=== PATIENT | male | born 1970 | race Caucasian/White ===

== ENCOUNTER 2020-11-19 11:46 | Outpatient (CLI) | payer MEDICARE, MEDICAID ==
[2020-11-19 12:00] VITALS: BP 139/85
[2020-11-19] MEDS ORDERED: EPINEPHrine INJECTION 1 MG/ML AMP IM PRN (12:15)
[2020-11-19] MEDS ORDERED: diphenhydrAMINE 50 MG/ML INJ (BENADRYL) IV PRN (12:15)
[2020-11-19] MEDS ORDERED: CASIRIVIMAB/IMDEVIMAB 1,200 MG in NS (IVPB) 250 ML IV ONE (12:30)
[2020-11-19] MEDS ORDERED: ONDANSETRON 4 MG/2 ML (SDV) Z0FRAN IV PRN (12:30)
[2020-11-19] MEDS ORDERED: ACETAMINOPHEN 500 MG TAB (TYLENOL) PO PRN (12:30)
[2020-11-19 13:53] VITALS: BP 142/74
== END 2020-11-19 14:27 | disposition other institution, planned readmission (95) ==
LOC: INFUSION 11:46
PROVIDERS: ATTEND Family Medicine
DX: Z23 Encounter for immunization (principal); U07.1 COVID-19

== ENCOUNTER 2021-06-20 19:20 | Emergency (ER) | payer MEDICARE, MEDICAID ==
[2021-06-20] MEDS ORDERED: cloNIDine 0.1 MG (CATAPRES) TAB PO STA (19:49)
--- NOTE | 2021-06-20 19:56 | ED Fall/Injury ---
General Chief Complaint: Head/Cervical Problems Stated Complaint: FALL Nursing Triage Note: PT LOST HIS BALANCE AND HIT HIS HEAD ON HIS DOOR. SMALL 1.5 CM SKIN TEAR IN THE LEFT EYEBROW. NO LOC. Source: patient, caregiver History of Present Illness Date Seen by Provider: Jun 20, 2021 Time Seen by Provider: 19:21 Initial Comments 50 yo male presenting by EMS after having a fall at [facility]. He has a history of hypertension and is running higher tonight. He had some unsteadiness when he was walking which is not unusual for him. He had complained of a headache and his blood pressure was elevated and so he was given some acetaminophen and he was trying to walk back to his room when he had fallen. He has a skin tear to his left eyebrow. He denies having nausea, vomiting, headache, change in vision, chest pain, arm pain, leg pain. He does take blood pressure medicine but it is dose for the morning. He has not taken his evening meds yet he usually takes them around 7 or 8 PM. He did not lose consciousness when he fell and hit his left eyebrow. He got up on his own. He does not take a blood thinner. He is unsure of his last tetanus Location Injury Occurred: [facility] Occurred: just prior to arrival Severity: mild Injuries/Pain Location: face (skin tear left eyebrow) Context: lost balance Loss of Consciousness: no loss of consciousness Associated Symptoms (Fall): No Abdominal Pain, No Chest Pain, No Confusion; Dizziness (feels like he is falling when he is getting up to move around), Headache (had a headache prior to getting acetaminophen); No Lightheadedness, No Muscle Spasms, No Nausea/Vomiting, No Neck Pain, No Ringing in Ears, No Seizures, No Shortness of Air, No Slurred Speech; Trouble Walking (chronic issue for hime); No Vision Changes Allergies and Home Medications Allergies Uncoded Allergies: PCN (Allergy, Mild, 11/19/20) Patient Home Medication List Home Medication List Reviewed: Yes Review of Systems Review of Systems Constitutional: see HPI; No chills, No fever Eyes: Denies Blurred Vision, Denies Photophobia, Denies Vision Changes Ears, Nose, Mouth, Throat: denies nose pain, denies nose discharge, denies epistaxis Respiratory: No cough, No short of breath Cardiovascular: No chest pain Gastrointestinal: No nausea, No vomiting Genitourinary: No dysuria Musculoskeletal: No neck pain Skin: other (skin tear left eyebrow) Psychiatric/Neurological: See HPI Past Oolofoo-Owxgyj-Szyztl Hx Patient Social History Tobacco Use?: No Use of E-Cig and/or Vaping dev: No Substance use?: No Alcohol Use?: No Pt feels they are or have been: No Past Medical History Surgery/Hospitalization HX: diabetic, Htn Physical Exam Vital Signs Vital Signs - First Documented 06/20/21 19:22 Temp 36.9 Pulse 77 Resp 16 B/P (MAP) 187/98 (127) Pulse Ox 99 O2 Delivery Room Air Capillary Refill : Less Than 3 Seconds Height, Weight, BMI Height: '" Weight: lbs. oz. 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 Wound is a superficial skin tear. Since it is right in the eyebrow there is nothing to stitch together. A Steri-Strip was applied over the skin tear to try and help approximate the wound edges. Patient tolerated procedure well without any immediate complication. Progress/Results/Core Measures Results/Orders My Orders Orders - TERRY LOPEZ MD Clonidine Tablet (Catapres Tablet) (06/20/21 19:49) Ct Head/Neck Wo (06/20/21 19:49) Dipht,Pertuss(Acell),Tet Adult (Boostrix (06/20/21 20:00) Medications Given in ED Current Medications Medications Dose Ordered Sig/Lindsey Route Start Time Stop Time Status Last Admin Dose Admin Diphtheria/ Tetanus/Acell Pertussis 0.5 ml ONCE ONCE IM 06/20/21 20:00 06/20/21 20:01 DC 06/20/21 19:55 0.5 ML Vital Signs/I&O 06/20/21 06/20/21 19:22 20:33 Temp 36.9 36.9 Pulse 77 70 Resp 16 18 B/P (MAP) 187/98 (127) 152/70 Pulse Ox 99 99 O2 Delivery Room Air Room Air Blood Pressure Mean: 127 Progress Progress Note #1: Progress Note As patient does have elevated blood pressure a extra dose of blood pressure medicine will be given. Will obtain CT scan of the head and cervical spine from his fall and complaining of being dizzy. This is likely related to his elevated blood pressure and some of this could be from the fall and pain. He does take blood pressure medications but they are only dosed in the morning from what I can see on review of his MAR. Give Clonidine 0.1 mg po for elevated blood pressure, update tetanus since unsure when he last had booster. CT scan of head and cervical spine. Progress Note #2: Progress Note CT scan of the head and cervical spine did not show any acute process and no intracranial bleeding. The blood pressure was improved with the clonidine. His blood pressure came down to 152/70 prior to discharge. Encouraged to recheck blood pressures at the [facility] and keep track of those to follow-up with Dr. Daley and the [facility] clinic to see if they need to adjust any of his medications. Diagnostic Imaging Diagonstic Imaging: CT Plain Films/CT/US/NM/MRI: c-spine, head Comments NAME: NEHEMIAH RAMIREZ MED REC#: [id number] PT STATUS: REG ER : 1970 PHYSICIAN: TERRY LOPEZ MD ADMIT DATE: 06/20/21/ER FS Draft Date of Exam:06/20/21 CT HEAD/NECK WO PROCEDURE: CT head and neck without contrast. TECHNIQUE: Contiguous axial images were obtained from the skull base through the vertex. Noncontrast axial images were then obtained of the soft tissue of the neck. Auto Exposure Controls were utilized during the CT exam to meet ALARA standards for radiation dose reduction. INDICATION: Fall. Trauma to head. Pain. COMPARISON: None. FINDINGS: CT HEAD: The ventricles and cortical sulci are diffusely prominent, compatible with age-related volume loss. There are confluent areas of abnormal, low attenuation in the periventricular white matter. This is consistent with small vessel ischemic changes; age-indeterminate. There is no prior study available for comparison. There is no midline shift or mass-effect. No acute intra-axial hemorrhage is seen. There are no abnormal areas of increased or decreased density to suggest acute hemorrhage or edema. No extra-axial masses or collections are present. The bony calvarium is intact. The visualized paranasal sinuses show near-complete opacification of the right frontal sinus and anterior right ethmoid air cells. Remaining paranasal sinuses show mild scattered mucosal thickening. The mastoid air cells are clear. CT CERVICAL SPINE: Static alignment of the cervical spine is maintained. There is no significant anterolistheses or retrolisthesis. There is no evidence of jumped facets. Vertebral body heights are maintained. There is no acute fracture. No bony fragments are seen within the spinal canal. There are mild multilevel degenerative changes. Pre and paravertebral soft tissue structures are unremarkable. Included portions of the lung apices are clear. IMPRESSION: 1. No acute intracranial abnormality. No CT evidence of mass, acute infarct or intracranial hemorrhage. 2. Small vessel ischemic changes in the periventricular and subcortical white matter; likely chronic. 3. No acute fracture ot dislocation of the cervical spine. Dictated on workstation # [id number] Dict: 06/20/212013 Trans: 06/20/212018 [facility] [id number] Interpreted by: ERIKA ORTIZ MD Electronically signed by: Reviewed: Reviewed by Me Departure Impression Primary Impression: Skin tear Additional Impressions: Essential hypertension Fall at home Qualified Codes: W19.XXXA - Unspecified fall, initial encounter; Y92.009 - Unspecified place in unspecified non-institutional (private) residence as the place of occurrence of the external cause Disposition: 01 HOME, SELF-CARE Condition: Stable Departure-Patient Inst. Decision time for Depature: 20:34 Referrals: SILVANA WHITE MD (PCP/Family) Primary Care Physician Patient Instructions: Preventing Falls ED, High Blood Pressure ED, Wound Care ED, Abrasions ED Add. Discharge Instructions: Keep wound clean with soap and water. May apply antibiotic ointment 2 times a day for next 5 days to help the wound heal. Monitor his blood pressure over the next few days and keep a log fo the pressures. Check back with Dr. Jones and [facility] clinic to see if they want to adjust any doses of his blood pressure medicines. He was given a single dose of Clonidine 0.1 mg by mouth here in the Emergency Department to help lower his elevated blood pressure. Continue with regular medicines as prescribed. CT scan of head and cervical spine do not show any fractures or bleeding. All discharge instructions reviewed with patient and/or family. Voiced understanding. TERRY LOPEZ MD Jun 20, 2021 19:56
[2021-06-20] MEDS ORDERED: TETANUS,DIPTH,PERTUSS P/F (BOOSTRIX) 0.5 ML VIAL IM ONE (20:00)
--- NOTE | 2021-06-20 20:20 | Diagnostic Imaging Report ---
PROCEDURE: CT head and neck without contrast. TECHNIQUE: Contiguous axial images were obtained from the skull base through the vertex. Noncontrast axial images were then obtained of the soft tissue of the neck. Auto Exposure Controls were utilized during the CT exam to meet ALARA standards for radiation dose reduction. INDICATION: Fall. Trauma to head. Pain. COMPARISON: None. FINDINGS: CT HEAD: The ventricles and cortical sulci are diffusely prominent, compatible with age-related volume loss. There are confluent areas of abnormal, low attenuation in the periventricular white matter. This is consistent with small vessel ischemic changes; age-indeterminate. There is no prior study available for comparison. There is no midline shift or mass-effect. No acute intra-axial hemorrhage is seen. There are no abnormal areas of increased or decreased density to suggest acute hemorrhage or edema. No extra-axial masses or collections are present. The bony calvarium is intact. The visualized paranasal sinuses show near-complete opacification of the right frontal sinus and anterior right ethmoid air cells. Remaining paranasal sinuses show mild scattered mucosal thickening. The mastoid air cells are clear. CT CERVICAL SPINE: Static alignment of the cervical spine is maintained. There is no significant anterolistheses or retrolisthesis. There is no evidence of jumped facets. Vertebral body heights are maintained. There is no acute fracture. No bony fragments are seen within the spinal canal. There are mild multilevel degenerative changes. Pre and paravertebral soft tissue structures are unremarkable. Included portions of the lung apices are clear. IMPRESSION: 1. No acute intracranial abnormality. No CT evidence of mass, acute infarct or intracranial hemorrhage. 2. Small vessel ischemic changes in the periventricular and subcortical white matter; likely chronic. 3. No acute fracture ot dislocation of the cervical spine. Dictated by: Dictated on workstation # [id number]
[2021-06-20 20:33] VITALS: BP 152/70
== END 2021-06-20 20:39 | disposition home or self-care (01) ==
LOC: EDUNIT# 19:20 → ER FS 19:21
DX: S01.112A Laceration without foreign body of left eyelid and periocular area, initial encounter (principal); I10 Essential (primary) hypertension; Z23 Encounter for immunization; W22.8XXA Striking against or struck by other objects, initial encounter; Y92.009 Unspecified place in unspecified non-institutional (private) residence as the place of occurrence of the external cause
CPT/HCPCS: 70450; 70490; 90715

== ENCOUNTER 2022-01-01 05:48 | Outpatient (CLI) | payer MEDICARE, MEDICAID ==
[~2022-01-01] VITALS: Ht 154.9 cm; Wt 63.5 kg
[2022-01-06] MEDS ORDERED: UMEC1BLS IH (15:26)
[2022-01-06] MEDS ORDERED: METO-333 PO (15:26)
[2022-01-06] MEDS ORDERED: RISP1TAB93 PO (15:26)
[2022-01-06] MEDS ORDERED: CLN.1T PO (15:26)
[2022-01-06] MEDS ORDERED: FERR325T24 PO (15:26)
[2022-01-06] MEDS ORDERED: RISP0.5T65 PO (15:26)
[2022-01-06] MEDS ORDERED: ESCI-2 PO (15:26)
[2022-01-06] MEDS ORDERED: CARB200T6 PO (15:26)
[2022-01-06] MEDS ORDERED: SUCR1TAB PO (15:26)
[2022-01-06] MEDS ORDERED: POLY10DR31 OP (15:26)
[2022-01-06] MEDS ORDERED: NYST15CR35 TP (15:26)
[2022-01-06] MEDS ORDERED: AMLO-251 PO (15:26)
[2022-01-06] MEDS ORDERED: ACET325T49 PO (15:26)
[2022-01-06] MEDS ORDERED: PANT40TA52 PO (15:26)
[2022-01-06] MEDS ORDERED: LEVE500T6 PO (15:26)
[2022-01-06] MEDS ORDERED: CLOZ25TA3 PO (15:26)
[2022-01-06] MEDS ORDERED: LOSA50TA63 PO (15:26)
[2022-01-06] MEDS ORDERED: CARI1.5C PO (15:26)
[2022-01-06] MEDS ORDERED: DOCU100C37 PO (15:26)
[2022-01-06] MEDS ORDERED: METF-399 PO (15:26)
[2022-01-06] MEDS ORDERED: MUPI15CR11 TP (15:26)
[2022-01-06] MEDS ORDERED: RILU50TA14 PO (15:26)
[2022-01-06] MEDS ORDERED: ATOR20TA66 PO (15:26)
[2022-01-06] MEDS ORDERED: RT-ALBUINH INH (15:26)
== END 2022-01-06 15:27 | disposition home or self-care (01) ==
LOC: PREOP 05:48
PROVIDERS: ATTEND Surgery
DX: Z01.818 Encounter for other preprocedural examination (principal); Z12.11 Encounter for screening for malignant neoplasm of colon; K92.2 Gastrointestinal hemorrhage, unspecified; R13.10 Dysphagia, unspecified; R11.2 Nausea with vomiting, unspecified

== ENCOUNTER 2022-01-13 09:08 | Day surgery (SDC) | payer MEDICARE, MEDICAID ==
[~2022-01-13] VITALS: Ht 155 cm; Wt 63.5 kg
[~2022-01-13 09:08] MED LIST: ACET325T49 PO; AMLO-251 PO; ATOR20TA66 PO; CARB200T6 PO; CARI1.5C PO; CLN.1T PO; CLOZ25TA3 PO; DOCU100C37 PO; ESCI-2 PO; FERR325T24 PO; LEVE500T6 PO; LOSA50TA63 PO; METF-399 PO; METO-333 PO; MUPI15CR11 TP; NYST15CR35 TP; PANT40TA52 PO; POLY10DR31 OP; RILU50TA14 PO; RISP0.5T65 PO; RISP1TAB93 PO; RT-ALBUINH INH; SUCR1TAB PO; UMEC1BLS IH
[2022-01-13] MEDS ORDERED: LACTATED RINGERS 1,000 ML IV STA (09:09)
[2022-01-13] MEDS ORDERED: HURRICAINE EXT TUBE (BENZOCAINE) XX PRN (09:15)
--- NOTE | 2022-01-13 09:26 | Progress Note-Pre Operative ---
Pre-Operative Progress Note Date of Available H&P: Dec 19, 2021 Date H&P Reviewed: Jan 13, 2022 Time H&P Reviewed: 09:23 History & Physical: H&P Reviewed, Patient Examed, No changes noted Pre-Operative Diagnosis: N/V, Dysphagia, Screening colonoscopy ACE BAKER DO Jan 13, 2022 09:26
[2022-01-13 09:50] VITALS: BP 142/90
[2022-01-13] MEDS ORDERED: PROPOFOL INJECTION 50 ML IV ONE (10:33)
[2022-01-13] MEDS ORDERED: MIDAZOLAM 2 MG/2 ML (VERSED) VIAL ONE (10:33)
--- NOTE | 2022-01-13 11:17 | Progress Note-Post Operative ---
Post-Operative Progess Note Surgeon (s)/Ruling Technician (s) Surgeon ACE BAKER DO Ruling Technician: RYAN Silverman Pre-Operative Diagnosis N/V, Dysphagia, Screening colonoscopy Post-Operative Diagnosis Gastritis Hiatal hernia Polyp int hemorrhoids Procedure & Operative Findings Date of Procedure 01/13/22 Procedure Performed/Findings EGD with bx Colonoscopy with snare PROCEDURE NOTE: After informed consent was obtained, the patient was brought to the endoscopy suite, placed in bed in left lateral decubitus position. He was administered IV sedation by the DIRECTOR LOSS PREVENTION who then monitored vitals the entire time, heart rate, blood pressure and pulse ox and the scope was inserted down the mouth through the esophagus into the stomach. On the way down, noted some mild esophagitis, took a picture, pushed into the stomach, pushed past the antrum into the duodenum. Duodenum looked good. Pulled back and did a biopsy of antrum, then retroflexed the scope, saw hiatal hernia, took a picture of this and then pulled the scope into the GE junction, took another picture of the hiatal hernia and then did a biopsy of the GE junction. Pushed the scope back into the stomach, suctioned all the air out of the stomach. At this point pulled the scope up the esophagus and out the mouth. I did not see anything in his esophagus to cause dysphagia. Switched camera, switched gloves, went down below and started the colonoscopy. Pushed all the way into about 140 cm to get all the way to cecum; saw a lot of retained fecal material. Once in the cecum, took a picture of the appendiceal orifice, noted the ileocecal valve and then slowly withdrew the scope. Insufflating to look circumferentially at the duggan starting in the cecum, up the ascending colon to the hepatic flexure, then down the transverse colon to the splenic flexure and into the descending colon. Here I found a small polyp and elected to remove it with snare polypectomy. Continued down into the sigmoid and finally into the rectum where I found another small polyp; also removed with snare. Retro- flexed in the rectal vault, saw some minimal internal hemorrhoids and took a picture of them. The patient tolerated the procedure and he recovered in the endoscopy suite. Recommended for repeat colonoscopy in 5 years Anesthesia Type IV sedation by DIRECTOR LOSS PREVENTION Estimated Blood Loss Estimated blood loss (mL): scant Specimens/Packing Specimens Removed antral bx GE jxn bx Desc colon polyp rectal polyp ACE BAKER DO Jan 13, 2022 11:17
[2022-01-13 11:18] VITALS: BP 129/74
--- NOTE | 2022-01-13 11:18 | Endoscopy Discharge Instruct ---
Endo Procedure/Findings Findings 1.: Gastritis 2.: Hiatal Hernia 3.: Polyp 4.: Internal Hemorrhoids Discharge Instructions - Activity: You might feel a little sleepy until tomorrow. This is due to the medicine you received to relax you. Until tomorrow, you should: NOT drive a car, operate machinery or power tools. NOT drink any alcoholic beverages. NOT make any important decisions or sign importortant papers. Do not return to work until tomorrow, unless otherwise instructed. Resume previous activities tomorrow. Diet: Start by taking liquids. If you tolerate liquids, advance to solid food. 1.: EGD in 3 years 2.: Colonscopy in 5 years Notify Physician - If you experience excessive bleeding, unusual abdominal pain, fever, or chest pain, contact your doctor immediately. ACE BAKER DO Jan 13, 2022 11:18
[2022-01-13 11:23] VITALS: BP 141/84
[2022-01-13 11:28] VITALS: BP 156/88
[2022-01-13 11:30] VITALS: BP 156/88
[2022-01-13 11:50] VITALS: BP 156/88
--- NOTE | 2022-01-13 12:23 | Anesthesia-General Post-Op ---
MAC Patient Condition Mental Status/LOC: Same as Preop Cardiovascular: Satisfactory Nausea/Vomiting: Absent Respiratory: Satisfactory Pain: Controlled Complications: Absent Post Op Complications Complications None Follow Up Care/Instructions Patient Instructions None needed. Anesthesiology Discharge Order Discharge Order Patient is doing well, no complaints, stable vital signs, no apparent adverse anesthesia problems. No complications reported per nursing. GUSTAVO HUBBARD CRNA Jan 13, 2022 12:23
== END 2022-01-13 11:58 | disposition home or self-care (01) ==
LOC: ENDO 09:08
PROVIDERS: ATTEND Surgery
DX: Z12.11 Encounter for screening for malignant neoplasm of colon (principal); K29.70 Gastritis, unspecified, without bleeding; K44.9 Diaphragmatic hernia without obstruction or gangrene; K62.1 Rectal polyp; K63.5 Polyp of colon; K64.8 Other hemorrhoids; K20.90 Esophagitis, unspecified without bleeding; K31.9 Disease of stomach and duodenum, unspecified; F79 Unspecified intellectual disabilities

== ENCOUNTER → 2022-01-23 | Outpatient (CLI) | payer MEDICARE, MEDICAID ==
[2022-01-23 13:39] LABS: BASOPHILS % (AUTO) 0 % (0-10); EOSINOPHILS # (AUTO) 0.1 10^3/uL (0.0-0.3); EOSINOPHILS % (AUTO) 1 % (0-10); HEMATOCRIT 21 % (40-54); LYMPHOCYTES % (AUTO) 29 % (12-44); MEAN CORPUSCULAR HEMOGLOBIN 28 pg (25-34); MEAN CORPUSCULAR HGB CONC 33 g/dL (32-36); MEAN CORPUSCULAR VOLUME 87 fL (80-99); MEAN PLATELET VOLUME 9.3 fL (9.0-12.2); MONOCYTES # (AUTO) 0.5 10^3/uL (0.0-1.0); MONOCYTES % (AUTO) 7 % (0-12); NEUTROPHILS # (AUTO) 4.4 10^3/uL (1.8-7.8); NEUTROPHILS % (AUTO) 63 % (42-75); PLATELET COUNT 211 10^3/uL (130-400)
[2022-01-23 13:58] LABS: SODIUM 131 MMOL/L (135-145)
[2022-01-23 13:59] LABS: ALANINE AMINOTRANSFERASE 16 U/L (0-55); ALBUMIN 3.6 GM/DL (3.2-4.5); ALKALINE PHOSPHATASE 105 U/L (40-136); BILIRUBIN,TOTAL < 0.2 MG/DL (0.1-1.0); BUN/CREATININE RATIO 18; CALCIUM 9.8 MG/DL (8.5-10.1); CARBON DIOXIDE 22 MMOL/L (21-32); CHLORIDE 97 MMOL/L (98-107); CREATININE SERUM 2.11 MG/DL (0.60-1.30); GFR ESTIMATED 37; GLUCOSE 90 MG/DL (70-105); POTASSIUM 4.8 MMOL/L (3.6-5.0); TOTAL PROTEIN 6.6 GM/DL (6.4-8.2)
== END ==
LOC: LAB FS 13:15
PROVIDERS: ATTEND Family Medicine
DX: I10 Essential (primary) hypertension (principal); D50.9 Iron deficiency anemia, unspecified
CPT/HCPCS: 36415; 80053; 85025

== ENCOUNTER 2022-01-24 11:32 | Emergency (ER) | payer MEDICARE, MEDICAID ==
[~2022-01-24 11:32] MED LIST changes: +CLOZ25TA PO; -CLOZ25TA3 PO
== END 2022-01-24 12:25 | disposition left against medical advice (07) ==
LOC: EDUNIT# 11:32 → ER FS 11:34
DX: D64.9 Anemia, unspecified (principal)

== ENCOUNTER 2022-03-10 09:33 | Emergency (ER) | payer MEDICARE, MEDICAID ==
--- NOTE | 2022-03-10 09:46 | ED Neurological Problem ---
General Chief Complaint: Neurological Problems Stated Complaint: RIGHT SIDE FACIAL DROOPING History of Present Illness Date Seen by Provider: Mar 10, 2022 Time Seen by Provider: 09:38 Initial Comments 51-year-old male with PMH of DM2/HLD/HTN/asthma/schizoaffective disorder/cyclothymic disorder/disruptive mood disorder/conduct disorder/fecal incontinence, is here from a long-term due to a new right-sided facial droop which was noticed when patient woke up today morning around 6 AM to 7 AM. Patient does not have any other neurological deficits, or weakness or sensory loss in his extremities. Denies headache, abdominal pain, fever, neck pain, shortness of breath, chest pain. Staff from his long-term that is accompanying the patient reports that patient has been having a cough and cold for the past few days, and that there are several people in the long-term that have been recovering from COVID. Allergies and Home Medications Allergies Uncoded Allergies: PCN (Allergy, Mild, 11/19/20) Patient Home Medication List Home Medication List Reviewed: Yes Acetaminophen (Acetaminophen) 325 Mg Tablet, 325 MG PO PRN, (Reported) Entered as Reported by: BONILLA CERVANTES on 01/06/221525 Albuterol Sulfate (Ventolin Hfa) 1 Puff Puff, 2 PUFF INH Q4H, (Reported) Entered as Reported by: BONILLA CERVANTES on 01/06/221525 Amlodipine Besylate (Amlodipine Besylate) 10 Mg Tablet, 10 MG PO DAILY, (Reported) Entered as Reported by: BONILLA CERVANTES on 01/06/221525 Atorvastatin Calcium (Atorvastatin Calcium) 20 Mg Tablet, 20 MG PO DAILY, (Reported) Entered as Reported by: BONILLA CERVANTES on 01/06/221525 Carbamazepine (Carbamazepine) 200 Mg Tablet, 200 MG PO DAILY, (Reported) Entered as Reported by: BONILLA CERVANTES on 01/06/221525 Cariprazine Hydrochloride (Vraylar) 1.5 Mg Capsule, 1.5 MG PO DAILY, (Reported) Entered as Reported by: BONILLA CERVANTES on 01/06/221525 Clonidine HCl (Clonidine HCl) 0.1 Mg Tablet, 0.1 MG PO DAILY, (Reported) Entered as Reported by: BONILLA CERVANTES on 01/06/221525 Clozapine (Clozapine) 25 Mg Tablet, 25 MG PO DAILY, (Reported) Entered as Reported by: BONILLA CERVANTES on 01/06/221525 Docusate Sodium (Docusate Sodium) 100 Mg Capsule, 100 MG PO DAILY, (Reported) Entered as Reported by: BONILLA CERVANTES on 01/06/221525 Escitalopram Oxalate (Escitalopram Oxalate) 10 Mg Tablet, 10 MG PO DAILY, (Reported) Entered as Reported by: BONILLA CERVANTES on 01/06/221525 Ferrous Sulfate (Ferosul) 325 Mg (65 Mg Iron) Tablet, 325 MG PO DAILY, (Reported) Entered as Reported by: BONILLA CERVANTES on 01/06/221525 Levetiracetam (Levetiracetam) 500 Mg Tablet, 500 MG PO DAILY, (Reported) Entered as Reported by: BONILLA CERVANTES on 01/06/221525 Losartan Potassium (Losartan Potassium) 50 Mg Tablet, 50 MG PO DAILY, (Reported) Entered as Reported by: BONILLA CERVANTES on 01/06/221525 Metformin HCl (Metformin HCl) 1,000 Mg Tablet, 1,000 MG PO DAILY, (Reported) Entered as Reported by: BONILLA CERVANTES on 01/06/221525 Metoprolol Tartrate (Metoprolol Tartrate) 25 Mg Tablet, 25 MG PO BID, (Reported) Entered as Reported by: BONILLA CERVANTES on 01/06/221525 Mupirocin Calcium (Mupirocin) 2 % Cream..g., 15 GM TP PRN, (Reported) Entered as Reported by: BONILLA CERVANTES on 01/06/221525 Nystatin (Nystatin) 100,000 Unit/Gram Cream..g., 15 GM TP PRN, (Reported) Entered as Reported by: BONILLA CERVANTES on 01/06/221525 Pantoprazole Sodium (Pantoprazole Sodium) 40 Mg Tablet.dr, 40 MG PO DAILY, (Reported) Entered as Reported by: BONILLA CERVANTES on 01/06/221525 Polymyxin B Sulf/Trimethoprim (Polymyxin B-Tmp Eye Drops) 10,000 Unit-1 Mg/Ml Drops, 10 ML OP HS, (Reported) Entered as Reported by: BONILLA CERVANTES on 01/06/221525 Riluzole (Rilutek) 50 Mg Tablet, 50 MG PO DAILY, (Reported) Entered as Reported by: BONILLA CERVANTES on 01/06/221525 Risperidone (Risperidone) 1 Mg Tablet, 1 MG PO DAILY, (Reported) Entered as Reported by: BONILLA CERVANTES on 01/06/221525 Risperidone (Risperidone) 0.5 Mg Tablet, 0.5 MG PO PRN, (Reported) Entered as Reported by: BONILLA CERVANTES on 01/06/221525 Sucralfate (Sucralfate) 1 Gram Tablet, 1 GM PO DAILY, (Reported) Entered as Reported by: BONILLA CERVANTES on 01/06/221525 Umeclidinium Brm/Vilanterol Tr (Anoro Ellipta 62.5-25 Mcg INH) 62.5 Mcg-25 Mcg/Actuation Blst.w.dev, 1 EACH IH Q12H, (Reported) Entered as Reported by: BONILLA CERVANTES on 01/06/221525 Review of Systems Review of Systems Constitutional: no symptoms reported Eyes: Other (Right eye and facial drooping) Ears, Nose, Mouth, Throat: see HPI Respiratory: no symptoms reported Cardiovascular: no symptoms reported Gastrointestinal: no symptoms reported Genitourinary: no symptoms reported Musculoskeletal: no symptoms reported Skin: no symptoms reported Psychiatric/Neurological: No Symptoms Reported Endocrine: No Symptoms Reported Hematologic/Lymphatic: No Symptoms Reported Past Wquityf-Wyxjfm-Aseurc Hx Patient Social History Tobacco Use?: No Smoking Status: Never a Smoker Smokeless Tobacco Frequency: Never a User Use of E-Cig and/or Vaping dev: No Use of E-Cig and/or Vaping Trey: Never a User Substance use?: No Alcohol Use?: No Pt feels they are or have been: No Immunizations Up To Date First/Initial COVID19 Vaccinat: YES Second COVID19 Vaccination Mike: YES Third COVID19 Vaccination Date: YES Seasonal Allergies Seasonal Allergies: No Past Medical History Surgery/Hospitalization HX: diabetic, Htn Surgeries: Yes (CATARACTS) Respiratory: Yes Cardiac: Yes Hypertension Neurological: Yes Developmental Disorder Genitourinary: No Gastrointestinal: No Endocrine: Yes Diabetes, Non-Insulin dep HEENT: Yes Cataract Cancer: No Psychosocial: Yes Integumentary: No Physical Exam Vital Signs Vital Signs - First Documented 03/10/22 09:40 Temp 36.0 Pulse 61 Resp 18 B/P (MAP) 136/84 (101) O2 Delivery Room Air Capillary Refill : Height, Weight, BMI Height: '" Weight: lbs. oz. kg; 26.43 BMI Method: General Appearance: WD/WN, no apparent distress HEENT: PERRL/EOMI, other (Right-sided facial drooping, loss of nasolabial folds on the right loss of forehead wrinkling on the right. Patient is able to close his right eye) Neck: non-tender, full range of motion, supple, normal inspection Respiratory: chest non-tender, lungs clear, normal breath sounds Cardiovascular: regular rate, rhythm Gastrointestinal: normal bowel sounds, non tender, soft Back: normal inspection Extremities: normal range of motion, non-tender, normal inspection Neurologic/Psychiatric: no motor/sensory deficits, alert, normal mood/affect, oriented x 3, facial droop (Right side with loss of nasolabial fold, loss of right-sided forehead wrinkling. Patient is able to close his right eye.) Crainal Nerves: normal hearing, normal speech, PERRL, facial asymmetry, facial droop, facial weakness Coordination/Gait: normal gait Motor/Sensory: no motor deficit, no sensory deficit, no pronator drift, negative Babinski's sign Skin: normal color Lymphatic: no adenopathy Progress/Results/Core Measures Results/Orders Lab Results Laboratory Tests Test 03/10/22 09:40 03/10/22 10:39 Range/Units White Blood Count 5.0 4.3-11.0 10^3/uL Red Blood Count 3.04 L 4.30-5.52 10^6/uL Hemoglobin 8.6 L 13.3-17.7 g/dL Hematocrit 27 L 40-54 % Mean Corpuscular Volume 87 80-99 fL Mean Corpuscular Hemoglobin 28 25-34 pg Mean Corpuscular Hemoglobin Concent 33 32-36 g/dL Red Cell Distribution Width 14.6 H 10.0-14.5 % Platelet Count 172 130-400 10^3/uL Mean Platelet Volume 9.5 9.0-12.2 fL Immature Granulocyte % (Auto) 0 % Neutrophils (%) (Auto) 60 42-75 % Lymphocytes (%) (Auto) 18 12-44 % Monocytes (%) (Auto) 21 H 0-12 % Eosinophils (%) (Auto) 1 0-10 % Basophils (%) (Auto) 0 0-10 % Neutrophils # (Auto) 3.0 1.8-7.8 10^3/uL Lymphocytes # (Auto) 0.9 L 1.0-4.0 10^3/uL Monocytes # (Auto) 1.0 0.0-1.0 10^3/uL Eosinophils # (Auto) 0.0 0.0-0.3 10^3/uL Basophils # (Auto) 0.0 0.0-0.1 10^3/uL Immature Granulocyte # (Auto) 0.0 0.0-0.1 10^3/uL Neutrophils % (Manual) 62 % Lymphocytes % (Manual) 19 % Monocytes % (Manual) 15 % Eosinophils % (Manual) 0 % Basophils % (Manual) 3 % Band Neutrophils 1 % Prothrombin Time 13.1 12.2-14.7 SEC INR Comment 0.9 0.8-1.4 Activated Partial Thromboplast Time 31 24-35 SEC Sodium Level 130 L 135-145 MMOL/L Potassium Level 4.5 3.6-5.0 MMOL/L Chloride Level 96 L 98-107 MMOL/L Carbon Dioxide Level 25 21-32 MMOL/L Anion Gap 9 5-14 MMOL/L Blood Urea Nitrogen 35 H 7-18 MG/DL Creatinine 1.87 H 0.60-1.30 MG/DL Estimat Glomerular Filtration Rate 43 BUN/Creatinine Ratio 19 Glucose Level 93 70-105 MG/DL Calcium Level 9.4 8.5-10.1 MG/DL Corrected Calcium 9.6 8.5-10.1 MG/DL Total Bilirubin 0.3 0.1-1.0 MG/DL Aspartate Amino Transf (AST/SGOT) 63 H 5-34 U/L Alanine Aminotransferase (ALT/SGPT) 61 H 0-55 U/L Alkaline Phosphatase 277 H 40-136 U/L Troponin I < 0.30 <0.30 NG/ML Total Protein 7.5 6.4-8.2 GM/DL Albumin 3.8 3.2-4.5 GM/DL My Orders Orders - ROSARIO GERBER MD Ct Head Wo-R/O Stroke (03/10/22 09:42) Cbc With Automated Diff (03/10/22 09:43) Protime With Inr (03/10/22 09:43) Partial Thromboplastin Time (03/10/22 09:43) Comprehensive Metabolic Panel (03/10/22 09:43) Troponin I Fs (03/10/22 09:43) Ua Culture If Indicated (03/10/22 09:43) Chest 1 View Ap/Pa Only (03/10/22 09:43) Ekg Tracing (03/10/22:43) Nothing By Mouth (03/10/22 Lunch) Accucheck Stat ONCE (03/10/22:43) Ed Iv/Invasive Line Start (03/10/22 09:43) Vital Signs Stroke Patient Q15M (03/10/22 09:43) Monitor-Rhythm Ecg Trace Only (03/10/22:43) Dysphagia Screening Tool [id number] (03/10/22 09:43) Drug Screen Stat (Urine) (03/10/22 09:45) Manual Differential (03/10/22 09:40) Covid 19 Inhouse Test (03/10/22 10:24) Influenza A And B By Pcr (03/10/22 10:24) Vital Signs/I&O 03/10/22 09:40 Temp 36.0 Pulse 61 Resp 18 B/P (MAP) 136/84 (101) O2 Delivery Room Air Progress Progress Note : Progress Note 1. MA'S PALSY/ STROKE RULE OUT: - CT HEAD & NECK:no acute findings - CXR: unremarkable - Troponin/ EKG: non-ischemic - Coagulation panel normal - COVID test/ Rapid flu test: Positive for COVID and Influenza A - Prednisone 60mg STAT in ER - Prednisone taper for 10 days, with first day dose given in ER. Day 1 given in ER, Day 2- Day 6: 60mg, Day 7: 40mg, Day 8: 20mg Day 9: 10mg Day 10: 5mg - Follow up with PCP: pt has appointment set up in 10 days - If symptoms do not resolve in 6 to 8 weeks, will need MRI at that time - Will start Tamiflu since it sounds like respiratory symptoms started in the last day or two, and also because he is living in a long-term -Advised Tylenol and ibuprofen as needed for fever or body aches. Advised adequate hydration. -The patient was seen in the ED, and treated appropriately to presentation at a specific point in time. Patient is informed that there is a possibility that disease and illness can evolve and change in acuity rapidly or slowly after patient is discharged from the ER. Precautionary advice given to the patient for immediate return to ER if symptoms worsen or do not resolve, and to seek emergency care sooner rather than later. Pt also advised on the importance of PCP follow up and compliance with management and follow up plan with PCP and/or specialist, as this is part of the management plan. Pt verbally expressed understanding. Departure Impression Primary Impression: Ma's palsy Additional Impressions: SARS-CoV-2 positive Influenza A Disposition: HOME, SELF-CARE Condition: Stable Departure-Patient Inst. Referrals: SILVANA WHITE MD (PCP/Family) Primary Care Physician Patient Instructions: Ma's Palsy (DC), COVID-19 Overview, Flu, Adult (DC), COVID-19 ED, Prone Position Add. Discharge Instructions: - Prednisone taper for 10 days, with first day dose given in ER. Day 1 given in ER, Day 2- Day 6: 60mg, Day 7: 40mg, Day 8: 20mg Day 9: 10mg Day 10: 5mg - Follow up with PCP: pt has appointment set up in 10 days - If symptoms do not resolve in 6 to 8 weeks, will need MRI at that time - Tamiflu for 5 days, to be taken twice a day, dispensed from ER -Advised Tylenol and ibuprofen as needed for fever or body aches. Advised adequate hydration. - Quarantine for 5 days and until fever free for 24 hours without fever medications. All discharge instructions reviewed with patient and/or family. Voiced understanding. Scripts Prednisone (Prednisone) 20 Mg Tab 40 MG PO DAILY for 1 Day, #1 TAB Take on 03/16/22 Prov: ROSARIO GERBER MD 03/10/22 Prednisone (Prednisone) 20 Mg Tab 20 MG PO DAILY for 1 Day, #1 TAB Take on 03/17/22 Prov: ROSARIO GERBER MD 03/10/22 Prednisone (Prednisone) 10 Mg Tab.ds.pk 10 MG PO DAILY for 1 Day, #1 EA Take on 03/18/22 Prov: ROSARIO GERBER MD 03/10/22 Prednisone (Prednisone) 5 Mg Tablet 5 MG PO DAILY for 1 Day, #1 TAB Take on 03/19/22 Prov: ROSARIO GERBER MD 03/10/22 Prednisone (Prednisone) 20 Mg Tab 60 MG PO DAILY for 5 Days, #5 TAB Take from 03/11/22 to 03/15/22. Prov: ROSARIO GERBER MD 03/10/22 ROSARIO GERBER MD Mar 10, 2022 09:46
[2022-03-10 09:49] LABS: BASOPHILS % (AUTO) 0 % (0-10); EOSINOPHILS % (AUTO) 1 % (0-10); HEMATOCRIT 27 % (40-54); HEMOGLOBIN 8.6 g/dL (13.3-17.7); LYMPHOCYTES # (AUTO) 0.9 10^3/uL (1.0-4.0); LYMPHOCYTES % (AUTO) 18 % (12-44); MEAN CORPUSCULAR HEMOGLOBIN 28 pg (25-34); MEAN CORPUSCULAR HGB CONC 33 g/dL (32-36); MEAN CORPUSCULAR VOLUME 87 fL (80-99); MEAN PLATELET VOLUME 9.5 fL (9.0-12.2); MONOCYTES % (AUTO) 21 % (0-12); NEUTROPHILS % (AUTO) 60 % (42-75); PLATELET COUNT 172 10^3/uL (130-400)
[2022-03-10 10:05] LABS: INR 0.9 (0.8-1.4); PROTHROMBIN TIME PATIENT 13.1 SEC (12.2-14.7)
[2022-03-10 10:17] LABS: ALANINE AMINOTRANSFERASE 61 U/L (0-55); ALKALINE PHOSPHATASE 277 U/L (40-136); BILIRUBIN,TOTAL 0.3 MG/DL (0.1-1.0); BUN/CREATININE RATIO 19; CALCIUM 9.4 MG/DL (8.5-10.1); CARBON DIOXIDE 25 MMOL/L (21-32); CHLORIDE 96 MMOL/L (98-107); CREATININE SERUM 1.87 MG/DL (0.60-1.30); GFR ESTIMATED 43; GLUCOSE 93 MG/DL (70-105); POTASSIUM 4.5 MMOL/L (3.6-5.0); SODIUM 130 MMOL/L (135-145)
[2022-03-10 10:18] LABS: ALBUMIN 3.8 GM/DL (3.2-4.5); TOTAL PROTEIN 7.5 GM/DL (6.4-8.2)
[2022-03-10 10:19] LABS: BAND NEUTROPHILS 1 %; BASOPHILS % (MANUAL) 3 %; EOSINOPHILS % (MANUAL) 0 %; LYMPHOCYTES % (MANUAL) 19 %; MONOCYTES % (MANUAL) 15 %; NEUTROPHILS % (MANUAL) 62 %
--- NOTE | 2022-03-10 10:48 | Diagnostic Imaging Report ---
INDICATION: Stroke. FINDINGS: The heart size, mediastinal configuration, and pulmonary vascularity are within normal limits. There is no pleural effusion, pneumothorax, or pneumonia. The osseous structures are unremarkable. IMPRESSION: No acute cardiopulmonary abnormality. Dictated by: Dictated on workstation # [id number]
--- NOTE | 2022-03-10 10:50 | Diagnostic Imaging Report ---
CLINICAL INDICATION: Patient with new onset facial droop. Exam: Axial CT scan of the brain without IV contrast with coronal and sagittal reformatted images. Auto Exposure Controls were utilized during the CT exam to meet ALARA standards for radiation dose reduction. Comparison: CT scan of the head and neck with contrast dated 06/20/2021. Findings: There is no evidence of acute cerebral infarct, intracranial hemorrhage, or gross mass effect. There is no dense vessel sign seen. Stable small area of low-density involving left frontal lobe. Stable calcification or mineralization involving the bilateral basal ganglia regions. The brain parenchymal volume appears appropriate for patient's age. There is normal longoria-white matter distinction. There is no significant midline shift or herniation. There is no evidence of hydrocephalus. The basal cisterns are unremarkable. The skull, extracranial soft tissue, and orbits are unremarkable. The paranasal sinuses are unremarkable. Temporal bones show no significant abnormality. Impression: Stable CT scan of the brain with no evidence of acute intracranial process. There is no dense vessel sign seen. If there is continued concern for acute cerebral infarct, then MRI of the brain may help better evaluate. Results of this report was discussed with Dr. England via the telephone on 03/10/2022 at 1041 hours Dictated by: Dictated on workstation # [id number]
[2022-03-10 11:15] LABS: BILIRUBIN,URINE NEGATIVE (NEGATIVE); CLARITY,URINE CLEAR; GLUCOSE, URINE (UA) NEGATIVE (NEGATIVE); KETONES,URINE NEGATIVE (NEGATIVE); LEUKOCYTE ESTERASE ,URINE NEGATIVE (NEGATIVE); NITRITE,URINE NEGATIVE (NEGATIVE); PROTEIN,URINE 2+ (NEGATIVE)
[2022-03-10] MEDS ORDERED: predniSONE 20 MG TAB PO ONE ×2 (11:30→11:45)
[2022-03-10] MEDS ORDERED: predniSONE 10 MG TAB PO ONE (11:30)
[2022-03-10] MEDS ORDERED: NS IV 1000 ML 1,000 ML IV SCH (11:30)
[2022-03-10] MEDS ORDERED: predniSONE 20 MG TAB ONE (11:34)
[2022-03-10 11:39] LABS: BACTERIA,URINE NEGATIVE /HPF; COLOR,URINE PALE YELLOW; SQUAMOUS EPITHELIAL CELL,UR 0-2 /HPF
[2022-03-10] MEDS ORDERED: RX-OSELTAMIVIR 75 MG (TAMIFLU) BOX OF 10 PO STA (11:40)
[2022-03-10] MEDS ORDERED: PRED5TAB PO (11:48)
[2022-03-10] MEDS ORDERED: PRED10TA22 PO (11:48)
[2022-03-10] MEDS ORDERED: PRD20T PO (11:48)
[2022-03-10 12:05] VITALS: BP 146/84
[2022-03-10 12:09] LABS: AMPHETAMINE SCREEN, URINE NEGATIVE (NEGATIVE); BARBITURATE SCREEN URINE NEGATIVE (NEGATIVE); BENZODIAZEPINES SCREEN URINE NEGATIVE (NEGATIVE); CANNABINOID SCREEN, URINE NEGATIVE (NEGATIVE); COCAINE SCREEN URINE NEGATIVE (NEGATIVE); METHADONE STAT NEGATIVE (NEGATIVE); OPIATE SCREEN URINE NEGATIVE (NEGATIVE); OXYCODONE STAT NEGATIVE (NEGATIVE); PROPOXYPHENE STAT NEGATIVE (NEGATIVE); TRICYCLIC ANTIDEPRESSANTS SCRE NEGATIVE (NEGATIVE)
== END 2022-03-10 12:05 | disposition home or self-care (01) ==
LOC: EDUNIT# 09:33 → ER FS 09:36
DX: G51.0 Bell's palsy (principal); U07.1 COVID-19; J10.1 Influenza due to other identified influenza virus with other respiratory manifestations
CPT/HCPCS: 36415; 70450; 71045; 80053; 80306; 81000; 84484; 85007; 85027; 85610; 85652; 85730; 86780; 87636; 93005; 93041

== ENCOUNTER 2022-06-19 12:04 | Inpatient (IN) | payer MEDICARE, MEDICAID ==
[~2022-06-19] VITALS: Ht 175 cm; Wt 70.0 kg
[~2022-06-19 12:04] MED LIST changes: +PRD20T PO; +PRED10TA22 PO; +PRED5TAB PO
[2022-06-19] MEDS ORDERED: NS IV 1000 ML 1,000 ML IV STA (12:22)
--- NOTE | 2022-06-19 12:30 | ED General ---
General Chief Complaint: - Reproductive Stated Complaint: DARK URINE Nursing Triage Note: Per home staff patient has developed dark colored urine today. She reports a decreased appetite since yesterday. Source of Information: Patient, Caregiver (staff member from [facility]) Exam Limitations: Other (developmental delay) History of Present Illness Date Seen by Provider: Jun 19, 2022 Time Seen by Provider: 12:07 Initial Comments 51-year-old male presenting with a staff member from [facility] with complaints that he had dark-colored urine today and did not want to eat as much yesterday. They noted that his leg swelling seems to be worse this morning. They did not try to check with his primary care provider through [facility] and brought him to the emergency department. They were concerned because he was not eating and drinking as much in the last 12 to 18 hours. He has chronic medical conditions complicating his care including type 2 diabetes, hyperlipidemia, disruptive mood disorder, moderate intellectual disabilities, conduct disorder, hypertension, asthma, Schizoaffective disorder, intermittent explosive disorder. Timing/Duration: 12-24 Hours Severity: Mild Associated Systoms: No Cough, No Diaphoresis; Loss of Appetite Allergies and Home Medications Allergies Uncoded Allergies: PCN (Allergy, Mild, 11/19/20) Patient Home Medication List Home Medication List Reviewed: Yes Acetaminophen (Acetaminophen) 325 Mg Tablet, 325 MG PO PRN, (Reported) Entered as Reported by: BONILLA CERVANTES on 01/06/221525 Albuterol Sulfate (Ventolin Hfa) 1 Puff Puff, 2 PUFF INH Q4H, (Reported) Entered as Reported by: BONILLA CERVANTES on 01/06/221525 Amlodipine Besylate (Amlodipine Besylate) 10 Mg Tablet, 10 MG PO DAILY, (Reported) Entered as Reported by: BONILLA CERVANTES on 01/06/221525 Atorvastatin Calcium (Atorvastatin Calcium) 20 Mg Tablet, 20 MG PO DAILY, (Reported) Entered as Reported by: BONILLA CERVANTES on 01/06/221525 Carbamazepine (Carbamazepine) 200 Mg Tablet, 200 MG PO DAILY, (Reported) Entered as Reported by: BONILLA CERVANTES on 01/06/221525 Cariprazine Hydrochloride (Vraylar) 1.5 Mg Capsule, 1.5 MG PO DAILY, (Reported) Entered as Reported by: BONILLA CERVANTES on 01/06/221525 Clonidine HCl (Clonidine HCl) 0.1 Mg Tablet, 0.1 MG PO DAILY, (Reported) Entered as Reported by: BONILLA CERVANTES on 01/06/221525 Clozapine (Clozapine) 25 Mg Tablet, 25 MG PO DAILY, (Reported) Entered as Reported by: BONILLA CERVANTES on 01/06/221525 Docusate Sodium (Docusate Sodium) 100 Mg Capsule, 100 MG PO DAILY, (Reported) Entered as Reported by: BONILLA CERVANTES on 01/06/221525 Escitalopram Oxalate (Escitalopram Oxalate) 10 Mg Tablet, 10 MG PO DAILY, (Reported) Entered as Reported by: BONILLA CERVANTES on 01/06/221525 Ferrous Sulfate (Ferosul) 325 Mg (65 Mg Iron) Tablet, 325 MG PO DAILY, (Reported) Entered as Reported by: BONILLA CERVANTES on 01/06/221525 Levetiracetam (Levetiracetam) 500 Mg Tablet, 500 MG PO DAILY, (Reported) Entered as Reported by: BONILLA CERVANTES on 01/06/221525 Losartan Potassium (Losartan Potassium) 50 Mg Tablet, 50 MG PO DAILY, (Reported) Entered as Reported by: BONILLA CERVANTES on 01/06/221525 Metformin HCl (Metformin HCl) 1,000 Mg Tablet, 1,000 MG PO DAILY, (Reported) Entered as Reported by: BONILLA CERVANTES on 01/06/221525 Metoprolol Tartrate (Metoprolol Tartrate) 25 Mg Tablet, 25 MG PO BID, (Reported) Entered as Reported by: BONILLA CERVANTES on 01/06/221525 Mupirocin Calcium (Mupirocin) 2 % Cream..g., 15 GM TP PRN, (Reported) Entered as Reported by: BONILLA CERVANTES on 01/06/221525 Nystatin (Nystatin) 100,000 Unit/Gram Cream..g., 15 GM TP PRN, (Reported) Entered as Reported by: BONILLA CERVANTES on 01/06/221525 Pantoprazole Sodium (Pantoprazole Sodium) 40 Mg Tablet.dr, 40 MG PO DAILY, (Reported) Entered as Reported by: BONILLA CERVANTES on 10/3/22 1526 Polymyxin B Sulf/Trimethoprim (Polymyxin B-Tmp Eye Drops) 10,000 Unit-1 Mg/Ml Drops, 10 ML OP HS, (Reported) Entered as Reported by: BONILLA CERVANTES on 01/06/221525 Prednisone (Prednisone) 20 Mg Tab, 60 MG PO DAILY Prescribed by: ROSARIO GERBER MD on 03/10/221147 Prednisone (Prednisone) 5 Mg Tablet, 5 MG PO DAILY Prescribed by: ROSARIO GERBER MD on 03/10/221147 Prednisone (Prednisone) 10 Mg Tab.ds.pk, 10 MG PO DAILY Prescribed by: ROSARIO GERBER MD on 03/10/221147 Prednisone (Prednisone) 20 Mg Tab, 20 MG PO DAILY Prescribed by: ROSARIO GERBER MD on 03/10/221147 Prednisone (Prednisone) 20 Mg Tab, 40 MG PO DAILY Prescribed by: ROSARIO GERBER MD on 03/10/221147 Riluzole (Rilutek) 50 Mg Tablet, 50 MG PO DAILY, (Reported) Entered as Reported by: BOINLLA CERVANTES on 01/06/221525 Risperidone (Risperidone) 1 Mg Tablet, 1 MG PO DAILY, (Reported) Entered as Reported by: BONILLA CERVANTES on 01/06/221525 Risperidone (Risperidone) 0.5 Mg Tablet, 0.5 MG PO PRN, (Reported) Entered as Reported by: BONILLA CERVANTES on 01/06/221525 Sucralfate (Sucralfate) 1 Gram Tablet, 1 GM PO DAILY, (Reported) Entered as Reported by: BONILLA CERVANTES on 01/06/221525 Umeclidinium Brm/Vilanterol Tr (Anoro Ellipta 62.5-25 Mcg INH) 62.5 Mcg-25 Mcg/Actuation Blst.w.dev, 1 EACH IH Q12H, (Reported) Entered as Reported by: BONILLA CERVANTES on 01/06/221525 Review of Systems Review of Systems Constitutional: No chills, No fever EENTM: no symptoms reported Respiratory: No cough Cardiovascular: edema (chronic edema that was felt to be worse this am) Gastrointestinal: loss of appetite Genitourinary: decreased output Musculoskeletal: no symptoms reported Skin: other (possible bug bites to right arm) Psychiatric/Neurological: See HPI Past [id number] Hx Patient Social History Tobacco Use?: No Use of E-Cig and/or Vaping dev: No Substance use?: No Alcohol Use?: No Immunizations Up To Date First/Initial COVID19 Vaccinat: YES Second COVID19 Vaccination Mike: YES Third COVID19 Vaccination Date: YES Seasonal Allergies Seasonal Allergies: No Past Medical History Surgery/Hospitalization HX: diabetic, Htn, Schizoaffective Disorder, Intermittent Explosive Disorder, Asthma, Hyperlipidemia, Disruptive mood disorder, Moderate intellectual disabilities, Conduct disorder Surgeries: Yes (CATARACTS) Respiratory: Yes Asthma Cardiac: Yes High Cholesterol, Hypertension Neurological: Yes Developmental Disorder Genitourinary: No Gastrointestinal: No Musculoskeletal: No Endocrine: Yes Diabetes, Non-Insulin dep HEENT: Yes Cataract Cancer: No Psychosocial: Yes Schizophrenia (Schizoaffective disorder), Violent Behavior (Intermittent explosive disorder, conduct disorder, Disruptive mood disorder) Integumentary: No Physical Exam Vital Signs Vital Signs - First Documented 06/19/22 06/19/22 12:11 13:47 Temp 32.8 Pulse 50 Resp 18 B/P (MAP) 124/77 (93) Pulse Ox 95 O2 Delivery Room Air Capillary Refill : Height, Weight, BMI Height: '" Weight: lbs. oz. kg; 26.43 BMI Method: General Appearance: No Apparent Distress, Chronically ill, Other (very limited ability to express himself) HEENT: No Moist Mucous Membranes (slightly dry mucous membranes) Neck: Full Range of Motion, Normal Inspection, Non Tender, Supple Respiratory: Chest Non Tender, Lungs Clear, Normal Breath Sounds, No Accessory Muscle Use, No Respiratory Distress Cardiovascular: Regular Rate, Rhythm, Normal Peripheral Pulses Gastrointestinal: Normal Bowel Sounds, No Pulsatile Mass, Soft, Tenderness (seems to wince with palpation over epigastric area) Rectal: Deferred Extremity: Normal Capillary Refill, Pedal Edema (trace to 1+ BLE pitting edema) Neurologic/Psychiatric: Alert Skin: Warm/Dry, Erythema (erythematous papules to right upper extremity and forearm) Focused Exam Lactate Level 06/19/22 12:22: Lactic Acid Level 0.65 Lactic Acid Level Laboratory Tests Test 06/19/22 12:22 Lactic Acid Level 0.65 MMOL/L (0.50-2.00) Progress/Results/Core Measures Suspected Sepsis SIRS Temperature: Pulse: 50 Respiratory Rate: Laboratory Tests 06/19/22 12:22: White Blood Count 11.6H Blood Pressure / Mean: 06/19/22 12:22: Lactic Acid Level 0.65 Laboratory Tests 06/19/22 12:22: Creatinine 2.11H, Platelet Count 97L, Total Bilirubin 0.3 Results/Orders Lab Results Laboratory Tests Test 06/19/22 12:22 06/19/22 14:24 Range/Units White Blood Count 11.6 H 4.3-11.0 10^3/uL Red Blood Count 2.89 L 4.30-5.52 10^6/uL Hemoglobin 8.2 L 13.3-17.7 g/dL Hematocrit 25 L 40-54 % Mean Corpuscular Volume 88 80-99 fL Mean Corpuscular Hemoglobin 28 25-34 pg Mean Corpuscular Hemoglobin Concent 32 32-36 g/dL Red Cell Distribution Width 15.3 H 10.0-14.5 % Platelet Count 97 L 130-400 10^3/uL Mean Platelet Volume 10.3 9.0-12.2 fL Immature Granulocyte % (Auto) 0 % Neutrophils (%) (Auto) 88 H 42-75 % Lymphocytes (%) (Auto) 7 L 12-44 % Monocytes (%) (Auto) 5 0-12 % Eosinophils (%) (Auto) 1 0-10 % Basophils (%) (Auto) 0 0-10 % Neutrophils # (Auto) 10.2 H 1.8-7.8 10^3/uL Lymphocytes # (Auto) 0.8 L 1.0-4.0 10^3/uL Monocytes # (Auto) 0.5 0.0-1.0 10^3/uL Eosinophils # (Auto) 0.1 0.0-0.3 10^3/uL Basophils # (Auto) 0.0 0.0-0.1 10^3/uL Immature Granulocyte # (Auto) 0.0 0.0-0.1 10^3/uL Percent Immature Platelet Fraction 4.9 0.0-7.6 % Sodium Level 146 H 135-145 MMOL/L Potassium Level 4.8 3.6-5.0 MMOL/L Chloride Level 111 H 98-107 MMOL/L Carbon Dioxide Level 25 21-32 MMOL/L Anion Gap 10 5-14 MMOL/L Blood Urea Nitrogen 51 H 7-18 MG/DL Creatinine 2.11 H 0.60-1.30 MG/DL Estimat Glomerular Filtration Rate 37 BUN/Creatinine Ratio 24 Glucose Level 66 L 70-105 MG/DL Lactic Acid Level 0.65 0.50-2.00 MMOL/L Calcium Level 9.1 8.5-10.1 MG/DL Corrected Calcium 9.9 8.5-10.1 MG/DL Total Bilirubin 0.3 0.1-1.0 MG/DL Aspartate Amino Transf (AST/SGOT) 49 H 5-34 U/L Alanine Aminotransferase (ALT/SGPT) 45 0-55 U/L Alkaline Phosphatase 224 H 40-136 U/L Pro-B-Type Natriuretic Peptide 2177.0 H <125.0 PG/ML Total Protein 7.6 6.4-8.2 GM/DL Albumin 3.0 L 3.2-4.5 GM/DL Lipase 387 H 8-78 U/L Urine Color YELLOW Urine Clarity CLEAR Urine pH 6.5 5-9 Urine Specific [place] 1.020 1.016-1.022 Urine Protein 3+ H NEGATIVE Urine Glucose (UA) TRACE H NEGATIVE Urine Ketones NEGATIVE NEGATIVE Urine Nitrite NEGATIVE NEGATIVE Urine Bilirubin NEGATIVE NEGATIVE Urine Urobilinogen 1.0 < = 1.0 MG/DL Urine Leukocyte Esterase NEGATIVE NEGATIVE Urine RBC (Auto) TRACE-I H NEGATIVE Urine RBC RARE /HPF Urine WBC 0-2 /HPF Urine Squamous Epithelial Cells RARE /HPF Urine Crystals NONE /LPF Urine Bacteria TRACE /HPF Urine Casts NONE /LPF Urine Mucus NEGATIVE /LPF Urine Culture Indicated NO My Orders Orders - TERRY LOPEZ MD Ua Culture If Indicated (06/19/22 12:08) Comprehensive Metabolic Panel (06/19/22 12:20) Lipase (06/19/22 12:20) Ed Iv/Invasive Line Start (06/19/22 12:20) Cbc With Automated Diff (06/19/22 12:20) Ct Abdomen/Pelvis Wo (06/19/22 12:20) Probnp Fs (06/19/22 12:20) Ns Iv 1000 Ml (Sodium Chloride 0.9%) (06/19/22 12:22) Bladder Scan (06/19/22 12:22) Code/Resuscitation (06/19/22 13:29) Straight Cath For Spec.-Adult (06/19/22 14:07) Blood Culture (06/19/22 14:07) Lactic Acid Analyzer (06/19/22 14:07) Ed Admission (Communication) (06/19/22 14:10) Vital Signs/I&O 06/19/22 06/19/22 12:11 13:47 Temp 32.8 Pulse 50 Resp 18 18 B/P (MAP) 124/77 (93) 126/86 Pulse Ox 95 95 O2 Delivery Room Air Capillary Refill : Progress Note #1: Progress Note Potential diagnosis of dehydration, heart failure, UTI, Pyelonephritis, bowel obstruction, gastritis. Establish peripheral IV access and send blood for complete blood count, comprehensive metabolic profile, lipase. Obtain a urinalysis to evaluate his hydration status. Order a bladder scan to see if he had signs of retention. CT scan of the abdomen and pelvis without IV contrast to evaluate for possible bowel obstruction, colitis, diverticulitis, abdominal mass. Administer normal saline 1 L IV fluid bolus for hydration. Progress Note #2: Progress Note Complete blood count shows that his white blood cells are upper limit of normal at 11.6. His hemoglobin is 8.2 which is consistent with his chronic anemia. Previous hemoglobin was 8.6. He has chronic renal insufficiency with BUN of 51 and a creatinine of 2.11. His proBNP is elevated to 2177. There is no prior for comparison. His lipase was elevated to 387. His total bilirubin was normal at 0.3 he had mild elevation of his AST to 46 and alkaline phosphatase to 224. His CT scan of the abdomen and pelvis showed bilateral pleural effusions but did not see signs of cholecystitis or calcified gallstone to be contributing to the pancreatitis. The pancreatitis may be causing the effusions as he did not have them when he had a chest x-ray in March. This could be a reason that he was not eating and drinking normally. Will discuss with Dr. Frey the on-call hospitalist for [facility] about possible admission for hydration and treatment for the pancreatitis. Progress Note #3: Time: 13:25 Progress Note D/w Dr. Licea the slurry control operator helper hospitalist for [facility] today. Advised of patient presenting from long term with complaints of not eating and drinking and had dark urine today. He has severe developmental delay complicating his care. He has elevated Lipase to 378 with bilateral pleural effusions and proBNP elevated to 2177 with no prior test for comparison. He did not have findings for a gallstone or cholecystitis on CT scan of abdomen/pelvis done without contrast due to chronic renal insufficiency with Cr baseline 1.8 to 2.1. Will admit for his pancreatitis and gentle hydration. Progress Note #4: Time: 14:05 Progress Note Patient's temperature was registering between 91 to 92 Fahrenheit. I called and updated Dr. Licea about his temperature. She requested we add on blood cultures and lactic acid to look for sepsis and infection. Since he has not urinated on his own with prompting from staff will obtain a straight cath urine specimen to be able to evaluate his urine for possible source of infection. She will upgrade him to ICU level since he has hypothermia and pancreatitis and has difficulty with communicating due to his developmental delay. 1438 UA came back with specific gravity of 1.020 for some mild concentration. he had trace amount of blood from cath specimen but negative nitrites, leukocyte esterase, WBC and bacteria. His lactic acid was not elevated at 0.65. This would go against him having severe sepsis. Diagnostic Imaging Diagonstic Imaging: CT Plain Films/CT/US/NM/MRI: abdomen, pelvis Comments NAME: NEHEMIAH RAMIREZ [facility] REC#: [id number] PT STATUS: REG ER : 1970 PHYSICIAN: TERRY LOPEZ MD ADMIT DATE: 06/19/22/ER FS Draft Date of Exam:06/19/22 CT ABDOMEN/PELVIS WO PROCEDURE: CT abdomen and pelvis without contrast. TECHNIQUE: Multiple contiguous axial images were obtained through the abdomen and pelvis without the use of intravenous contrast. Auto Exposure Controls were utilized during the CT exam to meet ALARA standards for radiation dose reduction. INDICATION: Decreased appetite and dark urine. No prior studies are available for comparison. FINDINGS: There are bilateral pleural effusions, greatest on the left, with significant consolidation in the left base. There appears to be some mild pericardial effusion present as well. The liver and gallbladder are unremarkable. The pancreas and spleen are unremarkable. No adrenal mass is detected. Kidneys are unremarkable. No calculi or hydronephrosis is detected. Bowel loops are nonobstructed. Appendix is unremarkable. There is no ascites. Bladder is unremarkable. There is a right inguinal hernia containing multiple small bowel loops. No definite evidence of strangulation or obstruction is seen. IMPRESSION: 1. Bilateral pleural effusions and small pericardial effusion with left basilar consolidation. 2. Right inguinal hernia containing small bowel loops. No definite strangulation or bowel obstruction is identified. Dictated on workstation # [id number] Dict: 06/19/22 1304 Trans: 06/19/22 1309 [id number] Interpreted by: POPEYE GOVEA MD Electronically signed by: Reviewed: Reviewed by Me (I reviewed the radiologist report at 1311) Departure Communication (Admissions) Time/Spoke to Admitting Phy: 13:25 D/w Dr. Licea the slurry control operator helper hospitalist for [facility] today. Advised of patient presenting from long term with complaints of not eating and drinking and had dark urine today. He has severe developmental delay complicating his care. He has elevated Lipase to 378 with bilateral pleural effusions and proBNP elevated to 2177 with no prior test for comparison. He did not have findings for a gallstone or cholecystitis on CT scan of abdomen/pelvis done without contrast due to chronic renal insufficiency with Cr baseline 1.8 to 2.1. Will admit for his pancreatitis and gentle hydration. Impression Primary Impression: Pancreatitis Qualified Codes: K85.90 - Acute pancreatitis without necrosis or infection, unspecified Additional Impression: Pleural effusion Disposition: 30 STILL A PATIENT Condition: Stable Admissions Decision to Admit Reason: Admit from ER (General) Decision to Admit/Date: Jun 19, 2022 Time/Decision to Admit Time: 13:25 Departure-Patient Inst. Referrals: SILVANA WHITE MD (PCP) Primary Care Physician TERRY LOPEZ MD Jun 19, 2022 12:30
[2022-06-19 12:36] LABS: BASOPHILS % (AUTO) 0 % (0-10); EOSINOPHILS # (AUTO) 0.1 10^3/uL (0.0-0.3); EOSINOPHILS % (AUTO) 1 % (0-10); HEMATOCRIT 25 % (40-54); HEMOGLOBIN 8.2 g/dL (13.3-17.7); LYMPHOCYTES # (AUTO) 0.8 10^3/uL (1.0-4.0); LYMPHOCYTES % (AUTO) 7 % (12-44); MEAN CORPUSCULAR HEMOGLOBIN 28 pg (25-34); MEAN CORPUSCULAR HGB CONC 32 g/dL (32-36); MEAN CORPUSCULAR VOLUME 88 fL (80-99); MEAN PLATELET VOLUME 10.3 fL (9.0-12.2); MONOCYTES # (AUTO) 0.5 10^3/uL (0.0-1.0); MONOCYTES % (AUTO) 5 % (0-12); NEUTROPHILS # (AUTO) 10.2 10^3/uL (1.8-7.8); NEUTROPHILS % (AUTO) 88 % (42-75); PLATELET COUNT 97 10^3/uL (130-400); WHITE BLOOD COUNT 11.6 10^3/uL (4.3-11.0)
[2022-06-19 12:58] LABS: BILIRUBIN,TOTAL 0.3 MG/DL (0.1-1.0); CALCIUM 9.1 MG/DL (8.5-10.1); CREATININE SERUM 2.11 MG/DL (0.60-1.30); POTASSIUM 4.8 MMOL/L (3.6-5.0); TOTAL PROTEIN 7.6 GM/DL (6.4-8.2)
--- NOTE | 2022-06-19 13:09 | Diagnostic Imaging Report ---
PROCEDURE: CT abdomen and pelvis without contrast. TECHNIQUE: Multiple contiguous axial images were obtained through the abdomen and pelvis without the use of intravenous contrast. Auto Exposure Controls were utilized during the CT exam to meet ALARA standards for radiation dose reduction. INDICATION: Decreased appetite and dark urine. No prior studies are available for comparison. FINDINGS: There are bilateral pleural effusions, greatest on the left, with significant consolidation in the left base. There appears to be some mild pericardial effusion present as well. The liver and gallbladder are unremarkable. The pancreas and spleen are unremarkable. No adrenal mass is detected. Kidneys are unremarkable. No calculi or hydronephrosis is detected. Bowel loops are nonobstructed. Appendix is unremarkable. There is no ascites. Bladder is unremarkable. There is a right inguinal hernia containing multiple small bowel loops. No definite evidence of strangulation or obstruction is seen. IMPRESSION: 1. Bilateral pleural effusions and small pericardial effusion with left basilar consolidation. 2. Right inguinal hernia containing small bowel loops. No definite strangulation or bowel obstruction is identified. Dictated by: Dictated on workstation # [id number]
[2022-06-19 14:29] LABS: BILIRUBIN,URINE NEGATIVE (NEGATIVE); CLARITY,URINE CLEAR; COLOR,URINE YELLOW; GLUCOSE, URINE (UA) TRACE (NEGATIVE); KETONES,URINE NEGATIVE (NEGATIVE); LEUKOCYTE ESTERASE ,URINE NEGATIVE (NEGATIVE); NITRITE,URINE NEGATIVE (NEGATIVE); PH,URINE 6.5 (5-9); PROTEIN,URINE 3+ (NEGATIVE)
[2022-06-19 14:36] LABS: BACTERIA,URINE TRACE /HPF; RBC,URINE RARE /HPF; SQUAMOUS EPITHELIAL CELL,UR RARE /HPF; WBC,URINE 0-2 /HPF
[2022-06-19] MEDS ORDERED: ACETAMINOPHEN 325 MG TABLET PO PRN (16:45)
[2022-06-19] MEDS ORDERED: diphenhydrAMINE 25 MG TAB (BENADRYL) PO PRN (16:45)
[2022-06-19] MEDS ORDERED: ANTACID SUSP 30 ML UDC (MYLANTA) PO PRN (16:45)
[2022-06-19] MEDS ORDERED: HYDROmorphone 2 MG/ML VIAL (DILAUDID) IV PRN (16:45)
[2022-06-19] MEDS ORDERED: ONDANSETRON 4 MG/2 ML (SDV) Z0FRAN IV PRN (16:45)
[2022-06-19] MEDS ORDERED: NS IV 500 ML 500 ML IV PRN (16:45)
[2022-06-19] MEDS ORDERED: polyethylene glycoL POWDER 17 GM (MIRALAX) PACK PO PRN (16:45)
[2022-06-19] MEDS ORDERED: ONDANSETRON 4 MG (ZOFRAN) ORAL DISSOLVE TAB PO PRN (16:45)
[2022-06-19] MEDS ORDERED: NOREPINEPHRINE 8 MG/250 ML 250 ML IV SCH (16:45)
[2022-06-19] MEDS ORDERED: diphenhydrAMINE 50 MG/ML INJ (BENADRYL) IVP PRN (16:45)
[2022-06-19] MEDS ORDERED: BISACODYL 10 MG SUPP (DULCOLAX) PR PRN (16:45)
[2022-06-19 17:16] VITALS: BP 143/96
[2022-06-19] MEDS ORDERED: RT-ALBUTEROL HFA 8.5 GM INHALER IH PRN (17:30)
[2022-06-19] MEDS ORDERED: PIPERACILLIN SODIUM/TAZOBACTAM 4.5 GM in NS (IVPB) 100 ML IV NR (17:30)
--- NOTE | 2022-06-19 17:40 | Tele-ICU Consult ---
History of Present Illness History of Present Illness Date Seen by Provider: Jun 19, 2022 Time Seen by Provider: 17:40 Date of Admission History of Present Illness (Tele-ICU Physician , consultation as per request of PCP Service provided via interactive audio and video telecommunMessage Bus E-CARE system to a patient admitted to ICU bed in [facility]. Available chart/ vitals / labs / Images reviewed H&P is from ER notes Patient's information available about PMH, Shx, Fhx allergy reviewed inEMR. ROS as per chart and RN report Now in ICU, hemodynamically stable Video assessment done using teleICU camera, rest of exam as per RN Discussed with RN. PMH -type 2 diabetes, hyperlipidemia, disruptive mood disorder, moderate intellectual disabilities, conduct disorder, hypertension, asthma, Schizoaffective disorder, intermittent explosive disorder. Hospital course: 06/19 - from facility to ER with hypothermisa and lethargy A/P Pancreatitis lipase was elevated to 387, CT abd/p : no gallstone or cholecystitis, no pancr lesions - follow lytes , gentle hydration , NPO CLAUDETTE/CKD - - follow UP with gentle IVRP Hypothermia - cx done , follow on ABX - ordered cortiso and TSH - warm fluids Pleral effusion on CT , bilat , with elev proBNP , bilat JENNIE - VO ? - might need ECHO Thrombocytopenia - new , ? sepsis - monitor DM - follow acuchecks and ISS Chronic anemia - stable Asthma reported - noo br spam as per RN eval , resume home meds , if any Severe developmental delay, disruptive mood disorder, moderate intellectual disabilities, conduct disorder, Schizoaffective disorder, intermittent explosive disorder - to resume meds when can swallow Lines : periph , (Central Line Necessity Reviewed) Lopez: OG: Nutrition: Analgesia: Anxiety/ delirium VTE Prophylaxis: scd Stress Ulcer Prophylaxis: ppi Plans in collaboration with bedside consultants and IM MDs. Discussed with RN to reach out if any questions or concerns A total of 32 minutes of critical care time was devoted to this patient today, required to treat and/or prevent further deterioration of critical care condition ( as above ) . I am remotely monitoring this patient from another state. I am unable to do the bedside exam, and history/physical and pertinent information is taken from other notes in the computer and bedside staff. . Allergies and Home Medications Allergies Uncoded Allergies: PCN (Allergy, Mild, 11/19/20) Home Medications Acetaminophen 325 Mg Tablet, 325 MG PO PRN, (Reported) Albuterol Sulfate 1 Puff Puff, 2 PUFF INH Q4H, (Reported) 1 PUFF = 90 MCG Amlodipine Besylate 10 Mg Tablet, 10 MG PO DAILY, (Reported) Atorvastatin Calcium 20 Mg Tablet, 20 MG PO DAILY, (Reported) Carbamazepine 200 Mg Tablet, 200 MG PO DAILY, (Reported) Cariprazine Hydrochloride 1.5 Mg Capsule, 1.5 MG PO DAILY, (Reported) Clonidine HCl 0.1 Mg Tablet, 0.1 MG PO DAILY, (Reported) Clozapine 25 Mg Tablet, 25 MG PO DAILY, (Reported) Docusate Sodium 100 Mg Capsule, 100 MG PO DAILY, (Reported) Escitalopram Oxalate 10 Mg Tablet, 10 MG PO DAILY, (Reported) Ferrous Sulfate 325 Mg (65 Mg Iron) Tablet, 325 MG PO DAILY, (Reported) Levetiracetam 500 Mg Tablet, 500 MG PO DAILY, (Reported) Losartan Potassium 50 Mg Tablet, 50 MG PO DAILY, (Reported) Metformin HCl 1,000 Mg Tablet, 1,000 MG PO DAILY, (Reported) Metoprolol Tartrate 25 Mg Tablet, 25 MG PO BID, (Reported) Mupirocin Calcium 2 % Cream..g., 15 GM TP PRN, (Reported) Nystatin 100,000 Unit/Gram Cream..g., 15 GM TP PRN, (Reported) Pantoprazole Sodium 40 Mg Tablet.dr, 40 MG PO DAILY, (Reported) Polymyxin B Sulf/Trimethoprim 10,000 Unit-1 Mg/Ml Drops, 10 ML OP HS, (Reported) Prednisone 20 Mg Tab, 60 MG PO DAILY Take from 03/11/22 to 03/15/22. Prescribed by: ROSARIO GERBER MD on 03/10/22 114 Prednisone 5 Mg Tablet, 5 MG PO DAILY Take on 03/19/22 Prescribed by: ROSARIO GERBER MD on 03/10/22 114 Prednisone 10 Mg Tab.ds.pk, 10 MG PO DAILY Take on 03/18/22 Prescribed by: ROSARIO GERBER MD on 03/10/221147 Prednisone 20 Mg Tab, 20 MG PO DAILY Take on 03/17/22 Prescribed by: ROSARIO GERBER MD on 03/10/22 1148 Prednisone 20 Mg Tab, 40 MG PO DAILY Take on 03/16/22 Prescribed by: ROSARIO GERBER MD on 03/10/22 1148 Riluzole 50 Mg Tablet, 50 MG PO DAILY, (Reported) Risperidone 1 Mg Tablet, 1 MG PO DAILY, (Reported) Risperidone 0.5 Mg Tablet, 0.5 MG PO PRN, (Reported) Sucralfate 1 Gram Tablet, 1 GM PO DAILY, (Reported) Umeclidinium Brm/Vilanterol Tr 62.5 Mcg-25 Mcg/Actuation Blst.w.dev, 1 EACH IH Q12H, (Reported) Past Medical/Social/Family Hx Patient Social History Tobacco Use?: No Use of E-Cig and/or Vaping dev: No Substance use?: No Alcohol Use?: No Immunizations Up To Date Influenza Vaccine Up-to-Date: No; Not Current First/Initial COVID19 Vaccinat: YES Second COVID19 Vaccination Mike: YES Current Status Communicates: Unable To Communicate Primary Language: [place] Preferred Spoken Language: [place] Review of Systems Constitutional: other Focused Exam Lactate Level 06/19/22 12:22: Lactic Acid Level 0.65 Height, Weight, BMI Height: '" Weight: lbs. oz. kg; BMI Method: Exam Exam Patient acknowledged, consented, and participated in this virtual visit which was conducted using real time audio/video Vital Signs Date Time Temp Pulse Resp B/P (MAP) Pulse Ox O2 Delivery O2 Flow Rate FiO2 06/19/22 16:30 28.8 48 12 143/96 (112) 91 Room Air 06/19/22 13:47 32.8 18 126/86 95 06/19/22 12:11 50 18 124/77 (93) 95 Room Air Height & Weight Height: '" Weight: lbs. oz. kg; BMI Method: General Appearance: No Apparent Distress, Chronically ill, Other (very limited ability to express himself) HEENT: No Moist Mucous Membranes (slightly dry mucous membranes) Neck: Full Range of Motion, Normal Inspection, Non Tender, Supple Respiratory: Chest Non Tender, Lungs Clear, Normal Breath Sounds, No Accessory Muscle Use, No Respiratory Distress Cardiovascular: Regular Rate, Rhythm, Normal Peripheral Pulses Extremity: Normal Capillary Refill, Pedal Edema (trace to 1+ BLE pitting edema) Neurologic/Psychiatric: Alert Skin: Warm/Dry, Erythema (erythematous papules to right upper extremity and forearm) Results Lab Laboratory Tests 06/19/22 12:22 Assessment/Plan Assessment/Plan 1 EVON PERKINS MD Jun 19, 2022 17:40
--- NOTE | 2022-06-19 17:45 | Consultation - Surgery ---
LIZBETH MILLAN 06/19/22 1745: History of Present Illness History of Present Illness Patient Consulted On(diane/time) 06/19/22 17:42 Date Seen by Provider: Jun 19, 2022 Time Seen by Provider: 05:00 History of Present Illness Wong is a 51 year male resident of [facility] with a history significant for intellectual disability, Type II DM, HTN, chronic renal insufficiency hyperlipidemia, asthma, disruptive mood disorder, schizoaffective disorder and intermittent explosive disorder. Per other notes, he was brought to to the [place] ER by [facility] staff this afternoon due to concerns of dark colored urine since this morning, decreased appetite since yesterday, and leg swelling. He was found to have an elevated lipase (387) as well as bilateral pleural effusions on CT and was admitted to the [facility] ICU for management of acute pancreatitis. Today's assessment was limited by the patient's discomfort and developmental delay. He shakes his head yes when asked about abdominal pain and shakes his head no when asked about shortness of breath or chest pain. Allergies and Home Medications Allergies Uncoded Allergies: PCN (Allergy, Mild, 11/19/20) Patient Home Medication List Amlodipine Besylate (Amlodipine Besylate) 10 Mg Tablet, 10 MG PO DAILY, (Reported) Entered as Reported by: BONILLA CERVANTES on 01/06/221525 Last Action: Held Atorvastatin Calcium (Atorvastatin Calcium) 20 Mg Tablet, 20 MG PO DAILY, (Reported) Entered as Reported by: BONILLA CERVANTES on 01/06/221525 Last Action: Continued Cariprazine Hydrochloride (Vraylar) 3 Mg Capsule, 3 MG PO DAILY, (Reported) Entered as Reported by: TERRELL LEE on 06/20/22854 Last Action: Converted Cholecalciferol (Vitamin D3) (Vitamin D3) 50 Mcg (2000 Unit) Tablet, 100 MCG PO DAILY, (Reported) Entered as Reported by: TERRELL LEE on 06/20/22854 Last Action: Converted Clonidine HCl (Clonidine HCl) 0.1 Mg Tablet, 0.1 MG PO TID, (Reported) Entered as Reported by: BONILLA CERVANTES on 01/06/221525 Last Action: Held Divalproex Sodium (Divalproex Sodium) 250 Mg Tablet.dr, 250 MG PO BID, (Reported) Entered as Reported by: TERRELL LEE on 06/20/22854 Last Action: Continued Escitalopram Oxalate (Escitalopram Oxalate) 10 Mg Tablet, 10 MG PO DAILY, (Reported) Entered as Reported by: BONILLA CERVANTES on 01/06/221525 Last Action: Converted Ferrous Sulfate (Ferosul) 325 Mg (65 Mg Iron) Tablet, 325 MG PO BID, (Reported) Entered as Reported by: BONILLA CERVANTES on 01/06/221525 Last Action: Continued Folic Acid (Folic Acid) 1 Mg Tablet, 1 MG PO DAILY, (Reported) Entered as Reported by: TERRELL LEE on 06/20/22854 Last Action: Continued Metoprolol Tartrate (Metoprolol Tartrate) 25 Mg Tablet, 25 MG PO BID, (Reported) Entered as Reported by: BONILLA CERVANTES on 01/06/221525 Last Action: Continued Miconazole Nitrate (Lotrimin AF) 2 % Aero.powd, 1 APPLIC TP BID, (Reported) Entered as Reported by: TERRELL LEE on 06/20/22854 Last Action: Converted Pantoprazole Sodium (Pantoprazole Sodium) 40 Mg Tablet.dr, 40 MG PO DAILY, (Reported) Entered as Reported by: BONILLA CERVANTES on 01/06/221525 Last Action: Continued Sodium Zirconium Cyclosilicate (Lokelma) 10 Gram Powd.pack, 10 GM PO DAILY, (Reported) Entered as Reported by: TERRELL LEE on 06/20/22854 Last Action: Converted Umeclidinium Brm/Vilanterol Tr (Anoro Ellipta 62.5-25 Mcg INH) 62.5 Mcg-25 Mcg/Actuation Blst.w.dev, 1 EACH IH DAILY, (Reported) Entered as Reported by: BONILLA CERVANTES on 01/06/221525 Last Action: Converted Discontinued Medications Cariprazine Hydrochloride (Vraylar) 1.5 Mg Capsule, 1.5 MG PO DAILY, (Reported) Discontinued Reason: Prescription changed Entered as Reported by: BONILLA CERVANTES on 01/06/221525 Past Owvgofr-Uaakhk-Ygwmly Hx Patient Social History 2nd Hand Smoke Exposure: No Recent Hopitalizations: No Alcohol Use?: No Seasonal Allergies Seasonal Allergies: No Surgeries History of Surgeries: Yes (CATARACTS) Respiratory History of Respiratory Disorde: Yes Respiratory Disorders: Asthma Cardiovascular History of Cardiac Disorders: Yes Cardiac Disorders: High Cholesterol, Hypertension Neurological History of Neurological Disord: Yes Neurological Disorders: Developmental Disorder Genitourinary History of Genitourinary Disor: No Gastrointestinal History of Gastrointestinal Di: No Musculoskeletal History of Musculoskeletal Dis: No Endocrine History of Endocrine Disorders: Yes Endocrine Disorders: Diabetes, Non-Insulin dep HEENT History of HEENT Disorders: Yes HEENT Disorders: Cataract Cancer History of Cancer: No Psychosocial History of Psychiatric Problem: Yes Behavioral Health Disorders: Schizophrenia (Schizoaffective disorder), Violent Behavior (Intermittent explosive disorder, conduct disorder, Disruptive mood disorder) Integumentary History of Skin or Integumenta: No Review of Systems-General ROS-Unable to Obtain: Unable to obtain full review of systems Respiratory: No short of breath Cardiovascular: No chest pain Gastrointestinal: abdominal pain Physical Exam-General Problems Physical Exam Vital Signs Vital Signs - First Documented 06/19/22 06/19/22 12:11 13:47 Temp 32.8 Pulse 50 Resp 18 B/P (MAP) 124/77 (93) Pulse Ox 95 O2 Delivery Room Air Capillary Refill : General Appearance: mild distress HEENT: other (conjunctival erythema bilaterally (R > L) ) Neck: non-tender, supple Respiratory: no respiratory distress, no accessory muscle use, decreased breath sounds (left lung base) Cardiovascular: no murmur, bradycardia, other (regular rhythm) Gastrointestinal: normal bowel sounds, soft; No distended; tenderness (on light palpation of epigastric region) Extremities: no calf tenderness, pedal edema (bilateral, 1+ pitting) Skin: cool, damp, pallor Lymphatic: no adenopathy (cervical) Data Review Labs Laboratory Tests 06/19/22 12:22: White Blood Count 11.6H, Red Blood Count 2.89L, Hemoglobin 8.2L, Hematocrit 25L, Mean Corpuscular Volume 88, Mean Corpuscular Hemoglobin 28, Mean Corpuscular Hemoglobin Concent 32, Red Cell Distribution Width 15.3H, Platelet Count 97L, Mean Platelet Volume 10.3, Immature Granulocyte % (Auto) 0, Neutrophils (%) (Auto) 88H, Lymphocytes (%) (Auto) 7L, Monocytes (%) (Auto) 5, Eosinophils (%) (Auto) 1, Basophils (%) (Auto) 0, Neutrophils # (Auto) 10.2H, Lymphocytes # (Auto) 0.8L, Monocytes # (Auto) 0.5, Eosinophils # (Auto) 0.1, Basophils # (Auto) 0.0, Immature Granulocyte # (Auto) 0.0, Percent Immature Platelet Fr action 4.9, Sodium Level 146H, Potassium Level 4.8, Chloride Level 111H, Carbon Dioxide Level 25, Anion Gap 10, Blood Urea Nitrogen 51H, Creatinine 2.11H, Estimat Glomerular Filtration Rate 37, BUN/Creatinine Ratio 24, Glucose Level 66L, Lactic Acid Level 0.65, Calcium Level 9.1, Corrected Calcium 9.9, Total Bilirubin 0.3, Aspartate Amino Transf (AST/SGOT) 49H, Alanine Aminotransferase (ALT/SGPT) 45, Alkaline Phosphatase 224H, Pro-B-Type Natriuretic Peptide 2177.0H , Total Protein 7.6, Albumin 3.0L, Lipase 387H 06/19/22 14:24: Urine Color YELLOW, Urine Clarity CLEAR, Urine pH 6.5, Urine Specific [place] 1.020, Urine Protein 3+H, Urine Glucose (UA) TRACEH, Urine Ketones NEGATIVE, Urine Nitrite NEGATIVE, Urine Bilirubin NEGATIVE, Urine Urobilinogen 1.0, Urine Leukocyte Esterase NEGATIVE, Urine RBC (Auto) TRACE-IH, Urine RBC RARE, Urine WBC 0-2, Urine Squamous Epithelial Cells RARE, Urine Crystals NONE, Urine Bacteria TRACE, Urine Casts NONE, Urine Mucus NEGATIVE, Urine Culture Indicated NO Assessment/Plan Assessment/Plan Admission Diagonsis Pancreatitis Assessment/Plan Hypothermia - 32.4 C Acute pancreatitis - lipase 387, CT abd/p today: no gallstones, cholecystitis or pancreatic lesions Bilateral pleural effusions - CT abd/p today: L > R with significant consolidation in the left base Elevated BNP - 2177 Acute on chronic renal insufficiency - Cr 2.11, reported baseline of 1.81 Chronic anemia - Hb 8.2 consistent with reported baseline Right inguinal hernia Type II DM HTN Intellectual disability Schizoaffective Disorder Conduct disorder / Intermittent Explosive Disorder / DMD Continue IV fluids Continue Adolfo Hugger surgical blanket and warm fluids ACE BAKER DO 06/19/228: History of Present Illness History of Present Illness Time Seen by Provider: 16:22 History of Present Illness HPI per ED: 51-year-old male presenting with a staff member from [facility] with complaints that he had dark-colored urine today and did not want to eat as much yesterday. They noted that his leg swelling seems to be worse this morning. They did not try to check with his primary care provider through [facility] and brought him to the emergency department. They were concerned because he was not eating and drinking as much in the last 12 to 18 hours. He has chronic medical conditions complicating his care including type 2 diabetes, hyperlipidemia, disruptive mood disorder, moderate intellectual disabilities, conduct disorder, hypertension, asthma, Schizoaffective disorder, intermittent explosive disorder. Timing/Duration: 12-24 Hours Severity: Mild Associated Systoms: No Cough, No Diaphoresis; Loss of Appetite When I saw the pt he was in ICU and did not appear to be in any distress. I had spoken with Dr. Licea who was concerned about him. Allergies and Home Medications Allergies Uncoded Allergies: PCN (Allergy, Mild, 11/19/20) Patient Home Medication List Home Medication List Reviewed: Yes Amlodipine Besylate (Amlodipine Besylate) 10 Mg Tablet, 10 MG PO DAILY, (Reported) Entered as Reported by: BONILLA CERVANTES on 01/06/221525 Last Action: Held Atorvastatin Calcium (Atorvastatin Calcium) 20 Mg Tablet, 20 MG PO DAILY, (Reported) Entered as Reported by: BONILLA CERVANTES on 01/06/221525 Last Action: Continued Cariprazine Hydrochloride (Vraylar) 3 Mg Capsule, 3 MG PO DAILY, (Reported) Entered as Reported by: TERRELL LEE on 06/20/22854 Last Action: Converted Cholecalciferol (Vitamin D3) (Vitamin D3) 50 Mcg (2000 Unit) Tablet, 100 MCG PO DAILY, (Reported) Entered as Reported by: TERRELL LEE on 06/20/22854 Last Action: Converted Clonidine HCl (Clonidine HCl) 0.1 Mg Tablet, 0.1 MG PO TID, (Reported) Entered as Reported by: BONILLA CERVANTES on 01/06/221525 Last Action: Held Divalproex Sodium (Divalproex Sodium) 250 Mg Tablet.dr, 250 MG PO BID, (Rep orted) Entered as Reported by: TERRELL LEE on 06/20/22854 Last Action: Continued Escitalopram Oxalate (Escitalopram Oxalate) 10 Mg Tablet, 10 MG PO DAILY, (Reported) Entered as Reported by: BONILLA CERVANTES on 01/06/221525 Last Action: Converted Ferrous Sulfate (Ferosul) 325 Mg (65 Mg Iron) Tablet, 325 MG PO BID, (Reported) Entered as Reported by: BONILLA CERVANTES on 01/06/221525 Last Action: Continued Folic Acid (Folic Acid) 1 Mg Tablet, 1 MG PO DAILY, (Reported) Entered as Reported by: TERRELL LEE on 06/20/22854 Last Action: Continued Metoprolol Tartrate (Metoprolol Tartrate) 25 Mg Tablet, 25 MG PO BID, (Reported) Entered as Reported by: BONILLA CERVANTES on 01/06/221525 Last Action: Continued Miconazole Nitrate (Lotrimin AF) 2 % Aero.powd, 1 APPLIC TP BID, (Reported) Entered as Reported by: TERRELL LEE on 06/20/22854 Last Action: Converted Pantoprazole Sodium (Pantoprazole Sodium) 40 Mg Tablet.dr, 40 MG PO DAILY, (Reported) Entered as Reported by: BONILAL CERVANTES on 01/06/221525 Last Action: Continued Sodium Zirconium Cyclosilicate (Lokelma) 10 Gram Powd.pack, 10 GM PO DAILY, (Reported) Entered as Reported by: TERRELL LEE on 06/20/22854 Last Action: Converted Umeclidinium Brm/Vilanterol Tr (Anoro Ellipta 62.5-25 Mcg INH) 62.5 Mcg-25 Mcg/Actuation Blst.w.dev, 1 EACH IH DAILY, (Reported) Entered as Reported by: BONILLA CERVANTES on 01/06/221525 Last Action: Converted Discontinued Medications Cariprazine Hydrochloride (Vraylar) 1.5 Mg Capsule, 1.5 MG PO DAILY, (Reported) Discontinued Reason: Prescription changed Entered as Reported by: BONILLA CERVANTES on 01/06/221525 Past Yfrzdir-Xjaaps-Civvni Hx Patient Social History Smoking Status: Never a Smoker Alcohol Use?: No Surgeries History of Surgeries: Yes Respiratory History of Respiratory Disorde: Yes Respiratory Disorders: Asthma Cardiovascular History of Cardiac Disorders: Yes Cardiac Disorders: High Cholesterol, Hypertension Neurological History of Neurological Disord: Yes Neurological Disorders: Developmental Disorder Genitourinary History of Genitourinary Disor: Yes Genitourinary Disorders: UTI-Chronic Gastrointestinal History of Gastrointestinal Di: Yes Gastrointestinal Disorders: Gastroesophageal Reflux Musculoskeletal History of Musculoskeletal Dis: Yes Musculoskeletal Disorders: Spasms, Contracture Endocrine History of Endocrine Disorders: Yes Endocrine Disorders: Diabetes, Insulin dep HEENT History of HEENT Disorders: Yes HEENT Disorders: Eye Injury Cancer History of Cancer: No Psychosocial History of Psychiatric Problem: Yes Behavioral Health Disorders: Anxiety, Schizophrenia, Depression Family Medical History Significant Family History: No Pertinent Family Hx Physical Exam-General Problems Physical Exam General Appearance: mild distress, thin HEENT: No scleral icterus (R), No scleral icterus (L); other (conjunctival erythema bilaterally (R > L) ) Neck: non-tender, supple Respiratory: no respiratory distress, no accessory muscle use, decreased breath sounds (left lung base) Cardiovascular: bradycardia, other (regular rhythm) Gastrointestinal: normal bowel sounds, soft; No distended; tenderness (on light palpation of epigastric region) Extremities: no calf tenderness, pedal edema (bilateral, 1+ pitting) Skin: cool, damp, pallor Lymphatic: no adenopathy (cervical) Data Review Radiology Date of Exam:06/19/22 CT ABDOMEN/PELVIS WO PROCEDURE: CT abdomen and pelvis without contrast. TECHNIQUE: Multiple contiguous axial images were obtained through the abdomen and pelvis without the use of intravenous contrast. Auto Exposure Controls were utilized during the CT exam to meet ALARA standards for radiation dose reduction. INDICATION: Decreased appetite and dark urine. No prior studies are available for comparison. FINDINGS: There are bilateral pleural effusions, greatest on the left, with significant consolidation in the left base. There appears to be some mild pericardial effusion present as well. The liver and gallbladder are unremarkable. The pancreas and spleen are unremarkable. No adrenal mass is detected. Kidneys are unremarkable. No calculi or hydronephrosis is detected. Bowel loops are nonobstructed. Appendix is unremarkable. There is no ascites. Bladder is unremarkable. There is a right inguinal hernia containing multiple small bowel loops. No definite evidence of strangulation or obstruction is seen. IMPRESSION: 1. Bilateral pleural effusions and small pericardial effusion with left basilar consolidation. 2. Right inguinal hernia containing small bowel loops. No definite strangulation or bowel obstruction is identified. Dictated by: Dictated on workstation # [id number] Dict: 06/19/22 1304 Trans: 06/19/22 1559 [id number] Interpreted by: POPEYE GOVEA MD Electronically signed by: POPEYE GOVEA MD 06/19/22 4413 Assessment/Plan Assessment/Plan Assessment/Plan Hypothermia - 32.4 C Acute pancreatitis - lipase 387, CT abd/p today: no gallstones, cholecystitis or pancreatic lesions Bilateral pleural effusions - CT abd/p today: L > R with significant consolidation in the left base Elevated BNP - 2177 Acute on chronic renal insufficiency - Cr 2.11, reported baseline of 1.81 Chronic anemia - Hb 8.2 consistent with reported baseline Right inguinal hernia Type II DM HTN Intellectual disability Schizoaffective Disorder Conduct disorder / Intermittent Explosive Disorder / DMD Continue IV fluids Continue Adolfo Hugger surgical blanket and warm fluids I looked at the CT myself and discussed case with Dr Licea. I am not very concerned about pancreatitis, didn't really have bad inflammation around pancreas. I am more concerned about his lungs and will follow along. Supervisory-Addendum Brief Verification & Attestation Participated in pt care: history, MDM, physical Personally performed: exam, history, MDM, supervision of care Care discussed with: Medical Student Procedures: n/a Verification and Attestation of Medical Student E/M Service A medical student performed and documented this service. I then reviewed and verified all information documented by the medical student and made modifications to such information, when appropriate. I personally performed a physical exam, medical decision making and then discussed any differences between the notes and made revisions as necessary to create one note. Ace Baker , 06/20/22 , 13:05 LIZBETH MILLAN Jun 19, 2022 17:45 ACE BAKER DO Jun 19, 2022 22:38
[2022-06-19] MEDS ORDERED: DEXTROSE 50% 50 ML (IMS) SYR ONE ×2 (17:50→21:19)
[2022-06-19] MEDS: D5 1/2 NS 1000 ML IV SOLUTION 1,000 ML IV SCH (18:08)
[2022-06-19] MEDS: NS IV 1000 ML 1,000 ML IV SCH (18:08)
[2022-06-19] MEDS: ENOXAPARIN 40 MG/0.4 ML (LOVENOX) SYR SC SCH (18:08)
--- NOTE | 2022-06-19 18:14 | History & Physical ---
History of Present Illness HPI/Chief Complaint CC: Acute pancreatitis with hypothermia HPI: This is a 51yoWM developmentally delayed male resident of [facility] who h as a h/o mental illness and inability to communicate who presents from [facility] ER with acute pancreatitis and hypothermia requiring admit to ICU due to inability to communicate and suspected sepsis. IV abx maintained.Currently he is on a bear hugger to resolve hypothermia. Source: RN/MD, old records Exam Limitations: physical impairment Date Seen 06/19/22 Time Seen by a Provider: 18:00 Attending Physician Portillo Marin MD PCP Admitting Physician: Laila Licea DO Attending Physician: Laila Licea DO Referring Physician Date of Admission Jun 19, 2022 at 16:20 Home Medications & Allergies Home Medications Reviewed patient Home Medication Reconciliation performed by pharmacy medication reconciliations radar technician and/or nursing. Patients Allergies have been reviewed. Allergies Allergies Uncoded Allergies PCN ( Allergy, Mild, 11/19/20) Past Ouhnglu-Joegkf-Gprqwx Hx Past Med/Social Hx: Reviewed Nursing Past Med/Soc Hx, Reviewed and Corrections made Patient Social History Marrital Status: single Employed/Student: unemployed Alcohol Use: Denies Use Smoking Status: Never a Smoker 2nd Hand Smoke Exposure: No Recent Foreign Travel: No Contact w/other who traveled: No Recent Hopitalizations: No Seasonal Allergies Seasonal Allergies: No Past Medical History Cardiac: High Cholesterol, Hypertension Neurological: Developmental Disorder Endocrine: Diabetes, Non-Insulin dep HEENT: Cataract Psychosocial: Schizophrenia (Schizoaffective disorder), Violent Behavior (Intermittent explosive disorder, conduct disorder, Disruptive mood disorder) Review of Systems ROS-Unable to Obtain: ams Constitutional: see HPI Physical Exam Physical Exam Vital Signs Vital Signs - First Documented 06/19/22 06/19/22 06/19/22 12:11 13:47 18:22 Temp 32.8 Pulse 50 Resp 18 B/P (MAP) 124/77 (93) Pulse Ox 95 O2 Delivery Room Air O2 Flow Rate 2.00 Capillary Refill : Height, Weight, BMI Height: '" Weight: lbs. oz. kg; BMI Method: General Appearance: No Apparent Distress, Chronically ill, Other (very limited ability to express himself) HEENT: No Moist Mucous Membranes (slightly dry mucous membranes) Neck: Full Range of Motion, Normal Inspection, Non Tender, Supple Respiratory: Chest Non Tender, Lungs Clear, Normal Breath Sounds, No Accessory Muscle Use, No Respiratory Distress Cardiovascular: Regular Rate, Rhythm, Normal Peripheral Pulses Gastrointestinal: Normal Bowel Sounds, No Pulsatile Mass, Soft, Tenderness (seems to wince with palpation over epigastric area) Rectal: Deferred Extremity: Normal Capillary Refill, Pedal Edema (trace to 1+ BLE pitting edema) Neurologic/Psychiatric: Alert Skin: Warm/Dry, Erythema (erythematous papules to right upper extremity and forearm) Results Results/Procedures Labs Laboratory Tests 06/19/22 12:22 06/19/22 19:03 06/20/22 03:44 Patient resulted labs reviewed. Assessment/Plan Admission Diagnosis Assessment: Sepsis Hypothermia Acute pancreatitis Developmental delay Mental illness Plan: IV abx Bear [facility] Monitor closely Admission Status: Inpatient Order (span 2 midnights) Reason for Inpatient Admission: sepsis LAILA LICEA DO Jun 19, 2022 18:14
[2022-06-19] MEDS ORDERED: DEXTROSE 50% 50 ML (IMS) SYR IV ONE ×2 (18:15→21:30)
[2022-06-19 19:19] LABS: POTASSIUM 4.4 MMOL/L (3.6-5.0)
[2022-06-19 19:20] LABS: CALCIUM 8.1 MG/DL (8.5-10.1)
[2022-06-19 19:27] LABS: MAGNESIUM 2.4 MG/DL (1.6-2.4)
[2022-06-19] MEDS: DOCUSATE SODIUM 100 MG (COLACE) CAP PO SCH (20:53)
[2022-06-19] MEDS: inSUlin ASPART (NovoLOG) 1 UNIT/0.01 ML (CHARGE PER UNIT) SC SCH (20:59)
[2022-06-19] MEDS: RT-ALBUTEROL HFA 8.5 GM INHALER IH SCH (21:46)
[2022-06-19] MEDS: PIPERACILLIN SODIUM/TAZOBACTAM 4.5 GM in NS (IVPB) 100 ML IV SCH (23:22)
[2022-06-20] MEDS: D5 1/2 NS 1000 ML IV SOLUTION 1,000 ML IV SCH ×2 (01:01→07:38)
[2022-06-20 03:54] LABS: BASOPHILS % (AUTO) 0 % (0-10); EOSINOPHILS % (AUTO) 0 % (0-10); MEAN CORPUSCULAR HEMOGLOBIN 28 pg (25-34)
[2022-06-20 03:55] LABS: HEMATOCRIT 22 % (40-54); LYMPHOCYTES # (AUTO) 0.8 10^3/uL (1.0-4.0); LYMPHOCYTES % (AUTO) 7 % (12-44); MEAN CORPUSCULAR HGB CONC 31 g/dL (32-36); MEAN CORPUSCULAR VOLUME 91 fL (80-99); MEAN PLATELET VOLUME 10.9 fL (9.0-12.2); MONOCYTES # (AUTO) 0.8 10^3/uL (0.0-1.0); MONOCYTES % (AUTO) 6 % (0-12); NEUTROPHILS # (AUTO) 10.2 10^3/uL (1.8-7.8); NEUTROPHILS % (AUTO) 86 % (42-75); PLATELET COUNT 63 10^3/uL (130-400); WHITE BLOOD COUNT 11.9 10^3/uL (4.3-11.0)
[2022-06-20 04:08] LABS: ALBUMIN 2.3 GM/DL (3.2-4.5); POTASSIUM 4.7 MMOL/L (3.6-5.0)
[2022-06-20 04:12] LABS: BILIRUBIN,TOTAL 0.4 MG/DL (0.1-1.0)
[2022-06-20 04:14] LABS: CREATININE SERUM 2.25 MG/DL (0.60-1.30); PHOSPHORUS 5.5 MG/DL (2.3-4.7)
[2022-06-20 04:17] LABS: MAGNESIUM 2.4 MG/DL (1.6-2.4)
[2022-06-20] MEDS: inSUlin ASPART (NovoLOG) 1 UNIT/0.01 ML (CHARGE PER UNIT) SC SCH ×4 (04:21→21:09)
[2022-06-20 04:34] LABS: HEMOGLOBIN 6.9 g/dL (13.3-17.7)
[2022-06-20] MEDS ORDERED: NS IV 500 ML 500 ML IV SCH ×2 (05:00)
[2022-06-20] MEDS: NS IV 1000 ML 1,000 ML IV SCH (05:26)
--- NOTE | 2022-06-20 05:51 | Progress Note ---
Subjective Date Seen by a Provider: Jun 20, 2022 Time Seen by a Provider: 10:00 Subjective/Events-last exam No major events Received 1 unit of blood CXR reviewed by Dr Jacobs and USG obtained Patient appears improved Review of Systems General: Fatigue, Malaise Focused Exam Lactate Level 06/19/22 12:22: Lactic Acid Level 0.65 Objective Exam Last Set of Vital Signs Vital Signs Date Time Temp Pulse Resp B/P (MAP) Pulse Ox O2 Delivery O2 Flow Rate FiO2 06/20/22 05:22 Nasal Cannula 3.00 06/20/22 03:10 36.4 06/20/22 03:10 100 06/20/22 03:00 63 19 Capillary Refill : Less Than 3 Seconds I&O Intake and Output 06/20/22 00:00 Intake Total 1000 ml Output Total 200 ml Balance 800 ml Intake Oral 0 ml IV Total 1000 ml Output Urine Total 200 ml # Urine Diapers 1 Daily Weight Change Unsure General: Alert, Oriented X3, Cooperative, No Acute Distress Lungs: Clear to Auscultation, Normal Air Movement Heart: Regular Rate, Normal S1, Normal S2, No Murmurs Psych/Mental Status: Mental Status NL, Mood NL Results Lab Laboratory Tests 06/19/22 12:22: White Blood Count 11.6H, Red Blood Count 2.89L, Hemoglobin 8.2L, Hematocrit 25L, Mean Corpuscular Volume 88, Mean Corpuscular Hemoglobin 28, Mean Corpuscular Hemoglobin Concent 32, Red Cell Distribution Width 15.3H, Platelet Count 97L, Mean Platelet Volume 10.3, Immature Granulocyte % (Auto) 0, Neutrophils (%) (Auto) 88H, Lymphocytes (%) (Auto) 7L, Monocytes (%) (Auto) 5, Eosinophils (%) (Auto) 1, Basophils (%) (Auto) 0, Neutrophils # (Auto) 10.2H, Lymphocytes # (Auto) 0.8L, Monocytes # (Auto) 0.5, Eosinophils # (Auto) 0.1, Basophils # (Auto) 0.0, Immature Granulocyte # (Auto) 0.0, Percent Immature Platelet Fraction 4.9, Sodium Level 146H, Potassium Level 4.8, Chloride Level 111H, Carbon Dioxide Level 25, Anion Gap 10, Blood Urea Nitrogen 51H, Creatinine 2.11H , Estimat Glomerular Filtration Rate 37, BUN/Creatinine Ratio 24, Glucose Level 66L, Lactic Acid Level 0.65, Calcium Level 9.1, Corrected Calcium 9.9, Total Bilirubin 0.3, Aspartate Amino Transf (AST/SGOT) 49H, Alanine Aminotransferase (ALT/SGPT) 45, Alkaline Phosphatase 224H, Pro-B-Type Natriuretic Peptide 2177.0H , Total Protein 7.6, Albumin 3.0L, Lipase 387H 06/19/22 14:24: Urine Color YELLOW, Urine Clarity CLEAR, Urine pH 6.5, Urine Specific [place] 1.020, Urine Protein 3+H, Urine Glucose (UA) TRACEH, Urine Ketones NEGATIVE, Urine Nitrite NEGATIVE, Urine Bilirubin NEGATIVE, Urine Urobilinogen 1.0, Urine Leukocyte Esterase NEGATIVE, Urine RBC (Auto) TRACE-IH, Urine RBC RARE, Urine WBC 0-2, Urine Squamous Epithelial Cells RARE, Urine Crystals NONE, Urine Bacteria TRACE, Urine Casts NONE, Urine Mucus NEGATIVE, Urine Culture Indicated NO 06/19/22 17:48: Glucometer 61L 06/19/22 19:03: Sodium Level 146H, Potassium Level 4.4, Chloride Level 115H, Carbon Dioxide Level 21, Anion Gap 10, Blood Urea Nitrogen 48H, Creatinine 2.00H, Estimat Glom erular Filtration Rate 40, BUN/Creatinine Ratio 24, Glucose Level 112H, Calcium Level 8.1L, Magnesium Level 2.4, Thyroid Stimulating Hormone (TSH) 2.11 06/19/22 19:58: Glucometer 92 06/19/22 20:59: Glucometer 66L 06/19/22 22:39: Glucometer 78 06/19/22 23:25: Glucometer 91 06/20/22 03:09: Glucometer 70 06/20/22 03:44: White Blood Count 11.9H, Red Blood Count 2.45L, Hemoglobin 6.9*L, Hematocrit 22L , Mean Corpuscular Volume 91, Mean Corpuscular Hemoglobin 28, Mean Corpuscular Hemoglobin Concent 31L, Red Cell Distribution Width 15.4H, Platelet Count 63L, Mean Platelet Volume 10.9, Immature Granulocyte % (Auto) 0, Neutrophils (%) (Auto) 86H, Lymphocytes (%) (Auto) 7L, Monocytes (%) (Auto) 6, Eosinophils (%) (Auto) 0, Basophils (%) (Auto) 0, Neutrophils # (Auto) 10.2H, Lymphocytes # (Auto) 0.8L, Monocytes # (Auto) 0.8, Eosinophils # (Auto) 0.0, Basophils # (Auto) 0.0, Immature Granulocyte # (Auto) 0.1, Percent Immature Platelet Fraction 4.4, Sodium Level 147H, Potassium Level 4.7, Chloride Level 115H, Carbon Dioxide Level 19L, Anion Gap 13, Blood Urea Nitrogen 47H, Creatinine 2. 25H, Estimat Glomerular Filtration Rate 34, BUN/Creatinine Ratio 21, Glucose Level 69L, Calcium Level 8.0L, Corrected Calcium 9.4, Phosphorus Level 5.5H, Magnesium Level 2.4, Total Bilirubin 0.4, Aspartate Amino Transf (AST/SGOT) 34, Alanine Aminotransferase (ALT/SGPT) 37, Alkaline Phosphatase 152H, Total Protein 6.0L, Albumin 2.3L, Lipase 163H 06/20/22 05:28: Glucometer 89 Assessment/Plan Assessment/Plan Assess & Plan/Chief Complaint Assessment: Sepsis Hypothermia Left pleural effusion Acute pancreatitis Developmental delay Mental illness Plan: IV abx Move to 4th Monitor closely DESIRAE NAVARRO DO Jun 20, 2022 05:51
[2022-06-20] MEDS ORDERED: POTASSIUM CL 10MEQ/50ML IVPB 50 ML IV SCH (06:00)
[2022-06-20] MEDS ORDERED: MAGNESIUM 1 GM/100 ML IVPB 100 ML IV SCH (06:00)
[2022-06-20] MEDS ORDERED: KCL 20 MEQ TAB (K-DUR) PO SCH (06:00)
[2022-06-20] MEDS: DOCUSATE SODIUM 100 MG (COLACE) CAP PO SCH ×2 (07:39→20:53)
[2022-06-20] MEDS: PIPERACILLIN SODIUM/TAZOBACTAM 4.5 GM in NS (IVPB) 100 ML IV SCH ×3 (07:39→23:39)
[2022-06-20] MEDS ORDERED: DEXTROSE 50% 50 ML (IMS) SYR ONE (08:13)
[2022-06-20] MEDS: PANTOPRAZOLE 40 MG (PROTONIX) VIAL IV SCH (08:19)
[2022-06-20] MEDS ORDERED: DEXTROSE 50% 50 ML (IMS) SYR IV ONE (08:30)
--- NOTE | 2022-06-20 08:47 | Progress Note - Surgery ---
LIZBETH MILLAN 06/20/22 0847: Subjective Date Seen by a Provider: Jun 20, 2022 Time Seen by a Provider: 07:20 Subjective/Events-last exam Patient on supplemental oxygen by nasal canula since 6:00 pm yesterday; he is stable on 3.00 L at this time. It is unclear if this a new oxygen dependence. Assessment was limited by the patient's developmental delay. He shakes his head no when asked about abdominal pain, shortness of breath, or chest pain. Focused Exam Lactate Level 06/19/22 12:22: Lactic Acid Level 0.65 Objective Exam Vital Signs Date Time Temp Pulse Resp B/P (MAP) Pulse Ox O2 Delivery O2 Flow Rate FiO2 06/20/22 08:04 35.6 06/20/22 08:00 65 20 129/88 (105) Nasal Cannula 3.00 06/20/22 07:41 95 Room Air 06/20/22 07:00 58 38 106/79 (96) 95 Nasal Cannula 3.00 06/20/22 07:00 56 06/20/22 06:00 64 22 121/87 (98) 96 Nasal Cannula 3.00 06/20/22 05:22 Nasal Cannula 3.00 06/20/22 05:00 68 20 114/71 (85) 95 Nasal Cannula 4.00 06/20/22 04:00 61 20 105/72 (83) 95 Nasal Cannula 4.00 06/20/22 03:50 Nasal Cannula 4.00 06/20/22 03:10 36.4 Room Air 06/20/22 03:10 100 Room Air 06/20/22 03:00 63 19 108/71 (83) 99 Room Air 06/20/22 02:00 36.4 64 18 102/66 (78) 98 Room Air 06/20/22 01:56 Room Air 06/20/22 01:00 64 25 106/74 (85) 98 Nasal Cannula 2.00 06/20/22 01:00 64 06/19/22 23:25 36.5 68 21 98/77 (84) 98 Nasal Cannula 2.00 06/19/22 23:20 98 Nasal Cannula 2.00 06/19/22 23:00 60 12 106/68 (81) 100 Nasal Cannula 2.00 06/19/22 22:41 36.1 06/19/22 22:00 61 33 102/76 (85) 99 Nasal Cannula 2.00 06/19/22 21:56 100 Nasal Cannula 2.00 06/19/22 21:00 62 28 84/70 (75) 99 Nasal Cannula 2.00 06/19/22 20:33 36.5 06/19/22 20:00 62 29 92/63 (73) 97 Nasal Cannula 2.00 06/19/22 20:00 96 Nasal Cannula 2.00 06/19/22 19:58 35.9 06/19/22 19:00 Nasal Cannula 2.00 06/19/22 19:00 58 29 100/60 (73) 97 Nasal Cannula 2.00 06/19/22 19:00 60 06/19/22 18:36 33.3 06/19/22 18:22 Nasal Cannula 2.00 06/19/22 18:00 40 107/65 (79) 88 Room Air 06/19/22 17:16 28.8 48 91 06/19/22 17:15 31.5 06/19/22 17:00 115/87 (96) 92 Room Air 06/19/22 16:50 91 Room Air 06/19/22 16:30 28.8 48 12 143/96 (112) 91 Room Air 06/19/22 16:00 124/99 (107) 92 Room Air 06/19/22 13:47 32.8 18 126/86 95 06/19/22 12:11 50 18 124/77 (93) 95 Room Air I & O 06/20/22 07:00 Intake Total 2100 ml Output Total 675 ml Balance 1425 ml Capillary Refill : Less Than 3 Seconds General Appearance: No Apparent Distress, Chronically ill, Other (very limited ability to express himself) HEENT: Pharynx Normal, Other (conjunctival erthema ) Neck: Non Tender, Supple Respiratory: Chest Non Tender, Lungs Clear, No Accessory Muscle Use, No Respiratory Distress, Decreased Breath Sounds (throughout lower lobee) Cardiovascular: Regular Rate, Rhythm, Normal Peripheral Pulses Gastrointestinal: normal bowel sounds, non tender, soft; No guarding Extremity: Pedal Edema (trace to 1+ BLE pitting edema) Neurologic/Psychiatric: Alert Skin: Warm/Dry, Pallor Lymphatic: No Adenopathy (cervical ) Results Lab Laboratory Tests 06/19/22 12:22: White Blood Count 11.6H, Red Blood Count 2.89L, Hemoglobin 8.2L, Hematocrit 25L, Mean Corpuscular Volume 88, Mean Corpuscular Hemoglobin 28, Mean Corpuscular Hemoglobin Concent 32, Red Cell Distribution Width 15.3H, Platelet Count 97L, Mean Platelet Volume 10.3, Immature Granulocyte % (Auto) 0, Neutrophils (%) (Auto) 88H, Lymphocytes (%) (Auto) 7L, Monocytes (%) (Auto) 5, Eosinophils (%) (Auto) 1, Basophils (%) (Auto) 0, Neutrophils # (Auto) 10.2H, Lymphocytes # (Auto) 0.8L, Monocytes # (Auto) 0.5, Eosinophils # (Auto) 0.1, Basophils # (Auto) 0.0, Immature Granulocyte # (Auto) 0.0, Percent Immature Platelet Fraction 4.9, Sodium Level 146H, Potassium Level 4.8, Chloride Level 111H, C arbon Dioxide Level 25, Anion Gap 10, Blood Urea Nitrogen 51H, Creatinine 2.11H, Estimat Glomerular Filtration Rate 37, BUN/Creatinine Ratio 24, Glucose Level 66L, Lactic Acid Level 0.65, Calcium Level 9.1, Corrected Calcium 9.9, Total Bilirubin 0.3, Aspartate Amino Transf (AST/SGOT) 49H, Alanine Aminotransferase (ALT/SGPT) 45, Alkaline Phosphatase 224H, Pro-B-Type Natriuretic Peptide 2177.0H , Total Protein 7.6, Albumin 3.0L, Lipase 387H 06/19/22 14:24: Urine Color YELLOW, Urine Clarity CLEAR, Urine pH 6.5, Urine Specific [place] 1.020, Urine Protein 3+H, Urine Glucose (UA) TRACEH, Urine Ketones NEGATIVE, Urine Nitrite NEGATIVE, Urine Bilirubin NEGATIVE, Urine Urobilinogen 1.0, Urine Leukocyte Esterase NEGATIVE, Urine RBC (Auto) TRACE-IH, Urine RBC RARE, Urine WBC 0-2, Urine Squamous Epithelial Cells RARE, Urine Crystals NONE, Urine Bacteria TRACE, Urine Casts NONE, Urine Mucus NEGATIVE, Urine Culture Indicated NO 06/19/22 17:48: Glucometer 61L 06/19/22 19:03: Sodium Level 146H, Potassium Level 4.4, Chloride Level 115H, Carbon Dioxide Level 21, Anion Gap 10, Blood Urea Nitrogen 48H, Creatinine 2.00H, Estimat Glomerular Filtration Rate 40, BUN/Creatinine Ratio 24, Glucose Level 112H, Calcium Level 8.1L, Magnesium Level 2.4, Thyroid Stimulating Hormone (TSH) 2.11 06/19/22 19:58: Glucometer 92 06/19/22 20:59: Glucometer 66L 06/19/22 22:39: Glucometer 78 06/19/22 23:25: Glucometer 91 06/20/22 03:09: Glucometer 70 06/20/22 03:44: White Blood Count 11.9H, Red Blood Count 2.45L, Hemoglobin 6.9*L, Hematocrit 22L , Mean Corpuscular Volume 91, Mean Corpuscular Hemoglobin 28, Mean Corpuscular Hemoglobin Concent 31L, Red Cell Distribution Width 15.4H, Platelet Count 63L, Mean Platelet Volume 10.9, Immature Granulocyte % (Auto) 0, Neutrophils (%) (Auto) 86H, Lymphocytes (%) (Auto) 7L, Monocytes (%) (Auto) 6, Eosinophils (%) (Auto) 0, Basophils (%) (Auto) 0, Neutrophils # (Auto) 10.2H, Lymphocytes # (Auto) 0.8L, Monocytes # (Auto) 0.8, Eosinophils # (Auto) 0.0, Basophils # (Auto) 0.0, Immature Granulocyte # (Auto) 0.1, Percent Immature Platelet Fraction 4.4, Sodium Level 147H, Potassium Level 4.7, Chloride Level 115H, Carbon Dioxide Level 19L, Anion Gap 13, Blood Urea Nitrogen 47H, Creatinine 2.25H, Estimat Glomerular Filtration Rate 34, BUN/Creatinine Ratio 21, Glucose Level 69L, Calcium Level 8.0L, Corrected Calcium 9.4, Phosphorus Level 5.5H, Magnesium Level 2.4, Total Bilirubin 0.4, Aspartate Amino Transf (AST/SGOT) 34, Alanine Aminotransferase (ALT/SGPT) 37, Alkaline Phosphatase 152H, Total Protein 6.0L, Albumin 2.3L, Lipase 163H 06/20/22 05:28: Glucometer 89 06/20/22 08:10: Glucometer 56*L Assessment/Plan Assessment/Plan Assessment/Plan Hypothermia - improvement to 35.6 from 32.5 yesterday Acute pancreatitis - improvement to 163 from 387 yesterday Left chest opacity - progressive, likely atelectasis in the setting of moderate- large pleural effusion Acute on chronic renal insufficiency - Cr 2.25 from 2.11 yesterday, reported baseline of 1.81 Chronic anemia - Hb 6.9 this AM, 1 unit of LRBC transfused Elevated pro-BNP - 2177 on 06/19; ECHO done at bedside today Right inguinal hernia Type II DM HTN Intellectual disability Schizoaffective Disorder Conduct disorder / Intermittent Explosive Disorder / DMD Continue IV fluids Continue Adolfo Hugger surgical blanket and warm fluids Obtain ultrasound to better characterize severity of pleural effusion ACE JACOBS DO 06/20/22 1309: Subjective Time Seen by a Provider: 09:09 Subjective/Events-last exam Pt seen and examined, they had just shot a CXR and left lung looked completely zoey out. Pt not really verbal and not sure he is answering questions correctly. Review of Systems unable to obtain Objective Exam General Appearance: No Apparent Distress, Other (very limited ability to express himself) HEENT: Pharynx Normal, Other (conjunctival erthema ) Respiratory: Chest Non Tender, No Accessory Muscle Use, No Respiratory Distress, Decreased Breath Sounds (throughout lower lobes, but left is the worst with very, very faint breath sounds) Cardiovascular: Regular Rate, Rhythm, Normal Peripheral Pulses Gastrointestinal: non tender, soft; No guarding Extremity: Pedal Edema (trace to 1+ BLE pitting edema) Assessment/Plan Assessment/Plan Assessment/Plan Hypothermia - improvement to 35.6 from 32.5 yesterday Acute pancreatitis - improvement to 163 from 387 yesterday Left chest opacity - progressive, likely atelectasis in the setting of moderate- large pleural effusion Acute on chronic renal insufficiency - Cr 2.25 from 2.11 yesterday, reported baseline of 1.81 Chronic anemia - Hb 6.9 this AM, 1 unit of LRBC transfused Elevated pro-BNP - 2177 on 06/19; ECHO done at bedside today Right inguinal hernia Type II DM HTN Intellectual disability Schizoaffective Disorder Conduct disorder / Intermittent Explosive Disorder / DMD Continue IV fluids Continue Adolfo Hugger surgical blanket and warm fluids Obtain ultrasound to better characterize severity of pleural effusion I ordered an US of left chest and discussed case with Dr. Licea. He is not in respiratory distress so at this time no indication of need for thoracentesis. Will get US and reassess. Supervisory-Addendum Brief Verification & Attestation Participated in pt care: history, MDM, physical Personally performed: exam, history, MDM, supervision of care Care discussed with: Medical Student Procedures: n/a Verification and Attestation of Medical Student E/M Service A medical student performed and documented this service. I then reviewed and verified all information documented by the medical student and made modifications to such information, when appropriate. I personally performed a physical exam, medical decision making and then discussed any differences b etween the notes and made revisions as necessary to create one note. Ace Jacobs , 06/20/22 , 13:09 LIZBETH MILLAN Jun 20, 2022 08:47 ACE JACOBS DO Jun 20, 2022 13:09
[2022-06-20] MEDS ORDERED: FOLI1TAB33 PO (08:55)
[2022-06-20] MEDS ORDERED: CARI3CAP PO (08:55)
[2022-06-20] MEDS ORDERED: MICO133A2 TP (08:55)
[2022-06-20] MEDS ORDERED: SODI10PO PO (08:55)
[2022-06-20] MEDS ORDERED: DIVA-74 PO (08:55)
[2022-06-20] MEDS ORDERED: CHOL200059 PO (08:55)
[2022-06-20] MEDS ORDERED: NS IV 500 ML 500 ML ONE (08:59)
--- NOTE | 2022-06-20 09:04 | Tele-ICU Progress Note ---
Subjective Date Seen by a Provider: Jun 20, 2022 Subjective/Events-last exam Available chart/ vitals / labs / Images reviewed H&P is from ER notes Patient's information available about PMH, Shx, Fhx allergy reviewed inEMR. ROS as per chart and RN report Now in ICU, hemodynamically stable Video assessment done using teleICU camera, rest of exam as per RN Discussed with RN. 51 yo M in ICU for pancreatitis, also DM, HLD, has been getting IV Zosyn Several episodes of hypoglycemia including today, given IV D50W, Getting D5W in IV @ 150, getting one unit of PRBC Lipase down from 387 to 163 Sepsis Event Evaluation Height, Weight, BMI Height: '" Weight: lbs. oz. kg; 22.92 BMI Method: Focused Exam Lactate Level 06/19/22 12:22: Lactic Acid Level 0.65 Exam Exam Patient acknowledged, consented, and participated in this virtual visit which was conducted using real time audio/video Vital Signs Date Time Temp Pulse Resp B/P (MAP) Pulse Ox O2 Delivery O2 Flow Rate FiO2 06/20/22 08:04 35.6 06/20/22 08:00 65 20 129/88 (105) Nasal Cannula 3.00 06/20/22 07:41 95 Room Air 06/20/22 07:00 58 38 106/79 (96) 95 Nasal Cannula 3.00 06/20/22 07:00 56 06/20/22 06:00 64 22 121/87 (98) 96 Nasal Cannula 3.00 06/20/22 05:22 Nasal Cannula 3.00 06/20/22 05:00 68 20 114/71 (85) 95 Nasal Cannula 4.00 06/20/22 04:00 61 20 105/72 (83) 95 Nasal Cannula 4.00 06/20/22 03:50 Nasal Cannula 4.00 06/20/22 03:10 36.4 Room Air 06/20/22 03:10 100 Room Air 06/20/22 03:00 63 19 108/71 (83) 99 Room Air 06/20/22 02:00 36.4 64 18 102/66 (78) 98 Room Air 06/20/22 01:56 Room Air 06/20/22 01:00 64 25 106/74 (85) 98 Nasal Cannula 2.00 06/20/22 01:00 64 06/19/22 23:25 36.5 68 21 98/77 (84) 98 Nasal Cannula 2.00 06/19/22 23:20 98 Nasal Cannula 2.00 06/19/22 23:00 60 12 106/68 (81) 100 Nasal Cannula 2.00 06/19/22 22:41 36.1 06/19/22 22:00 61 33 102/76 (85) 99 Nasal Cannula 2.00 06/19/22 21:56 100 Nasal Cannula 2.00 06/19/22 21:00 62 28 84/70 (75) 99 Nasal Cannula 2.00 06/19/22 20:33 36.5 06/19/22 20:00 62 29 92/63 (73) 97 Nasal Cannula 2.00 06/19/22 20:00 96 Nasal Cannula 2.00 06/19/22 19:58 35.9 06/19/22 19:00 Nasal Cannula 2.00 06/19/22 19:00 58 29 100/60 (73) 97 Nasal Cannula 2.00 06/19/22 19:00 60 06/19/22 18:36 33.3 06/19/22 18:22 Nasal Cannula 2.00 06/19/22 18:00 40 107/65 (79) 88 Room Air 06/19/22 17:16 28.8 48 91 06/19/22 17:15 31.5 06/19/22 17:00 115/87 (96) 92 Room Air 06/19/22 16:50 91 Room Air 06/19/22 16:30 28.8 48 12 143/96 (112) 91 Room Air 06/19/22 16:00 124/99 (107) 92 Room Air 06/19/22 13:47 32.8 18 126/86 95 06/19/22 12:11 50 18 124/77 (93) 95 Room Air l I & O 06/20/22 07:00 Intake Total 2100 ml Output Total 675 ml Balance 1425 ml Height & Weight Height: '" Weight: lbs. oz. kg; 22.92 BMI Method: General Appearance: No Apparent Distress, Chronically ill, Other (very limited ability to express himself) HEENT: Pharynx Normal, Other (conjunctival erthema ) Neck: Non Tender, Supple Respiratory: Chest Non Tender, Lungs Clear, No Accessory Muscle Use, No Respiratory Distress, Decreased Breath Sounds (in lower lobe of left base ), Rhonci Cardiovascular: Regular Rate, Rhythm, No Edema, Normal Peripheral Pulses, Bradycardia (HR goes as low as 55) Capillary Refill: Less Than 3 Seconds Gastrointestinal: normal bowel sounds, non tender, soft Extremity: Pedal Edema (trace to 1+ BLE pitting edema) Neurologic/Psychiatric: Alert Skin: Warm/Dry, Pallor Lymphatic: No Adenopathy (cervical ) Results Lab Laboratory Tests 06/19/22 12:22 06/19/22 19:03 06/20/22 03:44 Assessment/Plan Assessment/Plan Pancreatitis resolving, CT shows bilateral pleural effusions, will get CXR today Critical Care: Critically Ill Patient Time spent with patient (mins): 25 NUPUR SCHUMACHER MD Jun 20, 2022 09:04
[2022-06-20 09:15] VITALS: BP 120/95
[2022-06-20 09:31] VITALS: BP 115/75
--- NOTE | 2022-06-20 09:59 | Diagnostic Imaging Report ---
Indication: Pleural fluid. Its correlated with abdominal pelvic CT of one-day prior and compared with chest x-ray 03/10/2022. FINDINGS: There is a central complete opacification and white out of the left hemithorax with minute amount of aeration to a portion of the apical aspect left upper lobe otherwise airless. While there was known left-sided pleural fluid present with complete whiteout and the absence of cardiomediastinal shift there is likely a combination of pleural fluid and left lung atelectasis. This reflects a substantial progression from the recent CT where the majority of the visualized left lung was aerated on the figure model radiograph. Right lung congestion edema versus infiltrate and a small pleural effusion unchanged. IMPRESSION: Progressive left chest opacity now with near complete white out of the left hemithorax. This likely reflects interval left lung atelectasis in the setting of a moderate to large left pleural effusion with no resultant shift or mass effect. Smaller right pleural effusion and right lung infiltrate unchanged. Dictated by: Dictated on workstation # [id number]
[2022-06-20] MEDS: RT-ALBUTEROL HFA 8.5 GM INHALER IH SCH ×3 (11:15→19:27)
[2022-06-20 11:20] VITALS: BP 108/80
--- NOTE | 2022-06-20 13:23 | Progress Note ---
Standard Progress Note Progress Notes/Assess & Plan Date Seen by a Provider: Jun 20, 2022 Time Seen by a Provider: 13:23 Progress/Assessment & Plan Just had 4th episode of hypolycemia, will change IV to D10W @ 100 mL/h Final Diagnosis D10W NUPUR SCHUMACHER MD Jun 20, 2022 13:23
[2022-06-20] MEDS: DEXTROSE 10% IV SOLUTION 250 ML IV ONE ×2 (13:30→14:25)
--- NOTE | 2022-06-20 15:10 | Diagnostic Imaging Report ---
INDICATION: Pleural effusion. FINDINGS: Sonographic interrogation of the right and left posterior chest was performed to evaluate for pleural fluid. There does appear to be a moderate-sized left pleural effusion. No significant right-sided effusion is seen. IMPRESSION: Moderate left effusion. Dictated by: Dictated on workstation # [id number]
[2022-06-20 16:00] VITALS: BP 144/88
[2022-06-20] MEDS: ENOXAPARIN 40 MG/0.4 ML (LOVENOX) SYR SC SCH (18:01)
[2022-06-20] MEDS: FERROUS SULF 325 MG (IRON) TAB PO SCH (18:24)
[2022-06-20 19:20] VITALS: BP 146/67
[2022-06-20] MEDS: UMECLIDINIUM BROMIDE (INCRUSE ELLIPTA) 7'S IH SCH (19:27)
[2022-06-20] MEDS: meTOprolol TARTRATE 25 MG (LOPRESSOR) TABLET PO SCH (20:52)
[2022-06-20] MEDS: DIVALPROEX 250 MG DELAYED RELEASE (DEPAKOTE) TAB PO SCH (20:52)
[2022-06-20] MEDS: MELATONIN 3 MG TABLET PO PRN (20:53)
[2022-06-20] MEDS: MICONAZOLE NITRATE 2% CRM 30 GM TP SCH (20:54)
[2022-06-20] MEDS ORDERED: MICONAZOLE NITRATE TP SCH (21:00)
[2022-06-20 23:28] VITALS: BP_SYST 124; BP_SYST 97; BP_DIAS 56; BP_DIAS 64
[2022-06-21 03:28] VITALS: BP 115/64
[2022-06-21] MEDS: inSUlin ASPART (NovoLOG) 1 UNIT/0.01 ML (CHARGE PER UNIT) SC SCH ×4 (05:58→20:43)
[2022-06-21 06:49] LABS: ALBUMIN 2.3 GM/DL (3.2-4.5); BILIRUBIN,TOTAL 0.5 MG/DL (0.1-1.0); CALCIUM 8.4 MG/DL (8.5-10.1); CREATININE SERUM 2.3 MG/DL (0.60-1.30); POTASSIUM 4.5 MMOL/L (3.6-5.0); TOTAL PROTEIN 6.2 GM/DL (6.4-8.2)
[2022-06-21 06:54] LABS: BASOPHILS % (AUTO) 0 % (0-10); EOSINOPHILS % (AUTO) 0 % (0-10); HEMATOCRIT 24 % (40-54); HEMOGLOBIN 7.9 g/dL (13.3-17.7); LYMPHOCYTES # (AUTO) 1.1 10^3/uL (1.0-4.0); LYMPHOCYTES % (AUTO) 12 % (12-44); MEAN CORPUSCULAR HEMOGLOBIN 29 pg (25-34); MEAN CORPUSCULAR HGB CONC 32 g/dL (32-36); MEAN CORPUSCULAR VOLUME 89 fL (80-99); MEAN PLATELET VOLUME 10.8 fL (9.0-12.2); MONOCYTES # (AUTO) 0.6 10^3/uL (0.0-1.0); MONOCYTES % (AUTO) 7 % (0-12); NEUTROPHILS # (AUTO) 7.2 10^3/uL (1.8-7.8); NEUTROPHILS % (AUTO) 80 % (42-75)
[2022-06-21 07:12] LABS: PLATELET COUNT 44 10^3/uL (130-400); SMEAR SCAN COMMENT YES
[2022-06-21 07:25] VITALS: BP 132/77
[2022-06-21] MEDS: RT-ALBUTEROL HFA 8.5 GM INHALER IH SCH ×3 (07:29→21:12)
[2022-06-21] MEDS ORDERED: PANTOPRAZOLE 40 MG (PROTONIX) TAB PO SCH (09:00)
[2022-06-21] MEDS ORDERED: NON-FORMULARY MEDICATION 1 EA EA (Cariprazine Hydrochloride (Vraylar) 3 MG) PO SCH (09:00)
[2022-06-21] MEDS ORDERED: SODIUM ZIRCONIUM CYCLOSILICATE 10 GM PO SCH (09:00)
[2022-06-21] MEDS ORDERED: NON-FORMULARY MEDICATION 1 EA EA (Umeclidinium Brm/Vilanterol Tr (Anoro Ellipta 62.5-25 Mc IH SCH (09:00)
[2022-06-21] MEDS ORDERED: NON-FORMULARY MEDICATION 1 EA EA (Cholecalciferol (Vitamin D3) (Vitamin D3) 100 MCG) PO SCH (09:00)
[2022-06-21] MEDS ORDERED: NON-FORMULARY MEDICATION 1 EA EA (Escitalopram Oxalate 10 MG) PO SCH (09:00)
[2022-06-21 09:18] LABS: FIBRIN DEGRADATION PRODUCTS 2.44 UG/ML (0.00-0.49); INR 1.2 (0.8-1.4); PROTHROMBIN TIME PATIENT 15.3 SEC (12.2-14.7)
[2022-06-21] MEDS: PIPERACILLIN SODIUM/TAZOBACTAM 4.5 GM in NS (IVPB) 100 ML IV SCH ×2 (09:28→15:37)
[2022-06-21] MEDS: meTOprolol TARTRATE 25 MG (LOPRESSOR) TABLET PO SCH ×2 (09:29→19:46)
[2022-06-21] MEDS: PANTOPRAZOLE 40 MG (PROTONIX) VIAL IV SCH (09:29)
[2022-06-21] MEDS: DIVALPROEX 250 MG DELAYED RELEASE (DEPAKOTE) TAB PO SCH ×2 (09:29→19:47)
[2022-06-21] MEDS: DOCUSATE SODIUM 100 MG (COLACE) CAP PO SCH ×2 (09:29→19:47)
[2022-06-21] MEDS: FOLIC ACID 1 MG TAB PO SCH (09:29)
[2022-06-21] MEDS: VITAMIN D3 25 MCG (1,000 UNITS) TABLET PO SCH (09:30)
[2022-06-21] MEDS: FERROUS SULF 325 MG (IRON) TAB PO SCH ×2 (09:30→18:07)
[2022-06-21] MEDS: MICONAZOLE NITRATE 2% CRM 30 GM TP SCH ×2 (09:31→19:47)
[2022-06-21 11:22] VITALS: BP 137/80
[2022-06-21] MEDS ORDERED: BISACODYL 10 MG SUPP (DULCOLAX) PR ONE (11:45)
--- NOTE | 2022-06-21 12:41 | Progress Note ---
Subjective Date Seen by a Provider: Jun 21, 2022 Time Seen by a Provider: 11:20 Subjective/Events-last exam Patient seen with Dr. Antonio. Patient denies any nausea, vomiting, or abdominal pain. Tolerating clear liquid diet. Denies any issues breathing. Focused Exam Lactate Level 06/19/22 12:22: Lactic Acid Level 0.65 Objective Exam Vital Signs Date Time Temp Pulse Resp B/P (MAP) Pulse Ox O2 Delivery O2 Flow Rate FiO2 06/21/22 11:22 35.5 56 18 137/80 (99) 94 Nasal Cannula 2.00 06/21/22 10:56 94 Nasal Cannula 2.00 06/21/22 08:00 Nasal Cannula 2.00 06/21/22 07:30 95 Nasal Cannula 2.00 06/21/22 07:25 35.7 61 20 132/77 (95) 96 High Flow N/C 5.00 06/21/22 03:28 35.9 62 16 115/64 (81) 90 Room Air 06/20/22 23:28 35.8 58 16 124/64 (84) 94 High Flow N/C 5.00 06/20/22 20:30 Nasal Cannula 2.00 06/20/22 19:30 95 Nasal Cannula 2.00 06/20/22 19:20 35.6 99 18 146/67 (93) 95 Nasal Cannula 2.00 06/20/22 16:00 35.7 62 20 144/88 (106) 93 Nasal Cannula 2.00 06/20/22 16:00 Room Air I & O 06/21/22 07:00 Intake Total 1170 ml Output Total 1075 ml Balance 95 ml Capillary Refill : Less Than 3 Seconds General Appearance: No Apparent Distress, WD/WN Neck: Normal Inspection, Supple Respiratory: No Accessory Muscle Use, No Respiratory Distress, Other (Decreased breath sounds lower bilateral) Gastrointestinal: normal bowel sounds, non tender, soft Neurologic/Psychiatric: Alert, Normal Mood/Affect Skin: Normal Color, Warm/Dry Results Lab Laboratory Tests 06/20/22 17:20: Glucometer 53*L 06/20/22 18:45: Glucometer 130H 06/20/22 20:30: Glucometer 86 06/20/22 22:15: Glucometer 84 06/21/22 03:52: Glucometer 59*L 06/21/22 05:10: Glucometer 89 06/21/22 06:12: White Blood Count 9.0, Red Blood Count 2.73L, Hemoglobin 7.9L, Hematocrit 24L, Mean Corpuscular Volume 89, Mean Corpuscular Hemoglobin 29, Mean Corpuscular Hemoglobin Concent 32, Red Cell Distribution Width 16.0H, Platelet Count 44L, Mean Platelet Volume 10.8, Immature Granulocyte % (Auto) 1, Neutrophils (%) (Auto) 80H, Lymphocytes (%) (Auto) 12, Monocytes (%) (Auto) 7, Eosinophils (%) (Auto) 0, Basophils (%) (Auto) 0, Neutrophils # (Auto) 7.2, Lymphocytes # (Auto) 1.1, Monocytes # (Auto) 0.6, Eosinophils # (Auto) 0.0, Basophils # (Auto) 0.0, Immature Granulocyte # (Auto) 0.1, Percent Immature Platelet Fraction 5.0, Prothrombin Time 15.3H, INR Comment 1.2, Activated Partial Thromboplast Time 49H , Fibrinogen 676H, D-Dimer 2.44H, Sodium Level 145, Potassium Level 4.5, Chloride Level 114H, Carbon Dioxide Level 20L, Anion Gap 11, Blood Urea Nitrogen 45H, Creatinine 2.30H, Estimat Glomerular Filtration Rate 34, BUN/Creatinine Ratio 20, Glucose Level 64L, Calcium Level 8.4L, Corrected Calcium 9.8, Total Bilirubin 0.5, Aspartate Amino Transf (AST/SGOT) 41H, Alanine Aminotransferase (ALT/SGPT) 38, Alkaline Phosphatase 172H, Total Protein 6.2L, Albumin 2.3L, Smear Scan YES 06/21/22 11:21: Glucometer 69L 06/21/22 12:31: Glucometer 90 Microbiology 06/19/22 MRSA Screen - Final, Complete MRSA not isolated 06/19/22 Blood Culture - Preliminary, Resulted No growth Assessment/Plan Assessment/Plan Assess & Plan/Chief Complaint A 51 year old male with acute pancreatitis, hypothermia, left pleural effusion, intellectual disability, schizoaffective disorder, Type II DM, HTN, Chronic anemia, chronic renal insufficiency Hypothermia - improving Acute pancreatitis Left chest opacity - moderate left pleural effusion of US, however patient asymptomatic Acute on chronic renal insufficiency Chronic anemia - Hb 7.9 this AM Elevated pro-BNP Right inguinal hernia Type II DM HTN Intellectual disability Schizoaffective Disorder Conduct disorder / Intermittent Explosive Disorder / DMD Continue IV fluids Continue Adolfo Moreno surgical blanket and warm fluids Continue MAT protocol and x MANUEL LEPE PELTS SKINNER Jun 21, 2022 12:41
[2022-06-21] MEDS: D5W 1000 ML IV SOLUTION 1,000 ML IV SCH (15:37)
[2022-06-21 16:00] VITALS: BP 137/86
--- NOTE | 2022-06-21 16:42 | Progress Note - Hospitalist ---
Subjective HPI/CC On Admission Date Seen by Provider: Jun 21, 2022 Time Seen by Provider: 11:05 CC: Acute pancreatitis with hypothermia HPI: This is a 51yoWM developmentally delayed male resident of [facility] who has a h/o mental illness and inability to communicate who presents from [facility] with acute pancreatitis and hypothermia requiring admit to ICU due to inability to communicate and suspected sepsis. IV abx maintained.Currently he is on a bear hugger to resolve hypothermia. Subjective/Events-last exam He is laying in bed. He denies pain. He denies shortness of breath. He has no complaints. Focused Exam Lactate Level 06/19/22 12:22: Lactic Acid Level 0.65 Objective Exam Vital Signs Vital Signs Date Time Temp Pulse Resp B/P (MAP) Pulse Ox O2 Delivery O2 Flow Rate FiO2 06/21/22 16:00 36.5 57 20 137/86 (103) 96 High Flow N/C 2.00 Capillary Refill : Less Than 3 Seconds General Appearance: No Apparent Distress, WD/WN Respiratory: Lungs Clear, No Respiratory Distress Cardiovascular: Regular Rate, Rhythm, No Murmur Gastrointestinal: Normal Bowel Sounds, Non Tender, Soft Extremity: Normal Inspection, No Pedal Edema Neurologic/Psychiatric: Alert, No Motor/Sensory Deficits Skin: Normal Color, Warm/Dry Results/Procedures Lab Laboratory Tests 06/21/22 06:12 Patient resulted labs reviewed. Assessment/Plan Assessment and Plan Assess & Plan/Chief Complaint Pancreatitis Hypoglycemia Anemia Thrombocytopenia CKD 3b Pleural effusion Developmental delay Continue Zosyn Add D5W due to hypoglycemia Monitor CBC closely Surgery following Effusion asymptomatic, no intervention needed at this time Sepsis, resolved Hypothermia, resolved Hypernatremia, resolved Diagnosis/Problems Diagnosis/Problems (1) Pancreatitis Status: Acute Qualifiers: Chronicity: acute Pancreatitis type: unspecified pancreatitis type Acute pancreatitis complication: no infection or necrosis Qualified Codes: K85.90 - Acute pancreatitis without necrosis or infection, unspecified (2) Pleural effusion Status: Acute (3) Thrombocytopenia Status: Acute (4) Anemia Status: Acute (5) Developmental delay Status: Chronic (6) Stage 3b chronic kidney disease Status: Chronic (7) Hypothermia Status: Resolved Resolution Date/Time: 06/21/22 @ 16:46 (8) Sepsis Status: Resolved Resolution Date/Time: 06/21/22 @ 16:46 YADIRA ANGELO MD Jun 21, 2022 16:42
[2022-06-21 19:26] VITALS: BP 130/81
[2022-06-21] MEDS: MELATONIN 3 MG TABLET PO PRN (19:44)
[2022-06-21 23:11] VITALS: BP 127/82
[2022-06-22] VITALS (7 sets, daily range): BP systolic 121–151; BP diastolic 68–89
[2022-06-22] MEDS: D5W 1000 ML IV SOLUTION 1,000 ML IV SCH ×2 (00:34→09:44)
[2022-06-22] MEDS: PIPERACILLIN SODIUM/TAZOBACTAM 4.5 GM in NS (IVPB) 100 ML IV SCH ×3 (00:34→17:07)
[2022-06-22] MEDS: inSUlin ASPART (NovoLOG) 1 UNIT/0.01 ML (CHARGE PER UNIT) SC SCH ×4 (05:38→20:20)
[2022-06-22 06:04] LABS: BASOPHILS % (AUTO) 0 % (0-10); HEMATOCRIT 24 % (40-54); MEAN CORPUSCULAR VOLUME 89 fL (80-99)
[2022-06-22 06:07] LABS: EOSINOPHILS # (AUTO) 0.1 10^3/uL (0.0-0.3); EOSINOPHILS % (AUTO) 1 % (0-10); HEMOGLOBIN 7.7 g/dL (13.3-17.7); LYMPHOCYTES % (AUTO) 13 % (12-44); MEAN CORPUSCULAR HEMOGLOBIN 29 pg (25-34); MEAN CORPUSCULAR HGB CONC 32 g/dL (32-36); MEAN PLATELET VOLUME 11.9 fL (9.0-12.2); MONOCYTES # (AUTO) 0.5 10^3/uL (0.0-1.0); MONOCYTES % (AUTO) 6 % (0-12); NEUTROPHILS # (AUTO) 6.1 10^3/uL (1.8-7.8); NEUTROPHILS % (AUTO) 79 % (42-75); PLATELET COUNT 43 10^3/uL (130-400); WHITE BLOOD COUNT 7.7 10^3/uL (4.3-11.0)
[2022-06-22 06:31] LABS: ALBUMIN 2.2 GM/DL (3.2-4.5); BILIRUBIN,TOTAL 0.5 MG/DL (0.1-1.0); CALCIUM 8.5 MG/DL (8.5-10.1); CREATININE SERUM 2.09 MG/DL (0.60-1.30); POTASSIUM 4.3 MMOL/L (3.6-5.0); TOTAL PROTEIN 6.1 GM/DL (6.4-8.2)
[2022-06-22] MEDS: RT-ALBUTEROL HFA 8.5 GM INHALER IH SCH ×4 (07:05→20:37)
[2022-06-22] MEDS: UMECLIDINIUM BROMIDE (INCRUSE ELLIPTA) 7'S IH SCH ×2 (07:08→20:37)
--- NOTE | 2022-06-22 09:25 | Progress Note ---
Subjective Date Seen by a Provider: Jun 22, 2022 Time Seen by a Provider: 09:05 Subjective/Events-last exam Patient seen with Dr. Antonio. Patient denies any nausea, vomiting, or abdominal pain. Tolerated clear liquid breakfast this morning. Denied feeling hungry when asked. Focused Exam Lactate Level 06/19/22 12:22: Lactic Acid Level 0.65 Objective Exam Vital Signs Date Time Temp Pulse Resp B/P (MAP) Pulse Ox O2 Delivery O2 Flow Rate FiO2 06/22/22 07:15 36.0 51 20 139/81 (100) 94 Nasal Cannula 2.00 06/22/22 03:12 35.2 52 16 133/82 (99) 90 Room Air 06/21/22 23:11 35.3 85 16 127/82 (97) 92 High Flow N/C 3.00 06/21/22 21:12 92 Room Air 2.00 06/21/22 20:27 91 Room Air 06/21/22 19:26 36.6 60 18 130/81 (97) 95 High Flow N/C 3.00 06/21/22 16:00 36.5 57 20 137/86 (103) 96 High Flow N/C 2.00 06/21/22 15:28 94 Nasal Cannula 2.00 06/21/22 11:22 35.5 56 18 137/80 (99) 94 Nasal Cannula 2.00 06/21/22 10:56 94 Nasal Cannula 2.00 I & O 06/22/22 07:00 Intake Total 2230 ml Output Total 1400 ml Balance 830 ml Capillary Refill : Less Than 3 Seconds General Appearance: No Apparent Distress, WD/WN Neck: Normal Inspection, Supple Respiratory: No Accessory Muscle Use, No Respiratory Distress Gastrointestinal: normal bowel sounds, non tender, soft Neurologic/Psychiatric: Alert, Normal Mood/Affect Skin: Normal Color, Warm/Dry Results Lab Laboratory Tests 06/21/22 11:21: Glucometer 69L 06/21/22 12:31: Glucometer 90 06/21/22 15:54: Glucometer 61L 06/21/22 16:38: Glucometer 101 06/21/22 20:16: Glucometer 103 06/22/22 05:21: Glucometer 107 06/22/22 05:30: White Blood Count 7.7, Red Blood Count 2.68L, Hemoglobin 7.7L, Hematocrit 24L, Mean Corpuscular Volume 89, Mean Corpuscular Hemoglobin 29, Mean Corpuscular Hemoglobin Concent 32, Red Cell Distribution Width 15.8H, Platelet Count 43L, Mean Platelet Volume 11.9, Immature Granulocyte % (Auto) 1, Neutrophils (%) (Auto) 79H, Lymphocytes (%) (Auto) 13, Monocytes (%) (Auto) 6, Eosinophils (%) (Auto) 1, Basophils (%) (Auto) 0, Neutrophils # (Auto) 6.1, Lymphocytes # (Auto) 1.0, Monocytes # (Auto) 0.5, Eosinophils # (Auto) 0.1, Basophils # (Auto) 0.0, Immature Granulocyte # (Auto) 0.0, Percent Immature Platelet Fraction 6.0, Sodium Level 141, Potassium Level 4.3, Chloride Level 112H, Carbon Dioxide Level 21, Anion Gap 8, Blood Urea Nitrogen 37H, Creatinine 2.09H, Estimat Glomerular Filtration Rate 38, BUN/Creatinine Ratio 18, Glucose Level 115H, Calcium Level 8.5, Corrected Calcium 9.9, Total Bilirubin 0.5, Aspartate Amino Transf (AST/SGOT) 36H, Alanine Aminotransferase (ALT/SGPT) 35, Alkaline Phosphatase 156H, Total Protein 6.1L, Albumin 2.2L Microbiology 06/19/22 MRSA Screen - Final, Complete MRSA not isolated 06/19/22 Blood Culture - Preliminary, Resulted No growth Assessment/Plan Assessment/Plan Assess & Plan/Chief Complaint A 51 year old male with acute pancreatitis, hypothermia, left pleural effusion, intellectual disability, schizoaffective disorder, Type II DM, HTN, Chronic ane yonatan, chronic renal insufficiency Hypothermia - improving Acute pancreatitis Left chest opacity - moderate left pleural effusion of US, however patient asymptomatic Acute on chronic renal insufficiency Chronic anemia - Hb 7.7 this AM Elevated pro-BNP Right inguinal hernia Type II DM HTN Intellectual disability Schizoaffective Disorder Conduct disorder / Intermittent Explosive Disorder / DMD Continue IV fluids Continue Adolfo Hugger surgical blanket and warm fluids Continue MAT protocol and abx May advance diet as tolerated MANUEL LEPE APRN Jun 22, 2022 09:25
[2022-06-22] MEDS: PANTOPRAZOLE 40 MG (PROTONIX) VIAL IV SCH (09:34)
[2022-06-22] MEDS: VITAMIN D3 25 MCG (1,000 UNITS) TABLET PO SCH (09:35)
[2022-06-22] MEDS: DIVALPROEX 250 MG DELAYED RELEASE (DEPAKOTE) TAB PO SCH ×2 (09:35→19:57)
[2022-06-22] MEDS: FERROUS SULF 325 MG (IRON) TAB PO SCH ×2 (09:36→17:07)
[2022-06-22] MEDS: FOLIC ACID 1 MG TAB PO SCH (09:40)
[2022-06-22] MEDS: meTOprolol TARTRATE 25 MG (LOPRESSOR) TABLET PO SCH ×2 (09:44→20:19)
[2022-06-22] MEDS: DOCUSATE SODIUM 100 MG (COLACE) CAP PO SCH ×2 (09:44→20:19)
[2022-06-22] MEDS: MICONAZOLE NITRATE 2% CRM 30 GM TP SCH ×2 (09:44→20:20)
--- NOTE | 2022-06-22 15:37 | Progress Note - Hospitalist ---
Subjective HPI/CC On Admission Date Seen by Provider: Jun 22, 2022 Time Seen by Provider: 09:40 CC: Acute pancreatitis with hypothermia HPI: This is a 51yoWM developmentally delayed male resident of [facility] who has a h/o mental illness and inability to communicate who presents from [facility] with acute pancreatitis and hypothermia requiring admit to ICU due to inability to communicate and suspected sepsis. IV abx maintained.Currently he is on a bear hugger to resolve hypothermia. Subjective/Events-last exam He is doing well. He denies pain. He denies shortness of breath. He denies abdominal pain. He has been eating and drinking. Objective Exam Vital Signs Vital Signs Date Time Temp Pulse Resp B/P (MAP) Pulse Ox O2 Delivery O2 Flow Rate FiO2 06/22/22 14:45 92 Room Air 2.00 06/22/22 11:52 36.2 86 18 136/78 (97) Capillary Refill : Less Than 3 Seconds General Appearance: No Apparent Distress, WD/WN Respiratory: Lungs Clear, No Respiratory Distress Cardiovascular: Regular Rate, Rhythm, No Murmur Gastrointestinal: Normal Bowel Sounds, Non Tender, Soft Extremity: Normal Inspection, No Pedal Edema Neurologic/Psychiatric: Alert, Normal Mood/Affect Skin: Normal Color, Warm/Dry Results/Procedures Lab Laboratory Tests 06/22/22 05:30 Patient resulted labs reviewed. Assessment/Plan Assessment and Plan Assess & Plan/Chief Complaint Pancreatitis Anemia Thrombocytopenia CKD 3b Pleural effusion Developmental delay Continue Zosyn Stop D5W Monitor CBC closely Surgery following Effusion asymptomatic, no intervention needed at this time Sepsis, resolved Hypothermia, resolved Hypoglycemia, resolved CLAUDETTE, resolved Hypernatremia, resolved Diagnosis/Problems Diagnosis/Problems (1) Pancreatitis Status: Acute Qualifiers: Chronicity: acute Pancreatitis type: unspecified pancreatitis type Acute pancreatitis complication: no infection or necrosis Qualified Codes: K85.90 - Acute pancreatitis without necrosis or infection, unspecified (2) Pleural effusion Status: Acute (3) Thrombocytopenia Status: Acute (4) Anemia Status: Acute (5) Developmental delay Status: Chronic (6) Stage 3b chronic kidney disease Status: Chronic (7) Hypothermia Status: Resolved Resolution Date/Time: 06/21/22 @ 16:46 (8) Sepsis Status: Resolved Resolution Date/Time: 06/21/22 @ 16:46 YADIRA ANGELO MD Jun 22, 2022 15:37
[2022-06-22] MEDS: MELATONIN 3 MG TABLET PO PRN (19:57)
[2022-06-23] MEDS: PIPERACILLIN SODIUM/TAZOBACTAM 4.5 GM in NS (IVPB) 100 ML IV SCH ×2 (00:22→08:35)
[2022-06-23 03:41] VITALS: BP 157/84
[2022-06-23] MEDS: inSUlin ASPART (NovoLOG) 1 UNIT/0.01 ML (CHARGE PER UNIT) SC SCH ×2 (05:53→11:39)
[2022-06-23 05:57] LABS: EOSINOPHILS # (AUTO) 0.1 10^3/uL (0.0-0.3); EOSINOPHILS % (AUTO) 1 % (0-10); HEMATOCRIT 23 % (40-54); HEMOGLOBIN 7.3 g/dL (13.3-17.7); MEAN CORPUSCULAR HEMOGLOBIN 28 pg (25-34); MEAN CORPUSCULAR HGB CONC 32 g/dL (32-36); MEAN CORPUSCULAR VOLUME 89 fL (80-99)
[2022-06-23 05:58] LABS: BASOPHILS % (AUTO) 0 % (0-10); LYMPHOCYTES # (AUTO) 1.3 10^3/uL (1.0-4.0); LYMPHOCYTES % (AUTO) 12 % (12-44); MEAN PLATELET VOLUME 11.3 fL (9.0-12.2); MONOCYTES # (AUTO) 0.5 10^3/uL (0.0-1.0); MONOCYTES % (AUTO) 5 % (0-12); NEUTROPHILS # (AUTO) 8.5 10^3/uL (1.8-7.8); NEUTROPHILS % (AUTO) 81 % (42-75); PLATELET COUNT 56 10^3/uL (130-400); WHITE BLOOD COUNT 10.6 10^3/uL (4.3-11.0)
[2022-06-23 06:31] LABS: ALBUMIN 2.3 GM/DL (3.2-4.5); BILIRUBIN,TOTAL 0.5 MG/DL (0.1-1.0); CALCIUM 8.8 MG/DL (8.5-10.1); CREATININE SERUM 1.89 MG/DL (0.60-1.30); POTASSIUM 4.2 MMOL/L (3.6-5.0); TOTAL PROTEIN 6.9 GM/DL (6.4-8.2)
--- NOTE | 2022-06-23 06:57 | Progress Note - Surgery ---
PENNIE WILBURN 06/23/22 0657: Subjective Date Seen by a Provider: Jun 23, 2022 Time Seen by a Provider: 06:50 Subjective/Events-last exam Wong Chauhan was seen at bedside this morning. The interview is complicated due to his underlying intellectual disability. He responds to my questions with yes or no answers only. He denies any abdominal pain, chest pain, shortness of breath, or fever/chills. He does appear to be cold with frequent shivering. Temp has been in the 35s over the weekend. RN reports patient pulled out peters and had some blood following that incident. Now is voiding urine without visible blood. Another episode of hypoglycemia early this morning, corrected with ensure and glucose. D5W was previously stopped by medicine over the weekend. U/S on 06/20 showed moderate L sided pleural effusion, patient is asymptomatic so thoracentesis not needed at this point. Review of Systems General: Chills; No Night Sweats HEENT: No Head Aches, No Sore Throat Pulmonary: No Dyspnea, No Cough Cardiovascular: No: Chest Pain, Palpitations Gastrointestinal: Diarrhea; No: Abdominal Pain Genitourinary: No Dysuria, No Hematuria (hematuria after patient removed catheter, now resolved) Musculoskeletal: No: back pain, leg pain Neurological: Other (intellectual disability) Objective Exam Vital Signs Date Time Temp Pulse Resp B/P (MAP) Pulse Ox O2 Delivery O2 Flow Rate FiO2 06/23/22 03:41 35.1 68 16 157/84 (108) 92 Room Air 06/22/22 23:31 35.3 63 16 151/89 (109) 94 Room Air 06/22/22 20:40 90 Room Air 2.00 06/22/22 20:21 92 Room Air 06/22/22 20:20 47 121/68 (85) 06/22/22 19:22 35.6 69 18 128/77 (94) 95 High Flow N/C 3.00 06/22/22 15:59 35.8 70 18 135/78 (97) 94 High Flow N/C 3.00 06/22/22 14:45 92 Room Air 2.00 06/22/22 11:52 36.2 86 18 136/78 (97) 92 Vapotherm 35.00 06/22/22 10:32 92 Room Air 2.00 06/22/22 08:00 91 Room Air 06/22/22 07:15 36.0 51 20 139/81 (100) 94 Nasal Cannula 2.00 I & O 06/23/22 07:00 Intake Total 2520 ml Output Total 2050 ml Balance 470 ml Capillary Refill : Less Than 3 Seconds General Appearance: No Apparent Distress, WD/WN, Other (shivers during interview) HEENT: Moist Mucous Membranes, Other (conjunctival erythema worse on R) Neck: Normal Inspection, Supple Respiratory: Chest Non Tender, No Accessory Muscle Use, Decreased Breath Sounds (L base) Cardiovascular: Regular Rate, Rhythm, No Murmur, Normal Peripheral Pulses Gastrointestinal: non tender, soft Extremity: Normal Inspection, No Pedal Edema Neurologic/Psychiatric: Alert, Normal Mood/Affect Skin: Normal Color, Warm/Dry Lymphatic: No Adenopathy Results Lab Laboratory Tests 06/22/22 10:59: Glucometer 173H 06/22/22 15:35: Glucometer 146H 06/22/22 20:02: Glucometer 123H 06/23/22 05:15: White Blood Count 10.6, Red Blood Count 2.59L, Hemoglobin 7.3L, Hematocrit 23L, Mean Corpuscular Volume 89, Mean Corpuscular Hemoglobin 28, Mean Corpuscular Hemoglobin Concent 32, Red Cell Distribution Width 15.1H, Platelet Count 56L, Mean Platelet Volume 11.3, Immature Granulocyte % (Auto) 1, Neutrophils (%) (Auto) 81H, Lymphocytes (%) (Auto) 12, Monocytes (%) (Auto) 5, Eosinophils (%) (Auto) 1, Basophils (%) (Auto) 0, Neutrophils # (Auto) 8.5H, Lymphocytes # (Auto) 1.3, Monocytes # (Auto) 0.5, Eosinophils # (Auto) 0.1, Basophils # (Auto) 0.0, Immature Granulocyte # (Auto) 0.1, Percent Immature Platelet Fraction 7.8H, Sodium Level 140, Potassium Level 4.2, Chloride Level 110H, Carbon Dioxide Level 19L, Anion Gap 11, Blood Urea Nitrogen 30H, Creatinine 1.89H, Estimat Glomerular Filtration Rate 42, BUN/Creatinine Ratio 16, Glucose Level 54*L, Calcium Level 8.8, Corrected Calcium 10.2H, Total Bilirubin 0.5, Aspartate Amino Transf (AST/SGOT) 37H, Alanine Aminotransferase (ALT/SGPT) 35, Alkaline Phosphatase 157H, Total Protein 6.9, Albumin 2.3L 06/23/22 05:40: Glucometer 50*L 06/23/22 05:57: Glucometer 64L 06/23/22 06:12: Glucometer 98 Microbiology 06/19/22 MRSA Screen - Final, Complete MRSA not isolated 06/19/22 Blood Culture - Preliminary, Resulted No growth Assessment/Plan Assessment/Plan Assessment/Plan Pancreatitis Moderate L pleural effusion Anemia Thrombocytopenia Elevated BUN and creatinine Intellectual disability T2DM R inguinal hernia on CT Lipase 387 on admission down to 163 on 06/20 L pleural effusion identified on U/S 06/20, patient was asymptomatic, O2 requirements have steadily decreased, now on room air satting appropriately Received 1 unit of LRRBCs on 06/20 with appropriate rise in Hgb. Now back down to 7.3 this AM, transfuse if less than 7. Platelets remain low at 56. Continue to monitor CKD, creatinine has decreased over the weekend Hypoglycemia at 50 this morning, corrected with ensure. Continue to monitor. May need D5W again if hypoglycemia persists. Hernia is not causing symptoms, continue to monitor at this time Coag studies demonstrate elevated PT, PTT, fibrinogen, and D Dimer. The elevated fibrinogen is consistent w acute phase rxn. This is usually decreased, not elevated, in severe DIC. Cannot rule out. Epistaxis noted over the weekend, no other signs of bleeding. Continue to monitor. Lovenox held by medical team due to epistaxis, resume when appropriate. O2 sats appropriate on room air, thoracentesis not needed at this time. If becomes symptomatic consider repeat U/S of chest to evaluate effusion and need for thoracentesis. OLEKSANDR WATTS DO 06/23/22 2020: Subjective Subjective/Events-last exam Patient tolerating diet. Not having any abdominal pain. Urinating as above. No difficulty breathing. Denies n/v fever sweats chills shortness of breath or chest pain. Objective Exam General Appearance: No Apparent Distress, WD/WN HEENT: Moist Mucous Membranes, Other (conjunctival erythema worse on R) Neck: Normal Inspection, Supple Respiratory: Chest Non Tender, No Accessory Muscle Use, No Respiratory Distress Cardiovascular: Regular Rate, Rhythm, No JVD Gastrointestinal: non tender, soft Extremity: Normal Inspection, No Pedal Edema Neurologic/Psychiatric: Alert, Normal Mood/Affect Skin: Normal Color, Warm/Dry Lymphatic: No Adenopathy Assessment/Plan Assessment/Plan Assessment/Plan Pancreatitis Moderate L pleural effusion Anemia Thrombocytopenia Elevated BUN and creatinine Intellectual disability T2DM R inguinal hernia on CT Not symptomatic on effusion if shortness of breath consider draining. tolerating diet, not having abdominal pain, pancreatitis improving. no surgical intervention. Do not see where patient had had cholecystectomy, would recomend near future evaluating gallbladder for gallstones, as possible cause of pancreatitis. Supervisory-Addendum Brief Verification & Attestation Participated in pt care: history, MDM, physical Personally performed: exam, history, MDM, supervision of care Care discussed with: Medical Student Procedures: n/a Results interpretation: Verified all documentation Verification and Attestation of Medical Student E/M Service A medical student performed and documented this service in my presence. I reviewed and verified all information documented by the medical student and made modifications to such information, when appropriate. I personally performed the physical exam and medical decision making. Oleksandr Watts Jun 23, 2022,20:27 PENNIE WILBURN Jun 23, 2022 06:57 OLEKSANDR WATTS DO Jun 23, 2022 20:20
[2022-06-23 07:16] VITALS: BP 125/80
[2022-06-23] MEDS: RT-ALBUTEROL HFA 8.5 GM INHALER IH SCH ×3 (07:35→15:05)
[2022-06-23] MEDS: DOCUSATE SODIUM 100 MG (COLACE) CAP PO SCH (07:44)
[2022-06-23] MEDS: VITAMIN D3 25 MCG (1,000 UNITS) TABLET PO SCH (08:35)
[2022-06-23] MEDS: FOLIC ACID 1 MG TAB PO SCH (08:35)
[2022-06-23] MEDS: DIVALPROEX 250 MG DELAYED RELEASE (DEPAKOTE) TAB PO SCH (08:35)
[2022-06-23] MEDS: FERROUS SULF 325 MG (IRON) TAB PO SCH (08:35)
[2022-06-23] MEDS: PANTOPRAZOLE 40 MG (PROTONIX) VIAL IV SCH (08:35)
[2022-06-23] MEDS: MICONAZOLE NITRATE 2% CRM 30 GM TP SCH (08:37)
[2022-06-23] MEDS: meTOprolol TARTRATE 25 MG (LOPRESSOR) TABLET PO SCH (08:37)
[2022-06-23] MEDS ORDERED: AMLO5TAB4 PO (10:55)
--- NOTE | 2022-06-23 10:55 | Discharge Summary ---
Diagnosis/Chief Complaint Date of Admission Jun 19, 2022 at 16:20 Date of Discharge Discharge Date: Jun 23, 2022 Discharge Diagnosis Assessment: Sepsis from PNA Hypothermia Left pleural effusion Acute pancreatitis Developmental delay Mental illness Discharge Summary Discharge Physical Examination Allergies: Uncoded Allergies: PCN (Allergy, Mild, 11/19/20) Vitals & I&Os Vital Signs Date Time Temp Pulse Resp B/P (MAP) Pulse Ox O2 Delivery O2 Flow Rate FiO2 06/23/22 16:17 36.7 60 18 134/85 95 Room Air 2.00 General Appearance: Alert, Cooperative Respiratory: Clear to Auscultation Cardiovascular: Regular Rate Hospital Course Was the Problem List Reviewed?: Yes Lengthy course after he was admitted for pancreatitis and pleural effusion with hypothermia requiring ICU admit and bear viniciuser. IV abd maintained and overall he had slow recovery but conservative management maintained and he improved enough and was able to eat and drink and was deemed stable for DC Labs (last 24 hrs) Laboratory Tests 06/19/22 12:22: White Blood Count 11.6H, Red Blood Count 2.89L, Hemoglobin 8.2L, Hematocrit 25L, Mean Corpuscular Volume 88, Mean Corpuscular Hemoglobin 28, Mean Corpuscular Hemoglobin Concent 32, Red Cell Distribution Width 15.3H, Platelet Count 97L, Mean Platelet Volume 10.3, Immature Granulocyte % (Auto) 0, Neutrophils (%) (Auto) 88H, Lymphocytes (%) (Auto) 7L, Monocytes (%) (Auto) 5, Eosinophils (%) (Auto) 1, Basophils (%) (Auto) 0, Neutrophils # (Auto) 10.2H, Lymphocytes # (Auto) 0.8L, Monocytes # (Auto) 0.5, Eosinophils # (Auto) 0.1, Basophils # (Auto) 0.0, Immature Granulocyte # (Auto) 0.0, Percent Immature Platelet Fraction 4.9, Sodium Level 146H, Potassium Level 4.8, Chloride Level 111H, Carbon Dioxide Level 25, Anion Gap 10, Blood Urea Nitrogen 51H, Creatinine 2.11H , Estimat Glomerular Filtration Rate 37, BUN/Creatinine Ratio 24, Glucose Level 66L, Lactic Acid Level 0.65, Calcium Level 9.1, Corrected Calcium 9.9, Total Bilirubin 0.3, Aspartate Amino Transf (AST/SGOT) 49H, Alanine Aminotransferase (ALT/SGPT) 45, Alkaline Phosphatase 224H, Pro-B-Type Natriuretic Peptide 2177.0H , Total Protein 7.6, Albumin 3.0L, Lipase 387H 06/19/22 14:24: Urine Color YELLOW, Urine Clarity CLEAR, Urine pH 6.5, Urine Specific [place] 1.020, Urine Protein 3+H, Urine Glucose (UA) TRACEH, Urine Ketones NEGATIVE, Urine Nitrite NEGATIVE, Urine Bilirubin NEGATIVE, Urine Urobilinogen 1.0, Urine Leukocyte Esterase NEGATIVE, Urine RBC (Auto) TRACE-IH, Urine RBC RARE, Urine WBC 0-2, Urine Squamous Epithelial Cells RARE, Urine Crystals NONE, Urine Bacteria TRACE, Urine Casts NONE, Urine Mucus NEGATIVE, Urine Culture Indicated NO 06/19/22 17:48: Glucometer 61L 06/19/22 19:03: Sodium Level 146H, Potassium Level 4.4, Chloride Level 115H, Carbon Dioxide Level 21, Anion Gap 10, Blood Urea Nitrogen 48H, Creatinine 2.00H, Estimat Glomerular Filtration Rate 40, BUN/Creatinine Ratio 24, Glucose Level 112H, Calcium Level 8.1L, Ionized Calcium (Measured) 1.11L, Ionized Calcium pH 7.42, Ionized Calcium (Corrected) 1.12L, Magnesium Level 2.4, Thyroid Stimulating Hormone (TSH) 2.11, Total Cortisol 13.4 06/19/22 19:58: Glucometer 92 06/19/22 20:59: Glucometer 66L 06/19/22 22:39: Glucometer 78 06/19/22 23:25: Glucometer 91 06/20/22 03:09: Glucometer 70 06/20/22 03:44: White Blood Count 11.9H, Red Blood Count 2.45L, Hemoglobin 6.9*L, Hematocrit 22L , Mean Corpuscular Volume 91, Mean Corpuscular Hemoglobin 28, Mean Corpuscular Hemoglobin Concent 31L, Red Cell Distribution Width 15.4H, Platelet Count 63L, Mean Platelet Volume 10.9, Immature Granulocyte % (Auto) 0, Neutrophils (%) (Auto) 86H, Lymphocytes (%) (Auto) 7L, Monocytes (%) (Auto) 6, Eosinophils (%) (Auto) 0, Basophils (%) (Auto) 0, Neutrophils # (Auto) 10.2H, Lymphocytes # (Auto) 0.8L, Monocytes # (Auto) 0.8, Eosinophils # (Auto) 0.0, Basophils # (Auto) 0.0, Immature Granulocyte # (Auto) 0.1, Percent Immature Platelet Fraction 4.4, Sodium Level 147H, Potassium Level 4.7, Chloride Level 115H, Carbon Dioxide Level 19L, Anion Gap 13, Blood Urea Nitrogen 47H, Creatinine 2.25H, Estimat Glomerular Filtration Rate 34, BUN/Creatinine Ratio 21, Glucose Level 69L, Calcium Level 8.0L, Corrected Calcium 9.4, Phosphorus Level 5.5H, Magnesium Level 2.4, Total Bilirubin 0.4, Aspartate Amino Transf (AST/SGOT) 34, Alanine Aminotransferase (ALT/SGPT) 37, Alkaline Phosphatase 152H, Total Protein 6.0L, Albumin 2.3L, Lipase 163H 06/20/22 05:28: Glucometer 89 06/20/22 08:10: Glucometer 56*L 06/20/22 12:03: Glucometer 62L 06/20/22 17:20: Glucometer 53*L 06/20/22 18:45: Glucometer 130H 06/20/22 20:30: Glucometer 86 06/20/22 22:15: Glucometer 84 06/21/22 03:52: Glucometer 59*L 06/21/22 05:10: Glucometer 89 06/21/22 06:12: White Blood Count 9.0, Red Blood Count 2.73L, Hemoglobin 7.9L, Hematocrit 24L, Mean Corpuscular Volume 89, Mean Corpuscular Hemoglobin 29, Mean Corpuscular Hemoglobin Concent 32, Red Cell Distribution Width 16.0H, Platelet Count 44L, Mean Platelet Volume 10.8, Immature Granulocyte % (Auto) 1, Neutrophils (%) (Auto) 80H, Lymphocytes (%) (Auto) 12, Monocytes (%) (Auto) 7, Eosinophils (%) (Auto) 0, Basophils (%) (Auto) 0, Neutrophils # (Auto) 7.2, Lymphocytes # (Auto) 1.1, Monocytes # (Auto) 0.6, Eosinophils # (Auto) 0.0, Basophils # (Auto) 0.0, Immature Granulocyte # (Auto) 0.1, Percent Immature Platelet Fraction 5.0, Prothrombin Time 15.3H, INR Comment 1.2, Activated Partial Thromboplast Time 49H , Fibrinogen 676H, D-Dimer 2.44H, Sodium Level 145, Potassium Level 4.5, Chloride Level 114H, Carbon Dioxide Level 20L, Anion Gap 11, Blood Urea Nitrogen 45H, Creatinine 2.30H, Estimat Glomerular Filtration Rate 34, BUN/Creatinine Ratio 20, Glucose Level 64L, Calcium Level 8.4L, Corrected Calcium 9.8, Total Bilirubin 0.5, Aspartate Amino Transf (AST/SGOT) 41H, Alanine Aminotransferase (ALT/SGPT) 38, Alkaline Phosphatase 172H, Total Protein 6.2L, Albumin 2.3L, Smear Scan YES 06/21/22 11:21: Glucometer 69L 06/21/22 12:31: Glucometer 90 06/21/22 15:54: Glucometer 61L 06/21/22 16:38: Glucometer 101 06/21/22 20:16: Glucometer 103 06/22/22 05:21: Glucometer 107 06/22/22 05:30: White Blood Count 7.7, Red Blood Count 2.68L, Hemoglobin 7.7L, Hematocrit 24L, Mean Corpuscular Volume 89, Mean Corpuscular Hemoglobin 29, Mean Corpuscular Hemoglobin Concent 32, Red Cell Distribution Width 15.8H, Platelet Count 43L, Mean Platelet Volume 11.9, Immature Granulocyte % (Auto) 1, Neutrophils (%) (Auto) 79H, Lymphocytes (%) (Auto) 13, Monocytes (%) (Auto) 6, Eosinophils (%) (Auto) 1, Basophils (%) (Auto) 0, Neutrophils # (Auto) 6.1, Lymphocytes # (Auto) 1.0, Monocytes # (Auto) 0.5, Eosinophils # (Auto) 0.1, Basophils # (Auto) 0.0, Immature Granulocyte # (Auto) 0.0, Percent Immature Platelet Fraction 6.0, Sodium Level 141, Potassium Level 4.3, Chloride Level 112H, Carbon Dioxide Level 21, Anion Gap 8, Blood Urea Nitrogen 37H, Creatinine 2.09H, Estimat Glomerular Filtration Rate 38, BUN/Creatinine Ratio 18, Glucose Level 115H, Calcium Level 8.5, Corrected Calcium 9.9, Total Bilirubin 0.5, Aspartate Amino Transf (AST/SGOT) 36H, Alanine Aminotransferase (ALT/SGPT) 35, Alkaline Phosphatase 156H, Total Protein 6.1L, Albumin 2.2L 06/22/22 10:59: Glucometer 173H 06/22/22 15:35: Glucometer 146H 06/22/22 20:02: Glucometer 123H 06/23/22 05:15: White Blood Count 10.6, Red Blood Count 2.59L, Hemoglobin 7.3L, Hematocrit 23L, Mean Corpuscular Volume 89, Mean Corpuscular Hemoglobin 28, Mean Corpuscular Hemoglobin Concent 32, Red Cell Distribution Width 15.1H, Platelet Count 56L, Mean Platelet Volume 11.3, Immature Granulocyte % (Auto) 1, Neutrophils (%) (Auto) 81H, Lymphocytes (%) (Auto) 12, Monocytes (%) (Auto) 5, Eosinophils (%) (Auto) 1, Basophils (%) (Auto) 0, Neutrophils # (Auto) 8.5H, Lymphocytes # (Auto) 1.3, Monocytes # (Auto) 0.5, Eosinophils # (Auto) 0.1, Basophils # (Auto) 0.0, Immature Granulocyte # (Auto) 0.1, Percent Immature Platelet Fraction 7.8H, Sodium Level 140, Potassium Level 4.2, Chloride Level 110H, Carbon Dioxide Level 19L, Anion Gap 11, Blood Urea Nitrogen 30H, Creatinine 1.89H, Estimat Glomerular Filtration Rate 42, BUN/Creatinine Ratio 16, Glucose Level 54*L, Calcium Level 8.8, Corrected Calcium 10.2H, Total Bilirubin 0.5, Aspartate Amino Transf (AST/SGOT) 37H, Alanine Aminotransferase (ALT/SGPT) 35, Alkaline Phosphatase 157H, Total Protein 6.9, Albumin 2.3L 06/23/22 05:40: Glucometer 50*L 06/23/22 05:57: Glucometer 64L 06/23/22 06:12: Glucometer 98 06/23/22 11:29: Glucometer 106 06/23/22 15:18: Glucometer 76 Microbiology 06/19/22 MRSA Screen - Final, Complete MRSA not isolated 06/19/22 Blood Culture - Preliminary, Resulted No growth Pending Labs Microbiology Date/Time Source Procedure Growth Status 06/19/22 17:13 Nasal MRSA Screen - Final MRSA not isolated Complete 06/19/22 13:00 Peripheral Rt Ac Blood Culture - Preliminary No growth Resulted 06/19/22 12:22 Peripheral Not Otherwise Specified Blood Culture - Preliminary No growth Resulted Laboratory Tests 06/19/22 12:22: White Blood Count 11.6, Red Blood Count 2.89, Hemoglobin 8.2, Hematocrit 25, Mean Corpuscular Volume 88, Mean Corpuscular Hemoglobin 28, Mean Corpuscular Hemoglobin Concent 32, Red Cell Distribution Width 15.3, Platelet Count 97, Mean Platelet Volume 10.3, Immature Granulocyte % (Auto) 0, Neutrophils (%) (Auto) 88, Lymphocytes (%) (Auto) 7, Monocytes (%) (Auto) 5, Eosinophils (%) (Auto) 1, Basophils (%) (Auto) 0, Neutrophils # (Auto) 10.2, Lymphocytes # (Auto) 0.8, Monocytes # (Auto) 0.5, Eosinophils # (Auto) 0.1, Basophils # (Auto) 0.0, Immature Granulocyte # (Auto) 0.0, Percent Immature Platelet Fraction 4.9, Sodium Level 146, Potassium Level 4.8, Chloride Level 111, Carbon Dioxide Level 25, Anion Gap 10, Blood Urea Nitrogen 51, Creatinine 2.11, Estimat Glomerular Filtration Rate 37, BUN/Creatinine Ratio 24, Glucose Level 66, Lactic Acid Level 0.65, Calcium Level 9.1, Corrected Calcium 9.9, Total Bilirubin 0.3, Aspartate Amino Transf (AST/SGOT) 49, Alanine Aminotransferase (ALT/SGPT) 45, Alkaline Phosphatase 224, Pro-B-Type Natriuretic Peptide 2177.0, Total Protein 7.6, Albumin 3.0, Lipase 387 06/19/22 14:24: Urine Color YELLOW, Urine Clarity CLEAR, Urine pH 6.5, Urine Specific [place] 1.020, Urine Protein 3+, Urine Glucose (UA) TRACE, Urine Ketones NEGATIVE, Urine Nitrite NEGATIVE, Urine Bilirubin NEGATIVE, Urine Urobilinogen 1.0, Urine Leukocyte Esterase NEGATIVE, Urine RBC (Auto) TRACE-I, Urine RBC RARE, Urine WBC 0-2, Urine Squamous Epithelial Cells RARE, Urine Crystals NONE, Urine Bacteria TRACE, Urine Casts NONE, Urine Mucus NEGATIVE, Urine Culture Indicated NO 06/19/22 17:48: Glucometer 61 06/19/22 19:03: Sodium Level 146, Potassium Level 4.4, Chloride Level 115, Carbon Dioxide Level 21, Anion Gap 10, Blood Urea Nitrogen 48, Creatinine 2.00, Estimat Glomerular Filtration Rate 40, BUN/Creatinine Ratio 24, Glucose Level 112, Calcium Level 8.1, Ionized Calcium (Measured) 1.11, Ionized Calcium pH 7.42, Ionized Calcium (Corrected) 1.12, Magnesium Level 2.4, Thyroid Stimulating Hormone (TSH) 2.11, Total Cortisol 13.4 06/19/22 19:58: Glucometer 92 06/19/22 20:59: Glucometer 66 06/19/22 22:39: Glucometer 78 06/19/22 23:25: Glucometer 91 06/20/22 03:09: Glucometer 70 06/20/22 03:44: White Blood Count 11.9, Red Blood Count 2.45, Hemoglobin 6.9, Hematocrit 22, Mean Corpuscular Volume 91, Mean Corpuscular Hemoglobin 28, Mean Corpuscular Hemoglobin Concent 31, Red Cell Distribution Width 15.4, Platelet Count 63, Mean Platelet Volume 10.9, Immature Granulocyte % (Auto) 0, Neutrophils (%) (Auto) 86, Lymphocytes (%) (Auto) 7, Monocytes (%) (Auto) 6, Eosinophils (%) (Auto) 0, Basophils (%) (Auto) 0, Neutrophils # (Auto) 10.2, Lymphocytes # (Auto) 0.8, Monocytes # (Auto) 0.8, Eosinophils # (Auto) 0.0, Basophils # (Auto) 0.0, Immature Granulocyte # (Auto) 0.1, Percent Immature Platelet Fraction 4.4, Sodium Level 147, Potassium Level 4.7, Chloride Level 115, Carbon Dioxide Level 19, Anion Gap 13, Blood Urea Nitrogen 47, Creatinine 2.25, Estimat Glomerular Filtration Rate 34, BUN/Creatinine Ratio 21, Glucose Level 69, Calcium Level 8.0, Corrected Calcium 9.4, Phosphorus Level 5.5, Magnesium Level 2.4, Total Bilirubin 0.4, Aspartate Amino Transf (AST/SGOT) 34, Alanine Aminotransferase (ALT/SGPT) 37, Alkaline Phosphatase 152, Total Protein 6.0, Albumin 2.3, Lipase 163 06/20/22 05:28: Glucometer 89 06/20/22 08:10: Glucometer 56 06/20/22 12:03: Glucometer 62 06/20/22 17:20: Glucometer 53 06/20/22 18:45: Glucometer 130 06/20/22 20:30: Glucometer 86 06/20/22 22:15: Glucometer 84 06/21/22 03:52: Glucometer 59 06/21/22 05:10: Glucometer 89 06/21/22 06:12: White Blood Count 9.0, Red Blood Count 2.73, Hemoglobin 7.9, Hematocrit 24, Mean Corpuscular Volume 89, Mean Corpuscular Hemoglobin 29, Mean Corpuscular Hemoglobin Concent 32, Red Cell Distribution Width 16.0, Platelet Count 44, Mean Platelet Volume 10.8, Immature Granulocyte % (Auto) 1, Neutrophils (%) (Auto) 80, Lymphocytes (%) (Auto) 12, Monocytes (%) (Auto) 7, Eosinophils (%) (Auto) 0, Basophils (%) (Auto) 0, Neutrophils # (Auto) 7.2, Lymphocytes # (Auto) 1.1, Monocytes # (Auto) 0.6, Eosinophils # (Auto) 0.0, Basophils # (Auto) 0.0, Immature Granulocyte # (Auto) 0.1, Percent Immature Platelet Fraction 5.0, Prothrombin Time 15.3, INR Comment 1.2, Activated Partial Thromboplast Time 49, Fibrinogen 676, D-Dimer 2.44, Sodium Level 145, Potassium Level 4.5, Chloride Level 114, Carbon Dioxide Level 20, Anion Gap 11, Blood Urea Nitrogen 45, Creatinine 2.30, Estimat Glomerular Filtration Rate 34, BUN/Creatinine Ratio 20, Glucose Level 64, Calcium Level 8.4, Corrected Calcium 9.8, Total Bilirubin 0.5, Aspartate Amino Transf (AST/SGOT) 41, Alanine Aminotransferase (ALT/SGPT) 38, Alkaline Phosphatase 172, Total Protein 6.2, Albumin 2.3, Smear Scan YES 06/21/22 11:21: Glucometer 69 06/21/22 12:31: Glucometer 90 06/21/22 15:54: Glucometer 61 06/21/22 16:38: Glucometer 101 06/21/22 20:16: Glucometer 103 06/22/22 05:21: Glucometer 107 06/22/22 05:30: White Blood Count 7.7, Red Blood Count 2.68, Hemoglobin 7.7, Hematocrit 24, Mean Corpuscular Volume 89, Mean Corpuscular Hemoglobin 29, Mean Corpuscular Hemoglobin Concent 32, Red Cell Distribution Width 15.8, Platelet Count 43, Mean Platelet Volume 11.9, Immature Granulocyte % (Auto) 1, Neutrophils (%) (Auto) 79, Lymphocytes (%) (Auto) 13, Monocytes (%) (Auto) 6, Eosinophils (%) (Auto) 1, Basophils (%) (Auto) 0, Neutrophils # (Auto) 6.1, Lymphocytes # (Auto) 1.0, Monocytes # (Auto) 0.5, Eosinophils # (Auto) 0.1, Basophils # (Auto) 0.0, Immature Granulocyte # (Auto) 0.0, Percent Immature Platelet Fraction 6.0, S odium Level 141, Potassium Level 4.3, Chloride Level 112, Carbon Dioxide Level 21, Anion Gap 8, Blood Urea Nitrogen 37, Creatinine 2.09, Estimat Glomerular Filtration Rate 38, BUN/Creatinine Ratio 18, Glucose Level 115, Calcium Level 8.5, Corrected Calcium 9.9, Total Bilirubin 0.5, Aspartate Amino Transf (AST/SGOT) 36, Alanine Aminotransferase (ALT/SGPT) 35, Alkaline Phosphatase 156, Total Protein 6.1, Albumin 2.2 06/22/22 10:59: Glucometer 173 06/22/22 15:35: Glucometer 146 06/22/22 20:02: Glucometer 123 06/23/22 05:15: White Blood Count 10.6, Red Blood Count 2.59, Hemoglobin 7.3, Hematocrit 23, Mean Corpuscular Volume 89, Mean Corpuscular Hemoglobin 28, Mean Corpuscular Hemoglobin Concent 32, Red Cell Distribution Width 15.1, Platelet Count 56, Mean Platelet Volume 11.3, Immature Granulocyte % (Auto) 1, Neutrophils (%) (Auto) 81, Lymphocytes (%) (Auto) 12, Monocytes (%) (Auto) 5, Eosinophils (%) (Auto) 1, Basophils (%) (Auto) 0, Neutrophils # (Auto) 8.5, Lymphocytes # (Auto) 1.3, Monocytes # (Auto) 0.5, Eosinophils # (Auto) 0.1, Basophils # (Auto) 0.0, Immature Granulocyte # (Auto) 0.1, Percent Immature Platelet Fraction 7.8, Sodium Level 140, Potassium Level 4.2, Chloride Level 110, Carbon Dioxide Level 19, Anion Gap 11, Blood Urea Nitrogen 30, Creatinine 1.89, Estimat Glomerular Filtration Rate 42, BUN/Creatinine Ratio 16, Glucose Level 54, Calcium Level 8.8, Corrected Calcium 10.2, Total Bilirubin 0.5, Aspartate Amino Transf ( AST/SGOT) 37, Alanine Aminotransferase (ALT/SGPT) 35, Alkaline Phosphatase 157, Total Protein 6.9, Albumin 2.3 06/23/22 05:40: Glucometer 50 06/23/22 05:57: Glucometer 64 06/23/22 06:12: Glucometer 98 06/23/22 11:29: Glucometer 106 06/23/22 15:18: Glucometer 76 Discharge Home Medications: Active Scripts Active Norvasc (Amlodipine Besylate) 5 Mg Tablet 5 Mg PO DAILY Reported Vitamin D3 (Cholecalciferol (Vitamin D3)) 50 Mcg (2000 Unit) Tablet 100 Mcg PO DAILY TAKES 2 (50MCG) TABS Lotrimin AF (Miconazole Nitrate) 2 % Aero.powd 1 Applic TP BID Folic Acid 1 Mg Tablet 1 Mg PO DAILY Divalproex Sodium 250 Mg Tablet.dr 250 Mg PO BID Vraylar (Cariprazine Hydrochloride) 3 Mg Capsule 3 Mg PO DAILY Pantoprazole Sodium 40 Mg Tablet.dr 40 Mg PO DAILY Metoprolol Tartrate 25 Mg Tablet 25 Mg PO BID Ferosul (Ferrous Sulfate) 325 Mg (65 Mg Iron) Tablet 325 Mg PO BID Escitalopram Oxalate 10 Mg Tablet 10 Mg PO DAILY Clonidine HCl 0.1 Mg Tablet 0.1 Mg PO TID Atorvastatin Calcium 20 Mg Tablet 20 Mg PO DAILY Anoro Ellipta 62.5-25 Mcg INH (Umeclidinium Brm/Vilanterol Tr) 62.5 Mcg-25 Mcg/Actuation Blst.w.dev 1 Each IH DAILY Instructions to patient/family Please see electronic discharge instructions given to patient. DESIRAE NAVARRO DO Jun 23, 2022 10:55
[2022-06-23 11:33] VITALS: BP 137/66
--- NOTE | 2022-06-23 14:30 | Physical Therapy Evaluation ---
PT Evaluation-General Medical Diagnosis Admission Date Jun 19, 2022 at 16:20 Medical Diagnosis: acute pancreatitis and hypothermia Onset Date: Jun 19, 2022 Therapy Diagnosis Therapy Diagnosis: Gait deficit Precautions Precautions/Isolations: Fall Prevention, Standard Precautions Weight Bear Status Right Lower Extremity: Right Full Weight Bearing Left Lower Extremity: Left Full Weight Bearing Referral Physician: Dr. Licea Reason for Referral: Evaluation/Treatment Medical History Reviewed History: Yes Social History Home: Custodial Entry Into Home: Level Entry Prior Prior Level of Function SCALE: Activities may be completed with or without assistive devices. 8-Hkjzcdbhka-osndeev completes the activity by him/herself with no assistance from a helper. 5-Set-up or Clean-up Assistance-helper sets up or cleans up; patient completes activity. [place] assists only prior to or following the activity. 4-Supervision or Touching Assistance-helper provides verbal cues and/or touching/steadying and/or contact guard assistance as patient completes activity. Assistance may be provided throughout the activity or intermittently. 3-Partial/Moderate Assistance-helper does LESS THAN HALF the effort. [place] lifts, holds or supports trunk or limbs, but provides less than half the effort. 2-Substantial/Maximal Assistance-helper does MORE THAN HALF the effort. [place] lifts or holds trunk or limbs and provides more than half the effort. 1-Oieawyzgd-evrmbc does ALL the effort. Patient does none of the effort to complete the activity. Or, the assistance of 2 or more helpers is required for the patient to complete the activity. If activity was not attempted, code reason: 7-Patient Refused. 9-Not Applicable-not attempted and the patient did not perform the activity before the current illness, exacerbation or injury. 10-Not Attempted due to Environmental Limitations-(lack of equipment, weather restraints, etc.). 88-Not Attempted due to Medical Conditions or Safety Concerns. Bed Mobility: 6 Transfers (B,C,W/C): 6 Gait: 6 Indoor Mobility (Ambulation): Independent PT Evaluation-Current Subjective Patient lying supine in bed upon PT arrival, patient agreeable to treatment. Patient reports no pain at this time. Answers mostly in "Yes/no" replies, however does report he's "ready to go." Objective Patient Orientation: Person ROM/Strength ROM Lower Extremities WFLs bilateral LEs, however right hip exhibits very noticeable crepitus with flexion. Strength Lower Extremities Patient unable to follow commands for MMT. Via observation, patient appears to demonstrate 3+/5 or greater in all planes BLEs. Sensory Vision: Functional Hearing: Functional Transfers Roll Left to Right (QC): 4 Sit to Lying (QC): 4 Lying to Sitting/Side of Bed(Q: 4 Sit to Stand (QC): 3 Chair/Ahe-fn-Ukcen Xfer(QC): 3 Gait Does the Patient Walk?: Yes Mode of Locomotion: Walk Anticipated Mode of Locomotion: Walk Walk 10 feet (QC): 2 Walk 50 ft with 2 Turns(QC): 2 Distance: 50 feet Gait Assistive Device: None Balance Sitting Static: Fair Sitting Dynamic: Fair Standing Static: Poor Standing Dynamic: Poor Assessment/Needs Patient demonstrates fair overall bed mobility. Requires mod/max A for transfers. Patient ambulates 50 feet with no AD, he refuses FWW, with mod/max A and frequent verbal cues for safety, progression, balance and not to reach for various objects. Patient demonstrates severe, audible crepitus in right LE/hip with weight bearing on right LE. Patient very unsafe with gait and may benefit from FWW, however refused. Patient in bed post treatment with all needs met, nurse and PCT notified, call light in reach, and attempted to set the bed alarm however patient does not appear to weigh enough and each time bed alarm was set, it immediately went off. Patient was not moving at all when the alarm went off. Rehab Potential: Guarded PT Pump Runner Goals Pump Runner Goals PT Pump Runner Goals Time Frame: Jul 04, 2022 Roll Left & Right (QC): 6 Sit to Lying (QC): 6 Lying-Sitting on Side/Bed(QC): 6 Sit to Stand (QC): 5 Chair/Ves-py-Hsmaa Xfer(QC): 5 Walk 10 feet (QC): 4 Walk 50ft with 2 Turns (QC): 4 Walk 150 ft (QC): 4 PT Plan Problem List Problem List: Activity Tolerance, Functional Strength, Safety, Balance, Gait, Transfer, Bed Mobility, ROM Treatment/Plan Treatment Plan: Continue Plan of Care Treatment Plan: Bed Mobility, Education, Functional Activity Epifanio, Functional Strength, Group Therapy, Gait, Safety, Therapeutic Exercise, Transfers, Other Treatment Duration: Jul 04, 2022 Frequency: 6 times per week Estimated Hrs Per Day: .25 hour per day Patient and/or Family Agrees t: Yes Safety Risks/Education Patient Education: Gait Training, Transfer Techniques Teaching Recipient: Patient Teaching Methods: Demonstration, Discussion Response to Teaching: Reinforcement Needed Time Time In: 1418 Time Out: 1433 DATE: Jun 23, 2022 Total Billed Treatment Time: 15 Total Billed Treatment Visit, ANDRAE RICKS PT Jun 23, 2022 14:30
[2022-06-23 15:19] VITALS: BP 134/85
[2022-06-23 16:17] VITALS: BP 134/85
--- NOTE | 2022-06-24 08:33 | Physician Query Clarification ---
Physician Query-General Query to Physician: The medical record reflects the following clinical evidence: Clinical Indicators: Was initially on RA for several hours then 02 sat decreased to 88% placed on O2 and sats decreased to 89% on 3 L (P/F=178), Nursing documentation of "unable to lie flat" on admission, RR 18 on admission several hours later RR did increase to 29-33 for several hours increased as high as 38, Was intermittently on 02 for 4 days, then weaned off just prior to discharge Risk Factor(s): Pancreatitis with Sepsis, no Hx of Respiratory DX or home 02 use Treatment: Supplemental 02 up to 5L, Albuterol, Respiratory monitoring Acute respiratory failure, with Hypoxia, present on day of admission Other explanation of clinical findings Unable to determine (no explanation for clinical findings) Please clarify and document your clinical opinion in the progress notes and discharge summary including the definitive and/or presumptive diagnosis, (suspected or probable), related to the above clinical findings. Please include clinical findings supporting your diagnosis. Huma Zaidi, MSN, RN Clinical Director Of Hotel [phone] [email or web address] PHYSICIAN RESPONSE: Based on the clinical findings in the record, please respond to the query above on this document as an addendum. Physician Response: Physician Response Acute respiratory failure, with Hypoxia, present on day of admission If you have questions please contact: Relationship Counselor: Ext: Thank you for your time and cooperation. Clinical Director Of Hotel/Relationship Counselor This is a permanent part of the medical record HUMA ZAIDI Jun 24, 2022 08:33 DESIRAE NAVARRO DO Jun 24, 2022 11:36
== END 2022-06-23 16:05 | disposition home or self-care (01) | DRG 871 ==
LOC: EDUNIT# 12:04 → ER FS 12:06 → ICU 16:20 → 4TH 06-20 15:11
PROVIDERS: ADMIT Internal Medicine; ATTEND Internal Medicine
DX: A41.9 Sepsis, unspecified organism (principal); J18.9 Pneumonia, unspecified organism; J96.01 Acute respiratory failure with hypoxia; K85.90 Acute pancreatitis without necrosis or infection, unspecified; J90 Pleural effusion, not elsewhere classified; N17.9 Acute kidney failure, unspecified; E87.0 Hyperosmolality and hypernatremia; F34.81 Disruptive mood dysregulation disorder; T68.XXXA Hypothermia, initial encounter; E11.649 Type 2 diabetes mellitus with hypoglycemia without coma; E11.22 Type 2 diabetes mellitus with diabetic chronic kidney disease; I12.9 Hypertensive chronic kidney disease with stage 1 through stage 4 chronic kidney disease, or unspecified chronic kidney disease; N18.32 Chronic kidney disease, stage 3b; Z79.84 Long term (current) use of oral hypoglycemic drugs; D69.6 Thrombocytopenia, unspecified; E78.00 Pure hypercholesterolemia, unspecified; F71 Moderate intellectual disabilities; F91.9 Conduct disorder, unspecified; J45.909 Unspecified asthma, uncomplicated; F25.9 Schizoaffective disorder, unspecified; F63.81 Intermittent explosive disorder; D64.9 Anemia, unspecified; K40.90 Unilateral inguinal hernia, without obstruction or gangrene, not specified as recurrent; Z79.52 Long term (current) use of systemic steroids; Z79.899 Other long term (current) drug therapy; Z88.0 Allergy status to penicillin
CPT/HCPCS: 36415; 51701; 71045; 74176; 76604; 80048; 80053; 81000; 82330; 82533; 82947; 83605; 83690; 83735; 83880; 84100; 84443; 85025; 85379; 85384; 85610; 85730; 86850; 86900; 86901; 86920; 87040; 87081; 93306; 94640

== ENCOUNTER 2022-06-25 12:11 | Emergency (ER) | payer MEDICARE, MEDICAID ==
[~2022-06-25] VITALS: Ht 160 cm; Wt 65.0 kg
[2022-06-25 12:11] VITALS: BP 114/73
[~2022-06-25 12:11] MED LIST changes: +AMLO5TAB4 PO; +CARI3CAP PO; +CHOL200059 PO; +DIVA-74 PO; +FOLI1TAB33 PO; +MICO133A2 TP; +SODI10PO PO
[2022-06-25] MEDS ORDERED: PANTOPRAZOLE 40 MG (PROTONIX) VIAL IV STA (12:17)
--- NOTE | 2022-06-25 12:27 | ED General ---
General Chief Complaint: Low oxygen saturation Source of Information: Patient, Caregiver (staff member from [facility]), EMS Exam Limitations: Other (Developmental Delay) History of Present Illness Date Seen by Provider: Jun 25, 2022 Time Seen by Provider: 12:11 Initial Comments 51-year-old male presenting from [facility] with complaints of low oxygen saturations. EMS transported him to the emergency department for evaluation. He was admitted last week for anemia and pancreatitis and did receive 1 unit of blood as a transfusion. From review of the medical records with the hospitalist Dr. Navarro and Dr. Heredia as well as echocardiogram read by Dr. Drake from cardiology he was having slightly reduced systolic function and had an estimated ejection fraction of around 50 to 55%. He had pleural effusions that were on imaging but were improving as he was in the hospital. He had an acute kidney injury that was also improving while he was in the hospital. He continues to have a slow heart rate but oxygen saturation was 94 to 96% for EMS and has been 91 to 95% here in the emergency department. He also complained of a burning sensation in epigastric area but does have a history of GERD. He has been eating and drinking okay according to staff from [facility]. They were concerned about his low temperature which is a chronic issue but with his anemia he likely will have some relative hypothermia until his Hemoglobin improves. Modifying Factors: worse with Movement (activity seems to make him more short of breath and fatigued) Associated Systoms: No Chest Pain, No Diaphoresis, No Headaches, No Nausea/Vomiting, No Seizure; Shortness of Air (with exertion); No Syncope; Weakness (general) Allergies and Home Medications Allergies Uncoded Allergies: PCN (Allergy, Mild, 11/19/20) Patient Home Medication List Home Medication List Reviewed: Yes Amlodipine Besylate (Norvasc) 5 Mg Tablet, 5 MG PO DAILY Prescribed by: DESIRAE NAVARRO on 06/23/22 1055 Atorvastatin Calcium (Atorvastatin Calcium) 20 Mg Tablet, 20 MG PO DAILY, (Reported) Entered as Reported by: BONILLA CERVANTES on 01/06/22 1526 Cariprazine Hydrochloride (Vraylar) 3 Mg Capsule, 3 MG PO DAILY, (Reported) Entered as Reported by: TERRELL LEE on 06/20/22 0855 Cholecalciferol (Vitamin D3) (Vitamin D3) 50 Mcg (2000 Unit) Tablet, 100 MCG PO DAILY, (Reported) Entered as Reported by: TERRELL LEE on 06/20/22 08 Clonidine HCl (Clonidine HCl) 0.1 Mg Tablet, 0.1 MG PO TID, (Reported) Entered as Reported by: BONILLA CERVANTES on 01/06/221525 Divalproex Sodium (Divalproex Sodium) 250 Mg Tablet.dr, 250 MG PO BID, (Reported) Entered as Reported by: TERRELL LEE on 06/20/22 08 Escitalopram Oxalate (Escitalopram Oxalate) 10 Mg Tablet, 10 MG PO DAILY, (Reported) Entered as Reported by: BONILLA CERVANTES on 01/06/221525 Ferrous Sulfate (Ferosul) 325 Mg (65 Mg Iron) Tablet, 325 MG PO BID, (Reported) Entered as Reported by: BONILLA CERVANTES on 01/06/221525 Folic Acid (Folic Acid) 1 Mg Tablet, 1 MG PO DAILY, (Reported) Entered as Reported by: TERRELL LEE on 06/20/22854 Metoprolol Tartrate (Metoprolol Tartrate) 25 Mg Tablet, 25 MG PO BID, (Reported) Entered as Reported by: BONILLA CERVANTES on 01/06/221525 Miconazole Nitrate (Lotrimin AF) 2 % Aero.powd, 1 APPLIC TP BID, (Reported) Entered as Reported by: TERRELL LEE on 06/20/22854 Pantoprazole Sodium (Pantoprazole Sodium) 40 Mg Tablet.dr, 40 MG PO DAILY, (Reported) Entered as Reported by: BONILLA CERVANTES on 01/06/221525 Pantoprazole Sodium (Pantoprazole Sodium) 40 Mg Tablet.dr, 40 MG PO DAILY Prescribed by: TERRY LOPEZ on 06/25/22 1317 Umeclidinium Brm/Vilanterol Tr (Anoro Ellipta 62.5-25 Mcg INH) 62.5 Mcg-25 Mcg/Actuation Blst.w.dev, 1 EACH IH DAILY, (Reported) Entered as Reported by: BONILLA CERVANTES on 01/06/221525 Discontinued Medications Amlodipine Besylate (Amlodipine Besylate) 10 Mg Tablet, 10 MG PO DAILY, (Reported) Entered as Reported by: BONILLA CERVANTES on 01/06/221525 Cariprazine Hydrochloride (Vraylar) 1.5 Mg Capsule, 1.5 MG PO DAILY, (Reported) Discontinued Reason: Prescription changed Entered as Reported by: BONILLA CERVANTES on 01/06/221525 Review of Systems Review of Systems Constitutional: chills (chronic relative hypothermia) EENTM: no symptoms reported Respiratory: see HPI, short of breath (with exertion) Cardiovascular: No chest pain Gastrointestinal: abdominal pain (burning epigastric pain); No nausea, No vomiting Genitourinary: No dysuria Musculoskeletal: no symptoms reported Skin: No rash Past Xeufxou-Zdhdnw-Qbyneu Hx Patient Social History Tobacco Use?: No Immunizations Up To Date First/Initial COVID19 Vaccinat: YES Second COVID19 Vaccination Mike: YES Third COVID19 Vaccination Date: YES Seasonal Allergies Seasonal Allergies: No Past Medical History Surgery/Hospitalization HX: diabetic, Htn, Schizoaffective Disorder, Intermittent Explosive Disorder, Asthma, Hyperlipidemia, Disruptive mood disorder, Moderate intellectual disabilities, Conduct disorder Surgeries: Yes Respiratory: Yes Asthma Cardiac: Yes High Cholesterol, Hypertension Neurological: Yes Developmental Disorder Genitourinary: Yes UTI-Chronic Gastrointestinal: Yes Gastroesophageal Reflux Musculoskeletal: Yes Spasms, Contracture Endocrine: Yes Diabetes, Insulin dep HEENT: Yes Eye Injury Cancer: No Psychosocial: Yes Anxiety, Schizophrenia, Depression Integumentary: No Family Medical History No Pertinent Family Hx Physical Exam Vital Signs Vital Signs - First Documented 06/25/22 12:11 Temp 32.0 Pulse 47 Resp 12 B/P (MAP) 114/73 (87) Pulse Ox 93 O2 Delivery Room Air Capillary Refill : Height, Weight, BMI Height: '" Weight: lbs. oz. kg; 22.85 BMI Method: General Appearance: No Apparent Distress, Chronically ill HEENT: Pharynx Normal, Moist Mucous Membranes Neck: Non Tender, Supple Respiratory: Chest Non Tender, Lungs Clear, No Accessory Muscle Use, No Respiratory Distress, Decreased Breath Sounds; No Rales, No Stridor Cardiovascular: Normal Peripheral Pulses, Bradycardia Gastrointestinal: Normal Bowel Sounds, No Pulsatile Mass, Non Tender, Soft Rectal: Deferred Extremity: Normal Capillary Refill Neurologic/Psychiatric: Alert Skin: Warm/Dry Progress/Results/Core Measures Suspected Sepsis SIRS Temperature: Pulse: Respiratory Rate: Laboratory Tests 06/25/22 12:10: White Blood Count 6.5 Blood Pressure / Mean: Laboratory Tests 06/25/22 12:10: Creatinine 1.91H, Platelet Count 50L, Total Bilirubin 0.2 Results/Orders Lab Results Laboratory Tests Test 06/25/22 12:10 Range/Units White Blood Count 6.5 4.3-11.0 10^3/uL Red Blood Count 2.77 L 4.30-5.52 10^6/uL Hemoglobin 7.8 L 13.3-17.7 g/dL Hematocrit 24 L 40-54 % Mean Corpuscular Volume 87 80-99 fL Mean Corpuscular Hemoglobin 28 25-34 pg Mean Corpuscular Hemoglobin Concent 33 32-36 g/dL Red Cell Distribution Width 15.3 H 10.0-14.5 % Platelet Count 50 L 130-400 10^3/uL Mean Platelet Volume 11.5 9.0-12.2 fL Immature Granulocyte % (Auto) 0 % Neutrophils (%) (Auto) 78 H 42-75 % Lymphocytes (%) (Auto) 13 12-44 % Monocytes (%) (Auto) 6 0-12 % Eosinophils (%) (Auto) 3 0-10 % Basophils (%) (Auto) 0 0-10 % Neutrophils # (Auto) 5.1 1.8-7.8 X 10^3 Lymphocytes # (Auto) 0.8 L 1.0-4.0 X 10^3 Monocytes # (Auto) 0.4 0.0-1.0 X 10^3 Eosinophils # (Auto) 0.2 0.0-0.3 10^3/uL Basophils # (Auto) 0.0 0.0-0.1 10^3/uL Immature Granulocyte # (Auto) 0.0 0.0-0.1 10^3/uL Percent Immature Platelet Fraction 7.4 0.0-7.6 % Sodium Level 141 135-145 MMOL/L Potassium Level 4.7 3.6-5.0 MMOL/L Chloride Level 109 H 98-107 MMOL/L Carbon Dioxide Level 24 21-32 MMOL/L Anion Gap 8 5-14 MMOL/L Blood Urea Nitrogen 31 H 7-18 MG/DL Creatinine 1.91 H 0.60-1.30 MG/DL Estimat Glomerular Filtration Rate 42 BUN/Creatinine Ratio 16 Glucose Level 82 70-105 MG/DL Calcium Level 8.6 8.5-10.1 MG/DL Corrected Calcium 10.1 8.5-10.1 MG/DL Total Bilirubin 0.2 0.1-1.0 MG/DL Aspartate Amino Transf (AST/SGOT) 28 5-34 U/L Alanine Aminotransferase (ALT/SGPT) 24 0-55 U/L Alkaline Phosphatase 166 H 40-136 U/L C-Reactive Protein 6.85 H <0.50 MG/DL Total Protein 6.0 L 6.4-8.2 GM/DL Albumin 2.1 L 3.2-4.5 GM/DL My Orders Orders - TERRY LOPEZ MD Cbc With Automated Diff (06/25/22 12:17) Comprehensive Metabolic Panel (06/25/22 12:17) Chest 1 View Ap/Pa Only (06/25/22 12:17) Ekg Tracing (06/25/22 12:17) O2 (06/25/22 12:17) Ed Iv/Invasive Line Start (06/25/22 12:17) Monitor-Rhythm Ecg Trace Only (06/25/22 12:17) Crp Fs (06/25/22 12:17) Pantoprazole Injection (Protonix Injecti (06/25/22 12:17) Vital Signs/I&O 06/25/22 06/25/22 12:11 14:03 Temp 32.0 Pulse 47 Resp 12 B/P (MAP) 114/73 (87) Pulse Ox 93 93 O2 Delivery Room Air Room Air Capillary Refill : Progress Note #1: Progress Note Potential diagnosis of worsening anemia, worsening heart failure with effusion, pneumonia, electrolyte imbalance, poor circulation. Obtain electrocardiogram to evaluate his rate and rhythm. Placed on cardiac telemetry monitoring initially he is showing sinus bradycardia with heart rate in the 40s. His oxygen saturation here in the emergency department is 91 to 95% on room air. Draw labs from the peripheral IV that EMS started to look at his complete blood count, comprehensive metabolic profile. Chest x-ray to look at what his lungs were doing with the pleural effusions that were present last week. Will order a dose of pantoprazole 40 mg IV for the burning sensation in his epigastric area. Progress Note #2: Progress Note 1257 on my review and interpretation of his 1 view chest x-ray he has improving pleural effusion and pulmonary vascular congestion from imaging last week. He has improved hemoglobin with his hemoglobin up to 7.8 from the 7.3 when he was discharged on June 23. He has the chronic thrombocytopenia with platelets stable at 50. His renal insufficiency has continued to improve and he has a BUN of 31 with a creatinine of 1.9 which was improved from recent admission. He does have an increased CRP at 6.5 which may be related back to the stress as well as anemia and recent admission to the hospital. He had improvement in the burning sensation with treatment here in the ED. Progress Note #3: Time: 13:07 Progress Note I reviewed the radiologist report on the chest x-ray at 1307. He had continued pulmonary vascular congestion and pleural effusion but appears to be improved from last week. His heart rate continues to show bradycardia on cardiac telemetry with heart rate in the 30s to 40s. Counseled patient and staff member for [facility] to have the patient follow-up with cardiology as well as he may need to see surgery for his anemia and shortness of breath. They may want to start medications or do interventions to help with his bradycardia as well as his anemia and signs of heart failure. Since his oxygen level has been staying stable here and he was not showing any worsening of his anemia I feel like he is stable to be discharged back to [facility] with instructions to follow-up with cardiology as well as primary care and may need additional testing or treatments as an outpatient. Continue on the pantoprazole 40 mg a day. It does look like he has had previous prescriptions for this but I sent another prescription just in case he did not have 1 for this month. ECG Initial ECG Impression Date: Jun 25, 2022 Initial ECG Impression Time: 12:49 Initial ECG Rate: 43 Initial ECG Rhythm: S.Abel Initial ECG Comparisson: Unchanged (03/10/2022) Comment On my personal interpretation and review of his electrocardiogram shows sinus bradycardia with a heart rate of 43 bpm. His MN interval is 184 ms. He has no acute ST elevation. There are some artifact on the tracing. QT interval 499 ms with a QTc interval 445 ms. Overall this appears similar to prior tracing from March 10, 2022 without acute significant changes. Diagnostic Imaging Diagonstic Imaging: Xray Plain Films/CT/US/NM/MRI: chest Comments [facility] [place], [place] NAME: NEHEMIAH RAMIREZ MED REC#: [id number] PT STATUS: REG ER : 1970 PHYSICIAN: TERRY LOPEZ MD ADMIT DATE: 06/25/22/ER FS Draft Date of Exam:06/25/22 CHEST 1 VIEW AP/PA ONLY INDICATION: Hypoxemia Portable chest 12:49 PM There is cardiomegaly with pulmonary vascular congestion, alveolar edema and bilateral pleural effusions. IMPRESSION: Congestive heart failure with pulmonary edema and pleural effusions. Dictated on workstation # [id number] Dict: 06/25/22 1301 Trans: 06/25/22 1303 [facility] [id number] Interpreted by: RUBIA BRADY MD Electronically signed by: Reviewed: Reviewed by Me (I reviewed radiology report of chest x-ray at 1307) Departure Impression Primary Impression: Chronic anemia Additional Impression: Pleural effusion due to CHF (congestive heart failure) Disposition: HOME, SELF-CARE Condition: Stable Departure-Patient Inst. Decision time for Depature: 13:11 Referrals: SILVANA WHITE MD (PCP/Family) Primary Care Physician OLIMPIA RAMOS MD Patient Instructions: Anemia, Possibly From Low Iron, Adult ED, Heart Failure ED Add. Discharge Instructions: His hemoglobin was 7.8 today. This is up from discharge on June 23. His chest x-ray was showing improving pleural effusion and pulmonary vascular congestion from heart failure. Follow-up with primary care and cardiology about his fluid buildup in the lungs and low heart rate with anemia. Continue taking an acid automotive internet sales consultant medicine to help with the burning sensation in his stomach. Scripts Pantoprazole Sodium (Pantoprazole Sodium) 40 Mg Tablet. 40 MG PO DAILY for GERD for 30 Days, #30 TAB 0 Refills Prov: TERRY LOPEZ MD 06/25/22 TERRY LOPEZ MD Jun 25, 2022 12:27
[2022-06-25 12:30] LABS: HEMATOCRIT 24 % (40-54); HEMOGLOBIN 7.8 g/dL (13.3-17.7); MEAN CORPUSCULAR HEMOGLOBIN 28 pg (25-34); MEAN CORPUSCULAR HGB CONC 33 g/dL (32-36); MEAN CORPUSCULAR VOLUME 87 fL (80-99); MEAN PLATELET VOLUME 11.5 fL (9.0-12.2); PLATELET COUNT 50 10^3/uL (130-400); WHITE BLOOD COUNT 6.5 10^3/uL (4.3-11.0)
[2022-06-25 12:31] LABS: BASOPHILS % (AUTO) 0 % (0-10); EOSINOPHILS # (AUTO) 0.2 10^3/uL (0.0-0.3); EOSINOPHILS % (AUTO) 3 % (0-10); LYMPHOCYTES # (AUTO) 0.8 X 10^3 (1.0-4.0); LYMPHOCYTES % (AUTO) 13 % (12-44); MONOCYTES # (AUTO) 0.4 X 10^3 (0.0-1.0); MONOCYTES % (AUTO) 6 % (0-12); NEUTROPHILS # (AUTO) 5.1 X 10^3 (1.8-7.8); NEUTROPHILS % (AUTO) 78 % (42-75)
[2022-06-25 12:49] LABS: BILIRUBIN,TOTAL 0.2 MG/DL (0.1-1.0); CALCIUM 8.6 MG/DL (8.5-10.1); CREATININE SERUM 1.91 MG/DL (0.60-1.30); POTASSIUM 4.7 MMOL/L (3.6-5.0)
[2022-06-25 12:50] LABS: ALBUMIN 2.1 GM/DL (3.2-4.5)
--- NOTE | 2022-06-25 13:03 | Diagnostic Imaging Report ---
INDICATION: Hypoxemia Portable chest 12:49 PM There is cardiomegaly with pulmonary vascular congestion, alveolar edema and bilateral pleural effusions. IMPRESSION: Congestive heart failure with pulmonary edema and pleural effusions. Dictated by: Dictated on workstation # [id number]
[2022-06-25] MEDS ORDERED: PANT40TA52 PO (13:17)
== END 2022-06-25 13:49 | disposition home or self-care (01) ==
LOC: EDUNIT# 12:11 → ER FS 12:12
DX: D64.9 Anemia, unspecified (principal); I26.99 Other pulmonary embolism without acute cor pulmonale; K21.9 Gastro-esophageal reflux disease without esophagitis; I11.0 Hypertensive heart disease with heart failure; I50.9 Heart failure, unspecified; N17.9 Acute kidney failure, unspecified
CPT/HCPCS: 36415; 71045; 80053; 85025; 86141; 93005; 93041

== ENCOUNTER 2022-06-28 12:28 | Inpatient (IN) | payer MEDICARE, MEDICAID ==
[~2022-06-28] VITALS: Ht 157.4 cm; Wt 64.9 kg
--- NOTE | 2022-06-28 12:48 | ED General ---
General Chief Complaint: General Problems/Pain Stated Complaint: HIGH BP LOW O2, LOW TEMP, COLD, FLUID ON LUNGS History of Present Illness Date Seen by Provider: Jun 28, 2022 Time Seen by Provider: 12:37 Initial Comments 51 yr M with PMH of intellectual disability/DM2/CHF/pancreatitis/ Liver dysfunction, is brought in by EMS with complaints of altered mental status and lung congestion with possibility of fluid in the lungs. EMS reports that patient's blood sugar was 48 when they were on scene. He was given 200 mL of 10% dextrose by EMS and blood sugar over came up to 184. [facility] staff reports that patient has not been eating or drinking for the past couple of days because he has not been feeling well. Today they were concerned because patient appears confused and not able to do his daily activities. Patient is usually self- sufficient and can do things for himself and walk around and communicate. Patient appears lethargic and tired. Allergies and Home Medications Allergies Uncoded Allergies: PCN (Allergy, Mild, 11/19/20) Patient Home Medication List Home Medication List Reviewed: Yes Amlodipine Besylate (Norvasc) 5 Mg Tablet, 5 MG PO DAILY Prescribed by: DESIRAE NAVARRO on 06/23/22 1055 Atorvastatin Calcium (Atorvastatin Calcium) 20 Mg Tablet, 20 MG PO DAILY, (Reported) Entered as Reported by: BONILLA CERVANTES on 01/06/22 1526 Cariprazine Hydrochloride (Vraylar) 3 Mg Capsule, 3 MG PO DAILY, (Reported) Entered as Reported by: TERRELL LEE on 06/20/22 0855 Cholecalciferol (Vitamin D3) (Vitamin D3) 50 Mcg (2000 Unit) Tablet, 100 MCG PO DAILY, (Reported) Entered as Reported by: TERRELL LEE on 06/20/22 0855 Clonidine HCl (Clonidine HCl) 0.1 Mg Tablet, 0.1 MG PO TID, (Reported) Entered as Reported by: BONILLA CERVANTES on 01/06/22 152 Divalproex Sodium (Divalproex Sodium) 250 Mg Tablet.dr, 250 MG PO BID, (Reported) Entered as Reported by: TERRELL LEE on 06/20/22 0855 Escitalopram Oxalate (Escitalopram Oxalate) 10 Mg Tablet, 10 MG PO DAILY, (Reported) Entered as Reported by: BONILLA CERVANTES on 10/3/22 1526 Ferrous Sulfate (Ferosul) 325 Mg (65 Mg Iron) Tablet, 325 MG PO BID, (Reported) Entered as Reported by: BONILLA CERVANTES on 01/06/221525 Folic Acid (Folic Acid) 1 Mg Tablet, 1 MG PO DAILY, (Reported) Entered as Reported by: TERRELL LEE on 06/20/22 0855 Metoprolol Tartrate (Metoprolol Tartrate) 25 Mg Tablet, 25 MG PO BID, (Reported) Entered as Reported by: BONILLA CERVANTES on 01/06/221525 Miconazole Nitrate (Lotrimin AF) 2 % Aero.powd, 1 APPLIC TP BID, (Reported) Entered as Reported by: TERRELL LEE on 06/20/22 0855 Pantoprazole Sodium (Pantoprazole Sodium) 40 Mg Tablet.dr, 40 MG PO DAILY, (Reported) Entered as Reported by: BONILLA CERVANTES on 01/06/221525 Pantoprazole Sodium (Pantoprazole Sodium) 40 Mg Tablet.dr, 40 MG PO DAILY Prescribed by: TERRY LOPEZ on 06/25/22 1317 Umeclidinium Brm/Vilanterol Tr (Anoro Ellipta 62.5-25 Mcg INH) 62.5 Mcg-25 Mcg/Actuation Blst.w.dev, 1 EACH IH DAILY, (Reported) Entered as Reported by: BONILLA CERVANTES on 01/06/221525 Discontinued Medications Amlodipine Besylate (Amlodipine Besylate) 10 Mg Tablet, 10 MG PO DAILY, (Reported) Entered as Reported by: BONILLA CERVANTES on 01/06/221525 Review of Systems Review of Systems Constitutional: see HPI, malaise EENTM: nose congestion Respiratory: phlegm, wheezing Cardiovascular: no symptoms reported Gastrointestinal: loss of appetite Genitourinary: no symptoms reported Musculoskeletal: no symptoms reported Skin: no symptoms reported Psychiatric/Neurological: Other Hematologic/Lymphatic: No Symptoms Reported Immunological/Allergic: no symptoms reported Past Fbnqixk-Epopra-Deleth Hx Immunizations Up To Date First/Initial COVID19 Vaccinat: YES Second COVID19 Vaccination Mike: YES Third COVID19 Vaccination Date: YES Seasonal Allergies Seasonal Allergies: No Past Medical History Surgery/Hospitalization HX: diabetic, Htn, Schizoaffective Disorder, Intermittent Explosive Disorder, Asthma, Hyperlipidemia, Disruptive mood disorder, Moderate intellectual disabilities, Conduct disorder Surgeries: Yes Respiratory: Yes Asthma Cardiac: Yes High Cholesterol, Hypertension Neurological: Yes Developmental Disorder Genitourinary: Yes UTI-Chronic Gastrointestinal: Yes Gastroesophageal Reflux Musculoskeletal: Yes Spasms, Contracture Endocrine: Yes Diabetes, Insulin dep HEENT: Yes Eye Injury Cancer: No Psychosocial: Yes Anxiety, Schizophrenia, Depression Integumentary: No Family Medical History No Pertinent Family Hx Physical Exam Vital Signs Vital Signs - First Documented 06/28/22 06/28/22 12:30 14:15 Temp 36.2 Pulse 53 Resp 16 B/P (MAP) 130/96 (107) Pulse Ox 99 O2 Delivery Room Air O2 Flow Rate 2.00 FiO2 94 Capillary Refill : Height, Weight, BMI Height: '" Weight: lbs. oz. kg; 25.00 BMI Method: General Appearance: Other HEENT: PERRL/EOMI (Mental status), Other (Dry mucous membranes) Neck: Full Range of Motion, Normal Inspection Respiratory: Chest Non Tender, No Accessory Muscle Use, No Respiratory Distress, Rales, Rhonci Cardiovascular: Regular Rate, Rhythm, Other (Bilateral pedal edema ) Gastrointestinal: Normal Bowel Sounds, No Organomegaly, Non Tender, Soft Back: Normal Inspection, No CVA Tenderness, No Vertebral Tenderness Extremity: Normal Range of Motion Neurologic/Psychiatric: Alert, No Motor/Sensory Deficits (No apparent deficits), plant assigner II-XII Norm as Tested, Other (Difficult to tell patient's baseline, but he is unable to answer questions except and make sounds. Patient is alert.) Skin: Pallor Focused Exam Lactate Level 06/28/22 13:20: Lactic Acid Level 0.96 Lactic Acid Level Laboratory Tests Test 06/28/22 13:20 Lactic Acid Level 0.96 MMOL/L (0.50-2.00) Progress/Results/Core Measures Suspected Sepsis SIRS Temperature: Pulse: Respiratory Rate: Laboratory Tests 06/28/22 12:36: White Blood Count 4.7 Blood Pressure / Mean: 06/28/22 13:20: Lactic Acid Level 0.96 Laboratory Tests 06/28/22 12:36: Creatinine 2.16H, INR Comment 1.1, Platelet Count 29*L, Total Bilirubin 0.2 Results/Orders Lab Results Laboratory Tests Test 06/28/22 12:36 06/28/22 13:12 06/28/22 13:20 Range/Units White Blood Count 4.7 4.3-11.0 10^3/uL Red Blood Count 2.50 L 4.30-5.52 10^6/uL Hemoglobin 7.1 L 13.3-17.7 g/dL Hematocrit 22 L 40-54 % Mean Corpuscular Volume 89 80-99 fL Mean Corpuscular Hemoglobin 28 25-34 pg Mean Corpuscular Hemoglobin Concent 32 32-36 g/dL Red Cell Distribution Width 15.5 H 10.0-14.5 % Platelet Count 29 *L 130-400 10^3/uL Mean Platelet Volume 10.7 9.0-12.2 fL Immature Granulocyte % (Auto) 0 % Neutrophils (%) (Auto) 86 H 42-75 % Lymphocytes (%) (Auto) 9 L 12-44 % Monocytes (%) (Auto) 3 0-12 % Eosinophils (%) (Auto) 1 0-10 % Basophils (%) (Auto) 0 0-10 % Neutrophils # (Auto) 4.1 1.8-7.8 X 10^3 Lymphocytes # (Auto) 0.4 L 1.0-4.0 X 10^3 Monocytes # (Auto) 0.2 0.0-1.0 X 10^3 Eosinophils # (Auto) 0.1 0.0-0.3 10^3/uL Basophils # (Auto) 0.0 0.0-0.1 10^3/uL Immature Granulocyte # (Auto) 0.0 0.0-0.1 10^3/uL Prothrombin Time 15.0 H 12.2-14.7 SEC INR Comment 1.1 0.8-1.4 Activated Partial Thromboplast Time 54 H 24-35 SEC D-Dimer 1.75 H 0.00-0.49 UG/ML Sodium Level 143 135-145 MMOL/L Potassium Level 4.6 3.6-5.0 MMOL/L Chloride Level 112 H 98-107 MMOL/L Carbon Dioxide Level 25 21-32 MMOL/L Anion Gap 6 5-14 MMOL/L Blood Urea Nitrogen 36 H 7-18 MG/DL Creatinine 2.16 H 0.60-1.30 MG/DL Estimat Glomerular Filtration Rate 36 BUN/Creatinine Ratio 17 Glucose Level 143 H 70-105 MG/DL Calcium Level 8.2 L 8.5-10.1 MG/DL Corrected Calcium 9.7 8.5-10.1 MG/DL Magnesium Level 2.4 1.6-2.4 MG/DL Total Bilirubin 0.2 0.1-1.0 MG/DL Aspartate Amino Transf (AST/SGOT) 44 H 5-34 U/L Alanine Aminotransferase (ALT/SGPT) 30 0-55 U/L Alkaline Phosphatase 155 H 40-136 U/L Troponin I < 0.30 <0.30 NG/ML Pro-B-Type Natriuretic Peptide 1606.0 H <125.0 PG/ML Total Protein 6.0 L 6.4-8.2 GM/DL Albumin 2.1 L 3.2-4.5 GM/DL Urine Color YELLOW Urine Clarity CLEAR Urine pH 6.0 5-9 Urine Specific [place] 1.025 H 1.016-1.022 Urine Protein 3+ H NEGATIVE Urine Glucose (UA) NEGATIVE NEGATIVE Urine Ketones NEGATIVE NEGATIVE Urine Nitrite NEGATIVE NEGATIVE Urine Bilirubin NEGATIVE NEGATIVE Urine Urobilinogen 0.2 < = 1.0 MG/DL Urine Leukocyte Esterase NEGATIVE NEGATIVE Urine RBC (Auto) 2+ H NEGATIVE Urine RBC 10-25 H /HPF Urine WBC NONE /HPF Urine Crystals NONE /LPF Urine Bacteria LARGE H /HPF Urine Casts NONE /LPF Urine Mucus NEGATIVE /LPF Urine Culture Indicated YES Lactic Acid Level 0.96 0.50-2.00 MMOL/L Influenza Type A (RT-PCR) Not Detected Not Detecte Influenza Type B (RT-PCR) Not Detected Not Detecte SARS-CoV-2 RNA (RT-PCR) Not Detected Not Detecte Group A Streptococcus Screen NEGATIVE NEGATIVE My Orders Orders - ROSARIO GERBER MD Chest 1 View Ap/Pa Only (06/28/22 12:48) Cbc With Automated Diff (06/28/22 12:48) Comprehensive Metabolic Panel (06/28/22 12:48) Fibrin Degradation Products (06/28/22 12:48) Lactic Acid Analyzer (06/28/22 12:48) Magnesium (06/28/22 12:48) Protime With Inr (06/28/22 12:48) Partial Thromboplastin Time (06/28/22 12:48) Rapid Strep A Screen (06/28/22 12:48) Ua Culture If Indicated (06/28/22 12:48) Blood Culture (06/28/22 12:48) Sputum Culture (06/28/22 12:48) Probnp Fs (06/28/22 12:48) Troponin I Fs (06/28/22 12:48) Irrigation And Suction (06/28/22 12:48) Suction Airway (06/28/22 12:48) Influenza A And B By Pcr (06/28/22 12:50) Covid 19 Inhouse Test (06/28/22 12:50) Catheter(Urinary) Insert & Ass 03,15 (06/28/22 12:51) Lidocaine 2% (Urojet) (Xylocaine Urojet) (06/28/22 13:00) Ct Head Wo (06/28/22 12:51) Albuterol/Ipra Inhalation Soln (Duoneb I (06/28/22 13:30) Svn Small Volume Nebulizer (06/28/22 13:18) Albuterol/Ipra Inhalation Soln (Duoneb I (06/28/22 13:21) Urine Culture (06/28/22 13:12) Methylprednisolone Sod Succ (Solu-Medrol (06/28/22 14:33) Albuterol/Ipra Inhalation Soln (Duoneb I (06/28/22 14:45) Svn Small Volume Nebulizer (06/28/22 14:33) Cefepime Injection (Maxipime Injection) (06/28/22 14:45) Bumetanide Injection (Bumex Injection) (06/28/22 14:45) Arterial Blood Gas (06/28/22 14:47) Ed Admission (Communication) (06/28/22 14:59) Bumetanide Injection (Bumex Injection) (06/28/22 15:31) Medications Given in ED Current Medications Medications Dose Ordered Sig/Lindsey Route Start Time Stop Time Status Last Admin Dose Admin Albuterol/ Ipratropium 3 ml ONCE ONCE INH 06/28/22 13:30 06/28/22 13:31 DC 06/28/22 13:22 3 ML Albuterol/ Ipratropium 3 ml ONCE ONCE INH 06/28/22 14:45 06/28/22 14:46 DC 06/28/22 14:53 3 ML Bumetanide 2.5 mg STK-MED ONCE .ROUTE 06/28/22 15:31 06/28/22 15:34 DC 06/28/22 15:37 0.5 MG Cefepime HCl 1000 mg/Sodium Chloride 50 ml @ 100 mls/hr ONCE ONCE IV 06/28/22 14:45 06/28/22 15:14 DC 06/28/22 14:55 100 MLS/HR Lidocaine HCl 10 ml ONCE ONCE TOP 06/28/22 13:00 06/28/22 13:01 DC 06/28/22 13:01 10 ML Vital Signs/I&O 06/28/22 06/28/22 06/28/22 12:30 12:54 14:15 Temp 36.2 36.2 Pulse 53 53 Resp 16 16 B/P (MAP) 130/96 (107) 130/96 Pulse Ox 99 99 O2 Delivery Room Air Room Air Nasal Cannula O2 Flow Rate 2.00 FiO2 94 Capillary Refill : Progress Note : Progress Note 1. AMS/ ACUTE ANEMIA WITH Hb DROP/ THROMBOCYTOPENIA: - CT HEAD: no acute findings - CBC: WBC is normal, but increased neutrophils. Hb is 7.1. As per staff, pt's Hb was 7.8 yesterday. Platelets are low, 29. - UA: No signs of infection - Pt has a history of anemia with transfusions, but cause is unknown, and will need an anemia work-up - Patient will be needing a blood transfusion and will need transfer to [place] 2. HYPOGLYCEMIA: - Blood sugar at home was 46 on EMS arrival, and went up to 184 after 200ml of 10% dextrose 3. HYPOXEMIA/ CONGESTIVE HEART FAILURE EXACERBATION/ LEFT LOWER LOBE CONSOLIDATION/ Urinary retention: - CXR : There is left basilar consolidation and pleural fluid. Congestive changes do show slight improvement since exam three days earlier. There continues to be some central congestion. - BNP: 1,606 - Pt's albumin is low, so will start at Bumetanide 0.5mg iv instead of Lasix, and monitor BP before increasing dose. - Duo Neb x 2 - Solumedrol 125mg iv STAT - Cefepime iv STAT, since source is indefinite - Suction and irrigation -Discussed with hospitalist, Dr. Navarro, and will admit to ICU. We will do an ABG 4. ELEVATED D-DIMER: - D-dimer is 1.75 - Pt will need VQ scan since he has poor kidney function with a s. creatinine 5. DEHYDRATION/ CLAUDETTE: - s. creatinine is 2.16 -IV fluids were not started since there is a concern for fluid overload at this time Diagnostic Imaging Diagonstic Imaging: Xray, CT Plain Films/CT/US/NM/MRI: chest, head Comments [facility] [place] [place] NAME: NEHEMIAH RAMIREZ [facility] REC#: [id number] PT STATUS: REG ER : 1970 PHYSICIAN: ROSARIO GERBER MD ADMIT DATE: 06/28/22/ER FS Signed Date of Exam:06/28/22 CHEST 1 VIEW AP/PA ONLY INDICATION: Shaking and hypoglycemia as well as bradycardia. TIME OF EXAM: 1:46 p.m. COMPARISON: Correlation is made with prior chest from 06/25/2022. FINDINGS: Heart is enlarged. There is left basilar consolidation and pleural fluid. Congestive changes do show slight improvement since exam three days earlier. There continues to be some central congestion. No pneumothorax is seen. IMPRESSION: There has been some mild improvement in congestive changes when compared with examination three days earlier. Dictated by: Dictated on workstation # [id number] Dict: 06/28/22 1409 Trans: 06/28/22 1524 [id number] Interpreted by: POPEYE GOVEA MD Electronically signed by: POPEYE GOVEA MD 06/28/22 1524 [facility] [place] [place] NAME: NEHEMIAH RAMIREZ [facility] REC#: [id number] PT STATUS: REG ER : 1970 PHYSICIAN: ROSARIO GERBER MD ADMIT DATE: 06/28/22/ER FS Signed Date of Exam:06/28/22 CT HEAD WO PROCEDURE: CT head without contrast. TECHNIQUE: Multiple contiguous axial images were obtained through the brain without the use of intravenous contrast. Auto Exposure Controls were utilized during the CT exam to meet ALARA standards for radiation dose reduction. INDICATION: Bradycardia and shaking. Comparison is made with prior head CT from 03/10/2022. FINDINGS: Ventricles and sulci appear stable. No sulcal effacement or midline shift is identified. No acute intra-axial or extra-axial hemorrhage is detected. Cisterns are patent. Visualized paranasal sinuses are clear. IMPRESSION: No acute intracranial process is detected. Dictated by: Dictated on workstation # [id number] Dict: 06/28/22 1408 Trans: 06/28/22 1525 [id number] Interpreted by: POPEYE GOVEA MD Electronically signed by: POPEYE GOVEA MD 06/28/22 1525 Departure Communication (Admissions) Time/Spoke to Admitting Phy: 14:45 Discussed with hospitalist will admit to ICU Impression Primary Impression: AMS (altered mental status) Additional Impressions: Hypoglycemia CHF exacerbation Elevated d-dimer Consolidation of left lower lobe of lung Disposition: 30 STILL A PATIENT Condition: Stable Admissions Decision to Admit Reason: Admit from ER (General) Decision to Admit/Date: Jun 28, 2022 Time/Decision to Admit Time: 14:30 Transfer Method of Transfer: EMS Departure-Patient Inst. Referrals: SILVANA WHITE MD (PCP/Family) Primary Care Physician ROSARIO GERBER MD Jun 28, 2022 12:48
[2022-06-28 12:53] LABS: HEMATOCRIT 22 % (40-54); HEMOGLOBIN 7.1 g/dL (13.3-17.7); MEAN CORPUSCULAR HEMOGLOBIN 28 pg (25-34); MEAN CORPUSCULAR HGB CONC 32 g/dL (32-36); MEAN CORPUSCULAR VOLUME 89 fL (80-99); WHITE BLOOD COUNT 4.7 10^3/uL (4.3-11.0)
[2022-06-28 12:54] LABS: BASOPHILS % (AUTO) 0 % (0-10); EOSINOPHILS # (AUTO) 0.1 10^3/uL (0.0-0.3); EOSINOPHILS % (AUTO) 1 % (0-10); LYMPHOCYTES # (AUTO) 0.4 X 10^3 (1.0-4.0); LYMPHOCYTES % (AUTO) 9 % (12-44); MEAN PLATELET VOLUME 10.7 fL (9.0-12.2); MONOCYTES # (AUTO) 0.2 X 10^3 (0.0-1.0); MONOCYTES % (AUTO) 3 % (0-12); NEUTROPHILS # (AUTO) 4.1 X 10^3 (1.8-7.8); NEUTROPHILS % (AUTO) 86 % (42-75); PLATELET COUNT 29 10^3/uL (130-400)
[2022-06-28 12:56] LABS: INR 1.1 (0.8-1.4)
[2022-06-28] MEDS ORDERED: LIDOCAINE UROJET 2% GEL 10 ML PKG TOP ONE (13:00)
[2022-06-28 13:03] LABS: CARBON DIOXIDE 25 MMOL/L (21-32); CHLORIDE 112 MMOL/L (98-107); FIBRIN DEGRADATION PRODUCTS 1.75 UG/ML (0.00-0.49); POTASSIUM 4.6 MMOL/L (3.6-5.0); SODIUM 143 MMOL/L (135-145)
[2022-06-28 13:04] LABS: ALANINE AMINOTRANSFERASE 30 U/L (0-55); ALBUMIN 2.1 GM/DL (3.2-4.5); ALKALINE PHOSPHATASE 155 U/L (40-136); BILIRUBIN,TOTAL 0.2 MG/DL (0.1-1.0); BUN/CREATININE RATIO 17; CALCIUM 8.2 MG/DL (8.5-10.1); CREATININE SERUM 2.16 MG/DL (0.60-1.30); GFR ESTIMATED 36; GLUCOSE 143 MG/DL (70-105); MAGNESIUM 2.4 MG/DL (1.6-2.4)
[2022-06-28] MEDS ORDERED: RT-ALBUTEROL/IPRATROPIUM 3 ML (DUONEB) VIAL ONE (13:21)
[2022-06-28 13:29] LABS: BILIRUBIN,URINE NEGATIVE (NEGATIVE); CLARITY,URINE CLEAR; COLOR,URINE YELLOW; GLUCOSE, URINE (UA) NEGATIVE (NEGATIVE); KETONES,URINE NEGATIVE (NEGATIVE); LEUKOCYTE ESTERASE ,URINE NEGATIVE (NEGATIVE); NITRITE,URINE NEGATIVE (NEGATIVE); PROTEIN,URINE 3+ (NEGATIVE)
[2022-06-28] MEDS ORDERED: RT-ALBUTEROL/IPRATROPIUM 3 ML (DUONEB) VIAL INH ONE ×2 (13:30→14:45)
[2022-06-28 13:33] LABS: BACTERIA,URINE LARGE /HPF
--- NOTE | 2022-06-28 14:14 | Diagnostic Imaging Report ---
PROCEDURE: CT head without contrast. TECHNIQUE: Multiple contiguous axial images were obtained through the brain without the use of intravenous contrast. Auto Exposure Controls were utilized during the CT exam to meet ALARA standards for radiation dose reduction. INDICATION: Bradycardia and shaking. Comparison is made with prior head CT from 03/10/2022. FINDINGS: Ventricles and sulci appear stable. No sulcal effacement or midline shift is identified. No acute intra-axial or extra-axial hemorrhage is detected. Cisterns are patent. Visualized paranasal sinuses are clear. IMPRESSION: No acute intracranial process is detected. Dictated by: Dictated on workstation # [id number]
--- NOTE | 2022-06-28 14:15 | Diagnostic Imaging Report ---
INDICATION: Shaking and hypoglycemia as well as bradycardia. TIME OF EXAM: 1:46 p.m. COMPARISON: Correlation is made with prior chest from 06/25/2022. FINDINGS: Heart is enlarged. There is left basilar consolidation and pleural fluid. Congestive changes do show slight improvement since exam three days earlier. There continues to be some central congestion. No pneumothorax is seen. IMPRESSION: There has been some mild improvement in congestive changes when compared with examination three days earlier. Dictated by: Dictated on workstation # [id number]
[2022-06-28] MEDS ORDERED: methylPREDNISolone 125 MG (Solu-MEDROL) VIAL IV STA (14:33)
[2022-06-28] MEDS ORDERED: BUMETANIDE 1 MG/4 ML (BUMEX) VIAL IV ONE (14:45)
[2022-06-28] MEDS ORDERED: CEFEPIME INJECTION 1,000 MG in NS (IVPB) 50 ML IV ONE (14:45)
[2022-06-28] MEDS ORDERED: BUMETANIDE 2.5 MG/10 ML (BUMEX) VIAL ONE (15:31)
[2022-06-28] MEDS ORDERED: ANTACID SUSP 30 ML UDC (MYLANTA) PO PRN (19:00)
[2022-06-28] MEDS ORDERED: DexMEDEtomidine 250 ML DRIP 250 ML IV SCH (19:00)
[2022-06-28] MEDS: NOREPINEPHRINE 8 MG/250 ML 250 ML IV SCH (19:00)
[2022-06-28] MEDS ORDERED: MELATONIN 3 MG TABLET PO PRN (19:00)
[2022-06-28] MEDS ORDERED: ACETAMINOPHEN 325 MG TABLET PO PRN (19:00)
[2022-06-28] MEDS ORDERED: diphenhydrAMINE 50 MG/ML INJ (BENADRYL) IVP PRN (19:00)
[2022-06-28] MEDS ORDERED: BISACODYL 10 MG SUPP (DULCOLAX) PR PRN (19:00)
[2022-06-28] MEDS ORDERED: NS IV 1000 ML 1,000 ML IV SCH (19:00)
[2022-06-28] MEDS ORDERED: polyethylene glycoL POWDER 17 GM (MIRALAX) PACK PO PRN (19:00)
[2022-06-28] MEDS ORDERED: diphenhydrAMINE 25 MG TAB (BENADRYL) PO PRN (19:00)
[2022-06-28] MEDS ORDERED: ONDANSETRON 4 MG/2 ML (SDV) Z0FRAN IV PRN (19:00)
[2022-06-28] MEDS ORDERED: NS IV 500 ML 500 ML IV PRN (19:00)
[2022-06-28] MEDS ORDERED: HYDROmorphone 2 MG/ML VIAL (DILAUDID) IV PRN (19:00)
[2022-06-28] MEDS ORDERED: ONDANSETRON 4 MG (ZOFRAN) ORAL DISSOLVE TAB PO PRN (19:00)
[2022-06-28 19:24] LABS: ABSOLUTE RETIC # 38 10e9/uL (24-90); BASOPHILS % (AUTO) 0 % (0-10); EOSINOPHILS % (AUTO) 1 % (0-10); HEMATOCRIT 23 % (40-54); HEMOGLOBIN 7.4 g/dL (13.3-17.7); LYMPHOCYTES # (AUTO) 0.2 10^3/uL (1.0-4.0); LYMPHOCYTES % (AUTO) 6 % (12-44); MEAN CORPUSCULAR HEMOGLOBIN 29 pg (25-34); MEAN CORPUSCULAR HGB CONC 32 g/dL (32-36); MEAN CORPUSCULAR VOLUME 89 fL (80-99); MONOCYTES # (AUTO) 0.1 10^3/uL (0.0-1.0); MONOCYTES % (AUTO) 2 % (0-12); NEUTROPHILS % (AUTO) 90 % (42-75); RETICULOCYTE % 1.49 % (0.50-2.40); WHITE BLOOD COUNT 3.4 10^3/uL (4.3-11.0)
[2022-06-28 19:27] LABS: PLATELET COUNT 31 10^3/uL (130-400)
[2022-06-28 19:40] VITALS: BP 130/96
--- NOTE | 2022-06-28 19:43 | Tele-ICU Consult ---
Progress Note 51 yo male readmitted after recent discharge 06/26/22. Pt noted with altered mentation at nursing facility, also lung congestion. Blood sugar 48 when EMS arrived. Pt evaluated in ED, was given Vanco, Cefepime. Per bedside nurse, cultures including blood cultures sent at [facility]. Focused Exam Sepsis Stage: Sepsis Possible Source: Pulmonary Lactate Level 06/28/22 13:20: Lactic Acid Level 0.96 Height, Weight, BMI Height: '" Weight: lbs. oz. kg; 30.00 BMI Method: Respiratory: Respiratory Distress Skin: pallor Within 3hrs of presentation: Admin ABX, Blood cultures prior to ABX's, Lactate level Allergies and Home Medications Allergies Uncoded Allergies: PCN (Allergy, Mild, 11/19/20) Home Medications Amlodipine Besylate 5 Mg Tablet, 5 MG PO DAILY Prescribed by: DESIRAE NAVARRO on 06/23/22 1055 Atorvastatin Calcium 20 Mg Tablet, 20 MG PO DAILY, (Reported) Cariprazine Hydrochloride 3 Mg Capsule, 3 MG PO DAILY, (Reported) Cholecalciferol (Vitamin D3) 50 Mcg (2000 Unit) Tablet, 100 MCG PO DAILY, (Reported) TAKES 2 (50MCG) TABS Clonidine HCl 0.1 Mg Tablet, 0.1 MG PO TID, (Reported) Divalproex Sodium 250 Mg Tablet.dr, 250 MG PO BID, (Reported) Escitalopram Oxalate 10 Mg Tablet, 10 MG PO DAILY, (Reported) Ferrous Sulfate 325 Mg (65 Mg Iron) Tablet, 325 MG PO BID, (Reported) Folic Acid 1 Mg Tablet, 1 MG PO DAILY, (Reported) Metoprolol Tartrate 25 Mg Tablet, 25 MG PO BID, (Reported) Miconazole Nitrate 2 % Aero.powd, 1 APPLIC TP BID, (Reported) Pantoprazole Sodium 40 Mg Tablet.dr, 40 MG PO DAILY, (Reported) Pantoprazole Sodium 40 Mg Tablet.dr, 40 MG PO DAILY Prescribed by: TERRY LOPEZ on 06/25/22 1317 Umeclidinium Brm/Vilanterol Tr 62.5 Mcg-25 Mcg/Actuation Blst.w.dev, 1 EACH IH DAILY, (Reported) Allergies and Home Medications Patient Home Medication List Home Medication List Reviewed: No Assessment/Plan Assessment and Plan Assess & Plan/Chief Complaint 51 yo male admitted with altered mentation. Possible sepsis, given IV vanco, started on Cefepime, lactate normal Hypoglycemia improved. CKD, pt started on IVF hydration Low platelets, a bit less than before Elevated D-dimer, check venous duplex Prophy SCDs Critical Care Critically Ill Patient Data Review Labs Laboratory Tests 06/28/22 12:36: White Blood Count 4.7, Red Blood Count 2.50L, Hemoglobin 7.1L, Hematocrit 22L, Mean Corpuscular Volume 89, Mean Corpuscular Hemoglobin 28, Mean Corpuscular Hemoglobin Concent 32, Red Cell Distribution Width 15.5H, Platelet Count 29*L, Mean Platelet Volume 10.7, Immature Granulocyte % (Auto) 0, Neutrophils (%) (Auto) 86H, Lymphocytes (%) (Auto) 9L, Monocytes (%) (Auto) 3, Eosinophils (%) (Auto) 1, Basophils (%) (Auto) 0, Neutrophils # (Auto) 4.1, Lymphocytes # (Auto) 0.4L, Monocytes # (Auto) 0.2, Eosinophils # (Auto) 0.1, Basophils # (Auto) 0.0, Immature Granulocyte # (Auto) 0.0, Prothrombin Time 15.0H, INR Comment 1.1, Activated Partial Thromboplast Time 54H, D-Dimer 1.75H, Sodium Level 143, Potassium Level 4.6, Chloride Level 112H, Carbon Dioxide Level 25, Anion Gap 6, Blood Urea Nitrogen 36H, Creatinine 2.16H, Estimat Glomerular Filtration Rate 36, BUN/Creatinine Ratio 17, Glucose Level 143H, Calcium Level 8.2L, Corrected Calcium 9.7, Magnesium Level 2.4, Total Bilirubin 0.2, Aspartate Amino Transf (AST/SGOT) 44H, Alanine Aminotransferase (ALT/SGPT) 30, Alkaline Phosphatase 155H, Troponin I < 0.30, Pro-B-Type Natriuretic Peptide 1606.0H, Total Protein 6.0L, Albumin 2.1L 06/28/22 13:12: Urine Color YELLOW, Urine Clarity CLEAR, Urine pH 6.0, Urine Specific [place] 1.025H, Urine Protein 3+H, Urine Glucose (UA) NEGATIVE, Urine Ketones NEGATIVE, Urine Nitrite NEGATIVE, Urine Bilirubin NEGATIVE, Urine Urobilinogen 0.2, Urine Leukocyte Esterase NEGATIVE, Urine RBC (Auto) 2+H, Urine RBC 10-25H, Urine WBC NONE, Urine Crystals NONE, Urine Bacteria LARGEH, Urine Casts NONE, Urine Mucus NEGATIVE, Urine Culture Indicated YES 06/28/22 13:20: Lactic Acid Level 0.96, Influenza Type A (RT-PCR) Not Detected, Influenza Type B (RT-PCR) Not Detected, SARS-CoV-2 RNA (RT-PCR) Not Detected, Group A Streptococcus Screen NEGATIVE 06/28/22 19:17: White Blood Count 3.4L, Red Blood Count 2.57L, Hemoglobin 7.4L, Hematocrit 23L, Mean Corpuscular Volume 89, Mean Corpuscular Hemoglobin 29, Mean Corpuscular Hemoglobin Concent 32, Red Cell Distribution Width 15.5H, Platelet Count 31*L, Mean Platelet Volume 11.0, Immature Granulocyte % (Auto) 1, Neutrophils (%) (Auto) 90H, Lymphocytes (%) (Auto) 6L, Monocytes (%) (Auto) 2, Eosinophils (%) (Auto) 1, Basophils (%) (Auto) 0, Neutrophils # (Auto) 3.0, Lymphocytes # (Auto) 0.2L, Monocytes # (Auto) 0.1, Eosinophils # (Auto) 0.0, Basophils # (Auto) 0.0, Immature Granulocyte # (Auto) 0.0, Percent Immature Platelet Fraction 9.4H, Absolute Reticulocyte Count 38, Percent Reticulocyte Count 1.49 Exam Vital Signs Vital Signs 06/28/22 06/28/22 12:54 14:15 Temp 36.2 Pulse 53 Resp 16 B/P (MAP) 130/96 Pulse Ox 99 O2 Delivery Nasal Cannula O2 Flow Rate 2.00 FiO2 94 Capillary Refill : Less Than 3 Seconds Labs Laboratory Tests Test 06/28/22 12:36 06/28/22 13:12 06/28/22 13:20 06/28/22 19:17 Range/Units White Blood Count 4.7 3.4 L 4.3-11.0 10^3/uL Red Blood Count 2.50 L 2.57 L 4.30-5.52 10^6/uL Hemoglobin 7.1 L 7.4 L 13.3-17.7 g/dL Hematocrit 22 L 23 L 40-54 % Mean Corpuscular Volume 89 89 80-99 fL Mean Corpuscular Hemoglobin 28 29 25-34 pg Mean Corpuscular Hemoglobin Concent 32 32 32-36 g/dL Red Cell Distribution Width 15.5 H 15.5 H 10.0-14.5 % Platelet Count 29 *L 31 *L 130-400 10^3/uL Mean Platelet Volume 10.7 11.0 9.0-12.2 fL Immature Granulocyte % (Auto) 0 1 % Neutrophils (%) (Auto) 86 H 90 H 42-75 % Lymphocytes (%) (Auto) 9 L 6 L 12-44 % Monocytes (%) (Auto) 3 2 0-12 % Eosinophils (%) (Auto) 1 1 0-10 % Basophils (%) (Auto) 0 0 0-10 % Neutrophils # (Auto) 4.1 3.0 1.8-7.8 10^3/uL Lymphocytes # (Auto) 0.4 L 0.2 L 1.0-4.0 10^3/uL Monocytes # (Auto) 0.2 0.1 0.0-1.0 10^3/uL Eosinophils # (Auto) 0.1 0.0 0.0-0.3 10^3/uL Basophils # (Auto) 0.0 0.0 0.0-0.1 10^3/uL Immature Granulocyte # (Auto) 0.0 0.0 0.0-0.1 10^3/uL Prothrombin Time 15.0 H 12.2-14.7 SEC INR Comment 1.1 0.8-1.4 Activated Partial Thromboplast Time 54 H 24-35 SEC D-Dimer 1.75 H 0.00-0.49 UG/ML Sodium Level 143 135-145 MMOL/L Potassium Level 4.6 3.6-5.0 MMOL/L Chloride Level 112 H 98-107 MMOL/L Carbon Dioxide Level 25 21-32 MMOL/L Anion Gap 6 5-14 MMOL/L Blood Urea Nitrogen 36 H 7-18 MG/DL Creatinine 2.16 H 0.60-1.30 MG/DL Estimat Glomerular Filtration Rate 36 BUN/Creatinine Ratio 17 Glucose Level 143 H 70-105 MG/DL Calcium Level 8.2 L 8.5-10.1 MG/DL Corrected Calcium 9.7 8.5-10.1 MG/DL Magnesium Level 2.4 1.6-2.4 MG/DL Total Bilirubin 0.2 0.1-1.0 MG/DL Aspartate Amino Transf (AST/SGOT) 44 H 5-34 U/L Alanine Aminotransferase (ALT/SGPT) 30 0-55 U/L Alkaline Phosphatase 155 H 40-136 U/L Troponin I < 0.30 <0.30 NG/ML Pro-B-Type Natriuretic Peptide 1606.0 H <125.0 PG/ML Total Protein 6.0 L 6.4-8.2 GM/DL Albumin 2.1 L 3.2-4.5 GM/DL Urine Color YELLOW Urine Clarity CLEAR Urine pH 6.0 5-9 Urine Specific [place] 1.025 H 1.016-1.022 Urine Protein 3+ H NEGATIVE Urine Glucose (UA) NEGATIVE NEGATIVE Urine Ketones NEGATIVE NEGATIVE Urine Nitrite NEGATIVE NEGATIVE Urine Bilirubin NEGATIVE NEGATIVE Urine Urobilinogen 0.2 < = 1.0 MG/DL Urine Leukocyte Esterase NEGATIVE NEGATIVE Urine RBC (Auto) 2+ H NEGATIVE Urine RBC 10-25 H /HPF Urine WBC NONE /HPF Urine Crystals NONE /LPF Urine Bacteria LARGE H /HPF Urine Casts NONE /LPF Urine Mucus NEGATIVE /LPF Urine Culture Indicated YES Lactic Acid Level 0.96 0.50-2.00 MMOL/L Influenza Type A (RT-PCR) Not Detected Not Detecte Influenza Type B (RT-PCR) Not Detected Not Detecte SARS-CoV-2 RNA (RT-PCR) Not Detected Not Detecte Group A Streptococcus Screen NEGATIVE NEGATIVE Percent Immature Platelet Fraction 9.4 H 0.0-7.6 % Absolute Reticulocyte Count 38 24-90 10e9/uL Percent Reticulocyte Count 1.49 0.50-2.40 % General Appearance: Mild Distress HEENT: EOMI Focused Exam Lactate Level 06/28/22 13:20: Lactic Acid Level 0.96 Labs Laboratory Tests 06/28/22 12:36 06/28/22 19:17 Meds/Labs/Orders Lab results: Laboratory Tests Test 06/28/22 12:36 06/28/22 13:12 06/28/22 13:20 06/28/22 19:17 Range/Units White Blood Count 4.7 3.4 L 4.3-11.0 10^3/uL Red Blood Count 2.50 L 2.57 L 4.30-5.52 10^6/uL Hemoglobin 7.1 L 7.4 L 13.3-17.7 g/dL Hematocrit 22 L 23 L 40-54 % Mean Corpuscular Volume 89 89 80-99 fL Mean Corpuscular Hemoglobin 28 29 25-34 pg Mean Corpuscular Hemoglobin Concent 32 32 32-36 g/dL Red Cell Distribution Width 15.5 H 15.5 H 10.0-14.5 % Platelet Count 29 *L 31 *L 130-400 10^3/uL Mean Platelet Volume 10.7 11.0 9.0-12.2 fL Immature Granulocyte % (Auto) 0 1 % Neutrophils (%) (Auto) 86 H 90 H 42-75 % Lymphocytes (%) (Auto) 9 L 6 L 12-44 % Monocytes (%) (Auto) 3 2 0-12 % Eosinophils (%) (Auto) 1 1 0-10 % Basophils (%) (Auto) 0 0 0-10 % Neutrophils # (Auto) 4.1 3.0 1.8-7.8 10^3/uL Lymphocytes # (Auto) 0.4 L 0.2 L 1.0-4.0 10^3/uL Monocytes # (Auto) 0.2 0.1 0.0-1.0 10^3/uL Eosinophils # (Auto) 0.1 0.0 0.0-0.3 10^3/uL Basophils # (Auto) 0.0 0.0 0.0-0.1 10^3/uL Immature Granulocyte # (Auto) 0.0 0.0 0.0-0.1 10^3/uL Prothrombin Time 15.0 H 12.2-14.7 SEC INR Comment 1.1 0.8-1.4 Activated Partial Thromboplast Time 54 H 24-35 SEC D-Dimer 1.75 H 0.00-0.49 UG/ML Sodium Level 143 135-145 MMOL/L Potassium Level 4.6 3.6-5.0 MMOL/L Chloride Level 112 H 98-107 MMOL/L Carbon Dioxide Level 25 21-32 MMOL/L Anion Gap 6 5-14 MMOL/L Blood Urea Nitrogen 36 H 7-18 MG/DL Creatinine 2.16 H 0.60-1.30 MG/DL Estimat Glomerular Filtration Rate 36 BUN/Creatinine Ratio 17 Glucose Level 143 H 70-105 MG/DL Calcium Level 8.2 L 8.5-10.1 MG/DL Corrected Calcium 9.7 8.5-10.1 MG/DL Magnesium Level 2.4 1.6-2.4 MG/DL Total Bilirubin 0.2 0.1-1.0 MG/DL Aspartate Amino Transf (AST/SGOT) 44 H 5-34 U/L Alanine Aminotransferase (ALT/SGPT) 30 0-55 U/L Alkaline Phosphatase 155 H 40-136 U/L Troponin I < 0.30 <0.30 NG/ML Pro-B-Type Natriuretic Peptide 1606.0 H <125.0 PG/ML Total Protein 6.0 L 6.4-8.2 GM/DL Albumin 2.1 L 3.2-4.5 GM/DL Urine Color YELLOW Urine Clarity CLEAR Urine pH 6.0 5-9 Urine Specific [place] 1.025 H 1.016-1.022 Urine Protein 3+ H NEGATIVE Urine Glucose (UA) NEGATIVE NEGATIVE Urine Ketones NEGATIVE NEGATIVE Urine Nitrite NEGATIVE NEGATIVE Urine Bilirubin NEGATIVE NEGATIVE Urine Urobilinogen 0.2 < = 1.0 MG/DL Urine Leukocyte Esterase NEGATIVE NEGATIVE Urine RBC (Auto) 2+ H NEGATIVE Urine RBC 10-25 H /HPF Urine WBC NONE /HPF Urine Crystals NONE /LPF Urine Bacteria LARGE H /HPF Urine Casts NONE /LPF Urine Mucus NEGATIVE /LPF Urine Culture Indicated YES Lactic Acid Level 0.96 0.50-2.00 MMOL/L Influenza Type A (RT-PCR) Not Detected Not Detecte Influenza Type B (RT-PCR) Not Detected Not Detecte SARS-CoV-2 RNA (RT-PCR) Not Detected Not Detecte Group A Streptococcus Screen NEGATIVE NEGATIVE Percent Immature Platelet Fraction 9.4 H 0.0-7.6 % Absolute Reticulocyte Count 38 24-90 10e9/uL Percent Reticulocyte Count 1.49 0.50-2.40 % Results Labs Labs Laboratory Tests 06/28/22 12:36: White Blood Count 4.7, Red Blood Count 2.50L, Hemoglobin 7.1L, Hematocrit 22L, Mean Corpuscular Volume 89, Mean Corpuscular Hemoglobin 28, Mean Corpuscular Hemoglobin Concent 32, Red Cell Distribution Width 15.5H, Platelet Count 29*L, Mean Platelet Volume 10.7, Immature Granulocyte % (Auto) 0, Neutrophils (%) (Auto) 86H, Lymphocytes (%) (Auto) 9L, Monocytes (%) (Auto) 3, Eosinophils (%) (Auto) 1, Basophils (%) (Auto) 0, Neutrophils # (Auto) 4.1, Lymphocytes # (Auto) 0.4L, Monocytes # (Auto) 0.2, Eosinophils # (Auto) 0.1, Basophils # (Auto) 0.0, Immature Granulocyte # (Auto) 0.0, Prothrombin Time 15.0H, INR Comment 1.1, Activated Partial Thromboplast Time 54H, D-Dimer 1.75H, Sodium Level 143, Potassium Level 4.6, Chloride Level 112H, Carbon Dioxide Level 25, Anion Gap 6, Blood Urea Nitrogen 36H, Creatinine 2.16H, Estimat Glomerular Filtration Rate 36, BUN/Creatinine Ratio 17, Glucose Level 143H, Calcium Level 8.2L, Corrected Calcium 9.7, Magnesium Level 2.4, Total Bilirubin 0.2, Aspartate Amino Transf (AST/SGOT) 44H, Alanine Aminotransferase (ALT/SGPT) 30, Alkaline Phosphatase 155H, Troponin I < 0.30, Pro-B-Type Natriuretic Peptide 1606.0H, Total Protein 6.0L, Albumin 2.1L 06/28/22 13:12: Urine Color YELLOW, Urine Clarity CLEAR, Urine pH 6.0, Urine Specific [place] 1.025H, Urine Protein 3+H, Urine Glucose (UA) NEGATIVE, Urine Ketones NEGATIVE, Urine Nitrite NEGATIVE, Urine Bilirubin NEGATIVE, Urine Urobilinogen 0.2, Urine Leukocyte Esterase NEGATIVE, Urine RBC (Auto) 2+H, Urine RBC 10-25H, Urine WBC NONE, Urine Crystals NONE, Urine Bacteria LARGEH, Urine Casts NONE, Urine Mucus NEGATIVE, Urine Culture Indicated YES 06/28/22 13:20: Lactic Acid Level 0.96, Influenza Type A (RT-PCR) Not Detected, Influenza Type B (RT-PCR) Not Detected, SARS-CoV-2 RNA (RT-PCR) Not Detected, Group A Streptococcus Screen NEGATIVE 06/28/22 19:17: White Blood Count 3.4L, Red Blood Count 2.57L, Hemoglobin 7.4L, Hematocrit 23L, Mean Corpuscular Volume 89, Mean Corpuscular Hemoglobin 29, Mean Corpuscular Hemoglobin Concent 32, Red Cell Distribution Width 15.5H, Platelet Count 31*L, Mean Platelet Volume 11.0, Immature Granulocyte % (Auto) 1, Neutrophils (%) (Auto) 90H, Lymphocytes (%) (Auto) 6L, Monocytes (%) (Auto) 2, Eosinophils (%) (Auto) 1, Basophils (%) (Auto) 0, Neutrophils # (Auto) 3.0, Lymphocytes # (Auto) 0.2L, Monocytes # (Auto) 0.1, Eosinophils # (Auto) 0.0, Basophils # (Auto) 0.0, Immature Granulocyte # (Auto) 0.0, Percent Immature Platelet Fraction 9.4H, Absolute Reticulocyte Count 38, Percent Reticulocyte Count 1.49 Vital Signs Vitals Signs Source: Temporal, Heart Rate: 53, Respiratory Rate: 16, BP: 130/96, Pulse Oximetry: 99, Weight: 75.0 Vitals - Labs Vital Signs - I&O Vital Signs Date Time Temp Pulse Resp B/P (MAP) Pulse Ox O2 Delivery O2 Flow Rate FiO2 06/28/22 14:15 Nasal Cannula 2.00 94 06/28/22 12:54 36.2 53 16 130/96 99 Room Air 06/28/22 12:30 36.2 53 16 130/96 (107) 99 Room Air Labs Laboratory Tests 06/28/22 12:36: White Blood Count 4.7, Red Blood Count 2.50L, Hemoglobin 7.1L, Hematocrit 22L, Mean Corpuscular Volume 89, Mean Corpuscular Hemoglobin 28, Mean Corpuscular H emoglobin Concent 32, Red Cell Distribution Width 15.5H, Platelet Count 29*L, Mean Platelet Volume 10.7, Immature Granulocyte % (Auto) 0, Neutrophils (%) (Auto) 86H, Lymphocytes (%) (Auto) 9L, Monocytes (%) (Auto) 3, Eosinophils (%) (Auto) 1, Basophils (%) (Auto) 0, Neutrophils # (Auto) 4.1, Lymphocytes # (Auto) 0.4L, Monocytes # (Auto) 0.2, Eosinophils # (Auto) 0.1, Basophils # (Auto) 0.0, Immature Granulocyte # (Auto) 0.0, Prothrombin Time 15.0H, INR Comment 1.1, Activated Partial Thromboplast Time 54H, D-Dimer 1.75H, Sodium Level 143, Potassium Level 4.6, Chloride Level 112H, Carbon Dioxide Level 25, Anion Gap 6, Blood Urea Nitrogen 36H, Creatinine 2.16H, Estimat Glomerular Filtration Rate 36, BUN/Creatinine Ratio 17, Glucose Level 143H, Calcium Level 8.2L, Corrected Calcium 9.7, Magnesium Level 2.4, Total Bilirubin 0.2, Aspartate Amino Transf (AST/SGOT) 44H, Alanine Aminotransferase (ALT/SGPT) 30, Alkaline Phosphatase 155H, Troponin I < 0.30, Pro-B-Type Natriuretic Peptide 1606.0H, Total Protein 6.0L, Albumin 2.1L 06/28/22 13:12: Urine Color YELLOW, Urine Clarity CLEAR, Urine pH 6.0, Urine Specific [place] 1.025H, Urine Protein 3+H, Urine Glucose (UA) NEGATIVE, Urine Ketones NEGATIVE, Urine Nitrite NEGATIVE, Urine Bilirubin NEGATIVE, Urine Urobilinogen 0.2, Urine Leukocyte Esterase NEGATIVE, Urine RBC (Auto) 2+H, Urine RBC 10-25H, Urine WBC NONE, Urine Crystals NONE, Urine Bacteria LARGEH, Urine Casts NONE, Urine Mucus NEGATIVE, Urine Culture Indicated YES 06/28/22 13:20: Lactic Acid Level 0.96, Influenza Type A (RT-PCR) Not Detected, Influenza Type B (RT-PCR) Not Detected, SARS-CoV-2 RNA (RT-PCR) Not Detected, Group A Streptococcus Screen NEGATIVE 06/28/22 19:17: White Blood Count 3.4L, Red Blood Count 2.57L, Hemoglobin 7.4L, Hematocrit 23L, Mean Corpuscular Volume 89, Mean Corpuscular Hemoglobin 29, Mean Corpuscular Hemoglobin Concent 32, Red Cell Distribution Width 15.5H, Platelet Count 31*L, Mean Platelet Volume 11.0, Immature Granulocyte % (Auto) 1, Neutrophils (%) (Auto) 90H, Lymphocytes (%) (Auto) 6L, Monocytes (%) (Auto) 2, Eosinophils (%) (Auto) 1, Basophils (%) (Auto) 0, Neutrophils # (Auto) 3.0, Lymphocytes # (Auto) 0.2L, Monocytes # (Auto) 0.1, Eosinophils # (Auto) 0.0, Basophils # (Auto) 0.0, Immature Granulocyte # (Auto) 0.0, Percent Immature Platelet Fraction 9.4H, Absolute Reticulocyte Count 38, Percent Reticulocyte Count 1.49 DRAKE CALLES MD Jun 28, 2022 19:43
[2022-06-28 19:49] LABS: ANISOCYTOSIS SLIGHT; BAND NEUTROPHILS 2 %; BASOPHILS % (MANUAL) 0 %; EOSINOPHILS % (MANUAL) 0 %; LYMPHOCYTES % (MANUAL) 12 %; MONOCYTES % (MANUAL) 3 %; NEUTROPHILS % (MANUAL) 83 %; NUCLEATED RED BLOOD CELLS 2; POLYCHROMASIA SLIGHT
[2022-06-28] MEDS ORDERED: RT-ALBUTEROL/IPRATROPIUM 3 ML (DUONEB) VIAL INH PRN (20:00)
[2022-06-28] MEDS ORDERED: CEFEPIME INJECTION 2,000 MG in NS (IVPB) 50 ML IV SCH (21:00)
[2022-06-28] MEDS: DOCUSATE SODIUM 100 MG (COLACE) CAP PO SCH (21:07)
[2022-06-28] MEDS: CEFEPIME 1,000 MG/NS 50 ML IVPB IV SCH ×2 (23:34)
[2022-06-29 03:52] LABS: ABG BASE EXCESS -0.8 MMOL/L (-2.5-2.5); ABG OXYGEN SATURATION 97 % (94-100); ABG PCO2 49 MMHG (35-45); ABG PO2 81 MMHG (79-93)
[2022-06-29 03:53] LABS: ALLENS TEST YES-POS; INSPIRED O2 2L; PATIENT TEMP 36.8; VENTILATOR NO
[2022-06-29 03:54] LABS: ABG PH 7.32 (7.37-7.43)
[2022-06-29 04:14] LABS: MONOCYTES % (AUTO) 1 % (0-12)
[2022-06-29 04:15] LABS: BASOPHILS % (AUTO) 0 % (0-10); EOSINOPHILS % (AUTO) 0 % (0-10); HEMATOCRIT 21 % (40-54); LYMPHOCYTES # (AUTO) 0.2 10^3/uL (1.0-4.0); LYMPHOCYTES % (AUTO) 4 % (12-44); MEAN CORPUSCULAR HEMOGLOBIN 28 pg (25-34); MEAN CORPUSCULAR HGB CONC 32 g/dL (32-36); MEAN CORPUSCULAR VOLUME 89 fL (80-99); MEAN PLATELET VOLUME 12.5 fL (9.0-12.2); NEUTROPHILS # (AUTO) 5.7 10^3/uL (1.8-7.8); NEUTROPHILS % (AUTO) 95 % (42-75)
[2022-06-29 04:17] LABS: HEMOGLOBIN 6.6 g/dL (13.3-17.7); PLATELET COUNT 35 10^3/uL (130-400)
[2022-06-29 04:23] LABS: ALBUMIN 2.2 GM/DL (3.2-4.5); POTASSIUM 5.8 MMOL/L (3.6-5.0)
[2022-06-29 04:25] LABS: TOTAL PROTEIN 5.9 GM/DL (6.4-8.2)
[2022-06-29 04:27] LABS: BILIRUBIN,TOTAL 0.3 MG/DL (0.1-1.0)
[2022-06-29 04:28] LABS: PHOSPHORUS 6.3 MG/DL (2.3-4.7)
[2022-06-29 04:29] LABS: CREATININE SERUM 2.37 MG/DL (0.60-1.30)
[2022-06-29 04:32] LABS: MAGNESIUM 2.1 MG/DL (1.6-2.4)
[2022-06-29] MEDS ORDERED: DEXTROSE 50% 50 ML (IMS) SYR ONE (04:45)
[2022-06-29] MEDS ORDERED: DEXTROSE 50% 50 ML (IMS) SYR IV ONE ×2 (05:00→18:15)
[2022-06-29] MEDS ORDERED: LIDOCAINE UROJET 2% GEL 10 ML PKG TOP ONE (05:00)
[2022-06-29] MEDS: POTASSIUM CL 10MEQ/50ML IVPB 50 ML IV SCH (05:02)
[2022-06-29] MEDS: MAGNESIUM 1 GM/100 ML IVPB 100 ML IV SCH (05:02)
[2022-06-29] MEDS: KCL 20 MEQ TAB (K-DUR) PO SCH (05:02)
[2022-06-29] MEDS ORDERED: VANCOMYCIN INJECTION 1,500 MG in NS IV 500 ML 500 ML IV ONE (05:30)
--- NOTE | 2022-06-29 05:40 | History & Physical-Hospitalist ---
History of Present Illness HPI/Chief Complaint CC: Multi-system organ failure in intellectually challenged patient HPI: This is a 51yoWM intellectually delayed patient of Dr Marin who presented to the [facility] ER with lethargy and w/u ensued revealing CHF and CLAUDETTE on CKD along with possible PNA. Patient has had multiple hospital stays recently most recent was DC Thursday after pancreatitis. He has a recent h/o anemia requiring transfusions last admit and back in 01/2022 when I admitted him from PCP office for hgb 6.7 with negative EGD and Colonoscopy by Dr Jacobs 01/2022. He has a h/o seizure d/o and behavior problems and lives in shelter. Patient appears more and more declined since last seen. I spoke to EICU and he recommended surgery consult for pancreatitis recurrent in type and ordered CT abd and pelvis and hematology. I spoke to Dr Pettit and he will see the patient and Dr Aldridge evaluated the patient and had no new recommendations. Poor prognosis assessed and he is rapidly declining. Source: RN/, old records Date Seen 06/29/22 Time Seen by a Provider: 08:30 Attending Physician Portillo Marin MD PCP Admitting Physician: Laila Navarro DO Attending Physician: Laila Navarro DO Referring Physician Date of Admission Jun 28, 2022 at 18:50 Home Medications & Allergies Home Medications Reviewed patient Home Medication Reconciliation performed by pharmacy medication reconciliations costume technician and/or nursing. Patients Allergies have been reviewed. Allergies Allergies Uncoded Allergies PCN ( Allergy, Mild, 11/19/20) Past Iatlnag-Jltydu-Oshjct Hx Patient Social History Marrital Status: single Employed/Student: unemployed Tobacco Use?: No Smoking Status: Unknown if Ever Smoked Smokeless Tobacco Frequency: Unknown if Ever Used Use of E-Cig and/or Vaping dev: Unable to obtain Substance use?: Unable to obtain Alcohol Use?: Unable to obtain Pt feels they are or have been: Unable to obtain Immunizations Up To Date First/Initial COVID19 Vaccinat: YES Second COVID19 Vaccination Mike: YES Seasonal Allergies Seasonal Allergies: No Current Status Advance Directives: Unable to obtain Communicates: Unable To Communicate Primary Language: Cameroonian Preferred Spoken Language: Cameroonian Is interpretation needed?: No Past Medical History Asthma High Cholesterol, Hypertension Developmental Disorder, Seizure Disorder UTI-Chronic Gastroesophageal Reflux Spasms, Contracture Diabetes, Insulin dep Eye Injury Anxiety, Schizophrenia, Depression Family Medical History No Pertinent Family Hx Review of Systems Constitutional: see HPI Physical Exam Physical Exam Vital Signs Vital Signs - First Documented 06/28/22 06/28/22 12:30 14:15 Temp 36.2 Pulse 53 Resp 16 B/P (MAP) 130/96 (107) Pulse Ox 99 O2 Delivery Room Air O2 Flow Rate 2.00 FiO2 94 Capillary Refill : Less Than 3 Seconds Height, Weight, BMI Height: '" Weight: lbs. oz. kg; 26.92 BMI Method: General Appearance: Anxious, Chronically ill, Other (thin, pale) Respiratory: Lungs Clear, Normal Breath Sounds, Decreased Breath Sounds Cardiovascular: Regular Rate, Rhythm Neurologic/Psychiatric: Alert, Disoriented Results Results/Procedures Labs Laboratory Tests 06/28/22 12:36 06/28/22 19:17 06/29/22 04:05 06/29/22 11:56 Patient resulted labs reviewed. Assessment/Plan Admission Diagnosis Assessment: Sepsis from PNA Anemia requiring repeated transfusions since 01/2022 Thrombocytopenia will consult Hematology tomorrow when back on duty [employer] CLAUDETTE on CKD Hypothermia Left pleural effusion Acute on recurrent pancreatitis-consulting Dr Pettit Developmental delay Mental illness Seizure d/o DM Plan: ICU Prognosis guarded IV abx Dopamine Cards Surgery Hematology Admission Status: Inpatient Order (span 2 midnights) Reason for Inpatient Admission: sepsis Clinical Quality Measures DVT/VTE Risk/Contraindication: Contraindications-Pharm: Other *list below* Other: low plts LAILA NAVARRO DO Jun 29, 2022 05:40
[2022-06-29] MEDS: CEFEPIME 1,000 MG/NS 50 ML IVPB IV SCH ×4 (06:31→18:10)
[2022-06-29] MEDS ORDERED: NS IV 1000 ML 1,000 ML IV SCH (07:19)
[2022-06-29] MEDS ORDERED: SODIUM POLYSTYRENE POWDER 15 GM BOTTLE PO NR (07:45)
[2022-06-29] MEDS ORDERED: SODIUM BICARB 8.4% 50 MEQ/50 ML (ABBOTT) SYR IV NR ×2 (07:45→13:30)
[2022-06-29] MEDS ORDERED: CALC GLUC 1 GM/100 ML IVPB 100 ML IV ONE ×2 (07:45→13:30)
[2022-06-29] MEDS ORDERED: DEXTROSE 50% 50 ML (IMS) SYR IV NR (07:45)
[2022-06-29 08:05] LABS: AMYLASE 158 U/L (25-125)
--- NOTE | 2022-06-29 08:07 | Diagnostic Imaging Report ---
PROCEDURE: US Venous Lower Ext Jin. TECHNIQUE: Multiple real-time grayscale images were obtained over the lower extremities in various projections, bilaterally. Additional duplex Doppler and color Doppler images were also obtained. INDICATION: Altered mental status. Elevated d-dimer. COMPARISON: Non available. FINDINGS: The bilateral common femoral, femoral and popliteal veins are patent by color doppler imaging and without DVT. Visualized proximal aspects of the greater saphenous, deep femoral, posterior tibial and peroneal veins are also patent. All of the evaluated deep venous structures demonstrate normal compressibility and waveform augmentation where applicable. IMPRESSION: No deep venous thrombosis in either of the lower extremities. Dictated by: Dictated on workstation # [id number]
[2022-06-29 08:13] LABS: LIPASE 276 U/L (8-78)
[2022-06-29] MEDS: DOPamine DRIP 250 ML IV SCH (08:21)
[2022-06-29] MEDS: PANTOPRAZOLE 40 MG (PROTONIX) VIAL IV SCH (08:22)
[2022-06-29] MEDS: DOCUSATE SODIUM 100 MG (COLACE) CAP PO SCH ×2 (08:23→21:30)
--- NOTE | 2022-06-29 10:47 | Consultation-Cardiology ---
HPI-Cardiology Cardiology Consultation Date of Consultation 06/29/22 Date of Admission Time Seen by Provider: 10:43 Indication: Severe sepsis HPI Patient is unable to provide any history due to mental challenge History was obtained by reviewing his record. Patient was readmitted after hospitalization recently. He was having increasing congestion, he was noted to have pancytopenia, metabolic acidosis and hypoglycemia. He was started on antibiotics. On my evaluation was laying down in bed, does not appear short of breath, no ability to provide any problem or complaint Home Medications & Allergies Allergies: Uncoded Allergies: PCN (Allergy, Mild, 11/19/20) Home Medication List Reviewed: Yes SUG-[id number]-Bocrlb Hx Patient Social History Marital Status: single Employed/Student: unemployed Smoking Status: Unknown if Ever Smoked 2nd Hand Smoke Exposure: No Recent Hopitalizations: No Have you traveled recently?: No Alcohol Use?: Unable to obtain Past Medical History Discussed below Family Medical History Significant Family History: No Pertinent Family Hx Review of Systems-General Review of Systems Constitutional: see HPI, malaise, other (Unable to provide review of system) EENTM: nose congestion Respiratory: phlegm, wheezing Cardiovascular: no symptoms reported Gastrointestinal: loss of appetite Genitourinary: no symptoms reported Musculoskeletal: no symptoms reported Skin: no symptoms reported Psychiatric/Neurological: Other Reviewed Test Results Reviewed Test Results Lab Laboratory Tests Test 06/28/22 12:36 06/28/22 13:12 06/28/22 13:20 06/28/22 19:17 Range/Units White Blood Count 4.7 3.4 L 4.3-11.0 10^3/uL Red Blood Count 2.50 L 2.57 L 4.30-5.52 10^6/uL Hemoglobin 7.1 L 7.4 L 13.3-17.7 g/dL Hematocrit 22 L 23 L 40-54 % Mean Corpuscular Volume 89 89 80-99 fL Mean Corpuscular Hemoglobin 28 29 25-34 pg Mean Corpuscular Hemoglobin Concent 32 32 32-36 g/dL Red Cell Distribution Width 15.5 H 15.5 H 10.0-14.5 % Platelet Count 29 *L 31 *L 130-400 10^3/uL Mean Platelet Volume 10.7 11.0 9.0-12.2 fL Immature Granulocyte % (Auto) 0 1 % Neutrophils (%) (Auto) 86 H 90 H 42-75 % Lymphocytes (%) (Auto) 9 L 6 L 12-44 % Monocytes (%) (Auto) 3 2 0-12 % Eosinophils (%) (Auto) 1 1 0-10 % Basophils (%) (Auto) 0 0 0-10 % Neutrophils # (Auto) 4.1 3.0 1.8-7.8 10^3/uL Lymphocytes # (Auto) 0.4 L 0.2 L 1.0-4.0 10^3/uL Monocytes # (Auto) 0.2 0.1 0.0-1.0 10^3/uL Eosinophils # (Auto) 0.1 0.0 0.0-0.3 10^3/uL Basophils # (Auto) 0.0 0.0 0.0-0.1 10^3/uL Immature Granulocyte # (Auto) 0.0 0.0 0.0-0.1 10^3/uL Prothrombin Time 15.0 H 12.2-14.7 SEC INR Comment 1.1 0.8-1.4 Activated Partial Thromboplast Time 54 H 24-35 SEC D-Dimer 1.75 H 0.00-0.49 UG/ML Sodium Level 143 135-145 MMOL/L Potassium Level 4.6 3.6-5.0 MMOL/L Chloride Level 112 H 98-107 MMOL/L Carbon Dioxide Level 25 21-32 MMOL/L Anion Gap 6 5-14 MMOL/L Blood Urea Nitrogen 36 H 7-18 MG/DL Creatinine 2.16 H 0.60-1.30 MG/DL Estimat Glomerular Filtration Rate 36 BUN/Creatinine Ratio 17 Glucose Level 143 H 70-105 MG/DL Calcium Level 8.2 L 8.5-10.1 MG/DL Corrected Calcium 9.7 8.5-10.1 MG/DL Magnesium Level 2.4 1.6-2.4 MG/DL Total Bilirubin 0.2 0.1-1.0 MG/DL Aspartate Amino Transf (AST/SGOT) 44 H 5-34 U/L Alanine Aminotransferase (ALT/SGPT) 30 0-55 U/L Alkaline Phosphatase 155 H 40-136 U/L Troponin I < 0.30 <0.30 NG/ML Pro-B-Type Natriuretic Peptide 1606.0 H <125.0 PG/ML Total Protein 6.0 L 6.4-8.2 GM/DL Albumin 2.1 L 3.2-4.5 GM/DL Urine Color YELLOW Urine Clarity CLEAR Urine pH 6.0 5-9 Urine Specific [place] 1.025 H 1.016-1.022 Urine Protein 3+ H NEGATIVE Urine Glucose (UA) NEGATIVE NEGATIVE Urine Ketones NEGATIVE NEGATIVE Urine Nitrite NEGATIVE NEGATIVE Urine Bilirubin NEGATIVE NEGATIVE Urine Urobilinogen 0.2 < = 1.0 MG/DL Urine Leukocyte Esterase NEGATIVE NEGATIVE Urine RBC (Auto) 2+ H NEGATIVE Urine RBC 10-25 H /HPF Urine WBC NONE /HPF Urine Crystals NONE /LPF Urine Bacteria LARGE H /HPF Urine Casts NONE /LPF Urine Mucus NEGATIVE /LPF Urine Culture Indicated YES Lactic Acid Level 0.96 0.50-2.00 MMOL/L Influenza Type A (RT-PCR) Not Detected Not Detecte Influenza Type B (RT-PCR) Not Detected Not Detecte SARS-CoV-2 RNA (RT-PCR) Not Detected Not Detecte Group A Streptococcus Screen NEGATIVE NEGATIVE Neutrophils % (Manual) 83 % Lymphocytes % (Manual) 12 % Monocytes % (Manual) 3 % Eosinophils % (Manual) 0 % Basophils % (Manual) 0 % Band Neutrophils 2 % Nucleated Red Blood Cells 2 Percent Immature Platelet Fraction 9.4 H 0.0-7.6 % Polychromasia SLIGHT Basophilic Stippling SLIGHT Anisocytosis SLIGHT Macrocytosis SLIGHT Absolute Reticulocyte Count 38 24-90 10e9/uL Percent Reticulocyte Count 1.49 0.50-2.40 % Test 06/29/22 03:40 06/29/22 04:05 06/29/22 05:08 Range/Units Blood Gas Puncture Site LEFT RAD Blood Gas Patient Temperature 36.8 Arterial Blood pH 7.32 *L 7.37-7.43 Arterial Blood Partial Pressure CO2 49 H 35-45 MMHG Arterial Blood Partial Pressure O2 81 79-93 MMHG Arterial Blood HCO3 25 23-27 MMOL/L Arterial Blood Total CO2 26.0 21.0-31.0 MMOL/L Arterial Blood Oxygen Saturation 97 94-100 % Arterial Blood Base Excess -0.8 -2.5-2.5 MMOL/L Nura Test YES-POS Blood Gas Ventilator Setting NO Blood Gas Inspired Oxygen 2L White Blood Count 6.0 4.3-11.0 10^3/uL Red Blood Count 2.35 L 4.30-5.52 10^6/uL Hemoglobin 6.6 *L 13.3-17.7 g/dL Hematocrit 21 L 40-54 % Mean Corpuscular Volume 89 80-99 fL Mean Corpuscular Hemoglobin 28 25-34 pg Mean Corpuscular Hemoglobin Concent 32 32-36 g/dL Red Cell Distribution Width 15.4 H 10.0-14.5 % Platelet Count 35 *L 130-400 10^3/uL Mean Platelet Volume 12.5 H 9.0-12.2 fL Immature Granulocyte % (Auto) 1 % Neutrophils (%) (Auto) 95 H 42-75 % Lymphocytes (%) (Auto) 4 L 12-44 % Monocytes (%) (Auto) 1 0-12 % Eosinophils (%) (Auto) 0 0-10 % Basophils (%) (Auto) 0 0-10 % Neutrophils # (Auto) 5.7 1.8-7.8 10^3/uL Lymphocytes # (Auto) 0.2 L 1.0-4.0 10^3/uL Monocytes # (Auto) 0.0 0.0-1.0 10^3/uL Eosinophils # (Auto) 0.0 0.0-0.3 10^3/uL Basophils # (Auto) 0.0 0.0-0.1 10^3/uL Immature Granulocyte # (Auto) 0.0 0.0-0.1 10^3/uL Percent Immature Platelet Fraction 8.2 H 0.0-7.6 % Sodium Level 147 H 135-145 MMOL/L Potassium Level 5.8 H 3.6-5.0 MMOL/L Chloride Level 116 H 98-107 MMOL/L Carbon Dioxide Level 19 L 21-32 MMOL/L Anion Gap 12 5-14 MMOL/L Blood Urea Nitrogen 39 H 7-18 MG/DL Creatinine 2.37 H 0.60-1.30 MG/DL Estimat Glomerular Filtration Rate 32 BUN/Creatinine Ratio 16 Glucose Level 57 *L 70-105 MG/DL Calcium Level 8.0 L 8.5-10.1 MG/DL Corrected Calcium 9.4 8.5-10.1 MG/DL Phosphorus Level 6.3 H 2.3-4.7 MG/DL Magnesium Level 2.1 1.6-2.4 MG/DL Total Bilirubin 0.3 0.1-1.0 MG/DL Aspartate Amino Transf (AST/SGOT) 45 H 5-34 U/L Alanine Aminotransferase (ALT/SGPT) 35 0-55 U/L Alkaline Phosphatase 142 H 40-136 U/L Total Protein 5.9 L 6.4-8.2 GM/DL Albumin 2.2 L 3.2-4.5 GM/DL Amylase Level 158 H 25-125 U/L Lipase 276 H 8-78 U/L Glucometer 149 H 70-110 MG/DL Physical Exam Physical Exam Vital Signs Vital Signs - First Documented 06/28/22 06/28/22 12:30 14:15 Temp 36.2 Pulse 53 Resp 16 B/P (MAP) 130/96 (107) Pulse Ox 99 O2 Delivery Room Air O2 Flow Rate 2.00 FiO2 94 Capillary Refill : Less Than 3 Seconds Height, Weight, BMI Height: '" Weight: lbs. oz. 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 Patient is alert.) Skin: Pallor A/P-Cardiology Admission Diagnosis Pancreatitis Sepsis Pancytopenia Acute renal failure Assessment/Plan Recurrent pancreatitis, elevation in amylase and lipase Managed by medical team Sepsis, pancytopenia. Worsening H&H, platelet count. Receiving IV hydration and antibiotics. Consider hematology consultation Hypotension, secondary to sepsis. Receiving antibiotic and IV fluid Acute on chronic renal failure, worsening renal function, receiving IV fluid Metabolic acidosis, secondary to sepsis. 2D echo was done in June 2022 with normal LV function, ejection fraction 50 to 55%, mild aortic valve stenosis Mental retardation. Clinical Quality Measures DVT/VTE Risk/Contraindication: Contraindications-Pharm: Other *list below* Other: low plts OLIMPIA RAMOS MD Jun 29, 2022 10:47
[2022-06-29] MEDS ORDERED: inSUlin (REGULAR) HUMAN 1 UNIT/0.01 ML (CHARGE PER UNIT) IV SCH (11:00)
--- NOTE | 2022-06-29 11:51 | Tele-ICU Progress Note ---
Subjective Date Seen by a Provider: Jun 29, 2022 Time Seen by a Provider: 08:50 Subjective/Events-last exam (Tele-ICU Physician , Progress Note ) Service provided via interactive audio and video telecommunications E-CARE system to a patient admitted to ICU bed in [facility]. Patient is seen today due to persistent need of ICU care Available chart/ vitals / labs / Images reviewed Video assessment done using teleICU camera, rest of exam as per RN He is a 51 yr. old CM with history of schizoeffective disorder, intellectulayy challenged ,covid-19 infection in 03/27, recent hospitalisation with acute pancreatitis and chr. anemia now was brought from [facility] home with decreased mental status and chest congestion. EMS found him to have BS of 48 and given d10W with which his BS increased to 184. sepsis suspected and started on IV antibiotics. This am his hb further droped to 6.5gm and plts to 29k. last admission his hb around 7.5 and plts around 50k. no clinical evidence of bleeing noted. Also CXR suggestive of chf with elevate bnp. also his amylase and lipase are elevated. ongoing pancreatitis suspected. his potassium also increased along with elevated bun, and creatinine. His bp borderline.ordered 1 unit of prbc's and iv nahco3,calcium gluconate, d50w and iv reg. h. insulin iv along po kayxalate with followup cbc and bmp. I have ordered iv dopamine to improve bp and renal perfusion and will consider iv lasix. PE per RN Impression 1. Decreased mental status most likely from sepsis, hypoglycemia and poor oral intake 2.Acute and chr. diastolic and systolic CHF with dayana. pleural effusions. 3. Elevate amylase and lipase due to ongoing pancreatitis. 4.hyperkalemia due to acute renal failure. 5. acute and chr. ranal failure due to sepsis, chf and acute pancreatitis. 6.Acute and chronic throbocytopenia and anemia, etiology not clear but could due to sepsis and acute pancreatitis. 7.History of Covid-19 pneumonia Recommendations. 1. Transfuse 1 unit of prbc's and repeat cbc, and bmp. 2. start dopamine to improve bp and renal perfusion and then start lasix 3. IV antibiotics per primary care. 4.NPO except meds 5. Thrombocytopenia workup 6. Suggest Hematology and Surgical consultations. 7. US of gall bladder 8. CT of abdomen and pelvis with out contrast. 9. no anticoagulants for dvt prophylaxis for now as hb and plt's are low. will put on scd's 10. iv protonix for ulcer prophylaxis. Coordination of care with primary MD and bedside consultatnts. I am remotely monitoring this patient from Tele icu station in [place]. I am unable to do the bedside exam, and history/physical and pertinent information is taken from other notes in the computer and bedside staff. Certain portions of this document may have been dictated utilizing voice recognition technology such as [employer]. Inherent to this technology, typographical and grammatical errors may exist. As much as I am diligent to identify and correct to these mistakes, some errors may remain in the document. Critical care time devoted to this patient today is approximately 45 minutes. Sepsis Event Evaluation Height, Weight, BMI Height: '" Weight: lbs. oz. kg; 26.92 BMI Method: Focused Exam Lactate Level 06/28/22 13:20: Lactic Acid Level 0.96 Exam Exam Patient acknowledged, consented, and participated in this virtual visit which was conducted using real time audio/video Vital Signs Date Time Temp Pulse Resp B/P (MAP) Pulse Ox O2 Delivery O2 Flow Rate FiO2 06/29/22 11:00 36.2 78 15 98/63 (86) 90 Nasal Cannula 2.00 06/29/22 10:00 36 76 98/70 (81) 93 Nasal Cannula 2.00 06/29/22 09:00 35.7 76 21 96/69 (84) 92 Nasal Cannula 2.00 06/29/22 08:21 73 105/96 06/29/22 08:00 35.3 73 105/96 (102) 95 Nasal Cannula 2.00 06/29/22 07:38 36.2 06/29/22 07:00 35.2 73 88/69 (75) 97 Nasal Cannula 2.00 06/29/22 07:00 75 06/29/22 06:00 36.0 77 91/52 (65) 95 Nasal Cannula 2.00 06/29/22 05:00 36.3 79 27 100/56 (71) 95 Nasal Cannula 2.00 06/29/22 04:00 94 Nasal Cannula 2.00 06/29/22 04:00 36.6 80 95/77 (83) 94 Nasal Cannula 2.00 06/29/22 03:00 36.8 81 15 96 Nasal Cannula 2.00 06/29/22 02:00 36.7 81 22 90/66 (74) 93 Nasal Cannula 2.00 06/29/22 01:00 80 06/29/22 01:00 Nasal Cannula 2.00 06/29/22 01:00 35.9 79 29 96/68 (77) 93 Nasal Cannula 2.00 06/29/22 00:00 93 OxyMask 2.00 06/29/22 00:00 34.8 75 18 88/74 (79) 93 OxyMask 2.00 06/28/22 23:00 33.3 53 23 105/74 (84) 95 OxyMask 2.00 06/28/22 22:00 32.5 51 13 81/54 (63) 93 OxyMask 2.00 06/28/22 21:19 32.1 OxyMask 2.00 06/28/22 20:45 31.6 73 13 86/63 (71) 95 Nasal Cannula 2.00 06/28/22 20:15 31.4 53 16 112/76 (88) 93 Nasal Cannula 2.00 06/28/22 19:45 31.2 55 22 116/79 (91) 92 Nasal Cannula 2.00 06/28/22 19:40 36.2 53 99 21 06/28/22 19:30 31.0 54 29 119/84 (96) 97 Nasal Cannula 2.00 06/28/22 19:15 52 13 116/83 (94) 98 Nasal Cannula 2.00 06/28/22 19:13 53 06/28/22 19:00 53 13 123/78 (93) 99 Nasal Cannula 2.00 06/28/22 18:50 95 Nasal Cannula 2.00 06/28/22 14:15 Nasal Cannula 2.00 94 06/28/22 12:54 36.2 53 16 130/96 99 Room Air 06/28/22 12:30 36.2 53 16 130/96 (107) 99 Room Air I & O 06/29/22 07:00 Intake Total 50 ml Output Total 325 ml Balance -275 ml Height & Weight Height: '" Weight: lbs. oz. 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 Patient is alert.) Skin: Pallor Other comments PE PER RN Results Lab Laboratory Tests 06/28/22 12:36 06/28/22 19:17 06/29/22 04:05 Assessment/Plan Assessment/Plan ABOVE Critical Care: Critically Ill Patient Time spent with patient (mins): 45 ESTHER MERCADO MD Jun 29, 2022 11:51
[2022-06-29 12:15] LABS: MEAN PLATELET VOLUME 11.8 fL (9.0-12.2); WHITE BLOOD COUNT 12.2 10^3/uL (4.3-11.0)
[2022-06-29 12:18] LABS: HEMOGLOBIN 6.7 g/dL (13.3-17.7)
[2022-06-29 12:21] LABS: CALCIUM 8.1 MG/DL (8.5-10.1)
[2022-06-29 12:25] LABS: CREATININE SERUM 2.61 MG/DL (0.60-1.30)
[2022-06-29 12:28] LABS: POTASSIUM 5.7 MMOL/L (3.6-5.0)
[2022-06-29] MEDS: NOREPINEPHRINE 8 MG/250 ML 250 ML IV SCH (12:33)
[2022-06-29] MEDS ORDERED: NS IV 500 ML 500 ML IV SCH ×2 (12:45)
[2022-06-29] MEDS ORDERED: FUROSEMIDE 40 MG/4 ML INJ (LASIX) IVP NR (13:00)
[2022-06-29] MEDS ORDERED: PHYTONADIONE (ADULT) INJECTION 10 MG in NS (IVPB) 50 ML IV NR (13:00)
[2022-06-29] MEDS ORDERED: inSUlin (REGULAR) HUMAN 1 UNIT/0.01 ML (CHARGE PER UNIT) IV NR (13:30)
--- NOTE | 2022-06-29 14:14 | Diagnostic Imaging Report ---
CT ABDOMEN/PELVIS WO TECHNIQUE: Unenhanced CT imaging of the abdomen and pelvis was performed. 2-D reformats are created and submitted for interpretation. Automatic exposure controls were utilized to optimize patient dose. INDICATION: Pancreatitis COMPARISON: 06/19/2022 FINDINGS: Lower chest: Unchanged small to moderate bilateral pleural effusions. Peribronchial thickening in the right lower lobe has worsened but could be accentuated due to respiratory motion artifact. Peritoneum: No free intraperitoneal air or fluid. Liver and biliary system: Unenhanced liver is normal. The gallbladder is normal. No biliary duct dilation. Spleen and Pancreas: Spleen is normal. Unenhanced pancreas is grossly normal. Adrenals: Normal. tract: No renal or ureteral calculi. No obstructive uropathy. Urinary bladder is partially distended with air from the indwelling Lopez catheter. No wall thickening. GI tract: Stomach is decompressed. No bowel obstruction. There is a loop of small bowel in a right lower quadrant indirect inguinal hernia. No pericolonic inflammatory changes. Normal appendix. Vasculature and Lymph nodes: Normal caliber aorta. No abdominal or pelvic lymphadenopathy. Musculoskeletal: Severe osteoarthritis of the right hip. IMPRESSION: 1. No CT changes of acute pancreatitis. No peripancreatic fluid collection. 2. Unchanged small to moderate bilateral pleural effusions. 3. Indirect right inguinal hernia contains a loop of small bowel. There is no bowel obstruction or features of strangulation. Dictated by: Dictated on workstation # [id number]
[2022-06-29 14:30] VITALS: BP 110/65
[2022-06-29 14:45] VITALS: BP 104/78
[2022-06-29 14:47] VITALS: BP 104/78
[2022-06-29 15:02] VITALS: BP 92/74
[2022-06-29] MEDS: DEXTROSE 50% 50 ML (IMS) SYR IV NR ×2 (15:04→16:10)
--- NOTE | 2022-06-29 15:33 | Consultation - Surgery ---
PENNIE WILBURN 06/29/22 1533: History of Present Illness History of Present Illness Patient Consulted On(diane/time) 06/29/22 15:30 Date Seen by Provider: Jun 29, 2022 Time Seen by Provider: 15:31 Reason for Visit: Severe sepsis History of Present Illness Wong Ramirez is a 51M with past medical history of intellectual disability, T2DM, pancreatitis, HTN, HLD, GERD, and asthma who arrived to the ED on 06/28 after being found to have altered mental status and low blood sugar. He was recently admitted for issues including pancreatitis, anemia, and hypothermia. In the ED he was found to have low temps, low Hgb, low platelets, elevated creatinine, and an elevated D dimer. Head CT was negative for acute intracranial process. CT did not reveal acute pancreatitis changes. Venous doppler was negative. He was seen at bedside in the ICU. He has limited ability to communicate due to his baseline mental condition. He is able to answer yes and no to my questions. He denies abdominal pain and chest pain. RN reports no hematemesis or bloody stools. Temperature has improved to 36. One unit of RBCs being transfused. Allergies and Home Medications Allergies Uncoded Allergies: PCN (Allergy, Mild, 11/19/20) Patient Home Medication List Home Medication List Reviewed: Yes Amlodipine Besylate (Norvasc) 5 Mg Tablet, 5 MG PO DAILY Prescribed by: DESIRAE NAVARRO on 06/23/22 1055 Atorvastatin Calcium (Atorvastatin Calcium) 20 Mg Tablet, 20 MG PO DAILY, (Reported) Entered as Reported by: BONILLA CERVANTES on 01/06/22 1526 Cariprazine Hydrochloride (Vraylar) 3 Mg Capsule, 3 MG PO DAILY, (Reported) Entered as Reported by: TERRELL LEE on 06/20/22 0855 Cholecalciferol (Vitamin D3) (Vitamin D3) 50 Mcg (2000 Unit) Tablet, 100 MCG PO DAILY, (Reported) Entered as Reported by: TERRELL LEE on 06/20/22 0855 Clonidine HCl (Clonidine HCl) 0.1 Mg Tablet, 0.1 MG PO TID, (Reported) Entered as Reported by: BONILLA CERVANTES on 01/06/22 1526 Divalproex Sodium (Divalproex Sodium) 250 Mg Tablet.dr, 250 MG PO BID, (Reported) Entered as Reported by: TERRELL LEE on 06/20/22 0855 Escitalopram Oxalate (Escitalopram Oxalate) 10 Mg Tablet, 10 MG PO DAILY, (Reported) Entered as Reported by: BONILLA CERVANTES on 01/06/221525 Ferrous Sulfate (Ferosul) 325 Mg (65 Mg Iron) Tablet, 325 MG PO BID, (Reported) Entered as Reported by: BONILLA CERVANTES on 01/06/221525 Folic Acid (Folic Acid) 1 Mg Tablet, 1 MG PO DAILY, (Reported) Entered as Reported by: TERRELL LEE on 06/20/22 08 Metoprolol Tartrate (Metoprolol Tartrate) 25 Mg Tablet, 25 MG PO BID, (Reported) Entered as Reported by: BONILLA CERVANTES on 01/06/221525 Miconazole Nitrate (Lotrimin AF) 2 % Aero.powd, 1 APPLIC TP BID, (Reported) Entered as Reported by: TERRELL LEE on 06/20/22 08 Pantoprazole Sodium (Pantoprazole Sodium) 40 Mg Tablet.dr, 40 MG PO DAILY, (Reported) Entered as Reported by: BONILLA CERVANTES on 01/06/221525 Pantoprazole Sodium (Pantoprazole Sodium) 40 Mg Tablet.dr, 40 MG PO DAILY Prescribed by: TERRY LOPEZ on 06/25/22 1317 Umeclidinium Brm/Vilanterol Tr (Anoro Ellipta 62.5-25 Mcg INH) 62.5 Mcg-25 Mcg/Actuation Blst.w.dev, 1 EACH IH DAILY, (Reported) Entered as Reported by: BONILLA CERVANTES on 01/06/221525 Discontinued Medications Amlodipine Besylate (Amlodipine Besylate) 10 Mg Tablet, 10 MG PO DAILY, (Reported) Entered as Reported by: BONILLA CERVANTES on 01/06/221525 Past Mlpzhym-Bhhkkb-Xakxpi Hx Patient Social History Smoking Status: Unknown if Ever Smoked 2nd Hand Smoke Exposure: No Recent Hopitalizations: No Alcohol Use?: Unable to obtain Have you traveled recently?: No Seasonal Allergies Seasonal Allergies: No Surgeries History of Surgeries: Yes Surgeries: Eye Surgery (cataract) Respiratory History of Respiratory Disorde: Yes Respiratory Disorders: Asthma Cardiovascular History of Cardiac Disorders: Yes Cardiac Disorders: High Cholesterol, Hypertension Neurological History of Neurological Disord: Yes Neurological Disorders: Developmental Disorder, Seizure Disorder Genitourinary History of Genitourinary Disor: Yes Genitourinary Disorders: UTI-Chronic Gastrointestinal History of Gastrointestinal Di: Yes Gastrointestinal Disorders: Gastroesophageal Reflux, Pancreatitis Musculoskeletal History of Musculoskeletal Dis: Yes Musculoskeletal Disorders: Spasms, Contracture Endocrine History of Endocrine Disorders: Yes Endocrine Disorders: Diabetes, Insulin dep HEENT History of HEENT Disorders: Yes HEENT Disorders: Cataract Cancer History of Cancer: No Psychosocial History of Psychiatric Problem: Yes Behavioral Health Disorders: Anxiety, Schizophrenia, Depression Integumentary History of Skin or Integumenta: No Family Medical History Significant Family History: Other Conditions/Hx (unable to obtain family history) Review of Systems-General ROS-Unable to Obtain: Limited ROS due to patient baseline condition Respiratory: short of breath Cardiovascular: No chest pain Gastrointestinal: No abdominal pain, No hematemesis Psychiatric/Neurological: Pre-Existing Deficit Physical Exam-General Problems Physical Exam Vital Signs Vital Signs - First Documented 06/28/22 06/28/22 12:30 14:15 Temp 36.2 Pulse 53 Resp 16 B/P (MAP) 130/96 (107) Pulse Ox 99 O2 Delivery Room Air O2 Flow Rate 2.00 FiO2 94 Capillary Refill : Less Than 3 Seconds General Appearance: mild distress HEENT: PERRL/EOMI; No scleral icterus (R), No scleral icterus (L) Neck: full range of motion, supple Respiratory: chest non-tender, no respiratory distress, other (coarse sounds bilaterally, slightly worse on R. Respiratory secretions present on exam) Cardiovascular: normal peripheral pulses, regular rate, rhythm Gastrointestinal: non tender, soft; No distended Rectal: deferred Extremities: no pedal edema, normal capillary refill Neurologic/Psychiatric: alert, other (preexisting defecits. Limited ability to communicate) Skin: warm/dry, pallor Lymphatic: no adenopathy Data Review Labs Laboratory Tests 06/28/22 19:17: White Blood Count 3.4L, Red Blood Count 2.57L, Hemoglobin 7.4L, Hematocrit 23L, Mean Corpuscular Volume 89, Mean Corpuscular Hemoglobin 29, Mean Corpuscular Hemoglobin Concent 32, Red Cell Distribution Width 15.5H, Platelet Count 31*L, Mean Platelet Volume 11.0, Immature Granulocyte % (Auto) 1, Neutrophils (%) (Auto) 90H, Lymphocytes (%) (Auto) 6L, Monocytes (%) (Auto) 2, Eosinophils (%) (Auto) 1, Basophils (%) (Auto) 0, Neutrophils # (Auto) 3.0, Lymphocytes # (Auto) 0.2L, Monocytes # (Auto) 0.1, Eosinophils # (Auto) 0.0, Basophils # (Auto) 0.0, Immature Granulocyte # (Auto) 0.0, Neutrophils % (Manual) 83, Lymphocytes % (Manual) 12, Monocytes % (Manual) 3, Eosinophils % (Manual) 0, Basophils % (Manual) 0, Band Neutrophils 2, Nucleated Red Blood Cells 2, Percent Immature Platelet Fraction 9.4H, Polychromasia SLIGHT, Basophilic Stippling SLIGHT, Anisocytosis SLIGHT, Macrocytosis SLIGHT, Absolute Reticulocyte Count 38, Percent Reticulocyte Count 1.49 06/29/22 03:40: Blood Gas Puncture Site LEFT RAD, Blood Gas Patient Temperature 36.8, Arterial Blood pH 7.32*L, Arterial Blood Partial Pressure CO2 49H, Arterial Blood Partial Pressure O2 81, Arterial Blood HCO3 25, Arterial Blood Total CO2 26.0, Arterial Blood Oxygen Saturation 97, Arterial Blood Base Excess -0.8, Nura Test YES-POS, Blood Gas Ventilator Setting NO, Blood Gas Inspired Oxygen 2L 06/29/22 04:05: White Blood Count 6.0, Red Blood Count 2.35L, Hemoglobin 6.6*L, Hematocrit 21L, Mean Corpuscular Volume 89, Mean Corpuscular Hemoglobin 28, Mean Corpuscular Hemoglobin Concent 32, Red Cell Distribution Width 15.4H, Platelet Count 35*L, Mean Platelet Volume 12.5H, Immature Granulocyte % (Auto) 1, Neutrophils (%) (Auto) 95H, Lymphocytes (%) (Auto) 4L, Monocytes (%) (Auto) 1, Eosinophils (%) (Auto) 0, Basophils (%) (Auto) 0, Neutrophils # (Auto) 5.7, Lymphocytes # (Auto) 0.2L, Monocytes # (Auto) 0.0, Eosinophils # (Auto) 0.0, Basophils # (Auto) 0.0, Immature Granulocyte # (Auto) 0.0, Percent Immature Platelet Fraction 8.2H, Sodium Level 147H, Potassium Level 5.8H, Chloride Level 116H, Carbon Dioxide Level 19L, Anion Gap 12, Blood Urea Nitrogen 39H, Creatinine 2.37H, Estimat Glomerular Filtration Rate 32, BUN/Creatinine Ratio 16, Glucose Level 57*L, Calcium Level 8.0L, Corrected Calcium 9.4, Phosphorus Level 6.3H, Magnesium Level 2.1, Total Bilirubin 0.3, Aspartate Amino Transf (AST/SGOT) 45H, Alanine Aminotransferase (ALT/SGPT) 35, Alkaline Phosphatase 142H, Total Protein 5.9L, Albumin 2.2L, Amylase Level 158H, Lipase 276H 06/29/22 05:08: Glucometer 149H 06/29/22 11:56: White Blood Count 12.2H, Red Blood Count 2.38L, Hemoglobin 6.7*L, Hematocrit 21L , Mean Corpuscular Volume 88, Mean Corpuscular Hemoglobin 28, Mean Corpuscular Hemoglobin Concent 32, Red Cell Distribution Width 15.4H, Platelet Count 33*L, Mean Platelet Volume 11.8, Percent Immature Platelet Fraction 8.3H, Sodium Level 148H, Potassium Level 5.7H, Chloride Level 116H, Carbon Dioxide Level 20L, Anion Gap 12, Blood Urea Nitrogen 43H, Creatinine 2.61H, Estimat Glomerular Filtration Rate 29, BUN/Creatinine Ratio 16, Glucose Level 78, Calcium Level 8.1L 06/29/22 12:19: Glucometer 73 06/29/22 14:06: Glucometer 67L Microbiology 06/28/22 Throat Culture - Preliminary, Resulted No Beta Strep isolated 06/28/22 Blood Culture - Preliminary, Resulted No growth 06/28/22 Urine Culture - Preliminary, Resulted NO GROWTH Radiology [facility] [place], [place] NAME: WONG RAMIREZ [facility] REC#: [id number] PT STATUS: ADM IN : 1970 PHYSICIAN: ESTHER MERCADO MD ADMIT DATE: 06/28/22/ICU Signed Date of Exam:06/29/22 CT ABDOMEN/PELVIS WO CT ABDOMEN/PELVIS WO TECHNIQUE: Unenhanced CT imaging of the abdomen and pelvis was performed. 2-D reformats are created and submitted for interpretation. Automatic exposure controls were utilized to optimize patient dose. INDICATION: Pancreatitis COMPARISON: 06/19/2022 FINDINGS: Lower chest: Unchanged small to moderate bilateral pleural effusions. Peribronchial thickening in the right lower lobe has worsened but could be accentuated due to respiratory motion artifact. Peritoneum: No free intraperitoneal air or fluid. Liver and biliary system: Unenhanced liver is normal. The gallbladder is normal. No biliary duct dilation. Spleen and Pancreas: Spleen is normal. Unenhanced pancreas is grossly normal. Adrenals: Normal. tract: No renal or ureteral calculi. No obstructive uropathy. Urinary bladder is partially distended with air from the indwelling Peters catheter. No wall thickening. GI tract: Stomach is decompressed. No bowel obstruction. There is a loop of small bowel in a right lower quadrant indirect inguinal hernia. No pericolonic inflammatory changes. Normal appendix. Vasculature and Lymph nodes: Normal caliber aorta. No abdominal or pelvic lymphadenopathy. Musculoskeletal: Severe osteoarthritis of the right hip. IMPRESSION: 1. No CT changes of acute pancreatitis. No peripancreatic fluid collection. 2. Unchanged small to moderate bilateral pleural effusions. 3. Indirect right inguinal hernia contains a loop of small bowel. There is no bowel obstruction or features of strangulation. Dictated by: Dictated on workstation # [id number] Dict: 06/29/22 1359 Trans: 06/29/[address] [facility] [id number] Interpreted by: PENG PATRICIA MD Electronically signed by: PENG PATRICIA MD 06/29/22 7456 Assessment/Plan Assessment/Plan Assessment/Plan Elevated lipase consistent with chronic pancreatitis Anemia Thrombocytopenia Pleural effusion Hypothermia Hyperkalemia Elevated creatinine, CKD Gallbladder u/s ordered for tomorrow to rule out gallstone pancreatitis Amylase and lipase elevated, continue IVF and pain control Dopamine ordered by EICU to increase BP and renal perfusion tranfusing 1 unit of LRRBCs, continue to monitor Hgb, monitor for signs of bleeding Heme consult for thrombocytopenia, no signs of active bleeding at this time Adolfo hugger in place, temperatures improved Potassium abnormalities managed by medicine, 5.8, given calcium gluconate, bicarb, and insulin IVF, monitor creatinine and electrolytes, peters in place monitor output SCDs for DCT prophylaxis IV protonix for ulcer prophylaxis Clinical Quality Measures DVT/VTE Risk/Contraindication: Contraindications-Pharm: Other *list below* Other: low plts ROSALIO WATTS DO 06/29/222026: History of Present Illness History of Present Illness History of Present Illness Consult requested by Dr. Navarro for recurrent pancreatitis. Found to have altered mental status compared to his normal. He was found to have low temperature as well. Was recently discharged for pancreatitis. Patient no t able to answer questions very well. He is currently getting blood due to anemia and is on Protonix. Patient does not seem to have any abdominal pain and shes his head no when asked. No care givers at bedside. Ct scan reviewed with no acute pancreatitis chnages, right inguinal hernia. Allergies and Home Medications Allergies Uncoded Allergies: PCN (Allergy, Mild, 11/19/20) Patient Home Medication List Home Medication List Reviewed: Yes Amlodipine Besylate (Norvasc) 5 Mg Tablet, 5 MG PO DAILY Prescribed by: DESIRAE NAVARRO on 06/23/22 1055 Atorvastatin Calcium (Atorvastatin Calcium) 20 Mg Tablet, 20 MG PO DAILY, (Reported) Entered as Reported by: BONILLA CERVANTES on 01/06/22 1526 Cariprazine Hydrochloride (Vraylar) 3 Mg Capsule, 3 MG PO DAILY, (Reported) Entered as Reported by: TERRELL LEE on 06/20/22 0855 Cholecalciferol (Vitamin D3) (Vitamin D3) 50 Mcg (2000 Unit) Tablet, 100 MCG PO DAILY, (Reported) Entered as Reported by: TERRELL LEE on 06/20/22 0855 Clonidine HCl (Clonidine HCl) 0.1 Mg Tablet, 0.1 MG PO TID, (Reported) Entered as Reported by: BONILLA CERVANTES on 01/06/22 1526 Divalproex Sodium (Divalproex Sodium) 250 Mg Tablet.dr, 250 MG PO BID, (Reported) Entered as Reported by: TERRELL LEE on 06/20/22 0855 Escitalopram Oxalate (Escitalopram Oxalate) 10 Mg Tablet, 10 MG PO DAILY, (Reported) Entered as Reported by: BONILLA CERVANTES on 01/06/22 1526 Ferrous Sulfate (Ferosul) 325 Mg (65 Mg Iron) Tablet, 325 MG PO BID, (Reported) Entered as Reported by: BONILLA CERVANTES on 01/06/22 1526 Folic Acid (Folic Acid) 1 Mg Tablet, 1 MG PO DAILY, (Reported) Entered as Reported by: TERRELL LEE on 06/20/22 0855 Metoprolol Tartrate (Metoprolol Tartrate) 25 Mg Tablet, 25 MG PO BID, (Reported) Entered as Reported by: BONILLA CERVANTES on 01/06/221525 Miconazole Nitrate (Lotrimin AF) 2 % Aero.powd, 1 APPLIC TP BID, (Reported) Entered as Reported by: TERRELL LEE on 06/20/22 0855 Pantoprazole Sodium (Pantoprazole Sodium) 40 Mg Tablet.dr, 40 MG PO DAILY, (Reported) Entered as Reported by: BONILLA CERVANTES on 01/06/22 152 Pantoprazole Sodium (Pantoprazole Sodium) 40 Mg Tablet.dr, 40 MG PO DAILY Prescribed by: TERRY LOPEZ on 06/25/22 1317 Umeclidinium Brm/Vilanterol Tr (Anoro Ellipta 62.5-25 Mcg INH) 62.5 Mcg-25 Mcg/Actuation Blst.w.dev, 1 EACH IH DAILY, (Reported) Entered as Reported by: BONILLA CERVANTES on 01/06/221525 Discontinued Medications Amlodipine Besylate (Amlodipine Besylate) 10 Mg Tablet, 10 MG PO DAILY, (Reported) Entered as Reported by: BONILLA CERVANTES on 01/06/221525 Past Ulzoefy-Meeesx-Djiqmc Hx Reviewed Nursing Assessment Reviewed/Agree w Nursing PMH: Yes Family Medical History Significant Family History: No Pertinent Family Hx Review of Systems-General ROS-Unable to Obtain: limitied due to patient ability Physical Exam-General Problems Physical Exam General Appearance: WD/WN, mild distress (moving around slighltly in bed) HEENT: PERRL/EOMI, normal ENT inspection Neck: non-tender, supple Respiratory: chest non-tender, no respiratory distress, other (coarse sounds bilaterally, slightly worse on R. Respiratory secretions present on exam) Cardiovascular: regular rate, rhythm Gastrointestinal: non tender, soft; No distended Rectal: deferred Back: normal inspection, no CVA tenderness Extremities: non-tender, no pedal edema Neurologic/Psychiatric: alert, other (preexisting defecits. Limited ability to communicate) Skin: warm/dry, pallor Lymphatic: no adenopathy Assessment/Plan Assessment/Plan Assessment/Plan Elevated lipase consistent with chronic pancreatitis Anemia Thrombocytopenia Pleural effusion Hypothermia Hyperkalemia Elevated creatinine, CKD Gallbladder u/s ordered for tomorrow to rule out gallstone pancreatitis Amylase and lipase elevated, continue IVF and pain control Dopamine ordered by EICU to increase BP and renal perfusion tranfusing 1 unit of LRRBCs, continue to monitor Hgb, monitor for signs of bleeding Heme consult for thrombocytopenia, no signs of active bleeding at this time Adolfo hugger in place, temperatures improved Potassium abnormalities managed by medicine, 5.8, given calcium gluconate, bicarb, and insulin IVF, monitor creatinine and electrolytes, peters in place monitor output SCDs for DCT prophylaxis IV protonix for ulcer prophylaxis Supervisory-Addendum Brief Verification & Attestation Participated in pt care: history, MDM, physical Personally performed: exam, history, MDM, supervision of care Care discussed with: Medical Student Procedures: n/a Results interpretation: Verified all documentation Verification and Attestation of Medical Student E/M Service A medical student performed and documented this service in my presence. I reviewed and verified all information documented by the medical student and made modifications to such information, when appropriate. I personally performed the physical exam and medical decision making. Rosalio Watts, Jun 29, 2022,20:29 PENNIE WILBURN Jun 29, 2022 15:33 ROSALIO WATTS DO Jun 29, 2022 20:27
[2022-06-29 15:59] VITALS: BP 109/56
[2022-06-29 18:01] LABS: HEMOGLOBIN 7.5 g/dL (13.3-17.7); MEAN PLATELET VOLUME 12.2 fL (9.0-12.2); WHITE BLOOD COUNT 14.9 10^3/uL (4.3-11.0)
[2022-06-29 18:08] LABS: POTASSIUM 5.5 MMOL/L (3.6-5.0)
[2022-06-29 18:09] LABS: CALCIUM 8.4 MG/DL (8.5-10.1)
[2022-06-29 18:14] LABS: CREATININE SERUM 2.8 MG/DL (0.60-1.30)
[2022-06-29] MEDS ORDERED: HYDROCORTISONE 100 MG/2 ML (Solu-CORTEF) VIAL ONE (18:16)
[2022-06-29] MEDS: HYDROCORTISONE 100 MG/2 ML (Solu-CORTEF) VIAL IV SCH ×2 (18:17→22:57)
[2022-06-29] MEDS ORDERED: DEXTROSE 10% IV SOLUTION 1,000 ML IV ONE (18:48)
[2022-06-29] MEDS: DEXTROSE 10% IV SOLUTION 1,000 ML IV SCH (18:56)
[2022-06-30 04:15] LABS: BASOPHILS % (AUTO) 0 % (0-10); EOSINOPHILS % (AUTO) 0 % (0-10); HEMOGLOBIN 8.1 g/dL (13.3-17.7)
[2022-06-30 04:17] LABS: HEMATOCRIT 24 % (40-54); LYMPHOCYTES # (AUTO) 0.5 10^3/uL (1.0-4.0); LYMPHOCYTES % (AUTO) 3 % (12-44); MEAN CORPUSCULAR HEMOGLOBIN 29 pg (25-34); MEAN CORPUSCULAR HGB CONC 34 g/dL (32-36); MEAN CORPUSCULAR VOLUME 87 fL (80-99); MEAN PLATELET VOLUME 11.3 fL (9.0-12.2); MONOCYTES # (AUTO) 0.3 10^3/uL (0.0-1.0); MONOCYTES % (AUTO) 2 % (0-12); NEUTROPHILS % (AUTO) 93 % (42-75); PLATELET COUNT 48 10^3/uL (130-400); WHITE BLOOD COUNT 14.1 10^3/uL (4.3-11.0)
[2022-06-30 04:27] LABS: ALBUMIN 2.5 GM/DL (3.2-4.5); POTASSIUM 5.4 MMOL/L (3.6-5.0)
[2022-06-30 04:28] LABS: CALCIUM 8.5 MG/DL (8.5-10.1)
[2022-06-30 04:30] LABS: TOTAL PROTEIN 6.3 GM/DL (6.4-8.2)
[2022-06-30 04:31] LABS: BILIRUBIN,TOTAL 0.5 MG/DL (0.1-1.0); INR 1.2 (0.8-1.4); PROTHROMBIN TIME PATIENT 15.3 SEC (12.2-14.7)
[2022-06-30 04:33] LABS: CREATININE SERUM 3.18 MG/DL (0.60-1.30); PHOSPHORUS 5.6 MG/DL (2.3-4.7)
[2022-06-30] MEDS: NOREPINEPHRINE 8 MG/250 ML 250 ML IV SCH ×2 (04:35→22:14)
[2022-06-30 04:36] LABS: MAGNESIUM 2.2 MG/DL (1.6-2.4)
[2022-06-30] MEDS: KCL 20 MEQ TAB (K-DUR) PO SCH (04:36)
[2022-06-30] MEDS: POTASSIUM CL 10MEQ/50ML IVPB 50 ML IV SCH (04:36)
[2022-06-30 04:57] LABS: ABG BASE EXCESS 1.2 MMOL/L (-2.5-2.5); ABG OXYGEN SATURATION 93 % (94-100); ABG PCO2 43 MMHG (35-45); ABG PH 7.39 (7.37-7.43); ABG PO2 62 MMHG (79-93)
[2022-06-30 04:58] LABS: ALLENS TEST YES-POS; INSPIRED O2 2L; PATIENT TEMP 36.6; VENTILATOR NO
[2022-06-30] MEDS: MAGNESIUM 1 GM/100 ML IVPB 100 ML IV SCH (05:04)
--- NOTE | 2022-06-30 05:24 | Progress Note - Hospitalist ---
Subjective HPI/CC On Admission Date Seen by Provider: Jun 30, 2022 Time Seen by Provider: 09:00 CC: Multi-system organ failure in intellectually challenged patient HPI: This is a 51yoWM intellectually delayed patient of Dr Marin who presented to the [facility] ER with lethargy and w/u ensued revealing CHF and CLAUDETTE on CKD along with possible PNA. Patient has had multiple hospital stays recently most recent was DC Thursday after pancreatitis. He has a recent h/o anemia requiring transfusions last admit and back in 01/2022 when I admitted him from PCP office for hgb 6.7 with negative EGD and Colonoscopy by Dr Jacobs 01/2022. He has a h/o seizure d/o and behavior problems and lives in correction. Patient appears more and more declined since last seen. I spoke to EICU and he recommended surgery consult for pancreatitis recurrent in type and ordered CT abd and pelvis and hematology. I spoke to Dr Pettit and he will see the patient and Dr Aldridge evaluated the patient and had no new recommendations. Poor prognosis assessed and he is rapidly declining. Focused Exam Lactate Level 06/28/22 13:20: Lactic Acid Level 0.96 Objective Exam Vital Signs Vital Signs Date Time Temp Pulse Resp B/P (MAP) Pulse Ox O2 Delivery O2 Flow Rate FiO2 06/30/22 09:00 84 20 135/96 (109) 96 Nasal Cannula 2.00 06/30/22 07:30 36.2 06/28/22 19:40 21 Capillary Refill : Less Than 3 Seconds Results/Procedures Lab Laboratory Tests 06/29/22 11:56 06/29/22 17:53 06/30/22 03:54 Patient resulted labs reviewed. Assessment/Plan Critical Care Critically Ill Patient Clinical Quality Measures DVT/VTE Risk/Contraindication: Contraindications-Pharm: Other *list below* Other: low plts DESIRAE NAVARRO DO Jun 30, 2022 05:24
[2022-06-30] MEDS ORDERED: VANCOMYCIN 1 GM/NS 250 ML IVPB IV SCH ×2 (05:30)
[2022-06-30] MEDS: CEFEPIME 1,000 MG/NS 50 ML IVPB IV SCH ×4 (05:54→17:07)
[2022-06-30] MEDS: HYDROCORTISONE 100 MG/2 ML (Solu-CORTEF) VIAL IV SCH ×3 (05:54→21:18)
--- NOTE | 2022-06-30 07:46 | Diagnostic Imaging Report ---
INDICATION: Altered mental status. Comparison is made with prior exam of 06/28/2022. FINDINGS: There is essentially complete opacification left hemithorax presumably with a pleural fluid. There is moderately severe congestive failure. There is no pleural effusion or pneumothorax on the right. IMPRESSION: There is now complete opacification left hemithorax again pleural effusion. Moderately severe congestive failure. Dictated by: Dictated on workstation # [id number]
[2022-06-30] MEDS: DOCUSATE SODIUM 100 MG (COLACE) CAP PO SCH ×2 (08:10→21:25)
--- NOTE | 2022-06-30 08:12 | Cardiology Progress Note ---
Subjective Date Seen by Provider: Jun 30, 2022 Time Seen by Provider: 08:08 Subjective/Events-last exam Patient is laying down in bed, unable to provide any history. Review of Systems General: Other (Unable to provide review of system) Focused Exam Lactate Level 06/28/22 13:20: Lactic Acid Level 0.96 Objective-Cardiology Exam Last Set of Vital Signs Vital Signs 06/28/22 06/30/22 06/30/22 06/30/22 19:40 05:30 06:00 06:03 Temp 36.1 Pulse 48 Resp 10 B/P (MAP) 128/64 (85) Pulse Ox 95 O2 Delivery Nasal Cannula O2 Flow Rate 2.00 FiO2 21 I&O Intake and Output 06/29/22 23:59 Intake Total 200 ml Output Total 950 ml Balance -750 ml Intake Oral 0 ml IV Total 200 ml Output Urine Total 950 ml General: Alert, Mild Distress HEENT: Atraumatic, EOMI Neck: Supple Lungs: Clear to Auscultation, Normal Air Movement Heart: Regular Rate, Normal S1, Normal S2 Abdomen: Normal Bowel Sounds Extremities: No Edema Skin: No Significant Lesion Neuro: Sensation Intact Results Lab Laboratory Tests 06/29/22 11:56 06/29/22 17:53 06/30/22 03:54 A/P-Cardiology Admission Diagnosis Pancreatitis Sepsis Pancytopenia Acute renal failure Assessment/Plan Recurrent pancreatitis, chronic pancreatitis, elevation in amylase and lipase Managed by medical team Sepsis, pancytopenia. Worsening H&H, platelet count. Receiving IV hydration and antibiotics. Consider hematology consultation Hypotension, secondary to sepsis. Receiving antibiotic and IV fluid Acute on chronic renal failure, worsening renal function, receiving IV fluid Metabolic acidosis, secondary to sepsis. 2D echo was done in June 2022 with normal LV function, ejection fraction 50 to 55%, mild aortic valve stenosis Mental retardation. OLIMPIA RAMOS MD Jun 30, 2022 08:11
[2022-06-30] MEDS: PANTOPRAZOLE 40 MG (PROTONIX) VIAL IV SCH (08:14)
[2022-06-30] MEDS: DOPamine DRIP 250 ML IV SCH (08:14)
--- NOTE | 2022-06-30 08:59 | Tele-ICU Progress Note ---
Subjective Date Seen by a Provider: Jun 30, 2022 Time Seen by a Provider: 08:54 Subjective/Events-last exam (Tele-ICU Physician , Progress Note ) Service provided via interactive audio and video telecommunications E-CARE system to a patient admitted to ICU bed in [facility]. Patient is seen today due to persistent need of ICU care Available chart/ vitals / labs / Images reviewed Video assessment done using teleICU camera, rest of exam as per RN 51 yo M admitted for AMS, lives in SNF, recent COVID inf. has had problems with hypoglycemia, Hb 6.5, given PRBC, today Hb 8.1, Plt was 29, now 48, no active bleeding Potassium up to 5.4 which was treated Cr up to 3.18 and rising suspected to have pancreaitis today amylase 147, lipase 240, not c/o abd pain, no nausea or vomiting I reviewed CXR today, massive left pleural effusion, Will arrange for tap Growing enterococcus from 2/2 BC, on Daptomycin, Cefepime, also IV hydrocortisone, On dopamine @ 6, no central line, current BP 135/96, will try to lower On 2 lpm NC Sepsis Event Evaluation Height, Weight, BMI Height: '" Weight: lbs. oz. kg; 26.51 BMI Method: Focused Exam Lactate Level 06/28/22 13:20: Lactic Acid Level 0.96 Exam Exam Patient acknowledged, consented, and participated in this virtual visit which was conducted using real time audio/video Vital Signs Date Time Temp Pulse Resp B/P (MAP) Pulse Ox O2 Delivery O2 Flow Rate FiO2 06/30/22 08:14 48 125/83 06/30/22 08:09 90 Nasal Cannula 2.00 06/30/22 07:30 36.2 06/30/22 06:03 48 128/64 (85) 95 Nasal Cannula 2.00 06/30/22 06:00 36.1 06/30/22 05:30 64 10 165/47 (71) 96 Nasal Cannula 2.00 06/30/22 05:00 68 127/109 (113) 95 Nasal Cannula 2.00 06/30/22 04:45 79 137/46 (79) 92 Nasal Cannula 2.00 06/30/22 04:33 93 Nasal Cannula 2.00 06/30/22 04:03 60 19 115/66 (82) 98 Nasal Cannula 2.00 06/30/22 04:00 36.6 06/30/22 03:00 75 18 95/71 (79) 91 Nasal Cannula 2.00 06/30/22 02:20 71 21 123/86 (103) 89 Nasal Cannula 2.00 06/30/22 01:44 37.1 06/30/22 01:30 77 24 131/64 (91) Nasal Cannula 2.00 06/30/22 01:15 75 21 98/69 (75) Nasal Cannula 2.00 06/30/22 01:00 74 06/30/22 00:15 37 79 20 90/64 (78) 87 Nasal Cannula 2.00 06/29/22 23:59 92 Nasal Cannula 2.00 06/29/22 23:00 37.1 78 30 111/75 (87) 91 Nasal Cannula 2.00 06/29/22 22:00 37.3 85 24 128/69 (88) Nasal Cannula 2.00 06/29/22 21:00 83 18 123/66 (102) 91 Nasal Cannula 2.00 06/29/22 20:00 89 19 113/78 (89) 90 Nasal Cannula 2.00 06/29/22 20:00 92 Nasal Cannula 2.00 06/29/22 19:00 80 06/29/22 19:00 80 26 118/77 (90) 92 Nasal Cannula 2.00 06/29/22 18:56 78 106/65 06/29/22 18:00 35.3 74 17 102/83 (90) 90 Nasal Cannula 2.00 06/29/22 17:00 35.3 76 102/58 (84) 90 Nasal Cannula 2.00 06/29/22 16:00 36 79 14 109/56 (84) 93 Nasal Cannula 2.00 06/29/22 16:00 90 Nasal Cannula 2.00 06/29/22 15:59 35.9 80 20 109/56 Nasal Cannula 06/29/22 15:35 35.8 06/29/22 15:02 36.4 74 16 92/74 93 Nasal Cannula 3.00 06/29/22 15:00 36.3 74 20 92/74 (82) 94 Nasal Cannula 2.00 06/29/22 14:47 36.4 76 18 104/78 94 Nasal Cannula 2.00 06/29/22 14:45 36.4 78 18 104/78 92 Nasal Cannula 2.00 06/29/22 14:42 93 Nasal Cannula 2.00 06/29/22 14:30 36.5 77 16 110/65 92 Nasal Cannula 2.00 06/29/22 14:00 36.5 85 26 104/58 (73) 94 Nasal Cannula 2.00 06/29/22 13:00 36.5 77 26 96/70 (79) Nasal Cannula 2.00 06/29/22 12:43 78 06/29/22 12:33 77 94/59 06/29/22 12:25 36.0 06/29/22 12:00 96 Nasal Cannula 2.00 06/29/22 12:00 36.4 77 26 94/59 (74) 91 Nasal Cannula 2.00 06/29/22 11:00 36.2 78 15 98/63 (86) 90 Nasal Cannula 2.00 06/29/22 10:00 36 76 98/70 (81) 93 Nasal Cannula 2.00 06/29/22 09:00 35.7 76 21 96/69 (84) 92 Nasal Cannula 2.00 I & O 06/30/22 07:00 Intake Total 450 ml Output Total 1025 ml Balance -575 ml Height & Weight Height: '" Weight: lbs. oz. kg; 26.51 BMI Method: General Appearance: Anxious, Chronically ill, Other (thin, pale) HEENT: PERRL/EOMI (Mental status), Other (Dry mucous membranes) Neck: Full Range of Motion, Normal Inspection Respiratory: Lungs Clear, Normal Breath Sounds, Decreased Breath Sounds, Other (very decreased BS on left) Cardiovascular: Regular Rate, Rhythm Capillary Refill: Less Than 3 Seconds Gastrointestinal: normal bowel sounds, non tender, soft; No distended Extremity: Normal Range of Motion, No Pedal Edema Neurologic/Psychiatric: Alert, Disoriented Skin: Pallor Results Lab Laboratory Tests 06/28/22 12:36 06/28/22 19:17 06/29/22 04:05 06/29/22 11:56 06/29/22 17:53 06/30/22 03:54 Assessment/Plan Assessment/Plan with large left pleural effusion, will need tap, will call gen surg Rising Cr and hypokalemia will probably need HD, will talk to Dr Frey Will try to taper dopamine, if not will need central line, Critical Care: Critically Ill Patient Time spent with patient (mins): 30 NUPUR SCHUMACHER MD Jun 30, 2022 08:59
[2022-06-30] MEDS ORDERED: DAPTOmycin 500 MG/NS 50 ML IVPB IV SCH ×2 (09:00)
[2022-06-30] MEDS ORDERED: ALBU18HF2 INH (10:16)
[2022-06-30] MEDS ORDERED: AMLO-250 PO (10:16)
[2022-06-30] MEDS ORDERED: OLOP5DRO26 OU (10:16)
[2022-06-30] MEDS ORDERED: FLUT1DIS26 INH (10:16)
[2022-06-30] MEDS ORDERED: ACET325C7 PO (10:16)
--- NOTE | 2022-06-30 11:00 | Progress Note - Hospitalist ---
SOLIMAN,EVELIA 06/30/22 1100: Subjective HPI/CC On Admission Date Seen by Provider: Jun 30, 2022 Time Seen by Provider: 08:45 CC: Multi-system organ failure in intellectually challenged patient HPI: This is a 51yoWM intellectually delayed patient of Dr Marin who presented to the [facility] ER with lethargy and w/u ensued revealing CHF and CLAUDETTE on CKD along with possible PNA. Patient has had multiple hospital stays recently most recent was DC Thursday after pancreatitis. He has a recent h/o anemia requiring t ransfusions last admit and back in 01/2022 when I admitted him from PCP office for hgb 6.7 with negative EGD and Colonoscopy by Dr Jacobs 01/2022. He has a h/o seizure d/o and behavior problems and lives in custodial. Patient appears more and more declined since last seen. I spoke to EICU and he recommended surgery consult for pancreatitis recurrent in type and ordered CT abd and pelvis and hematology. I spoke to Dr Pettit and he will see the patient and Dr Aldridge evaluated the patient and had no new recommendations. Poor prognosis assessed and he is rapidly declining. Subjective/Events-last exam Pt. was in bed when seen this morning and able to answer simple questions. Prior to being seen this morning, it was reported to me that he was experienced increased agitation and had pulled out his IV's this morning and has been pulling at his catheter and nasal cannula as well. Clinically, his condition continues to worsen as well with an increase in creatinine to 3.18 today from 2.89 yesterday. He continues to be hyperkalemic at 5.4 and have leukocytosis of 14.1, although minimally improved from 14.9 yesterday. His Hgb has improved to 8.1 today after receiving 1 unit pRBC. Pt denies headache, CP, Palpitations, SOB, cough, abd pain, N/V/D, or pain. Review of Systems HEENT: No Head Aches Pulmonary: No Dyspnea, No Cough Cardiovascular: No: Chest Pain, Palpitations Gastrointestinal: No: Nausea, Vomiting, Abdominal Pain Neurological: No: Weakness, Numbness Focused Exam Lactate Level 06/28/22 13:20: Lactic Acid Level 0.96 Objective Exam Vital Signs Vital Signs Date Time Temp Pulse Resp B/P (MAP) Pulse Ox O2 Delivery O2 Flow Rate FiO2 06/30/22 11:05 Nasal Cannula 2.00 06/30/22 10:00 88 39 129/84 (99) 86 06/30/22 07:30 36.2 06/28/22 19:40 21 Capillary Refill : Less Than 3 Seconds General Appearance: Anxious, Other (Patient appears slightly worked up. frequently touching at lines in place although not pulling at them while I was in the room with him.) Respiratory: No Accessory Muscle Use, No Respiratory Distress, Rhonci (diffusely) Cardiovascular: Regular Rate, Rhythm, No Murmur, Normal Peripheral Pulses Gastrointestinal: Normal Bowel Sounds, Non Tender, Soft Extremity: Normal Capillary Refill, Non Tender, No Calf Tenderness, No Pedal Edema Neurologic/Psychiatric: Other (Hx intellectual delays with increased agitation from his reported previous baseline) Skin: Normal Color, Warm/Dry Lymphatic: No Adenopathy Results/Procedures Lab Laboratory Tests 06/29/22 11:56 06/29/22 17:53 06/30/22 03:54 Patient resulted labs reviewed. Imaging: Reviewed Imaging Report Radiology NAME: NEHEMIAH RAMIREZ [facility] REC#: [id number] PT STATUS: ADM IN : 1970 PHYSICIAN: ESTHER MERCADO MD ADMIT DATE: 06/28/22/ICU Signed Date of Exam:06/30/22 CHEST 1 VIEW, AP/PA ONLY INDICATION: Altered mental status. Comparison is made with prior exam of 06/28/2022. FINDINGS: There is essentially complete opacification left hemithorax presumably with a pleural fluid. There is moderately severe congestive failure. There is no pleural effusion or pneumothorax on the right. IMPRESSION: There is now complete opacification left hemithorax again pleural effusion. Moderately severe congestive failure. Dictated by: Dictated on workstation # [id number] Dict: 06/30/22 0739 Trans: 06/30/22 0845 [facility] [id number] Interpreted by: NEHEMIAH PEREZ MD Electronically signed by: NEHEMIAH PEREZ MD 06/30/22 0845 Assessment/Plan Assessment and Plan Assess & Plan/Chief Complaint Sepsis 2nd to PNA -Vanc & Cefepime --> escalating Vanc to daptomycin given worsening condition despite previous tx and BC results. -Periph BC reults Positive for probable strep and enterococcus species. Final results & sensitivities pending. Will adjust abx pending results. -06/30 CXR showed complete consolidation of left hemithorax which is worsened from previous CXR. Hypotension 2nd to sepsis -Dopamine drip currently for hypotension to increase perfusion to periphery. -Ween as BP tolerates with close monitoring. AECHF -Cardiology consulted and recommendations appreciated. Patient likely needs diuresis given CXR findings and exam, but worsening Kidney function makes this difficult. CLAUDETTE -Cr worsened to 3.18 today in the setting of hypernatremia (151) and hyperkalemia (5.5). Consulting Nephrology for complex management of fluid status and to assess if need for dialysis in near future. Hx Chronic Anemia -Hgb 8.1 today. Transfuse if drops < 7. Thrombocytopenia -Platelets today of 48. Slightly improved form 38 yesterday. Pt. needs hematology, but are unavailable at this time. Will monitor closely. DM -Insulin sliding scale Intellectual delay Mental Illness Hx. Seizures Clinical Quality Measures DVT/VTE Risk/Contraindication: Contraindications-Pharm: Other *list below* Other: low plts LAILA NAVARRO DO 07/01/22 0539: Assessment/Plan Assessment and Plan Assess & Plan/Chief Complaint Poor prognosis Consulted Nephrology Hematology unavailable this week Mother requested DNR and getting close to comfort care Supervisory-Addendum Brief Verification & Attestation Participated in pt care: history, MDM, physical Personally performed: exam, history, MDM, supervision of care Care discussed with: Medical Student Procedures: n/a Results interpretation: Verified all documentation Verification and Attestation of Medical Student E/M Service A medical student performed and documented this service in my presence. I reviewed and verified all information documented by the medical student and made modifications to such information, when appropriate. I personally performed the physical exam and medical decision making. Laila Navarro Jul 01, 2022,05:37 EVELIA SOLIMAN Jun 30, 2022 11:00 LAILA NAVARRO DO Jul 01, 2022 05:39
--- NOTE | 2022-06-30 11:10 | Diagnostic Imaging Report ---
HISTORY: Left pleural effusion. COMPARISON: 06/20/2022, radiographs from 06/30/2022. TECHNIQUE: Ultrasound of the left posterior chest. FINDINGS/ IMPRESSION: There is motion artifact on multiple images. There is a small left pleural effusion. Dictated by: Dictated on workstation # [id number]
--- NOTE | 2022-06-30 12:48 | Progress Note - Surgery ---
AZRA FRAIRE 06/30/22 1248: Subjective Date Seen by a Provider: Jun 30, 2022 Time Seen by a Provider: 12:43 Subjective/Events-last exam 51 M resting supine in bed during examination. Unable to obtain much inforamtion do to pts intellectual disability. He did nod yes when asked if he was doing o cynthia. Denied any trouble breathing or pain at this time. Chest US did not show a substantial pocket to drain. Pt had a bout of hypoglycemia last night and has been supplemented with dextrose. Pt remains NPO. CXR showed increase in infiltrated of both L and R lung perez. L almost completely obscured Review of Systems unable to obtain due to pts intellectual disability Focused Exam Lactate Level 06/28/22 13:20: Lactic Acid Level 0.96 Objective Exam Vital Signs Date Time Temp Pulse Resp B/P (MAP) Pulse Ox O2 Delivery O2 Flow Rate FiO2 06/30/22 12:09 35.6 06/30/22 11:05 Nasal Cannula 2.00 06/30/22 10:00 88 39 129/84 (99) 86 Nasal Cannula 2.00 06/30/22 09:00 84 20 135/96 (109) 96 Nasal Cannula 2.00 06/30/22 08:14 48 125/83 06/30/22 08:09 90 Nasal Cannula 2.00 06/30/22 08:00 50 20 133/66 (88) 86 Nasal Cannula 2.00 06/30/22 07:30 36.2 06/30/22 07:00 71 18 136/73 (94) 97 Nasal Cannula 2.00 06/30/22 07:00 63 06/30/22 06:03 48 128/64 (85) 95 Nasal Cannula 2.00 06/30/22 06:00 36.1 06/30/22 05:30 64 10 165/47 (71) 96 Nasal Cannula 2.00 06/30/22 05:00 68 127/109 (113) 95 Nasal Cannula 2.00 06/30/22 04:45 79 137/46 (79) 92 Nasal Cannula 2.00 06/30/22 04:33 93 Nasal Cannula 2.00 06/30/22 04:03 60 19 115/66 (82) 98 Nasal Cannula 2.00 06/30/22 04:00 36.6 06/30/22 03:00 75 18 95/71 (79) 91 Nasal Cannula 2.00 06/30/22 02:20 71 21 123/86 (103) 89 Nasal Cannula 2.00 06/30/22 01:44 37.1 06/30/22 01:30 77 24 131/64 (91) Nasal Cannula 2.00 06/30/22 01:15 75 21 98/69 (75) Nasal Cannula 2.00 06/30/22 01:00 74 06/30/22 00:15 37 79 20 90/64 (78) 87 Nasal Cannula 2.00 06/29/22 23:59 92 Nasal Cannula 2.00 06/29/22 23:00 37.1 78 30 111/75 (87) 91 Nasal Cannula 2.00 06/29/22 22:00 37.3 85 24 128/69 (88) Nasal Cannula 2.00 06/29/22 21:00 83 18 123/66 (102) 91 Nasal Cannula 2.00 06/29/22 20:00 89 19 113/78 (89) 90 Nasal Cannula 2.00 06/29/22 20:00 92 Nasal Cannula 2.00 06/29/22 19:00 80 06/29/22 19:00 80 26 118/77 (90) 92 Nasal Cannula 2.00 06/29/22 18:56 78 106/65 06/29/22 18:00 35.3 74 17 102/83 (90) 90 Nasal Cannula 2.00 06/29/22 17:00 35.3 76 102/58 (84) 90 Nasal Cannula 2.00 06/29/22 16:00 36 79 14 109/56 (84) 93 Nasal Cannula 2.00 06/29/22 16:00 90 Nasal Cannula 2.00 06/29/22 15:59 35.9 80 20 109/56 Nasal Cannula 06/29/22 15:35 35.8 06/29/22 15:02 36.4 74 16 92/74 93 Nasal Cannula 3.00 06/29/22 15:00 36.3 74 20 92/74 (82) 94 Nasal Cannula 2.00 06/29/22 14:47 36.4 76 18 104/78 94 Nasal Cannula 2.00 06/29/22 14:45 36.4 78 18 104/78 92 Nasal Cannula 2.00 06/29/22 14:42 93 Nasal Cannula 2.00 06/29/22 14:30 36.5 77 16 110/65 92 Nasal Cannula 2.00 06/29/22 14:00 36.5 85 26 104/58 (73) 94 Nasal Cannula 2.00 06/29/22 13:00 36.5 77 26 96/70 (79) Nasal Cannula 2.00 I & O 06/30/22 07:00 Intake Total 450 ml Output Total 1025 ml Balance -575 ml Capillary Refill : Less Than 3 Seconds General Appearance: No Apparent Distress, Chronically ill, Other (Patient appears slightly worked up. frequently touching at lines in place although not pulling at them while I was in the room with him.) HEENT: PERRL/EOMI (Mental status), Other (Dry mucous membranes) Neck: Full Range of Motion; No Lymphadenopathy (L), No Lymphadenopathy (R) Respiratory: No Accessory Muscle Use, No Respiratory Distress, Rhonci (diffusely) Cardiovascular: Regular Rate, Rhythm, No Murmur, Normal Peripheral Pulses Peripheral Pulses: 2+ Dorsalis Pedis (R), 2+ Left Dors-Pedis (L), 2+ Radial Pulses (R), 2+ Radial Pulses (L) Gastrointestinal: normal bowel sounds, soft; No distended Extremity: No Pedal Edema; No Inflammation Neurologic/Psychiatric: Alert, Other (Hx intellectual delays with increased agitation from his reported previous baseline) Skin: Normal Color, Warm/Dry Results Lab Laboratory Tests 06/29/22 14:06: Glucometer 67L 06/29/22 15:59: Glucometer 51*L 06/29/22 17:53: White Blood Count 14.9H, Red Blood Count 2.64L, Hemoglobin 7.5L, Hematocrit 23L, Mean Corpuscular Volume 88, Mean Corpuscular Hemoglobin 28, Mean Corpuscular Hemoglobin Concent 33, Red Cell Distribution Width 15.2H, Platelet Count 48L, Mean Platelet Volume 12.2, Percent Immature Platelet Fraction 7.9H, Activated Partial Thromboplast Time 51H, Sodium Level 151H, Potassium Level 5.5H, Chloride Level 116H, Carbon Dioxide Level 20L, Anion Gap 15H, Blood Urea Nitrogen 46H, Creatinine 2.80H, Estimat Glomerular Filtration Rate 26, BUN/Creatinine Ratio 16, Glucose Level 38*L, Calcium Level 8.4L 06/29/22 18:03: Glucometer 31*L 06/29/22 19:24: Glucometer 63L 06/29/22 20:24: Glucometer 68L 06/29/22 21:26: Glucometer 74 06/29/22 22:52: Glucometer 69L 06/29/22 23:47: Glucometer 67L 06/30/22 00:30: Glucometer 62L 06/30/22 01:31: Glucometer 69L 06/30/22 02:22: Glucometer 70 06/30/22 03:22: Glucometer 75 06/30/22 03:54: White Blood Count 14.1H, Red Blood Count 2.79L, Hemoglobin 8.1L, Hematocrit 24L, Mean Corpuscular Volume 87, Mean Corpuscular Hemoglobin 29, Mean Corpuscular Hemoglobin Concent 34, Red Cell Distribution Width 15.4H, Platelet Count 48L, Mean Platelet Volume 11.3, Immature Granulocyte % (Auto) 2, Neutrophils (%) (Auto) 93H, Lymphocytes (%) (Auto) 3L, Monocytes (%) (Auto) 2, Eosinophils (%) (Auto) 0, Basophils (%) (Auto) 0, Neutrophils # (Auto) 13.0H, Lymphocytes # (Auto) 0.5L, Monocytes # (Auto) 0.3, Eosinophils # (Auto) 0.0, Basophils # (Auto) 0.0, Immature Granulocyte # (Auto) 0.2H, Percent Immature Platelet Fraction 5.6, Prothrombin Time 15.3H, INR Comment 1.2, Activated Partial Thromboplast Time 46H, Sodium Level 150H, Potassium Level 5.4H, Chloride Level 116H, Carbon Dioxide Level 22, Anion Gap 12, Blood Urea Nitrogen 53H, Creatinine 3.18H, Estimat Glomerular Filtration Rate 23, BUN/Creatinine Ratio 17, Glucose Level 75, Calcium Level 8.5, Corrected Calcium 9.7, Phosphorus Level 5.6H, Magnesium Level 2.2, Total Bilirubin 0.5, Aspartate Amino Transf (AST/SGOT) 57H, Alanine Aminotransferase (ALT/SGPT) 39, Alkaline Phosphatase 174H, Total Protein 6.3L, Albumin 2.5L, Amylase Level 147H, Lipase 240H 06/30/22 04:55: Blood Gas Puncture Site LEFT RAD, Blood Gas Patient Temperature 36.6, Arterial Blood pH 7.39, Arterial Blood Partial Pressure CO2 43, Arterial Blood Partial Pressure O2 62L, Arterial Blood HCO3 26, Arterial Blood Total CO2 27.0, Arterial Blood Oxygen Saturation 93L, Arterial Blood Base Excess 1.2, Nura Test YES-POS, Blood Gas Ventilator Setting NO, Blood Gas Inspired Oxygen 2L 06/30/22 05:54: Glucometer 74 06/30/22 06:37: Glucometer 65L 06/30/22 08:02: Glucometer 74 06/30/22 08:54: Glucometer 77 06/30/22 09:48: Glucometer 82 06/30/22 10:54: Glucometer 98 06/30/22 12:05: Lab Scanned Report Transfusion Reaction Form 06/30/22 12:08: Glucometer 105 Microbiology 06/28/22 MRSA Screen - Final, Complete MRSA not isolated 06/28/22 Blood Culture - Preliminary, Resulted Enterococcus species Gram Positive Rafa See Comments 06/28/22 Urine Culture - Final, Complete NO GROWTH Assessment/Plan Assessment/Plan Assessment/Plan Elevated lipase consistent with chronic pancreatitis Anemia- improving Thrombocytopenia Pleural effusion Hypothermia hypernatremia Hyperkalemia Elevated creatinine, CKD Leukocytosis PNA Chest US today showing no significant pocket to drain, continue to follow pleural effusions Amylase and lipase remain elevated, continue IVF and pain control, NPO continue to monitor Hgb, monitor for signs of bleeding temperatures improved, continue to monitor monitor creatinine and electrolytes, peters in place monitor output SCDs for DCT prophylaxis IV protonix for ulcer prophylaxis continue IV Abx therapy Clinical Quality Measures DVT/VTE Risk/Contraindication: Contraindications-Pharm: Other *list below* Other: low plts ACE BAKER DO 06/30/22 1442: Subjective Time Seen by a Provider: 12:43 Subjective/Events-last exam Pt seen and examined, resting comfortably in bed. When asked if he had pain or trouble breathing, he shook his head no. Objective Exam General Appearance: Chronically ill, Other (Patient appears slightly worked up. frequently touching at lines in place although not pulling at them while I was in the room with him.) HEENT: Other (Dry mucous membranes) Respiratory: No Accessory Muscle Use, No Respiratory Distress, Decreased Breath Sounds (left base), Rhonci (diffusely) Cardiovascular: Regular Rate, Rhythm, No Murmur Gastrointestinal: soft, no organomegaly; No distended Extremity: No Pedal Edema Neurologic/Psychiatric: Alert, Other (Hx intellectual delays with increased agitation from his reported previous baseline) Skin: Normal Color, Warm/Dry Assessment/Plan Assessment/Plan Assessment/Plan Elevated lipase consistent with chronic pancreatitis Anemia- improving Thrombocytopenia Pleural effusion Hypothermia hypernatremia Hyperkalemia Elevated creatinine, CKD Leukocytosis PNA Chest US today showing not enough fluid to drain, in addition pt has very low platelets which would increase risk of morbidity associated with procedure. Plus, pt is not in respiratory distress and O2 saturation is above 92% on nasal cannula. At this time will continue to follow pleural effusion. Amylase and lipase remain elevated, continue IVF and pain control, NPO Continue to monitor Hgb, monitor for signs of bleeding SCDs for DCT prophylaxis IV protonix for ulcer prophylaxis Continue IV Abx therapy Supervisory-Addendum Brief Verification & Attestation Participated in pt care: history, MDM, physical Personally performed: exam, history, MDM, supervision of care Care discussed with: Medical Student Procedures: n/a Verification and Attestation of Medical Student E/M Service A medical student performed and documented this service in my presence. I reviewed and verified all information documented by the medical student and made modifications to such information, when appropriate. I personally performed the physical exam and medical decision making. Ace Baker, Jun 30, 2022,14:41 AZRA FRAIRE Jun 30, 2022 12:48 ACE BAKER DO Jun 30, 2022 14:42
--- NOTE | 2022-06-30 16:14 | Consultation ---
History of Present Illness History of Present Illness Patient Consulted On(mike/time) 06/30/22 16:13 Date Seen by Provider: Jun 30, 2022 Time Seen by Provider: 16:13 Reason for Visit: Severe sepsis History of Present Illness Pt is a 51yo WM intellectually delayed patient with CHF and CLAUDETTE on CKD along with possible PNA. Pt is a poor historian. Has been npo and is on D10 but not on sale. He was recently d/c'd with pancreatitis. He has a recent h/o anemia requiring transfusions last admit and back in 01/2022. Negative EGD and Colonoscopy by Dr Jacobs 01/2022. He has a h/o seizure d/o and behavior problems and lives in jail. Allergies and Home Medications Allergies Uncoded Allergies: PCN (Allergy, Mild, 11/19/20) Patient Home Medication List Home Medication List Reviewed: Yes Acetaminophen (Tylenol) 325 Mg Capsule, 650 MG PO Q4H PRN for PAIN-MILD (1-4) OR TEMPATURE, (Reported) Entered as Reported by: LALA HARRISON on 06/30/22 1016 Last Action: Reviewed Albuterol Sulfate (Ventolin Hfa) 90 Mcg Hfa.aer.ad, 2 PUFF INH Q6H PRN for SHORTNESS OF BREATH, (Reported) Entered as Reported by: LALA HARRISON on 06/30/22 1016 Last Action: Reviewed Amlodipine Besylate (Amlodipine Besylate) 5 Mg Tablet, 5 MG PO DAILY, (Reported) Entered as Reported by: LALA HARRISON on 06/30/22 1016 Last Action: Reviewed Atorvastatin Calcium (Atorvastatin Calcium) 20 Mg Tablet, 20 MG PO HS, (Reported) Entered as Reported by: BONILLA CERVANTES on 01/06/22 1526 Last Action: Reviewed Cariprazine Hydrochloride (Vraylar) 3 Mg Capsule, 3 MG PO DAILY, (Reported) Entered as Reported by: TERRELL LEE on 06/20/22 0855 Last Action: Reviewed Cholecalciferol (Vitamin D3) (Vitamin D3) 50 Mcg (2000 Unit) Tablet, 100 MCG PO DAILY, (Reported) Entered as Reported by: TERRELL LEE on 06/20/22 0855 Last Action: Reviewed Clonidine HCl (Clonidine HCl) 0.1 Mg Tablet, 0.1 MG PO 0800,1400,1999, (Reported) Entered as Reported by: BONILLA CERVANTES on 01/06/221525 Last Action: Reviewed Divalproex Sodium (Divalproex Sodium) 250 Mg Tablet., 250 MG PO BID, (Reported) Entered as Reported by: TERRELL LEE on 06/20/22854 Last Action: Reviewed Escitalopram Oxalate (Escitalopram Oxalate) 10 Mg Tablet, 10 MG PO DAILY, (Reported) Entered as Reported by: BONILLA CERVANTES on 01/06/221525 Last Action: Reviewed Ferrous Sulfate (Ferosul) 325 Mg (65 Mg Iron) Tablet, 325 MG PO BID, (Reported) Entered as Reported by: BONILLA CERVANTES on 01/06/221525 Last Action: Reviewed Fluticasone/Salmeterol (Advair 250-50 Diskus) 250 Mcg-50 Mcg/Dose Blst.w.dev, 1 PUFF INH BID, (Reported) Entered as Reported by: LALA HARRISON on 06/30/22 1016 Last Action: Reviewed Folic Acid (Folic Acid) 1 Mg Tablet, 1 MG PO DAILY, (Reported) Entered as Reported by: TERRELL LEE on 06/20/22854 Last Action: Reviewed Metoprolol Tartrate (Metoprolol Tartrate) 25 Mg Tablet, 25 MG PO BID, (Reported) Entered as Reported by: BONILLA CERVANTES on 01/06/221525 Last Action: Reviewed Miconazole Nitrate (Lotrimin AF) 2 % Aero.powd, 1 APPLIC TP BID, (Reported) Entered as Reported by: TERRELL LEE on 06/20/22854 Last Action: Reviewed Olopatadine HCl (Olopatadine HCl) 0.1 % Drops, 1 DROP OU BID PRN for DRY EYES, (Reported) Entered as Reported by: LALA HARRISON on 06/30/22 1016 Last Action: Reviewed Pantoprazole Sodium (Pantoprazole Sodium) 40 Mg Tablet., 40 MG PO DAILY, (Reported) Entered as Reported by: BONILLA CERVANTES on 01/06/221525 Last Action: Reviewed Umeclidinium Brm/Vilanterol Tr (Anoro Ellipta 62.5-25 Mcg INH) 62.5 Mcg-25 Mcg/Actuation Blst.w.dev, 1 EACH IH DAILY, (Reported) Entered as Reported by: BONILLA CERVANTES on 01/06/221525 Last Action: Reviewed Discontinued Medications Amlodipine Besylate (Amlodipine Besylate) 10 Mg Tablet, 10 MG PO DAILY, (Reported) Entered as Reported by: BONILLA CERVANTES on 01/06/221525 Amlodipine Besylate (Norvasc) 5 Mg Tablet, 5 MG PO DAILY Discontinued Reason: Duplicate Order Prescribed by: DESIRAE NAVARRO on 06/23/22 1055 Last Action: Discontinued Pantoprazole Sodium (Pantoprazole Sodium) 40 Mg Tablet.dr, 40 MG PO DAILY Discontinued Reason: Duplicate Order Prescribed by: TERRY LOPEZ on 06/25/22 1317 Last Action: Discontinued Past Ayqqrdr-Wkjiaw-Cipvaa Hx Patient Social History Tobacco Use?: No Smoking Status: Unknown if Ever Smoked Smokeless Tobacco Frequency: Unknown if Ever Used Use of E-Cig and/or Vaping dev: Unable to obtain Substance use?: Unable to obtain Alcohol Use?: Unable to obtain Pt feels they are or have been: Unable to obtain Immunizations Up To Date Influenza Vaccine Up-to-Date: Yes; Up-to-Date First/Initial COVID19 Vaccinat: YES Second COVID19 Vaccination Mike: YES Third COVID19 Vaccination Date: YES Seasonal Allergies Seasonal Allergies: No Past Medical History Surgery/Hospitalization HX: diabetic, Htn, Schizoaffective Disorder, Intermittent Explosive Disorder, Asthma, Hyperlipidemia, Disruptive mood disorder, Moderate intellectual disabilities, Conduct disorder Surgeries: Yes Eye Surgery (cataract) Respiratory: Yes Asthma Cardiac: Yes High Cholesterol, Hypertension Neurological: Yes Developmental Disorder, Seizure Disorder Genitourinary: Yes UTI-Chronic Gastrointestinal: Yes Gastroesophageal Reflux, Pancreatitis Musculoskeletal: Yes Spasms, Contracture Endocrine: Yes Diabetes, Insulin dep HEENT: Yes Cataract Cancer: No Psychosocial: Yes Anxiety, Schizophrenia, Depression Integumentary: No Family Medical History No Pertinent Family Hx Review of Systems-General Constitutional: see HPI Physical Exam-General Problems Physical Exam Vital Signs Vital Signs - First Documented 06/28/22 06/28/22 12:30 14:15 Temp 36.2 Pulse 53 Resp 16 B/P (MAP) 130/96 (107) Pulse Ox 99 O2 Delivery Room Air O2 Flow Rate 2.00 FiO2 94 Capillary Refill : Less Than 3 Seconds Assessment/Plan Assessment/Plan Admission Diagnosis/Plan CLAUDETTE due to volume depletion not taking po intake will volume expand using ns at 60ml/hr prn fluid bolus for hypotension avoid nephrotoxins will check uric acid if high, then this supports volume depletion stop ivf if soa develops hypotension volume expand with ns d10 does not adequately volume expand start ns at 60ml/min as mentioned above monitor bp closely recent pancreatitis monitoring enzymes met acidosis will monitor due to renal failure Thank you for allowing me to participate in the care of this pleasant patient. Pt was seen using video chat. Clinical Quality Measures DVT/VTE Risk/Contraindication: Contraindications-Pharm: Other *list below* Other: low plts ELIZABETH MARRERO MD Jun 30, 2022 16:14
[2022-06-30] MEDS: NS IV 1000 ML 1,000 ML IV SCH (17:08)
[2022-06-30] MEDS: DEXTROSE 10% IV SOLUTION 1,000 ML IV SCH (21:26)
[2022-07-01] MEDS: HYDROCORTISONE 100 MG/2 ML (Solu-CORTEF) VIAL IV SCH ×2 (05:33→14:19)
[2022-07-01] MEDS: CEFEPIME 1,000 MG/NS 50 ML IVPB IV SCH ×2 (05:34)
[2022-07-01 05:46] LABS: EOSINOPHILS % (AUTO) 0 % (0-10)
[2022-07-01 05:48] LABS: BASOPHILS % (AUTO) 0 % (0-10); HEMATOCRIT 22 % (40-54); LYMPHOCYTES # (AUTO) 0.7 10^3/uL (1.0-4.0); LYMPHOCYTES % (AUTO) 7 % (12-44); MEAN CORPUSCULAR HEMOGLOBIN 28 pg (25-34); MEAN CORPUSCULAR HGB CONC 31 g/dL (32-36); MEAN CORPUSCULAR VOLUME 90 fL (80-99); MEAN PLATELET VOLUME 11.7 fL (9.0-12.2); MONOCYTES # (AUTO) 0.4 10^3/uL (0.0-1.0); MONOCYTES % (AUTO) 4 % (0-12); NEUTROPHILS # (AUTO) 8.7 10^3/uL (1.8-7.8); NEUTROPHILS % (AUTO) 89 % (42-75); WHITE BLOOD COUNT 9.8 10^3/uL (4.3-11.0)
[2022-07-01 05:52] LABS: HEMOGLOBIN 6.7 g/dL (13.3-17.7); PLATELET COUNT 37 10^3/uL (130-400)
[2022-07-01 05:58] LABS: ALBUMIN 2.3 GM/DL (3.2-4.5); POTASSIUM 5.1 MMOL/L (3.6-5.0)
[2022-07-01 05:59] LABS: CALCIUM 8.3 MG/DL (8.5-10.1)
[2022-07-01 06:00] LABS: TOTAL PROTEIN 5.9 GM/DL (6.4-8.2)
[2022-07-01 06:02] LABS: BILIRUBIN,TOTAL 0.3 MG/DL (0.1-1.0)
[2022-07-01 06:03] LABS: PHOSPHORUS 6.3 MG/DL (2.3-4.7)
[2022-07-01 06:04] LABS: CREATININE SERUM 3.27 MG/DL (0.60-1.30)
[2022-07-01 06:07] LABS: MAGNESIUM 2.3 MG/DL (1.6-2.4); URIC ACID 9.4 MG/DL (2.6-7.2)
[2022-07-01 06:23] LABS: ABG OXYGEN SATURATION 97 % (94-100); ABG PCO2 47 MMHG (35-45); ABG PO2 80 MMHG (79-93); ABG TCO2 26.7 MMOL/L (21.0-31.0)
[2022-07-01 06:30] LABS: ABG PH 7.34 (7.37-7.43)
[2022-07-01] MEDS ORDERED: FUROSEMIDE 40 MG/4 ML INJ (LASIX) IVP ONE (06:30)
[2022-07-01 06:31] LABS: ALLENS TEST YES-POS; INSPIRED O2 2 L; PATIENT TEMP 36.2; VENTILATOR NO
[2022-07-01] MEDS: POTASSIUM CL 10MEQ/50ML IVPB 50 ML IV SCH (07:02)
[2022-07-01] MEDS: MAGNESIUM 1 GM/100 ML IVPB 100 ML IV SCH (07:02)
[2022-07-01] MEDS: KCL 20 MEQ TAB (K-DUR) PO SCH (07:03)
--- NOTE | 2022-07-01 07:54 | Cardiology Progress Note ---
Subjective Date Seen by Provider: Jul 01, 2022 Time Seen by Provider: 07:52 Subjective/Events-last exam Patient was seen at bedside laying down comfortably, no new complaint Review of Systems General: Other (Unable to provide review of system) Focused Exam Lactate Level 06/28/22 13:20: Lactic Acid Level 0.96 Objective-Cardiology Exam Last Set of Vital Signs Vital Signs 06/28/22 07/01/22 07/01/22 07/01/22 19:40 07:00 07:15 07:47 Temp 35.7 Pulse 37 Resp 14 B/P (MAP) 124/101 (109) Pulse Ox 88 O2 Delivery Nasal Cannula O2 Flow Rate 2.00 FiO2 21 I&O Intake and Output 07/01/22 00:00 Intake Total 600 ml Output Total 795 ml Balance -195 ml Intake Oral 0 ml IV Total 600 ml Output Urine Total 795 ml General: Alert, Mild Distress HEENT: Atraumatic, EOMI Neck: Supple Lungs: Clear to Auscultation, Normal Air Movement Heart: Normal S1, Normal S2, Other (Bradycardia) Abdomen: Normal Bowel Sounds Extremities: No Clubbing, No Edema Skin: No Rashes, No Significant Lesion Neuro: Sensation Intact Results Lab Laboratory Tests 07/01/22 04:52 07/01/22 05:10 A/P-Cardiology Admission Diagnosis Pancreatitis Sepsis Pancytopenia Acute renal failure Assessment/Plan Recurrent pancreatitis, chronic pancreatitis, elevation in amylase and lipase Managed by medical team Severe bradycardia, sinus node dysfunction Probably exacerbated by metabolic abnormality, electrolyte abnormality and metabolic acidosis Recommend conservative management Consideration for a pacemaker will be discussed with primary care physician, overall poor prognosis Sepsis, pancytopenia. Worsening H&H, platelet count. Receiving IV hydration and antibiotics. Managed by medical team Hypotension, secondary to sepsis. Receiving antibiotic and IV fluid Acute on chronic renal failure, worsening renal function, receiving IV fluid Metabolic acidosis, secondary to sepsis. 2D echo was done in June 2022 with normal LV function, ejection fraction 50 to 55%, mild aortic valve stenosis Mental retardation. OLIMPIA RAMOS MD Jul 01, 2022 07:54
[2022-07-01] MEDS: PANTOPRAZOLE 40 MG (PROTONIX) VIAL IV SCH (08:00)
[2022-07-01] MEDS: DOCUSATE SODIUM 100 MG (COLACE) CAP PO SCH (08:00)
[2022-07-01] MEDS: DOPamine DRIP 250 ML IV SCH (08:00)
--- NOTE | 2022-07-01 08:34 | Progress Note - Surgery ---
Subjective Date Seen by a Provider: Jul 01, 2022 Time Seen by a Provider: 07:30 Subjective/Events-last exam Pt resting comfortably in bed during examination. Appeared more calm in his demeanor this morning compared to yesterday. When asked if hes was in pain or had any trouble breathing he shook his head "no." When asked if he felt "good" he shook his head "yes".Per nursing, pt did not have a BM last night and continues to have decreased urine output despite aggressive IVF. Pt recieved a dose of lasix today at 0630. Lopez in [address] No signs of bleeding noted. Pt was made DNR yesterday. Review of Systems unable to obtain due to pts intellectual disability, see HPI Focused Exam Lactate Level 06/28/22 13:20: Lactic Acid Level 0.96 Objective Exam Vital Signs Date Time Temp Pulse Resp B/P (MAP) Pulse Ox O2 Delivery O2 Flow Rate FiO2 07/01/22 08:07 94 Nasal Cannula 2.00 07/01/22 07:47 35.7 07/01/22 07:15 37 07/01/22 07:00 37 14 124/101 (109) 88 Nasal Cannula 2.00 07/01/22 06:00 42 16 121/101 (108) 95 Nasal Cannula 2.00 07/01/22 05:03 38 23 144/84 (104) 94 Nasal Cannula 2.00 07/01/22 04:00 Nasal Cannula 2.00 07/01/22 04:00 42 29 111/69 (83) 96 Nasal Cannula 2.00 07/01/22 04:00 36.0 42 20 111/69 (83) 96 Nasal Cannula 2.00 07/01/22 03:00 38 16 119/74 (99) 95 Nasal Cannula 2.00 07/01/22 03:00 44 19 119/74 (89) Nasal Cannula 2.00 07/01/22 02:00 41 20 122/71 (87) 94 Nasal Cannula 2.00 07/01/22 01:03 45 24 132/79 (99) 94 07/01/22 01:00 38 13 132/79 (96) 95 Nasal Cannula 2.00 07/01/22 01:00 237/189 (220) 07/01/22 01:00 45 07/01/22 00:00 45 25 103/76 (85) 94 Nasal Cannula 2.00 07/01/22 00:00 36.0 07/01/22 00:00 Nasal Cannula 2.00 06/30/22 23:00 41 14 133/75 (94) 98 Nasal Cannula 2.00 06/30/22 22:00 34 20 105/80 (88) 97 Nasal Cannula 2.00 06/30/22 21:00 43 20 117/103 (108) 96 06/30/22 21:00 44 117/103 (108) 90 Nasal Cannula 2.00 06/30/22 20:00 35 128/74 (92) 97 Nasal Cannula 2.00 06/30/22 20:00 35.7 41 18 128/74 (92) 96 Nasal Cannula 2.00 06/30/22 19:55 114/75 (88) 06/30/22 19:50 Nasal Cannula 2.00 06/30/22 19:44 43 122/99 (107) 97 Nasal Cannula 2.00 06/30/22 19:43 35.3 06/30/22 19:00 42 06/30/22 19:00 41 26 Nasal Cannula 2.00 06/30/22 18:00 62 110/71 (84) 92 Nasal Cannula 2.00 06/30/22 17:00 57 131/75 (93) 98 Nasal Cannula 2.00 06/30/22 16:00 60 22 () 98 Nasal Cannula 2.00 06/30/22 16:00 36.0 06/30/22 16:00 133/90 06/30/22 15:53 90 Nasal Cannula 2.00 06/30/22 15:51 35.3 06/30/22 15:00 76 17 136/105 (115) 89 Nasal Cannula 2.00 06/30/22 14:00 73 36 117/85 (96) 87 Nasal Cannula 2.00 06/30/22 13:00 57 24 133/83 (100) 87 Nasal Cannula 2.00 06/30/22 13:00 70 06/30/22 12:09 35.6 06/30/22 12:00 56 24 119/92 (101) 87 Nasal Cannula 2.00 06/30/22 12:00 90 Nasal Cannula 2.00 06/30/22 11:05 Nasal Cannula 2.00 06/30/22 11:00 70 13 109/77 (88) 90 Nasal Cannula 2.00 06/30/22 10:00 88 39 129/84 (99) 86 Nasal Cannula 2.00 06/30/22 09:00 84 20 135/96 (109) 96 Nasal Cannula 2.00 I & O 07/01/22 07:00 Intake Total 350 ml Output Total 745 ml Balance -395 ml Capillary Refill : Less Than 3 Seconds General Appearance: No Apparent Distress, Chronically ill HEENT: Moist Mucous Membranes; No Scleral Icterus (L), No Scleral Icterus (R) Neck: Full Range of Motion; No Lymphadenopathy (L), No Lymphadenopathy (R) Respiratory: No Accessory Muscle Use, No Respiratory Distress, Decreased Breath Sounds (left base), Rhonci (diffusely) Cardiovascular: Regular Rate, Rhythm, No Murmur Peripheral Pulses: 2+ Dorsalis Pedis (R), 2+ Left Dors-Pedis (L), 2+ Radial Pul ses (R), 2+ Radial Pulses (L) Gastrointestinal: soft, no organomegaly; No distended Extremity: No Pedal Edema; No Inflammation Neurologic/Psychiatric: Alert, Other (Hx intellectual delays with increased agitation from his reported previous baseline) Skin: Normal Color, Warm/Dry Results Lab Laboratory Tests 06/30/22 08:54: Glucometer 77 06/30/22 09:48: Glucometer 82 06/30/22 10:54: Glucometer 98 06/30/22 12:05: Lab Scanned Report Transfusion Reaction Form 06/30/22 12:08: Glucometer 105 06/30/22 13:17: Glucometer 106 06/30/22 14:00: Glucometer 121H 06/30/22 14:59: Glucometer 116H 06/30/22 15:46: Glucometer 121H 06/30/22 17:00: Glucometer 120H 06/30/22 19:16: Glucometer 126H 06/30/22 21:17: Glucometer 116H 06/30/22 22:54: Glucometer 120H 07/01/22 03:50: Glucometer 130H 07/01/22 04:52: Sodium Level 149H, Potassium Level 5.1H, Chloride Level 116H, Carbon Dioxide Level 22, Anion Gap 11, Blood Urea Nitrogen 60H, Creatinine 3.27H, Estimat Glomerular Filtration Rate 22, BUN/Creatinine Ratio 18, Glucose Level 146H, Uric Acid 9.4H, Calcium Level 8.3L, Corrected Calcium 9.7, Phosphorus Level 6.3H, Magnesium Level 2.3, Total Bilirubin 0.3, Aspartate Amino Transf (AST/SGOT) 61H, Alanine Aminotransferase (ALT/SGPT) 44, Alkaline Phosphatase 153H, Total Protein 5.9L, Albumin 2.3L, Amylase Level 125, Lipase 264H 07/01/22 05:10: White Blood Count 9.8, Red Blood Count 2.38L, Hemoglobin 6.7*L, Hematocrit 22L, Mean Corpuscular Volume 90, Mean Corpuscular Hemoglobin 28, Mean Corpuscular Hemoglobin Concent 31L, Red Cell Distribution Width 15.9H, Platelet Count 37*L, Mean Platelet Volume 11.7, Immature Granulocyte % (Auto) 1, Neutrophils (%) (Auto) 89H, Lymphocytes (%) (Auto) 7L, Monocytes (%) (Auto) 4, Eosinophils (%) (Auto) 0, Basophils (%) (Auto) 0, Neutrophils # (Auto) 8.7H, Lymphocytes # (Auto) 0.7L, Monocytes # (Auto) 0.4, Eosinophils # (Auto) 0.0, Basophils # (Auto) 0.0, Immature Granulocyte # (Auto) 0.1, Percent Immature Platelet Fraction 8.2H 07/01/22 06:21: Blood Gas Puncture Site R RADIAL, Blood Gas Patient Temperature 36.2, Arterial Blood pH 7.34*L, Arterial Blood Partial Pressure CO2 47H, Arterial Blood Partial Pressure O2 80, Arterial Blood HCO3 25, Arterial Blood Total CO2 26.7, Arterial Blood Oxygen Saturation 97, Arterial Blood Base Excess 0.0, Nura Test YES-POS, Blood Gas Ventilator Setting NO, Blood Gas Inspired Oxygen 2 L 07/01/22 07:56: Glucometer 135H Microbiology 06/28/22 MRSA Screen - Final, Complete MRSA not isolated 06/28/22 Blood Culture - Preliminary, Resulted Enterococcus faecalis Corynebacterium striatum See Comments Culture In Progress 06/28/22 Urine Culture - Final, Complete NO GROWTH Assessment/Plan Assessment/Plan Assessment/Plan chronic pancreatitis Anemia- Hgb dropped from 8.1 to 6.7, pt to receive a unit of blood today Thrombocytopenia Pleural effusion Hypothermia - resolved hypernatremia Hyperkalemia Elevated creatinine, CKD- worsening Leukocytosis- improving PNA CXR today showing no drastic changes from yesterday,continue to follow pleural effusion. lipase remains elevated, continue IVF and pain control, NPO Continue to monitor Hgb, monitor for signs of bleeding SCDs for DCT prophylaxis IV protonix for ulcer prophylaxis Continue IV Abx therapy Clinical Quality Measures DVT/VTE Risk/Contraindication: Contraindications-Pharm: Other *list below* Other: low plts AZRA FRAIRE Jul 01, 2022 08:34
--- NOTE | 2022-07-01 08:43 | Progress Note ---
Subjective Subjective/Events-last exam Pt in bed, in no acute distress. Denied concerns or pain. Able to state last name. Focused Exam Lactate Level 06/28/22 13:20: Lactic Acid Level 0.96 Objective Exam Last Set of Vital Signs Vital Signs Date Time Temp Pulse Resp B/P (MAP) Pulse Ox O2 Delivery O2 Flow Rate FiO2 07/01/22 08:07 94 Nasal Cannula 2.00 07/01/22 08:00 40 34 98/56 (70) 07/01/22 07:47 35.7 06/28/22 19:40 21 Capillary Refill : Less Than 3 Seconds I&O Intake and Output 07/01/22 00:00 Intake Total 600 ml Output Total 795 ml Balance -195 ml Intake Oral 0 ml IV Total 600 ml Output Urine Total 795 ml General: Alert, No Acute Distress Heart: Other (bradycardia) Abdomen: Normal Bowel Sounds, Soft Neuro: Other (speech difficult to understand, oriented to self only) Psych/Mental Status: Other (appears mildly irritable) Results/Procedures Lab Laboratory Tests 06/30/22 08:54: Glucometer 77 06/30/22 09:48: Glucometer 82 06/30/22 10:54: Glucometer 98 06/30/22 12:05: Lab Scanned Report Transfusion Reaction Form 06/30/22 12:08: Glucometer 105 06/30/22 13:17: Glucometer 106 06/30/22 14:00: Glucometer 121H 06/30/22 14:59: Glucometer 116H 06/30/22 15:46: Glucometer 121H 06/30/22 17:00: Glucometer 120H 06/30/22 19:16: Glucometer 126H 06/30/22 21:17: Glucometer 116H 06/30/22 22:54: Glucometer 120H 07/01/22 03:50: Glucometer 130H 07/01/22 04:52: Sodium Level 149H, Potassium Level 5.1H, Chloride Level 116H, Carbon Dioxide Level 22, Anion Gap 11, Blood Urea Nitrogen 60H, Creatinine 3.27H, Estimat Glomerular Filtration Rate 22, BUN/Creatinine Ratio 18, Glucose Level 146H, Uric Acid 9.4H, Calcium Level 8.3L, Corrected Calcium 9.7, Phosphorus Level 6.3H, Magnesium Level 2.3, Total Bilirubin 0.3, Aspartate Amino Transf (AST/SGOT) 61H, Alanine Aminotransferase (ALT/SGPT) 44, Alkaline Phosphatase 153H, Total Protein 5.9L, Albumin 2.3L, Amylase Level 125, Lipase 264H 07/01/22 05:10: White Blood Count 9.8, Red Blood Count 2.38L, Hemoglobin 6.7*L, Hematocrit 22L, Mean Corpuscular Volume 90, Mean Corpuscular Hemoglobin 28, Mean Corpuscular Hemoglobin Concent 31L, Red Cell Distribution Width 15.9H, Platelet Count 37*L, Mean Platelet Volume 11.7, Immature Granulocyte % (Auto) 1, Neutrophils (%) (Auto) 89H, Lymphocytes (%) (Auto) 7L, Monocytes (%) (Auto) 4, Eosinophils (%) (Auto) 0, Basophils (%) (Auto) 0, Neutrophils # (Auto) 8.7H, Lymphocytes # (Auto) 0.7L, Monocytes # (Auto) 0.4, Eosinophils # (Auto) 0.0, Basophils # (Auto) 0.0, Immature Granulocyte # (Auto) 0.1, Percent Immature Platelet Fraction 8.2H 07/01/22 06:21: Blood Gas Puncture Site R RADIAL, Blood Gas Patient Temperature 36.2, Arterial Blood pH 7.34*L, Arterial Blood Partial Pressure CO2 47H, Arterial Blood Partial Pressure O2 80, Arterial Blood HCO3 25, Arterial Blood Total CO2 26.7, Arterial Blood Oxygen Saturation 97, Arterial Blood Base Excess 0.0, Nura Test YES-POS, Blood Gas Ventilator Setting NO, Blood Gas Inspired Oxygen 2 L 07/01/22 07:56: Glucometer 135H Microbiology 06/28/22 MRSA Screen - Final, Complete MRSA not isolated 06/28/22 Blood Culture - Preliminary, Resulted Enterococcus faecalis Corynebacterium striatum See Comments Culture In Progress 06/28/22 Urine Culture - Final, Complete NO GROWTH Radiology [facility] [place], [place] NAME: NEHEMIAH RAMIREZ [facility] REC#: [id number] PT STATUS: ADM IN : 1970 PHYSICIAN: ESTHER MERCADO MD ADMIT DATE: 06/28/22/ICU Signed Date of Exam:06/29/22 CT ABDOMEN/PELVIS WO CT ABDOMEN/PELVIS WO TECHNIQUE: Unenhanced CT imaging of the abdomen and pelvis was performed. 2-D reformats are created and submitted for interpretation. Automatic exposure controls were utilized to optimize patient dose. INDICATION: Pancreatitis COMPARISON: 06/19/2022 FINDINGS: Lower chest: Unchanged small to moderate bilateral pleural effusions. Peribronchial thickening in the right lower lobe has worsened but could be accentuated due to respiratory motion artifact. Peritoneum: No free intraperitoneal air or fluid. Liver and biliary system: Unenhanced liver is normal. The gallbladder is normal. No biliary duct dilation. Spleen and Pancreas: Spleen is normal. Unenhanced pancreas is grossly normal. Adrenals: Normal. tract: No renal or ureteral calculi. No obstructive uropathy. Urinary bladder is partially distended with air from the indwelling Lopez catheter. No wall thickening. GI tract: Stomach is decompressed. No bowel obstruction. There is a loop of small bowel in a right lower quadrant indirect inguinal hernia. No pericolonic inflammatory changes. Normal appendix. Vasculature and Lymph nodes: Normal caliber aorta. No abdominal or pelvic lymphadenopathy. Musculoskeletal: Severe osteoarthritis of the right hip. IMPRESSION: 1. No CT changes of acute pancreatitis. No peripancreatic fluid collection. 2. Unchanged small to moderate bilateral pleural effusions. 3. Indirect right inguinal hernia contains a loop of small bowel. There is no bowel obstruction or features of strangulation. Dictated by: Dictated on workstation # [id number] Dict: 06/29/22 1359 Trans: 06/29/22 1437 [facility] [id number] Interpreted by: PENG PATRICIA MD Electronically signed by: PENG PATRICIA MD 06/29/22 1437 Assessment/Plan Assessment/Plan (1) Sepsis Status: Acute Assessment & Plan: Blood culture with enterococcus and corynebacterium, sensitivities pending, on daptomycin and cefepime. (2) Acute renal failure Status: Acute Assessment & Plan: Persistently decreasing creatinine, potassium mildly elevated. Nephrology consulted, appreciate recommendations. Thought to have some intravascular volume depletion, receiving some IVF with caution given imaging findings consistent with possible pulmonary edema (has received a couple of doses of diuretic since admit) (3) AMS (altered mental status) Status: Acute Assessment & Plan: Not eating and drinking prior to admit, more somnolent. CT head on admit without acute changes. (4) Thrombocytopenia Status: Acute Assessment & Plan: Uncertain etiology, heparin induced platelet antibody neg. (5) Developmental delay Status: Chronic Assessment & Plan: Lives in prison, mother makes decisions when he is unable. (6) Anemia Status: Chronic Assessment & Plan: Hgb in the 10s since 2019, had scopes in 2021 without clear source, has underlying CKD as well. Now below 7 more than once this admit. Receiving 1 unit PRBC this am for hgb 6.7. (7) Bradycardia Status: Acute Assessment & Plan: Severe bradycardia this am, Cardiology already following, appreciate recommendations. Consider pacemaker, depending on goals of care. Trial of dobutamine to see if improving bradycardia helps with renal function due to improved circulating volume. (8) Respiratory insufficiency Status: Acute Assessment & Plan: Requiring 2 lpm supplemental oxygen. CXR with concern for pleural effusion and pulmonary edema. US with only small left effusion in spite of near white out on CXR. Holding diuretic due to renal dysfunction. (9) Pulmonary edema Status: Acute Assessment & Plan: 2D echo was done in June 2022 with normal LV function, ejection fraction 50 to 55%, mild aortic valve stenosis. Not clearly heart related. Did receive a couple of doses of diuretic this admission without improvement in imaging. Remains on small amount of supplemental oxygen support. Qualifiers: Qualified Codes: J81.0 - Acute pulmonary edema (10) Hypotension Status: Acute Assessment & Plan: Requiring pressors for a time, currently off. On hydrocort isone. (11) Stage 3b chronic kidney disease Status: Chronic (12) Hypoglycemia Status: Acute Assessment & Plan: On admit, EMS treated at scene, due to poor intake with AMS. (13) Elevated d-dimer Status: Acute Assessment & Plan: Bilateral lower extremity venous dopplers negative. Cannot obtain CTA due to renal function, cannot tolerate full anticoagulation due to marked anemia and thrombocytopenia. (14) Pancreatitis Status: Acute Assessment & Plan: Recently discharged after episode of pancreatitis, had improved lipase and was tolerating PO, discharged 06/23. Lipase this admit increased from d/c. CTAP no evidence of acute pancreatitis on imaging. Surgery consulted, appreciate recommendations. Supportive care with IVF, challenging due to pulmonary edema. Qualifiers: (15) Mild intermittent asthma Status: Chronic (16) Hypercholesteremia Status: Chronic (17) Diabetes mellitus Status: Chronic (18) Incontinence of feces Status: Chronic (19) Urinary incontinence Status: Chronic (20) Disruptive mood dysregulation disorder Status: Chronic (21) Goals of care, counseling/discussion Status: Acute Assessment & Plan: Discussed current condition including severe bradycardia and worsening renal function with patient's mother Perla. She states she feels sure he will not survive this illness, and that he would not want prolonged aggressive efforts, and would not want transferred for or to have pacemaker placed. She states with his previous medical history, they have known this will happen eventually and they want him to be able to go peacefully. She would like to reach out to other family who will want to visit prior to changing goals to comfort, but does plan to do so later today after updating family. Clinical Quality Measures DVT/VTE Risk/Contraindication: Contraindications-Pharm: Other *list below* Other: low plts MARV RAMOS MD Jul 01, 2022 08:43
--- NOTE | 2022-07-01 08:44 | Diagnostic Imaging Report ---
INDICATION: Congestive heart failure, pneumonia. COMPARISON: 06/30/2022 TECHNIQUE: Single radiograph of the chest dated 07/01/2022 FINDINGS: The cardiac silhouette and pulmonary vasculature are predominantly obscured. Near-complete opacification of the left hemithorax is noted, minimally improved since the prior examination. There is minimal aerated lung is noted within the left upper lung. Extensive mixed interstitial and airspace opacities are again seen in right lung with associated small right pleural effusion. No pneumothorax. No acute osseous abnormality. IMPRESSION: Very minimal improvement of the nearly completely opacified left hemithorax. This likely relates to a combination of pleural fluid with associated adjacent infiltrate and/or atelectasis. Extensive infiltrate versus edema throughout the right lung is again noted with associated right pleural effusion. Dictated by: Dictated on workstation # [id number]
[2022-07-01] MEDS ORDERED: DOBUTamine DRIP 250 ML IV SCH (09:30)
[2022-07-01] MEDS: NS IV 1000 ML 1,000 ML IV SCH (11:07)
--- NOTE | 2022-07-01 11:27 | Tele-ICU Progress Note ---
Subjective Date Seen by a Provider: Jul 01, 2022 Time Seen by a Provider: 11:26 Subjective/Events-last exam (Tele-ICU Physician , Progress Note ) Service provided via interactive audio and video telecommunications E-CARE system to a patient admitted to ICU bed in [facility]. Patient is seen today due to persistent need of ICU care Available chart/ vitals / labs / Images reviewed Video assessment done using teleICU camera, rest of exam as per RN Discussed with RN Events overnight : Afebrile hemodynamically stable Respiratory - 2l I/O = Drips: ns 60, D10w Pressors- off dobs Hospital course: (06/28) 51M Admitted for AMS, CHF, ARF, hypoglycemia, anemia/thrombocytopenia. (06/29) Renals worsening. Hyperkalemia. Persistent Hypoglycemia. Hypernatremia. More CHF then PNA. Hypotensive-pressor started. PRBC ordered. Venous dopplers NEG. A/P Recurrent pancreatitis, chronic pancreatitis, elevation in amylase and lipase -npo , pain control Severe bradycardia, sinus node dysfunction - dopb gtt as per cards -consideration for a pacemaker - as per cards Sepsis - stress dose steroid , sc 50- q 8 Receiving IV hydration and antibiotics. Bacteremia . Enterococcus fecalis and corinebact on 06/28 - cont abx - repeat blood cx pancytopenia. Worsening H&H, platelet count. - no clear sign of bleeding = will repeat fibrinigen Hypotension, secondary to sepsis. - suspect sepsis , follow closely Hb too -2D echo was done in June 2022 with normal LV function, ejection fraction 50 to 55%, mild aortic valve stenosis CLAUDETTE, WORSENING with elevated K level - as per renal - follow K Mental retardation - at baseline Anemia - s/p 1 u PRBC , and 1 uPRBC today Nutrition - monitor NPO now Lines : periph , (Central Line Necessity Reviewed) Lopez: + OG: Nutrition: Analgesia: Anxiety/ delirium VTE Prophylaxis: scd Stress Ulcer Prophylaxis: Plans in collaboration with bedside consultants and IM MDs. Discussed with RN to reach out if any questions or concerns Case and care daily discussed on multidisciplinary rounds ( RN, PharmD, Data Integrity Consultant , Respiratory Therapy, chamber worker ) A total of 33 minutes of critical care time was devoted to this patient today, required to treat and/or prevent further deterioration of critical care condition ( as above ) . I am remotely monitoring this patient from another state. I am unable to do the bedside exam, and history/physical and pertinent information is taken from other notes in the computer and bedside staff. Sepsis Event Evaluation Height, Weight, BMI Height: '" Weight: lbs. oz. kg; 26.51 BMI Method: Focused Exam Lactate Level 06/28/22 13:20: Lactic Acid Level 0.96 Exam Exam Patient acknowledged, consented, and participated in this virtual visit which was conducted using real time audio/video Vital Signs Date Time Temp Pulse Resp B/P (MAP) Pulse Ox O2 Delivery O2 Flow Rate FiO2 07/01/22 10:00 75 26 108/82 (91) 93 Nasal Cannula 2.00 07/01/22 09:44 37 125/92 07/01/22 09:00 62 26 125/92 (103) 90 Nasal Cannula 2.00 07/01/22 08:07 94 Nasal Cannula 2.00 07/01/22 08:00 40 34 98/56 (70) 95 Nasal Cannula 2.00 07/01/22 07:47 35.7 07/01/22 07:15 37 07/01/22 07:00 37 14 124/101 (109) 88 Nasal Cannula 2.00 07/01/22 06:00 42 16 121/101 (108) 95 Nasal Cannula 2.00 07/01/22 05:03 38 23 144/84 (104) 94 Nasal Cannula 2.00 07/01/22 04:00 Nasal Cannula 2.00 07/01/22 04:00 42 29 111/69 (83) 96 Nasal Cannula 2.00 07/01/22 04:00 36.0 42 20 111/69 (83) 96 Nasal Cannula 2.00 07/01/22 03:00 38 16 119/74 (99) 95 Nasal Cannula 2.00 07/01/22 03:00 44 19 119/74 (89) Nasal Cannula 2.00 07/01/22 02:00 41 20 122/71 (87) 94 Nasal Cannula 2.00 07/01/22 01:03 45 24 132/79 (99) 94 07/01/22 01:00 38 13 132/79 (96) 95 Nasal Cannula 2.00 07/01/22 01:00 237/189 (220) 07/01/22 01:00 45 07/01/22 00:00 45 25 103/76 (85) 94 Nasal Cannula 2.00 07/01/22 00:00 36.0 07/01/22 00:00 Nasal Cannula 2.00 06/30/22 23:00 41 14 133/75 (94) 98 Nasal Cannula 2.00 06/30/22 22:00 34 20 105/80 (88) 97 Nasal Cannula 2.00 06/30/22 21:00 43 20 117/103 (108) 96 06/30/22 21:00 44 117/103 (108) 90 Nasal Cannula 2.00 06/30/22 20:00 35 128/74 (92) 97 Nasal Cannula 2.00 06/30/22 20:00 35.7 41 18 128/74 (92) 96 Nasal Cannula 2.00 06/30/22 19:55 114/75 (88) 06/30/22 19:50 Nasal Cannula 2.00 06/30/22 19:44 43 122/99 (107) 97 Nasal Cannula 2.00 06/30/22 19:43 35.3 06/30/22 19:00 42 06/30/22 19:00 41 26 Nasal Cannula 2.00 06/30/22 18:00 62 110/71 (84) 92 Nasal Cannula 2.00 06/30/22 17:00 57 131/75 (93) 98 Nasal Cannula 2.00 06/30/22 16:00 60 22 () 98 Nasal Cannula 2.00 06/30/22 16:00 36.0 06/30/22 16:00 133/90 06/30/22 15:53 90 Nasal Cannula 2.00 06/30/22 15:51 35.3 06/30/22 15:00 76 17 136/105 (115) 89 Nasal Cannula 2.00 06/30/22 14:00 73 36 117/85 (96) 87 Nasal Cannula 2.00 06/30/22 13:00 57 24 133/83 (100) 87 Nasal Cannula 2.00 06/30/22 13:00 70 06/30/22 12:09 35.6 06/30/22 12:00 56 24 119/92 (101) 87 Nasal Cannula 2.00 06/30/22 12:00 90 Nasal Cannula 2.00 I & O 07/01/22 07:00 Intake Total 350 ml Output Total 745 ml Balance -395 ml Height & Weight Height: '" Weight: lbs. oz. kg; 26.51 BMI Method: General Appearance: No Apparent Distress, Chronically ill HEENT: Moist Mucous Membranes; No Scleral Icterus (L), No Scleral Icterus (R) Neck: Full Range of Motion; No Lymphadenopathy (L), No Lymphadenopathy (R) Respiratory: No Accessory Muscle Use, No Respiratory Distress, Decreased Breath Sounds (left base), Rhonci (diffusely) Cardiovascular: Regular Rate, Rhythm, No Murmur Capillary Refill: Less Than 3 Seconds Peripheral Pulses: 2+ Dorsalis Pedis (R), 2+ Left Dors-Pedis (L), 2+ Radial Pulses (R), 2+ Radial Pulses (L) Gastrointestinal: soft, no organomegaly; No distended Extremity: No Pedal Edema; No Inflammation Neurologic/Psychiatric: Alert, Other (Hx intellectual delays with increased agitation from his reported previous baseline) Skin: Normal Color, Warm/Dry Results Lab Laboratory Tests 06/29/22 11:56 06/29/22 17:53 06/30/22 03:54 07/01/22 04:52 07/01/22 05:10 Assessment/Plan Assessment/Plan 1 EVON PERKINS MD Jul 01, 2022 11:27
[2022-07-01 11:36] VITALS: BP 88/79
[2022-07-01 11:51] VITALS: BP 139/66
--- NOTE | 2022-07-01 12:58 | Diagnostic Imaging Report ---
PROCEDURE: US Gallbladder. TECHNIQUE: Multiple real-time grayscale images were obtained over the right upper quadrant in various projections. INDICATION: Pancreatitis. COMPARISON: CT dated 06/29/2022 FINDINGS: Limited sonographic evaluation of the gallbladder and common bile duct was performed. Gallbladder is visualized. There is no cholelithiasis, gallbladder wall thickening, nor pericholecystic free fluid. Common bile duct is within normal limits and measures 3 mm in diameter. IMPRESSION: 1. Unremarkable limited sonographic appearance to the gallbladder and common bile duct. Dictated by: Dictated on workstation # [id number]
[2022-07-01 14:17] VITALS: BP 146/62
[2022-07-01] MEDS: NOREPINEPHRINE 8 MG/250 ML 250 ML IV SCH (14:19)
[2022-07-01] MEDS ORDERED: ACETAMINOPHEN 650 MG SUPP (TYLENOL) PR PRN (18:15)
[2022-07-01] MEDS ORDERED: ONDANSETRON 4 MG/2 ML (SDV) Z0FRAN IVP PRN (18:15)
[2022-07-01] MEDS ORDERED: LORazepam 1 MG (ATIVAN) TAB SL PRN (18:15)
[2022-07-01] MEDS ORDERED: PROMETHAZINE INJ 25 MG/ML (PHENERGAN) AMP IVP PRN (18:15)
[2022-07-01] MEDS ORDERED: SALIVA SUBSTITUTE 60 ML SPRAY(MOUTHKOTE) MM PRN (18:15)
[2022-07-01] MEDS ORDERED: RT-ALBUTEROL/IPRATROPIUM 3 ML (DUONEB) VIAL INH PRN (18:15)
[2022-07-01] MEDS ORDERED: ARTIFICAL TEARS 0.4 ML UNIT DOSE (REFRESH PLUS) OU PRN (18:15)
[2022-07-01] MEDS ORDERED: BISACODYL 10 MG SUPP (DULCOLAX) PR PRN (18:15)
[2022-07-01] MEDS: LORazepam INJ 2 MG/ML (ATIVAN) VIAL IVP PRN ×2 (18:27→21:37)
[2022-07-01 19:20] VITALS: BP 120/69
[2022-07-01] MEDS: morphine INJ 4 MG/ML 1 ML (VIAL/SYRINGE) IV PRN (21:37)
[2022-07-02] MEDS: LORazepam INJ 2 MG/ML (ATIVAN) VIAL IVP PRN ×5 (01:16→17:05)
[2022-07-02] MEDS: GLYCOPYRROLATE 0.2 MG/ML (ROBINUL) 2 ML VIAL IV PRN ×4 (01:16→23:36)
[2022-07-02] MEDS: morphine INJ 4 MG/ML 1 ML (VIAL/SYRINGE) IV PRN ×6 (01:17→23:38)
[2022-07-02] MEDS ORDERED: DIGOXIN 0.25 MG/ML (LANOXIN) 2 ML AMP IV NR (08:00)
--- NOTE | 2022-07-02 08:17 | Progress Note - Surgery ---
Subjective Date Seen by a Provider: Jul 02, 2022 Time Seen by a Provider: 08:00 Subjective/Events-last exam Pt sleeping in bed encounter and failed to wake up to both verbal commands and light touch. Unsure if this is do to worsening decline or pts intellectual capabilities. Audible crackles are heard on both inspiration and expiration upon entering the room. Per Dr. Godinez, pt was converted to comfort care today with main goals of keeping the pt comfortable. Lopez in place. Review of Systems unable to obtain due to pts intellectual disability, see HPI Objective Exam Vital Signs Date Time Temp Pulse Resp B/P (MAP) Pulse Ox O2 Delivery O2 Flow Rate FiO2 07/01/22 19:20 36.7 94 20 120/69 (86) 100 Room Air 07/01/22 19:18 Nasal Cannula 2.00 07/01/22 17:19 90 Nasal Cannula 2.00 94 07/01/22 15:03 36.3 07/01/22 15:00 47 17 109/62 (78) 90 Nasal Cannula 2.00 07/01/22 14:17 35.7 54 16 146/62 90 Nasal Cannula 3.00 07/01/22 14:00 52 23 146/62 (90) 90 Nasal Cannula 2.00 07/01/22 13:00 47 20 107/71 (83) 90 Nasal Cannula 2.00 07/01/22 12:41 48 07/01/22 12:00 49 19 70/54 (59) 90 Nasal Cannula 2.00 07/01/22 11:57 35.6 07/01/22 11:51 35.8 51 17 139/66 90 Nasal Cannula 2.00 07/01/22 11:39 90 Nasal Cannula 2.00 07/01/22 11:36 36.5 42 14 88/79 90 Nasal Cannula 2.00 07/01/22 11:00 59 17 139/66 (90) 90 Nasal Cannula 2.00 07/01/22 10:00 75 26 108/82 (91) 93 Nasal Cannula 2.00 07/01/22 09:44 37 125/92 07/01/22 09:00 62 26 125/92 (103) 90 Nasal Cannula 2.00 I & O 07/02/22 07:00 Intake Total 1000 ml Output Total 785 ml Balance 215 ml Capillary Refill : Less Than 3 Seconds General Appearance: No Apparent Distress, Chronically ill HEENT: Other (dry mucus membranes ) Neck: No Lymphadenopathy (L), No Lymphadenopathy (R) Respiratory: No Accessory Muscle Use, Crackles (on inspiration and expiration ), Decreased Breath Sounds (left base), Rhonci (diffusely) Cardiovascular: Regular Rate, Rhythm, No Murmur Peripheral Pulses: 2+ Dorsalis Pedis (R), 2+ Left Dors-Pedis (L), 2+ Radial Pulses (R), 2+ Radial Pulses (L) Gastrointestinal: soft, no organomegaly; No distended Extremity: No Pedal Edema; No Inflammation Neurologic/Psychiatric: No Alert; Other (unable to arouse from sleep) Skin: Normal Color, Warm/Dry Results Lab Laboratory Tests 07/01/22 11:56: Glucometer 172H 07/01/22 15:15: Glucometer 153H Microbiology 06/28/22 MRSA Screen - Final, Complete MRSA not isolated 06/28/22 Blood Culture - Preliminary, Resulted Enterococcus faecium Corynebacterium striatum See Comments Susceptibility To Follow 06/28/22 Urine Culture - Final, Complete NO GROWTH Assessment/Plan Assessment/Plan Assessment/Plan chronic pancreatitis Anemia- Thrombocytopenia Pleural effusion Hypothermia - resolved hypernatremia Hyperkalemia Elevated creatinine, CKD- worsening Leukocytosis- worsening PNA CXR today shows minor improvement since yesterday,continue to follow pleural effusion. advance diet as tolerated continue IVF and pain control Continue to monitor Hgb, monitor for signs of bleeding SCDs for DCT prophylaxis IV protonix for ulcer prophylaxis Pt converted to comfort care today, no surgical indication at this time Clinical Quality Measures DVT/VTE Risk/Contraindication: Contraindications-Pharm: Other *list below* Other: low plts AZRA FRAIRE Jul 02, 2022 08:17
--- NOTE | 2022-07-02 11:28 | Progress Note ---
Subjective Subjective/Events-last exam After discussion with mother and family visit, goals of care changed to comfort yesterday afternoon. This morning he is alert but does not answer questions. Does not appear uncomfortable. Objective Exam Last Set of Vital Signs Vital Signs Date Time Temp Pulse Resp B/P (MAP) Pulse Ox O2 Delivery O2 Flow Rate FiO2 07/01/22 19:20 36.7 94 20 120/69 (86) 100 Room Air 07/01/22 19:18 2.00 07/01/22 17:19 94 Capillary Refill : Less Than 3 Seconds I&O Intake and Output 07/02/22 00:00 Intake Total 1050 ml Output Total 635 ml Balance 415 ml Intake Oral 0 ml IV Total 1050 ml Output Urine Total 635 ml General: Alert Psych/Mental Status: Other (awake and alert, does not answer questions) Results/Procedures Lab Laboratory Tests 07/01/22 11:56: Glucometer 172H 07/01/22 15:15: Glucometer 153H Microbiology 06/28/22 MRSA Screen - Final, Complete MRSA not isolated 06/28/22 Blood Culture - Final, Complete Enterococcus faecium Corynebacterium striatum See Comments 06/28/22 Urine Culture - Final, Complete NO GROWTH Radiology [facility] [place], [place] NAME: JAMESNEHEMIAH [facility] REC#: [id number] PT STATUS: ADM IN : 1970 PHYSICIAN: ESTHER MERCADO MD ADMIT DATE: 06/28/22/ICU Signed Date of Exam:06/29/22 CT ABDOMEN/PELVIS WO CT ABDOMEN/PELVIS WO TECHNIQUE: Unenhanced CT imaging of the abdomen and pelvis was performed. 2-D reformats are created and submitted for interpretation. Automatic exposure controls were utilized to optimize patient dose. INDICATION: Pancreatitis COMPARISON: 06/19/2022 FINDINGS: Lower chest: Unchanged small to moderate bilateral pleural effusions. Peribronchial thickening in the right lower lobe has worsened but could be accentuated due to respiratory motion artifact. Peritoneum: No free intraperitoneal air or fluid. Liver and biliary system: Unenhanced liver is normal. The gallbladder is normal. No biliary duct dilation. Spleen and Pancreas: Spleen is normal. Unenhanced pancreas is grossly normal. Adrenals: Normal. tract: No renal or ureteral calculi. No obstructive uropathy. Urinary bladder is partially distended with air from the indwelling Lopez catheter. No wall thickening. GI tract: Stomach is decompressed. No bowel obstruction. There is a loop of small bowel in a right lower quadrant indirect inguinal hernia. No pericolonic inflammatory changes. Normal appendix. Vasculature and Lymph nodes: Normal caliber aorta. No abdominal or pelvic lymphadenopathy. Musculoskeletal: Severe osteoarthritis of the right hip. IMPRESSION: 1. No CT changes of acute pancreatitis. No peripancreatic fluid collection. 2. Unchanged small to moderate bilateral pleural effusions. 3. Indirect right inguinal hernia contains a loop of small bowel. There is no bowel obstruction or features of strangulation. Dictated by: Dictated on workstation # [id number] Dict: 06/29/22 1359 Trans: 06/29/22 1437 [facility] [id number] Interpreted by: PENG PATRICIA MD Electronically signed by: PENG PATRICIA MD 06/29/22 [id number] Assessment/Plan Assessment/Plan (1) Sepsis Status: Acute Assessment & Plan: Blood culture with enterococcus and corynebacterium, sensitivities pending, on daptomycin and cefepime. 07/02- VRE noted. Comfort care started yesterday and antibiotics d/c. (2) Acute renal failure Status: Acute Assessment & Plan: Persistently decreasing creatinine, potassium mildly elevated. Nephrology consulted, appreciate recommendations. Thought to have some intravascular volume depletion, receiving some IVF with caution given imaging findings consistent with possible pulmonary edema (has received a couple of doses of diuretic since admit) 07/02- comfort care initiated yesterday, no new data at this time (3) AMS (altered mental status) Status: Acute Assessment & Plan: Not eating and drinking prior to admit, more somnolent. CT h ead on admit without acute changes. (4) Thrombocytopenia Status: Acute Assessment & Plan: Uncertain etiology, heparin induced platelet antibody neg. (5) Developmental delay Status: Chronic Assessment & Plan: Lives in halfway, mother makes decisions when he is unable. (6) Anemia Status: Chronic Assessment & Plan: 07/01- Hgb in the 10s since 2018, had scopes in 2021 without clear source, has underlying CKD as well. Now below 7 more than once this admit. Receiving 1 unit PRBC this am for hgb 6.7. 07/02- no longer following labs as goals changed to comfort care (7) Bradycardia Status: Acute Assessment & Plan: 07/01- Severe bradycardia this am, Cardiology already following, appreciate recommendations. Consider pacemaker, depending on goals of care. Trial of dobutamine to see if improving bradycardia helps with renal function due to improved circulating volume. 07/02 goals changed to comfort yesterday afternoon, no longer monitoring (8) Respiratory insufficiency Status: Acute Assessment & Plan: 07/01- Requiring 2 lpm supplemental oxygen. CXR with concern for pleural effusion and pulmonary edema. US with only small left effusion in spite of near white out on CXR. Holding diuretic due to renal dysfunction. (9) Pulmonary edema Status: Acute Assessment & Plan: 2D echo was done in June 2022 with normal LV function, ejection fraction 50 to 55%, mild aortic valve stenosis. Not clearly heart related. Did receive a couple of doses of diuretic this admission without improvement in imaging. Remains on small amount of supplemental oxygen support. Qualifiers: Qualified Codes: J81.0 - Acute pulmonary edema (10) Hypotension Status: Acute Assessment & Plan: Requiring pressors for a time, currently off. On hydrocortisone. 07/02- on comfort care, no longer following (11) Stage 3b chronic kidney disease Status: Chronic (12) Hypoglycemia Status: Acute Assessment & Plan: On admit, EMS treated at scene, due to poor intake with AMS. (13) Elevated d-dimer Status: Acute Assessment & Plan: Bilateral lower extremity venous dopplers negative. Cannot obtain CTA due to renal function, cannot tolerate full anticoagulation due to marked anemia and thrombocytopenia. (14) Pancreatitis Status: Acute Assessment & Plan: Recently discharged after episode of pancreatitis, had improved lipase and was tolerating PO, discharged 06/23. Lipase this admit increased from d/c. CTAP no evidence of acute pancreatitis on imaging. Surgery consulted, appreciate recommendations. Supportive care with IVF, challenging due to pulmonary edema. Qualifiers: (15) Mild intermittent asthma Status: Chronic (16) Hypercholesteremia Status: Chronic (17) Diabetes mellitus Status: Chronic (18) Incontinence of feces Status: Chronic (19) Urinary incontinence Status: Chronic (20) Disruptive mood dysregulation disorder Status: Chronic (21) Goals of care, counseling/discussion Status: Acute Assessment & Plan: Discussed current condition including severe bradycardia and worsening renal function with patient's mother Perla. She states she feels sure he will not survive this illness, and that he would not want prolonged aggressive efforts, and would not want transferred for or to have pacemaker placed. She states with his previous medical history, they have known this will happen eventually and they want him to be able to go peacefully. She would like to reach out to other family who will want to visit prior to changing goals to comfort, but does plan to do so later today after updating family. 07/02- family able to visit yesterday afternoon and comfort care orders initiated at that time. Clinical Quality Measures DVT/VTE Risk/Contraindication: Contraindications-Pharm: Other *list below* Other: low plts MARV RAMOS MD Jul 02, 2022 11:28
[2022-07-03] MEDS: morphine INJ 4 MG/ML 1 ML (VIAL/SYRINGE) IV PRN (03:25)
[2022-07-03] MEDS: GLYCOPYRROLATE 0.2 MG/ML (ROBINUL) 2 ML VIAL IV PRN (04:22)
[2022-07-03] MEDS: LORazepam INJ 2 MG/ML (ATIVAN) VIAL IVP PRN ×2 (04:22→08:20)
--- NOTE | 2022-07-03 12:02 | Discharge Summary ---
Discharge Summary Date of Admission Jun 28, 2022 at 18:50 Date of Discharge Jul 03, 2022 Discharge Date: Jul 03, 2022 Admission Diagnosis Sepsis from PNA Anemia requiring repeated transfusions since 01/2022 Thrombocytopenia Acute exacerbation of CHF CLAUDETTE on CKD Hypothermia Left pleural effusion Acute on recurrent pancreatitis Developmental delay Mental illness Seizure d/o DM Comfort Measures/ End of Life Care: Comfort Measures Date of : Jul 03, 2022 51 yo male admitted from alf with altered mental status, poor intake, hypoglycemia and found to have sepsis with pneumonia, acute renal failure and severe thrombocytopenia. Thought to possibly have CHF exacerbation, however echo was unremarkable. Cardiology followed throughout. See problem list for details. Renal function continued to worsen and he became severely bradycardic, transfer for procedure recommended by Cardiology if aggressive goals considered, but family did not feel he would want aggressive care. Further details in problem list below. Discharge Diagnosis (1) Sepsis Status: Acute Assessment & Plan: Blood culture with enterococcus and corynebacterium, treated with daptomycin and cefepime. (2) Acute renal failure Status: Acute Assessment & Plan: Persistently decreasing creatinine, potassium mildly elevated. Nephrology consulted. Thought to have some intravascular volume depletion, received IVF with caution given imaging findings consistent with possible pulmonary edema (received a couple of doses of diuretic) (3) AMS (altered mental status) Status: Acute Assessment & Plan: Not eating and drinking prior to admit, more somnolent. CT head on admit without acute changes. (4) Thrombocytopenia Status: Acute Assessment & Plan: Uncertain etiology, heparin induced platelet antibody neg. (5) Developmental delay Status: Chronic Assessment & Plan: Lived in alf, mother makes decisions when needed.. (6) Anemia Status: Chronic Assessment & Plan: 07/01- Hgb in the 10s since 2018, had scopes in 2021 without clear source, has underlying CKD as well. Now below 7 more than once this admit. Receiving 1 unit PRBC this am for hgb 6.7. 07/02- no longer following labs as goals changed to comfort care (7) Bradycardia Status: Acute Assessment & Plan: 07/01- Severe bradycardia started, Cardiology already following, Considered pacemaker, but after discussion with mother, goals changed to comfort care. (8) Respiratory insufficiency Status: Acute Assessment & Plan: 07/01- Requiring 2 lpm supplemental oxygen. CXR with concern for pleural effusion and pulmonary edema. US with only small left effusion in spite of near white out on CXR. (9) Pulmonary edema Status: Acute Assessment & Plan: 2D echo was done in June 2022 with normal LV function, ejection fraction 50 to 55%, mild aortic valve stenosis. Not clearly heart related. Did receive a couple of doses of diuretic this admission without improvement in imaging. Qualifiers: Qualified Codes: J81.0 - Acute pulmonary edema (10) Hypotension Status: Acute Assessment & Plan: Requiring pressors for a time, On hydrocortisone until comfort care initiated. 07/02- on comfort care, no longer following (11) Stage 3b chronic kidney disease Status: Chronic (12) Hypoglycemia Status: Acute Assessment & Plan: On admit, EMS treated at scene, due to poor intake with AMS. (13) Elevated d-dimer Status: Acute Assessment & Plan: Bilateral lower extremity venous dopplers negative. Could not obtain CTA due to renal function, could not tolerate full anticoagulation due to marked anemia and thrombocytopenia. (14) Pancreatitis Status: Acute Assessment & Plan: Recently discharged after episode of pancreatitis, had improved lipase and was tolerating PO, discharged 06/23. Lipase this admit increased from d/c. CTAP no evidence of acute pancreatitis on imaging. Surgery consulted, appreciate recommendations. Qualifiers: (15) Mild intermittent asthma Status: Chronic (16) Hypercholesteremia Status: Chronic (17) Diabetes mellitus Status: Chronic (18) Incontinence of feces Status: Chronic (19) Urinary incontinence Status: Chronic (20) Disruptive mood dysregulation disorder Status: Chronic (21) Goals of care, counseling/discussion Status: Acute Assessment & Plan: 07/01- Discussed patients' condition including severe bradycardia and worsening renal function with patient's mother Perla. She felt sure he wouldl not survive this illness, and that he would not want prolonged aggressive efforts, and would not want transferred for or to have pacemaker placed. She stated with his previous medical history, they have known this will happen eventually and they want him to be able to go peacefully. MARV RAMOS MD Jul 03, 2022 12:02
== END 2022-07-03 11:43 | disposition expired | DRG 871 ==
LOC: EDUNIT# 12:28 → ER FS 12:31 → ICU 18:50 → 4TH 07-01 17:02
PROVIDERS: ADMIT Internal Medicine; ATTEND Family Medicine
DX: A41.9 Sepsis, unspecified organism (principal); J18.9 Pneumonia, unspecified organism; K85.90 Acute pancreatitis without necrosis or infection, unspecified; N17.9 Acute kidney failure, unspecified; J90 Pleural effusion, not elsewhere classified; K86.1 Other chronic pancreatitis; F34.81 Disruptive mood dysregulation disorder; D61.818 Other pancytopenia; E87.29 Other acidosis; I13.0 Hypertensive heart and chronic kidney disease with heart failure and stage 1 through stage 4 chronic kidney disease, or unspecified chronic kidney disease; D64.9 Anemia, unspecified; D69.6 Thrombocytopenia, unspecified; T68.XXXA Hypothermia, initial encounter; R62.50 Unspecified lack of expected normal physiological development in childhood; G40.909 Epilepsy, unspecified, not intractable, without status epilepticus; E11.22 Type 2 diabetes mellitus with diabetic chronic kidney disease; Z51.5 Encounter for palliative care; N18.32 Chronic kidney disease, stage 3b; I95.9 Hypotension, unspecified; E11.649 Type 2 diabetes mellitus with hypoglycemia without coma; J45.20 Mild intermittent asthma, uncomplicated; E78.00 Pure hypercholesterolemia, unspecified; R15.9 Full incontinence of feces; R32 Unspecified urinary incontinence; Z66 Do not resuscitate; I49.5 Sick sinus syndrome; F79 Unspecified intellectual disabilities; I50.9 Heart failure, unspecified; K21.9 Gastro-esophageal reflux disease without esophagitis; F41.9 Anxiety disorder, unspecified; F20.9 Schizophrenia, unspecified; F32.A Depression, unspecified; E87.5 Hyperkalemia; Z20.822 Contact with and (suspected) exposure to COVID-19
CPT/HCPCS: 36415; 51702; 70450; 71045; 74176; 76604; 76705; 80048; 80053; 81000; 82150; 82805; 82947; 83605; 83690; 83735; 83880; 84100; 84484; 84550; 85007; 85025; 85027; 85045; 85055; 85379; 85610; 85730; 86022; 86850; 86900; 86901; 86920; 87040; 87077; 87081; 87088; 87430; 87636; 93970